=== PATIENT | male | born 1950 | race Caucasian/White ===

== ENCOUNTER 2020-03-05 13:25 | Outpatient (REF) | payer MEDICARE, SELFPAY ==
--- NOTE | 2020-03-05 13:41 | CT_ITS ---
EXAMINATION: CT CHEST WITHOUT CONTRAST CLINICAL INFORMATION: Pulmonary nodules COMPARISON: Previous chest CT scans most recent October 2018 TECHNIQUE: Multidetector volumetric CT imaging of the chest was done. Axial MIP volume rendering provided. Sagittal and coronal reformatted images were obtained. This CT examination was performed using dose optimization techniques as appropriate, variously including the following: *Automated exposure control *Adjustment of mA and/or kV according to patient size (this includes techniques or standardized protocols for targeted exams where dose is matched to indication/reason for exam; i.e. 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 No new pulmonary nodule is seen. There is a diffuse mild bronchial wall thickening similar to previous exams. There is minimal linear scarring or chronic subsegmental atelectasis in the posterior basal left lower lobe that is unchanged. No evidence of emphysema interstitial lung disease or bronchiectasis is seen. No endobronchial or endotracheal lesion is seen. MEDIASTINUM: There are small mediastinal lymph nodes that are stable. There are no enlarged lymph nodes. The heart does not appear enlarged. There is no coronary artery calcification. There is no pericardial effusion. The thoracic aorta is normal in caliber. Thyroid gland is unremarkable. PLEURA: There is no pleural effusion. No pleural mass or thickening. AXILLA: No lymphadenopathy. UPPER ABDOMEN: Unremarkable. OSSEOUS STRUCTURES: There are degenerative changes of the spine. IMPRESSION: Stable small pulmonary nodules. Mild diffuse bronchial wall thickening similar to previous exams.
== END 2020-03-05 13:26 | disposition home or self-care (01) ==
LOC: HO.CT 13:25
PROVIDERS: Visit Provider Family Medicine
DX: R91.1 Solitary pulmonary nodule (principal)
CPT/HCPCS: 71250

== ENCOUNTER → 2020-03-27 10:39 | Outpatient (BNVA) | payer MEDICARE, SELFPAY | PROVIDERS: PCP Family Medicine; Referring Provider Family Medicine; Visit Provider Internal Medicine | DX: I51.81 Takotsubo syndrome (principal); R06.02 Shortness of breath; R07.2 Precordial pain | CPT/HCPCS: 93005; 99212 ==

== ENCOUNTER 2020-04-24 08:08 | Day surgery (SDC) | payer MEDICARE, SELFPAY ==
--- NOTE | 2020-04-23 09:09 | HO.ANESPROP2 ---
Documented by User: Maddy Karen 04/23/20 13:33 HPI - Anesthesia Eval Consult details Narrative: 69yo M for Upper Endoscopy and Colonoscopy Low risk per cardiology. May proceed without further testing. [facility] Past Medical History Medical History (Updated 04/24/20 @ 09:55 by Steffi Morris) Allergic rhinitis Asthma Chronic low back pain Diabetes Essential hypertension GERD (gastroesophageal reflux disease) Hyperlipidemia Hypothyroidism Other and unspecified hyperlipidemia Polyneuropathy Stress-induced cardiomyopathy Family History Family History (Updated 03/27/20 @ 11:03 by THAD Iniguez) Father No problems noted. Mother No problems noted. Surgical History Surgical History History of back surgery History of sinus surgery Hx of colonoscopy Hx of esophagogastroduodenoscopy Social History Social History (Updated 03/27/20 @ 10:58 by THAD Iniguez) Smoking Status: Never smoker Second Hand Smoke Exposure: No Use of substances other than those prescribed or required for medical reasons: No Advance Directives: No Advance Directives Information Provided: Yes Advance Directives on File: No Meds Allergies Allergy/AdvReac Type Severity Reaction Status Date / Time No Known Allergies Allergy Unverified 02/01/20 19:00 [No Known Allergies*] Home Medications Medication Instructions Recorded Confirmed Type amlodipine 10 mg tablet 10 mg PO DAILY 03/27/20 04/18/20 History aspirin 81 mg tablet,delayed 81 mg PO DAILY 03/27/20 04/18/20 History release atorvastatin 40 mg tablet 40 mg PO DAILY tab 03/27/20 04/18/20 History cetirizine 10 mg tablet 10 mg PO DAILY 03/27/20 04/18/20 History diclofenac sodium 50 mg 50 mg PO BID 03/27/20 04/18/20 History tablet,delayed release ergocalciferol (vitamin D2) 1,250 1,250 mcg PO 03/27/20 03/27/20 History mcg (50,000 unit) capsule ferrous sulfate 325 mg (65 mg 325 mg PO BID 03/27/20 04/18/20 History iron) tablet fluticasone propionate 220 2 puff INHALATION BID 03/27/20 04/18/20 History mcg/actuation HFA aerosol inhaler fluticasone propionate 50 2 spray INTRANASAL DAILY 03/27/20 04/18/20 History mcg/actuation nasal spray,suspension gabapentin 800 mg tablet mg PO TID 03/27/20 03/27/20 History hydroxyzine pamoate 25 mg capsule 25 mg PO Q6H PRN 03/27/20 04/18/20 History levothyroxine 25 mcg tablet 25 mcg PO DAILY 03/27/20 04/18/20 History lisinopril 40 mg tablet 40 mg PO DAILY 03/27/20 04/18/20 History metformin 500 mg tablet 500 mg PO BID 03/27/20 04/18/20 History montelukast 10 mg tablet 10 mg PO DAILY 03/27/20 04/18/20 History multivitamin 1 tab PO DAILY 03/27/20 04/18/20 History prednisone 20 mg tablet 20 mg PO BID 03/27/20 04/18/20 History sertraline 25 mg tablet 25 mg PO DAILY 03/27/20 04/18/20 History tramadol 50 mg tablet 50 mg PO BID PRN 03/27/20 04/18/20 History umeclidinium 62.5 mcg/actuation 1 inh INHALATION 03/27/20 03/27/20 History blister powder for inhalation acetaminophen [Arthritis Pain 1 tab PO Q8H PRN 04/18/20 04/18/20 History Relief (acetam)] albuterol sulfate 1 amp INHALATION QID PRN 04/18/20 04/18/20 History albuterol sulfate [Ventolin HFA] 2 puff PO Q4-6H PRN 04/18/20 04/18/20 History dexlansoprazole [Dexilant] 1 cap PO DAILY 04/18/20 04/18/20 History famotidine 1 tab PO BEDTIME 04/18/20 04/18/20 History pantoprazole 1 tab PO DAILY 04/18/20 04/18/20 History Exam Exam Date and Time: April 23, 2020 0909 Narrative Narrative: EKG 03/2020: SR @ 91, No signif ST-T changes, otherwise unremarkable Cath 2014: luminal irregularities in LAD but otherwise unremarkable and no obstructive disease. Assessment and Plan Assessment Anesthesia Assessment: Chart Reviewed Documented by User: Steffi Morris 04/24/20 09:58 [facility] Past Medical History Medical History (Updated 04/24/20 @ 09:55 by Steffi Morris) Allergic rhinitis Asthma Chronic low back pain Diabetes Essential hypertension GERD (gastroesophageal reflux disease) Hyperlipidemia Hypothyroidism Other and unspecified hyperlipidemia Polyneuropathy Stress-induced cardiomyopathy Family History Family History (Updated 03/27/20 @ 11:03 by THAD Iniguez) Father No problems noted. Mother No problems noted. Family history of problems with anesthesia: No Surgical History Surgical History History of back surgery History of sinus surgery Hx of colonoscopy Hx of esophagogastroduodenoscopy History of Problems with Anesthesia: Yes (Some problem following sinus surgery - not sure if related to surgery or anesthesia. Surgical records from [facility] do not mention.) Social History Social History (Updated 03/27/20 @ 10:58 by THAD Iniguez) Smoking Status: Never smoker Second Hand Smoke Exposure: No Use of substances other than those prescribed or required for medical reasons: No Advance Directives: No Advance Directives Information Provided: Yes Advance Directives on File: No Meds Allergies Allergy/AdvReac Type Severity Reaction Status Date / Time No Known Allergies Allergy Unverified 02/01/20 19:00 [No Known Allergies*] Home Medications Medication Instructions Recorded Confirmed Type amlodipine 10 mg tablet 10 mg PO DAILY 03/27/20 04/18/20 History aspirin 81 mg tablet,delayed 81 mg PO DAILY 03/27/20 04/18/20 History release atorvastatin 40 mg tablet 40 mg PO DAILY tab 03/27/20 04/18/20 History cetirizine 10 mg tablet 10 mg PO DAILY 03/27/20 04/18/20 History diclofenac sodium 50 mg 50 mg PO BID 03/27/20 04/18/20 History tablet,delayed release ergocalciferol (vitamin D2) 1,250 1,250 mcg PO 03/27/20 03/27/20 History mcg (50,000 unit) capsule ferrous sulfate 325 mg (65 mg 325 mg PO BID 03/27/20 04/18/20 History iron) tablet fluticasone propionate 220 2 puff INHALATION BID 03/27/20 04/18/20 History mcg/actuation HFA aerosol inhaler fluticasone propionate 50 2 spray INTRANASAL DAILY 03/27/20 04/18/20 History mcg/actuation nasal spray,suspension gabapentin 800 mg tablet mg PO TID 03/27/20 03/27/20 History hydroxyzine pamoate 25 mg capsule 25 mg PO Q6H PRN 03/27/20 04/18/20 History levothyroxine 25 mcg tablet 25 mcg PO DAILY 03/27/20 04/18/20 History lisinopril 40 mg tablet 40 mg PO DAILY 03/27/20 04/18/20 History metformin 500 mg tablet 500 mg PO BID 03/27/20 04/18/20 History montelukast 10 mg tablet 10 mg PO DAILY 03/27/20 04/18/20 History multivitamin 1 tab PO DAILY 03/27/20 04/18/20 History prednisone 20 mg tablet 20 mg PO BID 03/27/20 04/18/20 History sertraline 25 mg tablet 25 mg PO DAILY 03/27/20 04/18/20 History tramadol 50 mg tablet 50 mg PO BID PRN 03/27/20 04/18/20 History umeclidinium 62.5 mcg/actuation 1 inh INHALATION 03/27/20 03/27/20 History blister powder for inhalation acetaminophen [Arthritis Pain 1 tab PO Q8H PRN 04/18/20 04/18/20 History Relief (acetam)] albuterol sulfate 1 amp INHALATION QID PRN 04/18/20 04/18/20 History albuterol sulfate [Ventolin HFA] 2 puff PO Q4-6H PRN 04/18/20 04/18/20 History dexlansoprazole [Dexilant] 1 cap PO DAILY 04/18/20 04/18/20 History famotidine 1 tab PO BEDTIME 04/18/20 04/18/20 History pantoprazole 1 tab PO DAILY 04/18/20 04/18/20 History Exam Height,Weight and Vital Signs: Vital Signs Temp Pulse Resp BP Pulse Ox 04/24/20 09:29 96.6 F L 65 16 127/79 98 Pertinent Lab Results Pertinent Lab Results: Lab Results 04/24/20 Range/Units 09:48 POC Glucose 94 (60-115) mg/dL Airway Mallampati Class: II TM Dist: >3cm Neck ROM: Full Heart: RRR Lungs: CTAB Assessment and Plan Assessment Anesthesia Assessment: Anesthesia Plan Discussed and Chart Reviewed Final Anesthetic Review NPO: Yes ASA Class: III Final Preanesthetic Review: No Changes in Pt Med Stat, Meds/Allgs Chart Reviewed, Consent Obtained/Reviewed and Anes Risks/Benef Reviewed Patient Risk: Intermediate Procedure Risk: Low Anesthetic Plan Anesthetic Plan: MAC: Disposition: Standard PACU
[2020-04-23 12:10] VITALS: BMI 24.0
--- NOTE | 2020-04-24 09:24 | MHC.SHP ---
Pre-Procedural Eval Section B Chief Complaint: SCREENING,GERD Relevant Family History (Specify if Yes): No Relevant Social History: None Present Medications: see Short Stay Collaborative assessment Medical History: Significant History (Allergic rhinitis Asthma Chronic low back pain Diabetes Essential hypertension GERD (gastroesophageal reflux disease) Hyperlipidemia Hypothyroidism Other and unspecified hyperlipidemia Polyneuropathy Stress-induced cardiomyopathy) History of Previous Operations: Relevant previous surgery/procedure and date(s) (back, sinus surgeries) Allergies: Allergies Allergy/AdvReac Type Severity Reaction Status Date / Time No Known Allergies Allergy Unverified 02/01/20 19:00 [No Known Allergies*] Review of Systems Sugical H&P ROS: Negative: Constitution, Cardiovascular, Respiratory, Neurological, Psychiatric, Hem-Onc, Allergic/Immunologic, Gastrointestinal, Genitourinary, Musculoskeletal, Integumentary, Endocrine and Eyes/Ears/Nose/Throat Exam Surgical H&P Exam: Normal: HEENT, Normal: Heart, Normal: Lungs, Normal: Extremities, Normal: Abdomen, Normal: Skin and Normal: Neurological Plan Diagnosis/Plan: Unchanged Patient has been examined and remains a candidate for the planned procedure
--- NOTE | 2020-04-24 09:26 | P.OP_ITS ---
Operative Note Operative Note Date of Service: 04/24/20 Narrative: Operative Information Procedure Description: EGD, Colonoscopy FLEXIBLE TRANSORAL UPPER GASTROINTESTINAL ENDOSCOPY AND COLONOSCOPY PROCEDURE NOTE UPPER ENDOSCOPY Consent: Indications for the procedure and potential complications of bleeding, perforation, reaction to medications and missed diagnosis were discussed with the patient and informed consent was obtained. Instrument: Olympus GIF H 190 J mid size upper endoscope Monitoring: Vital signs and clinical assessment, continuous EKG monitoring, Pulse oximetry, Carbon Dioxide monitoring and blood pressure monitoring were done throughout the procedure. Procedure: The patient was placed in the left lateral decubitis position and pre-procedure medications were administered and a bite block was placed. The endoscope was inserted into the mouth and advanced under direct vision to the third part of duodenum. A careful inspection was made as the upper endoscope was withdrawn including a retroflexed examination of the proximal stomach; Findings and interventions are described below. Findings: Larynx:normal Esophagus: GE junction at 46 cm, diaphragm hiatus at 46 cm, single tongue of salmon pink mucosa approx 2 cm, bx taken Stomach: erosions and scarring in antrum. Biopsies were obtained. Grade 2 flap valve on retroflexed examination of the cardia. Duodenum: Normal bulb and descending duodenum, Intervention: Biopsies as noted above COLONOSCOPY Instrument: Olympus variable stiffness pediatric scope 190L Colonoscopy Monitoring: Vital signs and clinical assessment, continuous EKG monitoring, Pulse oximetry, Carbon Dioxide monitoring and blood pressure monitoring were done throughout the procedure. Colon withdrawal time was 12 minutes. Procedure: The patient was placed in the left lateral decubitis position and pre-procedure medications were administered. After a digital rectal examination of the ano-rectum, the video colonoscope was inserted into the rectum and advanced through the colon to the cecum/TI. The colonoscope was slowly withdrawn in a retrograde panoramic fashion and the colon mucosa was carefully examined including a retroflexed view of the rectum. Findings and interventions are described below. Procedure Difficulty:moderate difficulty due to looping, long colon Findings: Terminal Ileum-normal Cecum:normal Ascending Colon: normal Transverse Colon -normal Descending Colon:normal Sigmoid Colon: normal Rectum: Retroflexion with small to moderate sized internal hemorrhoids, grade I Anorectum - normal Colon preparation: [place] Bowel Preparation Scale Right colon; 1 Transverse colon: 2 Left colon; 2 (0 = Unprepared colon segment with mucosa not seen due to solid stool that cannot be cleared. 1 = Portion of mucosa of the colon segment seen, but other areas of the colon segment not well seen due to staining, residual stool and/or opaque liquid. 2 = Minor amount of residual staining, small fragments of stool and/or opaque liquid, but mucosa of colon segment seen well. 3 = Entire mucosa of colon segment seen well with no residual staining, small fragments of stool or opaque liquid) Impression and Post Procedure Diagnosis: Endoscopy Findings: erosive gastritis possible barretts Colonoscopy Findings: internal hemorrhoids fair prep Plan: Await Pathology results if h pylori pos then treat Repeat Colonoscopy in 1-2 years or earlier if clinically indicated High fiber diet leaflet avoid straining at stool, epsom salts and sitz bath, anusol supps or cream prn Above findings were reviewed with the patient and relevant handouts were provided if indicated.
--- NOTE | 2020-04-24 09:26 | PM.OP ---
Brief Operative Note Date of Service: 04/24/20 Post-op diagnosis: same Procedure: see op note Surgeon: Ping Mazariegos MD Anesthesia: MAC Estimated blood loss (mL): 0 Condition: stable Disposition: PACU
[2020-04-24 09:29] VITALS: BP 127/79; PULSE 65; RESP 16; TEMP 35.9; O2SAT 98
[2020-04-24] MEDS: Lactated Ringers 1,000 ML 50 ML IVCONT (09:44)
[2020-04-24 09:52] LABS: Glucose, Whole Blood 94 mg/dL (60-115)
[2020-04-24] MEDS: Metoclopramide HCl 10 MG/2 ML VIAL IVPUSH (10:13)
[2020-04-24 10:58] VITALS: BP 111/56; PULSE 70; RESP 16; TEMP 36; O2SAT 100
[2020-04-24 11:13] VITALS: BP 120/62; PULSE 62; RESP 20; O2SAT 100
[2020-04-24 11:23] VITALS: BP 121/61; PULSE 76; RESP 13; TEMP 36; O2SAT 99
--- NOTE | 2020-04-24 11:57 | HO.POSTANES ---
Documented by User: Maddy Jones 04/24/20 11:57 Post Anesthesia Evaluation Post Anesthesia Evaluation Vital Signs: Vital Signs Temp Pulse Resp BP Pulse Ox 04/24/20 11:23 96.8 F 76 13 121/61 99 04/24/20 11:13 62 20 120/62 100 04/24/20 10:58 96.8 F 70 16 111/56 L 100 04/24/20 09:29 96.6 F L 65 16 127/79 98 Anesthesia: Monitored Mental Status: Awake Pain Control: Satisfactory Nausea/Vomiting: None Hydration: Adequate Anesthesia-Related Issues: No Anes. Related Issues
== END 2020-04-24 12:12 | disposition home or self-care (01) ==
PROVIDERS: PCP Family Medicine; Visit Provider Internal Medicine Gastroenterology
PROC: (CPT 43239; principal; 2020-04-24 10:20)
DX: Z12.11 Encounter for screening for malignant neoplasm of colon (principal); K64.0 First degree hemorrhoids; K56.2 Volvulus; Z86.010 Personal history of colon polyps; K29.60 Other gastritis without bleeding; K21.9 Gastro-esophageal reflux disease without esophagitis; E11.9 Type 2 diabetes mellitus without complications; Z79.84 Long term (current) use of oral hypoglycemic drugs
CPT/HCPCS: 43239; G0105; 82947; 88305; 88342; J2765

== ENCOUNTER → 2020-05-01 14:02 | Outpatient (BNVA) | payer MEDICARE, SELFPAY | PROVIDERS: PCP Family Medicine; Visit Provider Nurse Practitioner | DX: Z13.89 Encounter for screening for other disorder (principal) | CPT/HCPCS: Q3014 ==

== ENCOUNTER 2020-06-20 10:26 | Outpatient (REF) | payer MEDICARE, SELFPAY ==
--- NOTE | ~2020-06-20 | US_ITS ---
EXAMINATION: US RETROPERITONEAL COMPLETE (RENAL) CLINICAL INFORMATION: Microscopic hematuria. COMPARISON: Renals only ultrasound dated 07/11/2019 and 10/05/2018. CT abdomen and pelvis with and without contrast dated 07/06/2019. TECHNIQUE: Real-time imaging of the kidneys and bladder. FINDINGS: RIGHT KIDNEY: 12.4 x 5.7 x 7.0 cm (SAG x AP x TRV). The kidney is normal in size, contour, and echogenicity. Renal cortical thickness is normal. No focal parenchymal lesions or hydronephrosis. Mid pole 0.4 cm calculus noted. LEFT KIDNEY: 10.3 x 7.2 x 6.1 cm (SAG x AP x TRV). The kidney is normal in size, contour, and echogenicity. Renal cortical thickness is normal. No calculi or focal parenchymal lesions. No hydronephrosis. BLADDER: Well distended and normal. Bilateral ureteral jets are demonstrated. Prevoid bladder volume is 140 mL. Postvoid bladder volume is 11.9 mL. Prostate volume is 77.3 mL. US/US retroperitoneal comp IMPRESSION: Nonobstructing right midpole renal calculus. Enlarged prostate.
== END 2020-06-20 10:27 | disposition home or self-care (01) ==
LOC: HO.US 10:26
PROVIDERS: PCP Family Medicine; Visit Provider Family Medicine
DX: R31.29 Other microscopic hematuria (principal)
CPT/HCPCS: 76770

== ENCOUNTER → 2020-07-03 09:24 | Outpatient (BNVA) | payer MEDICARE, SELFPAY | PROVIDERS: PCP Family Medicine; Visit Provider Nurse Practitioner | DX: Z76.89 Persons encountering health services in other specified circumstances (principal) | CPT/HCPCS: Q3014 ==

== ENCOUNTER → 2020-07-10 12:57 | Outpatient (BNVA) | payer MEDICARE, SELFPAY | PROVIDERS: PCP Family Medicine; Visit Provider Internal Medicine Pulmonary Disease | DX: J44.9 Chronic obstructive pulmonary disease, unspecified (principal); J45.909 Unspecified asthma, uncomplicated | CPT/HCPCS: 99202 ==

== ENCOUNTER 2020-08-07 08:22 | Outpatient (REF) | payer MEDICARE, SELFPAY ==
--- NOTE | 2020-08-07 09:45 | PFT_ITS ---
INDICATION: Dyspnea. SPIROMETRY: The FEV1 to FVC 65% with an FEV1 of 3.26 L, which is 84% predicted and an FVC of 5.04 L, which is 102% predicted. Post bronchodilators, there was a significant improvement of the FEV1 by 12%. To note, the patient had evidence of small airways disease. Maximum voluntary ventilation 65% predicted. LUNG VOLUMES: Total lung capacity 103% predicted with a residual volume of 121% predicted. DIFFUSION CAPACITY: DLCO 82% predicted. COMPARISONS: None. INTERPRETATION: There is an obstructive ventilatory defect consistent with mild COPD. The patient also had significant response to bronchodilators and also had evidence of small airways disease. There was a moderate decrease in maximum voluntary ventilation secondary to likely deconditioning. Lung volumes do demonstrate a trend of air trapping due to the COPD and diffusion capacity is low normal. Clinical correlation warranted. MD NAY Porter/MODL / [id number]
== END 2020-08-07 08:23 | disposition home or self-care (01) ==
LOC: HO.RESP 08:22
PROVIDERS: PCP Family Medicine; Visit Provider Internal Medicine Pulmonary Disease
DX: J44.9 Chronic obstructive pulmonary disease, unspecified (principal)
CPT/HCPCS: 94060; 94727; 94729; 99212

== ENCOUNTER → 2020-08-14 09:10 | Outpatient (BNVA) | payer MEDICARE, SELFPAY | PROVIDERS: PCP Family Medicine; Visit Provider Nurse Practitioner | DX: K22.10 Ulcer of esophagus without bleeding (principal); K29.60 Other gastritis without bleeding | CPT/HCPCS: Q3014 ==

== ENCOUNTER → 2021-02-06 08:55 | Outpatient (BNVA) | payer MEDICARE, SELFPAY | PROVIDERS: Visit Provider Nurse Practitioner | CPT/HCPCS: Q3014 ==

== ENCOUNTER 2021-03-10 10:55 | Outpatient (REF) | payer MEDICARE, SELFPAY ==
--- NOTE | ~2021-03-10 | CT_ITS ---
EXAMINATION: CT CHEST WITHOUT CONTRAST CLINICAL INFORMATION: Follow-up pulmonary nodules COMPARISON: Previous chest CT scans most recent February 2020 TECHNIQUE: Multidetector volumetric CT imaging of the chest was done. Axial MIP volume rendering provided. Sagittal and coronal reformatted images were obtained. This CT examination was performed using dose optimization techniques as appropriate, variously including the following: *Automated exposure control *Adjustment of mA and/or kV according to patient size (this includes techniques or standardized protocols for targeted exams where dose is matched to indication/reason for exam; i.e. extremities or head) *Use of iterative reconstruction technique DLP: 204 mGy-cm FINDINGS: LUNGS: The small bilateral pulmonary nodules are stable. Largest nodules measure 3 mm. There is scarring or chronic subsegmental atelectasis in the left lower lobe that is stable. MEDIASTINUM: The mediastinum is normal. PLEURA: There is no pleural effusion. No pleural mass or thickening. AXILLA: No lymphadenopathy. UPPER ABDOMEN: Unremarkable. OSSEOUS STRUCTURES: There are mild degenerative changes of the spine. CT/CT chest wo con IMPRESSION: Stable small pulmonary nodules or micronodules. Stable scarring or chronic subsegmental atelectasis in the left lower lobe.
== END 2021-03-10 10:56 | disposition home or self-care (01) ==
LOC: HO.CT 10:55
PROVIDERS: PCP Family Medicine; Visit Provider Internal Medicine Pulmonary Disease
DX: R91.8 Other nonspecific abnormal finding of lung field (principal)
CPT/HCPCS: 71250

== ENCOUNTER → 2021-03-18 11:09 | Outpatient (BNVA) | payer MEDICARE, SELFPAY | PROVIDERS: PCP Family Medicine; Visit Provider Internal Medicine Pulmonary Disease | DX: J44.9 Chronic obstructive pulmonary disease, unspecified (principal); R91.8 Other nonspecific abnormal finding of lung field | CPT/HCPCS: 99212 ==

== ENCOUNTER 2021-05-14 08:07 | Outpatient (REF) | payer MEDICARE, SELFPAY ==
--- NOTE | ~2021-05-14 | US_ITS ---
EXAMINATION: US RETROPERITONEAL LIMITED (AORTA) CLINICAL INFORMATION: Follow up abdominal aortic ectasia. COMPARISON: Abdominal aortic ultrasound 08/12/2018. TECHNIQUE: Bartlett-scale, color Doppler and spectral Doppler evaluation of the abdominal aorta. FINDINGS: The aorta is normal. The measurements of the aorta in maximum AP and transverse dimensions respectively are as follows: Proximal: 2.6 x 2.6 cm. Mid: 1.9 x 2.1 cm. Distal: 1.8 x 2.1 cm. PSV: 97.8 cm/s. The measurements of the common iliac arteries in maximum AP and TRV dimensions are as follows: Right Common Iliac Artery: 1.3 x 1.2 cm. Left Common Iliac Artery: 1 x 0.7 cm. US/US aorta IMPRESSION: No abdominal aortic aneurysm..
== END 2021-05-14 08:08 | disposition home or self-care (01) ==
LOC: HO.US 08:07
PROVIDERS: PCP Family Medicine; Visit Provider Family Medicine
DX: I77.811 Abdominal aortic ectasia (principal)
CPT/HCPCS: 76775

== ENCOUNTER → 2021-05-22 10:04 | Outpatient (BNVA) | payer MEDICARE, SELFPAY | PROVIDERS: PCP Family Medicine; Referring Provider Family Medicine; Visit Provider Internal Medicine | DX: I51.81 Takotsubo syndrome (principal); I42.8 Other cardiomyopathies; I10 Essential (primary) hypertension | CPT/HCPCS: 93005; 99212 ==

== ENCOUNTER → 2021-08-20 12:40 | Outpatient (REF) | payer OTHER, SELFPAY ==
--- NOTE | 2021-08-20 12:44 | CA_ITS ---
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 Normal LV systolic function with grade 1 diastolic dysfunction 2. Normal cardiac valvular Doppler 3. Normal RV systolic pressure 4. No pericardial effusion Findings Left Ventricle Normal left ventricular size, thickness, and systolic function. The visually estimated ejection fraction is between 60-65%. Spectral Doppler is indicative of an impaired relaxation filling pattern. E/E prime ratio is <8, consistent with normal filling pressures. Evidence suggests grade I (mild) diastolic dysfunction. Right Ventricle Normal right ventricular cavity size and systolic function. Atria Both atria are normal in size. There is no evidence of interatrial shunt. Aortic Valve Normal aortic valve structure and function. There is no aortic valve stenosis. There is no aortic valve regurgitation. Mitral Valve Normal mitral valve structure and function. There is trace mitral valve regurgitation. There is no mitral valve stenosis. Pulmonic Valve The pulmonic valve is likely normal. There is trace pulmonic valve regurgitation. Tricuspid Valve Normal tricuspid valve structure. There is mild tricuspid valve regurgitation. The right ventricular systolic pressure is normal. Great Vessels All visible segments of the aorta are normal in size. The pulmonary artery was not well visualized. Venous The inferior vena cava is normal in size and collapses greater than 50% with inspiration. Pericardium/Pleural There is no evidence of pericardial effusion. Prior Study Comparison No significant change compared to prior study dated: 04/12/2019. Measurements 2D Linear Measurements IVSd: 1.08 0.6-0.9/0.6-1.0 cm LVIDd: 5.00 3.9-5.3/4.2-5.9 cm LVIDd Index: 2.30 2.4-3.2/2.2-3.1 cm/m2 LVIDs: 3.31 2.0-3.6 cm LVPWd: 0.89 0.7-1.1 cm LA Diam: 3.90 2.7-3.8/3.0-4.0 cm LAIDs Index: 1.80 1.5-2.3 cm/m2 LV Mass: 221.85 67-162/88-224 g LV Mass Index: 102.24 43-95/49-115 g/m2 LVOT Diam: 2.30 3.0+(-)1.3 cm Mitral Valve MV Pk E: 0.63 MV PK A: 0.96 MV Decel Time: 266.00 E/A: 0.70 E'Lateral: 7.83 E'Medial: 7.40 E/E' Med: 8.50 E/E' Lat: 8.00 PHT: 78.00 MVA PHT: 2.82 Decel [place]: 2.35 Aortic Valve AoV Pk Nikko: 1.54 AoV Mn Nikko: 1.09 AoV VTI: 0.32 AoV Pk Grad: 9.00 Aov Mn Grad: 5.00 MARIJA Cont.VTI: 2.81 LVOT LVOT Pk Nikko: 1.05 LVOT Mn Nikko: 0.67 LVOT VTI: 0.22 LVOT Pk Grad: 4.00 LVOT Mn Grad: 2.00 LVOT Diam: 2.30 LVOT Area: 4.15 Diastolic Function MV Pk E: 0.63 MV Pk A: 0.96 E/A: 0.70 E'Medial: 7.40 E/E' Med: 8.50 E' Laterial: 7.83 E/E' Lat: 8.00 Right Ventricle TAPSE (mm): 24.00 TVS' Nikko: 12.20 Tricuspid Valve TR Pk Nikko: 2.39 TR Pk Grad: 23.00 RA Press: 3.00 RVSP: 26.00 Great Vessels Aorta Sinus of Valsalva: 3.60 2.0-3.5 cm Ao Asc: 3.50 2.1-3.4 cm Updated in Other Vendor System with Status of Final Alonzo Boyd MD electronically signed on 08/21/2021 11:55:56 AM with status of Final
== END ==
LOC: HO.CARD 12:40
PROVIDERS: PCP Family Medicine; Visit Provider Internal Medicine
DX: I42.8 Other cardiomyopathies (principal); I51.81 Takotsubo syndrome
CPT/HCPCS: 93306

== ENCOUNTER 2021-09-24 11:08 | Outpatient (REF) | payer OTHER, SELFPAY ==
--- NOTE | ~2021-09-24 | XR_ITS ---
EXAMINATION: XR chest 2V CLINICAL INFORMATION: Reason for Exam PERSISTENT ASTHMA W WORSENING COUGH COMPARISON: Prior chest x-ray 2017. TECHNIQUE: XR chest 2V Lungs and Kacy: There is faint opacity projecting over the right lower lobe could be a summation of rib and vascular shadows and breast, cannot rule out underlying mild patchy infiltrates. Pleura: Normal. Costophrenic angles are sharp. No pneumothorax. Heart: The heart is normal in size. Mediastinum: The mediastinum is within normal limits.. Bones: Skeletal structures included are normal for patient's age. XR/XR chest 2V IMPRESSION: Faint patchy opacity projecting over the right lower lobe might be overlapping breast tissue, clinical correlation recommended, recommend clinical correlation and follow-up chest x-ray in one month.
== END 2021-09-24 11:09 | disposition home or self-care (01) ==
LOC: HO.XRAY 11:08
PROVIDERS: Absent Provider Emergency Medicine; PCP Family Medicine; Visit Provider Internal Medicine Pulmonary Disease
DX: J40 Bronchitis, not specified as acute or chronic (principal); R91.8 Other nonspecific abnormal finding of lung field; Z79.899 Other long term (current) drug therapy; Z87.891 Personal history of nicotine dependence
CPT/HCPCS: 71046; 99212

== ENCOUNTER → 2021-09-30 11:01 | Outpatient (BNVA) | payer OTHER, SELFPAY | PROVIDERS: PCP Family Medicine; Visit Provider Nurse Practitioner | DX: K21.9 Gastro-esophageal reflux disease without esophagitis (principal); K22.10 Ulcer of esophagus without bleeding; K29.60 Other gastritis without bleeding; R10.9 Unspecified abdominal pain | CPT/HCPCS: 99212 ==

== ENCOUNTER 2021-11-04 09:48 | Outpatient (REF) | payer OTHER, SELFPAY ==
--- NOTE | ~2021-11-04 | XR_ITS ---
EXAMINATION: XR KNEE, RIGHT XR KNEE, LEFT CLINICAL INFORMATION: Bilateral knee pain COMPARISON: Standing AP knees 02/07/2019, radiographs left knee 01/25/2019. TECHNIQUE: Each knee is imaged in 4 views. There are total of 8 views. FINDINGS: Right: Normal bony mineralization. No fracture, dislocation, destructive process. No joint narrowing or erosive change. There is some fine chondrocalcinosis lateral meniscus again noted. Axial view patella shows no lateralization or tilting or erosive change. No suprapatellar effusion. Hoffa's fat pad appears normal. There are calcifications vasculature likely combination of atherosclerotic and M?nckeberg medial calcific sclerosis.? Left: Normal bony mineralization. No fracture, dislocation, destructive process. No joint narrowing or erosive change. There is some fine chondrocalcinosis lateral meniscus again noted. Axial view patella shows no lateralization or tilting or erosive change. No suprapatellar effusion. Hoffa's fat pad appears normal. There are calcifications vasculature likely combination of atherosclerotic and M?nckeberg medial calcific sclerosis.? XR/XR knee LT 4V IMPRESSION: -No joint narrowing or erosive change. No effusion. -Bilateral chondrocalcinosis lateral menisci. -No lateralization or tilting patella.
--- NOTE | ~2021-11-04 | XR_ITS ---
EXAMINATION: XR KNEE, RIGHT XR KNEE, LEFT CLINICAL INFORMATION: Bilateral knee pain COMPARISON: Standing AP knees 02/07/2019, radiographs left knee 01/25/2019. TECHNIQUE: Each knee is imaged in 4 views. There are total of 8 views. FINDINGS: Right: Normal bony mineralization. No fracture, dislocation, destructive process. No joint narrowing or erosive change. There is some fine chondrocalcinosis lateral meniscus again noted. Axial view patella shows no lateralization or tilting or erosive change. No suprapatellar effusion. Hoffa's fat pad appears normal. There are calcifications vasculature likely combination of atherosclerotic and M?nckeberg medial calcific sclerosis.? Left: Normal bony mineralization. No fracture, dislocation, destructive process. No joint narrowing or erosive change. There is some fine chondrocalcinosis lateral meniscus again noted. Axial view patella shows no lateralization or tilting or erosive change. No suprapatellar effusion. Hoffa's fat pad appears normal. There are calcifications vasculature likely combination of atherosclerotic and M?nckeberg medial calcific sclerosis.? XR/XR knee RT 4V IMPRESSION: -No joint narrowing or erosive change. No effusion. -Bilateral chondrocalcinosis lateral menisci. -No lateralization or tilting patella.
== END 2021-11-04 09:49 | disposition home or self-care (01) ==
LOC: HO.XRAY 09:48
PROVIDERS: PCP Family Medicine; Visit Provider Family Medicine
DX: M25.561 Pain in right knee (principal); M25.562 Pain in left knee
CPT/HCPCS: 73564

== ENCOUNTER → 2021-11-18 11:02 | Outpatient (BNVA) | payer OTHER, SELFPAY | PROVIDERS: PCP Family Medicine; Visit Provider Urology | DX: N40.1 Benign prostatic hyperplasia with lower urinary tract symptoms (principal); N13.8 Other obstructive and reflux uropathy; R39.11 Hesitancy of micturition | CPT/HCPCS: 99202 ==

== ENCOUNTER 2022-01-15 11:22 | Outpatient (REF) | payer OTHER, SELFPAY ==
[2022-01-15 11:44] LABS: MANUAL DIFF FLAG NO
[2022-01-15 12:20] LABS: Basophils Absolute Auto 0.1 X10*3/uL (0.0-0.2); Basophils Percent Auto 1.5 % (0-2); Eosinophils Percent Auto 19.4 % (0-4); Hematocrit 38.2 % (42.0-52.0); Hemoglobin 13.1 g/dl (14.0-18.0); Imm Gran Abs Auto 0.01 X10*3/uL (0.00-0.03); Imm Gran Pct Auto 0.2 % (0.0-0.4); Lymphocytes Absolute Auto 1.4 X10*3/uL (1.2-4.9); Lymphocytes Percent Auto 25.6 % (20-40); Mean Corpuscular HGB Conc 34.3 g/dl (31.0-36.0); Mean Corpuscular Hemoglobin 29.7 pg (27.0-33.0); Mean Corpuscular Volume 86.6 fL (80.0-98.0); Mean Platelet Volume 9.7 fL (9.4-12.4); Monocytes Absolute Auto 0.5 X10*3/uL (0.1-1.2); Monocytes Percent Auto 8.4 % (2-11); Neutrophils Absolute Auto 2.4 x10*3/uL (2.0-8.3); Neutrophils Percent Auto 44.9 % (45-73); Platelet Count 279 X10*3/uL (160-400); Red Blood Count 4.41 X10*6/uL (4.60-5.80); Red Cell Distribution Width 13.5 % (11.0-16.0); White Blood Count 5.4 X10*3/uL (4.8-10.8)
[2022-01-15 13:06] LABS: Ferritin 69 ng/mL (20-250); Prostate Specific Antigen Scr 2.28 ng/mL (<0.05-4.0)
== END 2022-01-15 11:23 | disposition home or self-care (01) ==
LOC: HO.LAB 11:22
PROVIDERS: Visit Provider Internal Medicine Medical Oncology
DX: Z12.5 Encounter for screening for malignant neoplasm of prostate (principal); D64.9 Anemia, unspecified
CPT/HCPCS: 36415; 82728; 84153; 85025

== ENCOUNTER → 2022-01-20 10:24 | Outpatient (BNVA) | payer OTHER, SELFPAY | PROVIDERS: Visit Provider Urology | DX: N40.1 Benign prostatic hyperplasia with lower urinary tract symptoms (principal); R35.1 Nocturia; R39.12 Poor urinary stream | CPT/HCPCS: 51798; 99212 ==

== ENCOUNTER 2022-02-10 10:27 | Outpatient (REF) | payer OTHER, SELFPAY ==
--- NOTE | ~2022-02-10 | CT_ITS ---
EXAMINATION: CT CHEST WITHOUT CONTRAST CLINICAL INFORMATION: Follow-up pulmonary nodules COMPARISON: Previous chest CT most recent February 2021 and chest x-ray September 2021 TECHNIQUE: Multidetector volumetric CT imaging of the chest was done. Axial MIP volume rendering provided. Sagittal and coronal reformatted images were obtained. This CT examination was performed using dose optimization techniques as appropriate, variously including the following: *Automated exposure control *Adjustment of mA and/or kV according to patient size (this includes techniques or standardized protocols for targeted exams where dose is matched to indication/reason for exam; i.e. extremities or head) *Use of iterative reconstruction technique DLP: 205 mGy-cm FINDINGS: GENERAL CLAIMS AGENT: Unremarkable LUNGS: The small pulmonary nodules are stable. Largest nodule is a 3 mm right lower lobe nodule axial image 5. There is chronic scarring or subsegmental atelectasis at the left lung base that is stable. There is slight thickening along the left pleural fissure that is stable. The lungs are otherwise clear. No new pulmonary nodule. No endobronchial or endotracheal lesion. MEDIASTINUM: Normal heart size. Trace pericardial effusion or thickening that is new. No coronary artery calcification. Small stable mediastinal lymph nodes. Normal caliber thoracic aorta. Normal thyroid gland. CORONARY ARTERY CALCIFICATION: None PLEURA: There is a very small right pleural effusion that is new. There is no left pleural effusion. AXILLA: No lymphadenopathy. UPPER ABDOMEN: Unremarkable. OSSEOUS STRUCTURES: Degenerative changes of the spine. CT/CT chest wo IV con IMPRESSION: Stable small pulmonary nodules. Stable chronic subsegmental atelectasis or scarring in the left lower lobe. New very small right pleural effusion. Fleischner guidelines were followed.
== END 2022-02-10 10:28 | disposition home or self-care (01) ==
LOC: HO.CT 10:27
PROVIDERS: Visit Provider Internal Medicine Pulmonary Disease
DX: R91.8 Other nonspecific abnormal finding of lung field (principal)
CPT/HCPCS: 71250

== ENCOUNTER 2022-02-16 07:44 | Outpatient (REF) | payer OTHER, SELFPAY ==
--- NOTE | ~2022-02-16 | XR_ITS ---
EXAMINATION: XR KNEE AP STANDING CLINICAL INFORMATION: Knee pain. COMPARISON: Bilateral knee 11/04/2021. TECHNIQUE: AP bilateral standing view of the knees was obtained. FINDINGS: The medial and lateral compartment joint space appears preserved. Minimal chondrocalcinosis is seen in bilateral lateral menisci. No bony erosive changes, loose bodies or soft tissue swelling. XR/XR knee standing BI IMPRESSION: Bilateral lateral meniscal chondrocalcinosis, similar to previous study 11/04/2021.
== END 2022-02-16 07:45 | disposition home or self-care (01) ==
LOC: HO.HOSX 07:44
PROVIDERS: Visit Provider Physician Assistant
DX: M25.562 Pain in left knee (principal); M54.16 Radiculopathy, lumbar region
CPT/HCPCS: 73565; 99202

== ENCOUNTER → 2022-03-25 13:54 | Outpatient (BNVA) | payer OTHER, SELFPAY | PROVIDERS: PCP Family Medicine; Visit Provider Urology | DX: R39.11 Hesitancy of micturition (principal); R39.12 Poor urinary stream | CPT/HCPCS: 52000; 99212 ==

== ENCOUNTER → 2022-04-02 11:06 | Outpatient (BNVA) | payer OTHER, SELFPAY | PROVIDERS: PCP Family Medicine; Visit Provider Nurse Practitioner | DX: K22.10 Ulcer of esophagus without bleeding (principal); K21.9 Gastro-esophageal reflux disease without esophagitis; K29.60 Other gastritis without bleeding; R10.9 Unspecified abdominal pain | CPT/HCPCS: 99212 ==

== ENCOUNTER → 2022-05-26 10:44 | Outpatient (BNVA) | payer OTHER, SELFPAY | PROVIDERS: PCP Family Medicine; Referring Provider Family Medicine; Visit Provider Internal Medicine | DX: Z01.810 Encounter for preprocedural cardiovascular examination (principal); I51.81 Takotsubo syndrome; I42.8 Other cardiomyopathies; I10 Essential (primary) hypertension; Z79.899 Other long term (current) drug therapy | CPT/HCPCS: 93005; 99212 ==

== ENCOUNTER 2022-07-15 10:38 | Outpatient (REF) | payer OTHER, SELFPAY ==
--- NOTE | ~2022-07-15 | MM_ITS ---
EXAMINATION: MM DIAGNOSTIC DIGITAL BREAST TOMOSYNTHESIS, BILATERAL. Targeted left breast ultrasound. CLINICAL INFORMATION: Left breast pain. COMPARISON: Mammography: None TECHNIQUE: Digital breast tomosynthesis was performed in both the craniocaudal and mediolateral oblique views along with computer-aided detection (CAD). Synthesized 2D images were generated from the tomosynthesis. Targeted left breast ultrasound. FINDINGS: There are scattered areas of fibroglandular density (ACR BI-RADS breast composition Category b). There is asymmetric density seen within the left breast compared to right with the appearance of possible gynecomastia with no specific mass being appreciated within the left breast. Targeted left breast ultrasound did not demonstrate any abnormal cystic or solid masses. No region of abnormal distal sound shadowing seen. There is the appearance of gynecomastia. Results are discussed with the patient at time of visit. MM/MM tomosynthesis diagnostic BI IMPRESSION: Appearance of asymmetric left breast gynecomastia for which 6-month follow up left breast mammogram is suggested. ASSESSMENT: BI-RADS 3: Probably Benign. RECOMMENDATION: Diagnostic mammography in 6 months. This patient's information was entered into a reminder system with a target due date for their next mammogram.
== END 2022-07-15 10:39 | disposition home or self-care (01) ==
LOC: HO.MAMMO 10:38
PROVIDERS: PCP Family Medicine; Visit Provider Family Medicine
DX: N62 Hypertrophy of breast (principal); N64.4 Mastodynia
CPT/HCPCS: 76642; 77062; 77066

== ENCOUNTER → 2022-08-13 10:55 | Outpatient (BNVA) | payer OTHER, SELFPAY | PROVIDERS: PCP Family Medicine; Visit Provider Internal Medicine Pulmonary Disease | DX: J44.9 Chronic obstructive pulmonary disease, unspecified (principal); J45.909 Unspecified asthma, uncomplicated; R91.8 Other nonspecific abnormal finding of lung field | CPT/HCPCS: 99212 ==

== ENCOUNTER → 2022-09-30 10:51 | Outpatient (BNVA) | payer OTHER, SELFPAY | PROVIDERS: PCP Family Medicine; Visit Provider Nurse Practitioner | DX: K21.9 Gastro-esophageal reflux disease without esophagitis (principal); K29.60 Other gastritis without bleeding; K22.10 Ulcer of esophagus without bleeding | CPT/HCPCS: 99212 ==

== ENCOUNTER → 2022-10-21 10:40 | Outpatient (BNVA) | payer OTHER, SELFPAY | PROVIDERS: PCP Family Medicine; Visit Provider Surgery | DX: N62 Hypertrophy of breast (principal) | CPT/HCPCS: 99202 ==

== ENCOUNTER 2023-01-21 13:25 | Outpatient (REF) | payer OTHER, SELFPAY ==
--- NOTE | ~2023-01-21 | MM_ITS ---
EXAMINATION: MM DIAGNOSTIC DIGITAL BREAST TOMOSYNTHESIS, LEFT CLINICAL INFORMATION: 6 month follow-up left breast gynecomastia. COMPARISON: Mammography: 07/15/2022 TECHNIQUE: Digital left breast tomosynthesis is performed in both the craniocaudal and mediolateral oblique views along with computer-aided detection (CAD). Synthesized 2D images are generated from the tomosynthesis. FINDINGS: There are scattered areas of fibroglandular density (ACR BI-RADS breast composition Category b). There is similar-appearing retroareolar tissue development in the left breast consistent with moderate to advanced gynecomastia. No masses, suspicious calcifications, or areas of architectural distortion. No significant change. MM/MM tomosynthesis diagnostic LT IMPRESSION: There are no significant changes from prior study. Moderate to severe left male gynecomastia. Recommend clinical management. ASSESSMENT: BI-RADS BI-RADS 2 - Benign Findings RECOMMENDATIONS: Clinical management. Results were provided to the patient at time of visit by the technologist.
== END 2023-01-21 13:26 | disposition home or self-care (01) ==
LOC: HO.MAMMO 13:25
PROVIDERS: Visit Provider Family Medicine
DX: R92.2 Inconclusive mammogram (principal)
CPT/HCPCS: 77061; 77065

== ENCOUNTER → 2023-01-21 14:00 | Outpatient (BNV) | payer OTHER, SELFPAY | PROVIDERS: Visit Provider Radiology Diagnostic Radiology | DX: N62 Hypertrophy of breast (principal) | CPT/HCPCS: 77061; 77065 ==

== ENCOUNTER 2023-04-06 10:34 | Outpatient (REF) | payer OTHER, SELFPAY ==
[2023-04-06 11:54] LABS: MANUAL DIFF FLAG NO
[2023-04-06 11:57] LABS: Basophils Absolute Auto 0.1 X10*3/uL (0.0-0.2); Basophils Percent Auto 0.9 % (0-2); Eosinophils Absolute Auto 0.8 X10*3/uL (0.0-0.4); Eosinophils Percent Auto 13.9 % (0-4); Hematocrit 37.3 % (42.0-52.0); Hemoglobin 12.8 g/dl (14.0-18.0); Imm Gran Abs Auto 0.01 X10*3/uL (0.00-0.03); Imm Gran Pct Auto 0.2 % (0.0-0.4); Lymphocytes Absolute Auto 1.3 X10*3/uL (1.2-4.9); Lymphocytes Percent Auto 23.5 % (20-40); Mean Corpuscular HGB Conc 34.3 g/dl (31.0-36.0); Mean Corpuscular Volume 87.4 fL (80.0-98.0); Mean Platelet Volume 9.2 fL (9.4-12.4); Monocytes Absolute Auto 0.4 X10*3/uL (0.1-1.2); Monocytes Percent Auto 7.8 % (2-11); Neutrophils Absolute Auto 3.1 x10*3/uL (2.0-8.3); Neutrophils Percent Auto 53.7 % (45-73); Platelet Count 272 X10*3/uL (160-400); Red Blood Count 4.27 X10*6/uL (4.60-5.80); Red Cell Distribution Width 13.7 % (11.0-16.0); White Blood Count 5.7 X10*3/uL (4.8-10.8)
[2023-04-06 12:17] LABS: Alanine Aminotransferase 26 U/L (0-40); Albumin Level 4.1 g/dL (3.5-5.0); Alkaline Phosphatase 88 U/L (39-117); Anion Gap 9 (12-20); Aspartate Amino Transferase 31 U/L (5-37); Bilirubin Total 0.4 mg/dL (0.0-1.0); Blood Urea Nitrogen 17 mg/dL (9-16); Calcium 8.9 mg/dL (8.4-10.2); Carbon Dioxide 28 mmol/L (22-29); Chloride 112 mmol/L (96-108); Estimated Glomerular Filt Rate > 60; Glucose Random 109 mg/dL (60-115); Potassium 3.5 mmol/L (3.3-5.1); Sodium 145 mmol/L (135-145); Total Protein 7.2 g/dL (6.5-8.0)
[2023-04-06 12:31] LABS: Ferritin 95 ng/mL (20-250)
== END 2023-04-06 10:35 | disposition home or self-care (01) ==
LOC: HO.LAB 10:34
PROVIDERS: PCP Family Medicine; Visit Provider Nurse Practitioner
DX: Z01.818 Encounter for other preprocedural examination (principal); K58.9 Irritable bowel syndrome, unspecified; K21.9 Gastro-esophageal reflux disease without esophagitis; K29.60 Other gastritis without bleeding; D12.6 Benign neoplasm of colon, unspecified; D64.9 Anemia, unspecified; R10.9 Unspecified abdominal pain; Z79.899 Other long term (current) drug therapy
CPT/HCPCS: 36415; 80053; 82728; 85025; 99212

== ENCOUNTER 2023-04-06 10:34 | Outpatient (AMB) | payer OTHER, SELFPAY ==
[2023-04-06 10:44] VITALS: BP 145/77; PULSE 67; BMI 27.9
--- NOTE | 2023-04-06 10:44 | MHC.OFFVIS ---
Intake Vital Signs 04/06/23 10:44 Height 6 ft 1 in Weight 211 lb 3.245 oz BMI 27.9 BP 145/77 H Blood Pressure Location Lt brachial Position Sitting Pulse 67 Intake Visit Reasons: 6 month follow up Intake Note: Patient presents to in office visit today in 6 months follow up of IBS, GERD CC: Patient continues to hear some noise from stomach and feels movement. He reports doing better from constipation. Denies other GI symptoms. 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 Accompanied by: Self / Same As Patient Allergies No Known Allergies [No Known Allergies*] Allergy (Verified 04/06/23 10:46) HPI 6 month follow up HPI Details Assessment & Plan (1) GERD (gastroesophageal reflux disease): Comment: 03/2020 EGD showed gastritis biopsy negative for active inflammation in negative for Coy's metaplasia Code(s): K21.9 - Gastro-esophageal reflux disease without esophagitis Plan: TOGOLESE #Maria De Jesus Live He continues to do well on his GI regimen The only thing that has not gone away is the noise, but I explain that if we increase the bentyl we risk worsening CIC - he opts to leave the regimen unchanged. The dicyclomine provide good control of his cramping, Dexilant and senna provide good control of his GERD and his constipation and he uses famotidine at night if he has breakthrough for his GERD.? He had a recent mammogram for a mass on the left side, he does not know the results yet. ROV 6 mos. (2) Erosive gastritis: Code(s): K29.60 - Other gastritis without bleeding (3) Erosive esophagitis: Code(s): K22.10 - Ulcer of esophagus without bleeding (4) Abdominal cramping: Code(s): R10.9 - Unspecified abdominal pain Medications: New dexlansoprazole 60 mg PO DAILY 30 caps 6RF famotidine 40 mg PO BEDTIME 30 tabs 6RF dicyclomine 10 mg PO QID 120 caps 6RF R10.9 - Unspecifie d abdominal pain Refilled docusate sodium 100 mg PO QAM 30 caps 6RF Laboratory Tests 04/06/23 11:54 WBC 5.7 Hgb 12.8 L Hct 37.3 L Plt Count 272 Estimated GFR > 60 Ferritin 95 Total Bilirubin 0.4 AST 31 ALT 26 Alkaline Phosphata se 88 TODAY'S VISIT TOGOLESE #Dolly Live He continues to do well. His dicyclomine provides good control of his cramping, Dexilant and senna provide good control of his GERD and his constipation and he uses famotidine at night if he has breakthrough for his GERD. Agreeable to repeat colonoscopy. There are no prior problems with anesthesia or sedation. He has nonischemic cardiomyopathy is well controlled and his asthma/COPD is also well controlled. There are no infectious disease problems. He has a history of tubular adenoma and had insufficient prep on his last procedure. Will be sending GoLYTELY and Dulcolax pills for his next prep to try to get better clearance. Return office visit in 6 months and after the procedures. [facility] Medical History Gynecomastia Hyperlipidemia Chronic low back pain GERD (gastroesophageal reflux disease) Polyneuropathy Allergic rhinitis Diabetes Hypothyroidism Essential hypertension Other and unspecified hyperlipidemia Asthma Stress-induced cardiomyopathy Surgical History History of back surgery History of sinus surgery Hx of esophagogastroduodenoscopy Hx of colonoscopy Family History Father No problems noted. Mother No problems noted. 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 Review of Systems Const Denies fatigue, Denies fever(s), Denies night sweats, Denies poor appetite and Denies weight loss Eyes Details: glasses Reports requires corrective lenses ENT Reports Normal hearing present, Denies dental pain, Denies dysphagia, Denies hearing loss, Denies mouth pain, Denies odynophagia, Denies throat swelling, Denies tongue swelling and Reports other (Dentition adequate) GI Denies abdominal pain, Denies melena, Denies bloating, Denies hematochezia, Denies constipation, Denies GI cramping, Denies dysphagia, Denies excessive flatus, Denies early satiety, Denies heartburn, Denies diarrhea, Denies nausea, Denies odynophagia, Denies vomiting and Denies hematemesis Skin/Breast Denies pruritus, Denies lesions, Denies rash and Denies jaundice Neuro Reports Normal hearing present and Denies Abnormal speech present Endo Denies fatigue Aller/Immun Denies throat swelling and Denies tongue swelling Physical Exam Vital Signs: Last Vital Signs Pulse 67 04/06/23 10:44 BP 145/77 H 04/06/23 10:44 BMI result Body Mass Index 27.9 Const General: cooperative, no acute distress, well developed and well groomed Nutritional Appearance: well nourished, obese and overweight Orientation/consciousness: oriented to person, oriented to place and oriented to time Limitations: No language barrier, ambulation with cane, ambulation with walker and wheelchair HEENT Head: Yes normocephalic and Yes atraumatic Eyes General: appearance normal, both eyes and all related structures Pupils: Equal, round and reactive pupils present Neck Neck: Yes normal visual inspection and Yes no lymphadenopathy Thyroid: Thyroid normal Resp Effort & Inspection: normal respiratory effort and able to speak in complete sentences Auscultation: clear to auscultation bilaterally Cardio Rate: regular rate Rhythm: regular rhythm Heart sounds: Normal, physiologic split S2 sound present Peripheral pulses: radial pulses present and posterior tibial pulses present GI Inspection: No distended and No Abdominal panniculus present Palpation (GI): Soft to palpation, nontender, no guarding, not rigid, No hepatosplenomegaly present and Hepatosplenomegaly present Percussion: Yes normal to percussion Auscultation: normal bowel sounds Rectal Exam - Male: Yes deferred Skin General skin exam: no rashes or lesions noted, turgor normal, skin not dry, no jaundice, No spider nevi and no striae Rashes: no rashes Nails: normal Neuro General: oriented to person, oriented to place and oriented to time Cranial nerves: Yes Equal, round and reactive pupils present and Yes Normal hearing present Speech: No Abnormal speech present Extrem General: Yes normal to inspection, No clubbing, No cyanosis and No edema Psych Thought process: Normal thought process present and not confabulating Thought content: Normal thought content present Insight: Good insight present (Psych) Judgement: Good judgement present (Psych) Results Reviewed Results Reviewed: Laboratory Tests 04/06/23 11:54 WBC 5.7 Hgb 12.8 L Hct 37.3 L Plt Count 272 Estimated GFR > 60 Ferritin 95 Total Bilirubin 0.4 AST 31 ALT 26 Alkaline Phosphatase 88 Assessment & Plan Assessment & Plan (1) GERD (gastroesophageal reflux disease): Comment: 03/2020 EGD showed gastritis biopsy negative for active inflammation in negative for Coy's metaplasia Code(s): K21.9 - Gastro-esophageal reflux disease without esophagitis (2) Erosive gastritis: Code(s): K29.60 - Other gastritis without bleeding (3) Tubular adenoma of colon: Comment: 2019 last scope repeat 1-2 years r/t insuff prep Code(s): D12.6 - Benign neoplasm of colon, unspecified (4) Pre-op examination: Code(s): Z01.818 - Encounter for other preprocedural examination Plan TOGOLESE #Dolly Live He continues to do well. His dicyclomine provides good control of his cramping, Dexilant and senna provide good control of his GERD and his constipation and he uses famotidine at night if he has breakthrough for his GERD. Agreeable to repeat colonoscopy. There are no prior problems with anesthesia or sedation. He has nonischemic cardiomyopathy is well controlled and his asthma/COPD is also well controlled. There are no infectious disease problems. He has a history of tubular adenoma and had insufficient prep on his last procedure. Will be sending GoLYTELY and Dulcolax pills for his next prep to try to get better clearance. Return office visit in 6 months and after the procedures Orders: Orders Colonoscopy - GI Use Only Today D12.6 - Benign neoplasm of colon, unspecified Comprehensive Met. Panel 6 Months D64.9 - Anemia, unspecified Ferritin 6 Months D64.9 - Anemia, unspecified Complete Blood Count Auto Diff 6 Months D64.9 - Anemia, unspecified Medications: New bisacodyl (Dulcolax (bisacodyl)) 10 mg (2 x 5 mg) PO BEDTIME 2 days 4 tabs 0RF peg 3350-electrolytes 236-22.74-6.74 -5.86 gram (Golytely) until fecal effluent is clear; do not exceed a total volume of 2,000 mL 240 mL PO Q10M 1 day 4,000 mL 0RF Z12.11 - Encounter for screening for malignant neoplasm of colon Refilled dicyclomine 10 mg PO QID 120 caps 6RF R10.9 - Unspecified abdominal pain dexlansoprazole 60 mg PO QAM 30 caps 6RF docusate sodium 100 mg PO QAM 30 caps 6RF famotidine 40 mg PO BEDTIME 30 tabs 6RF Coding Level of Care Code Est Pt Level 4 (16832) Diagnoses GERD (gastroesophageal reflux disease) K21.9 Erosive gastritis K29.60 Tubular adenoma of colon D12.6 Pre-op examination Z01.818
== END 2023-04-06 11:21 | disposition home or self-care (01) ==
PROVIDERS: Visit Provider Nurse Practitioner
DX: K21.9 Gastro-esophageal reflux disease without esophagitis (principal); K29.60 Other gastritis without bleeding; D12.6 Benign neoplasm of colon, unspecified; Z01.818 Encounter for other preprocedural examination
CPT/HCPCS: 99214

== ENCOUNTER 2023-04-29 10:36 | Outpatient (REF) | payer OTHER, SELFPAY ==
[2023-04-29 11:35] LABS: MANUAL DIFF FLAG NO
[2023-04-29 12:03] LABS: Basophils Absolute Auto 0.1 X10*3/uL (0.0-0.2); Basophils Percent Auto 1.4 % (0-2); Eosinophils Absolute Auto 1.1 X10*3/uL (0.0-0.4); Eosinophils Percent Auto 18.6 % (0-4); Hematocrit 39.9 % (42.0-52.0); Hemoglobin 13.4 g/dl (14.0-18.0); Imm Gran Abs Auto 0.01 X10*3/uL (0.00-0.03); Imm Gran Pct Auto 0.2 % (0.0-0.4); Lymphocytes Absolute Auto 1.6 X10*3/uL (1.2-4.9); Lymphocytes Percent Auto 28.8 % (20-40); Mean Corpuscular HGB Conc 33.6 g/dl (31.0-36.0); Mean Corpuscular Hemoglobin 30.2 pg (27.0-33.0); Mean Corpuscular Volume 89.9 fL (80.0-98.0); Mean Platelet Volume 10.2 fL (9.4-12.4); Monocytes Absolute Auto 0.6 X10*3/uL (0.1-1.2); Monocytes Percent Auto 11.2 % (2-11); Neutrophils Absolute Auto 2.3 x10*3/uL (2.0-8.3); Neutrophils Percent Auto 39.8 % (45-73); Platelet Count 243 X10*3/uL (160-400); Red Blood Count 4.44 X10*6/uL (4.60-5.80); Red Cell Distribution Width 13.5 % (11.0-16.0); White Blood Count 5.7 X10*3/uL (4.8-10.8)
[2023-04-29 12:06] LABS: Estimated Average Glucose 111 mg/dL; Hemoglobin A1c % 5.5 % (<6.0)
[2023-04-29 12:30] LABS: Creatinine Urine 152.81 mg/dL; Microalbum/Creatinine Ratio Ur 7.8 ug/mg cr (<30)
[2023-04-29 12:32] LABS: Alanine Aminotransferase 23 U/L (0-40); Albumin Level 4.1 g/dL (3.5-5.0); Alkaline Phosphatase 101 U/L (39-117); Anion Gap 11 (12-20); Aspartate Amino Transferase 29 U/L (5-37); Bilirubin Direct 0.2 mg/dL (0.0-0.5); Bilirubin Total 0.4 mg/dL (0.0-1.0); Blood Urea Nitrogen 14 mg/dL (9-16); Carbon Dioxide 26 mmol/L (22-29); Chloride 110 mmol/L (96-108); Cholesterol 142 mg/dL (<200); Estimated Glomerular Filt Rate > 60; Glucose Random 101 mg/dL (60-115); HDL Cholesterol 46 mg/dL (>40); Iron 117 mcg/dL (45-160); LDL Cholesterol Calculated 83 mg/dL (<100); Percent Iron Saturation 45 % (15-50); Potassium 4.2 mmol/L (3.3-5.1); Sodium 143 mmol/L (135-145); Total Iron Binding Capacity 261 mcg/dL (228-428); Total Protein 7.4 g/dL (6.5-8.0); Triglycerides 69 mg/dL (<150); Unsaturated Iron Binding 144 ug/dL
[2023-04-29 12:48] LABS: Folate 10.4 ng/mL (> or = 4.0); Vitamin B12 432 pg/mL (200-900)
[2023-04-29 12:50] LABS: Ferritin 139 ng/mL (20-250); Free T4 (Free Thyroxine) 0.97 ng/dL (0.71-1.85); Thyroid Stimulating Hormone 1.23 uIU/mL (0.32-4.0); Vitamin D 25-OH Total 53.5 ng/mL (>30)
== END 2023-04-29 10:37 | disposition home or self-care (01) ==
LOC: HO.HHCL 10:36
PROVIDERS: Visit Provider Family Medicine
DX: E11.42 Type 2 diabetes mellitus with diabetic polyneuropathy (principal)
CPT/HCPCS: 36415; 80048; 80061; 80076; 82043; 82306; 82570; 82607; 82728; 82746; 83036; 83540; 84439; 84443; 85025

== ENCOUNTER 2023-09-02 12:44 | Outpatient (REF) | payer OTHER, SELFPAY ==
--- NOTE | ~2023-09-02 | XR_ITS ---
EXAMINATION: XR CHEST CLINICAL INFORMATION: Intermittent shortness of breath COMPARISON: 09/24/2021 TECHNIQUE: 2 views of the chest were obtained. FINDINGS: No significant abnormality is noted involving the heart, lungs, mediastinum, bony thorax or soft tissues. XR/XR chest 2V IMPRESSION: Unremarkable examination.
== END 2023-09-02 12:45 | disposition home or self-care (01) ==
LOC: HO.HHCX 12:44
PROVIDERS: Visit Provider Family Medicine
DX: R06.09 Other forms of dyspnea (principal)
CPT/HCPCS: 71046

== ENCOUNTER 2023-09-13 13:51 | Outpatient (AMB) | payer OTHER, SELFPAY ==
[2023-09-13 14:45] VITALS: BP 110/72; PULSE 81; BMI 27.2
--- NOTE | 2023-09-13 14:45 | A.OFFVIS_ITS ---
Vital Signs 09/13/23 14:45 Height 6 ft 1 in Weight 206 lb 5.643 oz BMI 27.2 BP 110/72 Blood Pressure Location Rt brachial Position Sitting Pulse 81 Pulse Source Monitor Intake Visit Reasons: r/s 07/12/23 followup Director Business Development Required: Yes Director Business Development Language: Sales Representative Groceries Name: joseluis [place] [phone] Allergies No Known Allergies [No Known Allergies*] Allergy (Verified 09/13/23 14:47) Medication List - Last Reconciled 09/13/23 by KARI Santos albuterol sulfate 90 mcg/actuation (Ventolin HFA) 2 puffs PO Q4-6H PRN albuterol sulfate 1 amp inhalation QID PRN amlodipine 10 mg PO DAILY atorvastatin 40 mg PO BEDTIME bisacodyl (Dulcolax (bisacodyl)) 10 mg (2 x 5 mg) PO BEDTIME 2 days blood sugar diagnostic (FreeStyle Lite Strips) As directed cetirizine (All Day Allergy (cetirizine)) 10 mg PO DAILY PRN cholecalciferol (vitamin D3) 50 mcg PO DAILY docusate sodium 100 mg PO QAM dupilumab (Dupixent) 300 mg subcut Q2W famotidine 40 mg PO BEDTIME ferrous sulfate 325 mg PO BID gabapentin 800 mg PO TID levothyroxine 25 mcg PO DAILY lisinopril 40 mg PO DAILY metformin 500 mg PO DAILY montelukast 10 mg PO DAILY multivitamin 1 tab PO DAILY peg 3350-electrolytes 236-22.74-6.74 -5.86 gram (Golytely) 240 mL PO Q10M 1 day sertraline 25 mg PO DAILY HPI HPI r/s 07/12/23 followup: Details: Marybeth is a 72-year-old male with past medical history of hypertension, hyperlipidemia, diabetes, asthma, stress-induced cardiomyopathy 2014 who presents for follow-up. His last prior visit to our office was 05/26/2022. Today he reports he has been feeling well with no concerning symptoms. Denies any chest discomfort at rest or with activity. No PND, orthopnea or edema. He does have some mild shortness of breath at times which he relates to his asthma. No lightheadedness, presyncope, syncope, falls. He walks routinely for exercise. Taking all meds as directed. 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 PFSH Medical History Gynecomastia Hyperlipidemia Chronic low back pain GERD (gastroesophageal reflux disease) Polyneuropathy Allergic rhinitis Diabetes Hypothyroidism Essential hypertension Other and unspecified hyperlipidemia Asthma Stress-induced cardiomyopathy Surgical History History of back surgery History of sinus surgery Hx of esophagogastroduodenoscopy Hx of colonoscopy Family History Father No problems noted. Mother No problems noted. 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 Review of Systems Const All systems reviewed & are unremarkable except as noted in HPI and below ENT Denies dizziness Card Denies chest pain, Denies chest pain at rest, Denies chest pain with activity, Denies rapid heart rate, Denies pedal edema, Denies edema, Denies leg edema, Denies lightheadedness, Denies palpitations, Denies dyspnea, Denies dyspnea on exertion and Denies orthopnea Resp Denies cough, Denies dyspnea and Denies dyspnea on exertion GI Denies hematochezia and Denies change in stool character Musc Denies abnormal gait, Denies limited range of motion, Denies muscle cramps, Denies muscle weakness, Denies numbness, Denies radiating pain into limb, Denies stiffness and Denies tingling Neuro Denies abnormal gait, Denies dizziness, Denies numbness and Denies tingling Endo Denies palpitations Physical Exam Vital Signs: Last Vital Signs Pulse 81 09/13/23 14:45 BP 110/72 09/13/23 14:45 BMI result Body Mass Index 27.2 Const General: cooperative, healthy appearing, comfortable and no acute distress Orientation/consciousness: patient oriented x3 Neck Neck: Yes normal visual inspection and Yes no JVD Resp Effort & Inspection: normal respiratory effort Auscultation: clear to auscultation bilaterally, no crackles, no rales, no rhonchi and no wheezes Cardio Jugular venous distension: no JVD Rate: regular rate Rhythm: regular rhythm Heart sounds: S1 normal heart sound present, S2 normal heart sound present, no murmurs and no rubs Neuro General: patient oriented x3 Extrem General: Yes normal to inspection and No no pedal edema Psych Appearance: grossly normal Mental Status: mental status grossly normal Speech and movement: Normal speech and movement present Office Procedures EKG Details: Today, read by me, normal sinus rhythm, no acute ST or T-wave abnormalities, rate 81, QTC 439 milliseconds [id number], Complete Assessment & Plan Assessment & Plan (1) Stress-induced cardiomyopathy: Code(s): I51.81 - Takotsubo syndrome Category: Medical Plan: History of stress-induced cardiomyopathy 2014. His EF and wall motion did recover. Last echocardiogram done 08/20/2021 showed EF 60-65%, grade 1 diastolic dysfunction, normal valves, normal RV systolic pressure. On exam he has no signs of decompensated heart failure. Blood pressure is well controlled. Signs and symptoms of heart failure reviewed with him. Continue lisinopril for neurohormonal modulation. Last labs done 04/29/2023 showed creatinine 0.75. Will plan for repeat echo 1 year. Cardiology follow-up in 1 year sooner if needed (2) Essential hypertension: Code(s): I10 - Essential (primary) hypertension Category: Medical Plan: Well controlled at this time. Office blood pressure 110/72. No med changes. Plan Time spent on chart review, documentation, interview and assessment Orders: Orders CA echo transthoracic complete 08/29/24 I51.81 - Takotsubo syndrome Coding Level of Care Code Est Pt Level 4 (85256) Diagnoses Stress-induced cardiomyopathy I51.81 Essential hypertension I10 CPT Codes EKG - CPT: 20418-[id number], Complete ([id number]) Time Spent (min) 2
== END 2023-09-13 15:18 | disposition home or self-care (01) ==
PROVIDERS: PCP Family Medicine; Visit Provider Nurse Practitioner Family
DX: I51.81 Takotsubo syndrome (principal)
CPT/HCPCS: 93010; 99214

== ENCOUNTER → 2023-09-13 13:51 | Outpatient (BNVA) | payer OTHER, SELFPAY | PROVIDERS: PCP Family Medicine; Visit Provider Nurse Practitioner Family | DX: I10 Essential (primary) hypertension (principal); I51.81 Takotsubo syndrome; E78.5 Hyperlipidemia, unspecified | CPT/HCPCS: 93005; 99212 ==

== ENCOUNTER 2023-10-05 10:44 | Outpatient (AMB) | payer OTHER, SELFPAY ==
[2023-10-05 10:46] VITALS: BP 116/67; PULSE 86; BMI 27.1
--- NOTE | 2023-10-05 10:46 | A.OFFVIS_ITS ---
Vital Signs 10/05/23 10:46 Height 6 ft 1 in Weight 205 lb 7.533 oz BMI 27.1 BP 116/67 Blood Pressure Location Rt brachial Position Sitting Pulse 86 Intake Visit Reasons: 6 mnthf ollow up Intake Note: Patient in office today for 6 months follow up of labs. CC: Patient reports mild constipation, and acid reflux yesterday. Denies other GI symptoms today. Chief Of Safety And Protection Required: Yes Accompanied by: Self / Same As Patient Allergies No Known Allergies [No Known Allergies*] Allergy (Verified 10/05/23 10:50) HPI HPI 6 mnthf ollow up: Details: Assessment & Plan (1) GERD (gastroesophageal reflux disease): Comment: 03/2020 EGD showed gastritis biopsy negative for active inflammation in negative for Coy's metaplasia Code(s): K21.9 - Gastro-esophageal reflux disease without esophagitis (2) Erosive gastritis: Code(s): K29.60 - Other gastritis without bleeding (3) Tubular adenoma of colon: Comment: 2019 last scope repeat 1-2 years r/t insuff prep Code(s): D12.6 - Benign neoplasm of colon, unspecified (4) Pre-op examination: Code(s): Z01.818 - Encounter for other preprocedural examination Plan INDONESIAN #Dolly Live He continues to do well. His dicyclomine provides good control of his cramping, Dexilant and senna provide good control of his GERD and his constipation and he uses famotidine at night if he has breakthrough for his GERD. Agreeable to repeat colonoscopy. There are no prior problems with anesthesia or sedation. He has nonischemic cardiomyopathy is well controlled and his asthma/COPD is also well controlled. There are no infectious disease problems. He has a history of tubular adenoma and had insufficient prep on his last pro cedure. Will be sending GoLYTELY and Dulcolax pills for his next prep to try to get better clearance. Return office visit in 6 months and after the procedures Orders: Orders Colonoscopy - GI Use Only Today D12.6 - Benign neoplasm of colon, unspecified Comprehensive Met. Panel 6 Months D64.9 - Anemia, unspecified Ferritin 6 Months D64.9 - Anemia, unspecified Complete Blood Count Auto Diff 6 Months D64.9 - Anemia, unspecified Medications: New bisacodyl (Dulcolax (bisacodyl)) 10 mg (2 x 5 mg) PO BEDTIME 2 days 4 tabs 0RF peg 3350-electrolytes 236-22.74-6.74 -5.86 gram (Golytely) until fecal effluent is clear; do not exceed a total volume of 2,000 mL 240 mL PO Q10M 1 day 4,000 mL 0RF Z12.11 - Encounter for screening for malignant neoplasm of colon Refilled dicyclomine 10 mg PO QID 120 caps 6RF R10.9 - Unspecified abdominal pain dexlansoprazole 60 mg PO QAM 30 caps 6RF docusate sodium 100 mg PO QAM 30 caps 6RF famotidine 40 mg PO BEDTIME 30 tabs 6RF LABS: Laboratory Tests 04/29/23 10:36 WBC 5.7 RBC 4.44 L Hgb 13.4 L Hct 39.9 L MCV 89.9 MCH 30.2 Plt Count 243 Estimated GFR > 60 Ferritin 139 Total Bilirubin 0.4 Direct Bilirubin 0.2 AST 29 ALT 23 Alkaline Phosphatase 101 COLONOSCOPY SCHEDULED FOR 12/30/2023 WITH FOLLOW-UP 01/12 BIOPSY TODAY'S VISIT INDONESIAN #Shyann Live He continues to do well. His dicyclomine provides good control of his cramping, Dexilant and senna provide good control of his GERD and his constipation and he uses famotidine at night if he has breakthrough for his GERD. He was unaware of the December colonoscopy appt and follow up wit me. I will send him to my staff to get the times of these appts and I will see hime 01/12. [facility] Medical History Gynecomastia Hyperlipidemia Chronic low back pain GERD (gastroesophageal reflux disease) Polyneuropathy Allergic rhinitis Diabetes Hypothyroidism Essential hypertension Other and unspecified hyperlipidemia Asthma Stress-induced cardiomyopathy Surgical History History of back surgery History of sinus surgery Hx of esophagogastroduodenoscopy Hx of colonoscopy Family History Father No problems noted. Mother No problems noted. 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 Review of Systems Const Denies fatigue, Denies fever(s), Denies night sweats, Denies poor appetite and Denies weight loss Eyes Details: glasses Reports requires corrective lenses ENT Reports Normal hearing present, Denies dental pain, Denies dysphagia, Denies hearing loss, Denies mouth pain, Denies odynophagia, Denies throat swelling, Denies tongue swelling and Reports other (Dentition adequate) Card Reports no additional complaints Resp Reports no additional complaints GI Details: Denies abdominal pain, Denies melena, Denies bloating, Denies hematochezia, Reports constipation, Reports GI cramping, Denies dysphagia, Denies excessive flatus, Denies early satiety, Reports heartburn, Denies diarrhea, Denies nausea, Denies odynophagia, Denies vomiting and Denies hematemesis Skin/Breast Denies pruritus, Denies lesions, Denies rash and Denies jaundice Neuro Reports Normal hearing present and Denies Abnormal speech present Endo Denies fatigue Aller/Immun Denies throat swelling and Denies tongue swelling Physical Exam Vital Signs: Last Vital Signs Pulse 86 10/05/23 10:46 BP 116/67 10/05/23 10:46 BMI result Body Mass Index 27.1 Const General: cooperative, no acute distress, well developed and well groomed Nutritional Appearance: average body habitus and well nourished Orientation/consciousness: oriented to person, oriented to place and oriented to time Limitations: language barrier HEENT Head: Yes normocephalic and Yes atraumatic Eyes General: appearance normal, both eyes and all related structures Pupils: Equal, round and reactive pupils present Neck Neck: Yes normal visual inspection and Yes no lymphadenopathy Thyroid: Thyroid normal Resp Effort & Inspection: normal respiratory effort and able to speak in complete sentences Auscultation: clear to auscultation bilaterally Cardio Rate: regular rate Rhythm: regular rhythm Heart sounds: Normal, physiologic split S2 sound present Peripheral pulses: radial pulses present and posterior tibial pulses present GI Inspection: No distended and No Abdominal panniculus present Palpation (GI): Soft to palpation, nontender, no guarding, not rigid and No hepatosplenomegaly present Percussion: Yes normal to percussion Auscultation: normal bowel sounds Rectal Exam - Male: Yes deferred Skin General skin exam: no rashes or lesions noted, turgor normal, skin not dry, no jaundice, No spider nevi and no striae Rashes: no rashes Nails: normal Neuro General: oriented to person, oriented to place and oriented to time Cranial nerves: Yes Equal, round and reactive pupils present and Yes Normal hearing present Speech: No Abnormal speech present Extrem General: Yes normal to inspection, No clubbing, No cyanosis and No edema Psych Appearance: grossly normal and well kempt Mental Status: mental status grossly normal Speech and movement: Normal speech and movement present Affect: normal affect Attitude: cooperative Thought process: Normal thought process present and not confabulating Thought content: Normal thought content present Insight: Limited insight present (Psych) Judgement: Limited judgement present (Psych) Assessment & Plan Assessment & Plan (1) GERD (gastroesophageal reflux disease): Comment: 03/2020 EGD showed gastritis biopsy negative for active inflammation in negative for Coy's metaplasia Code(s): K21.9 - Gastro-esophageal reflux disease without esophagitis Category: Medical (2) Erosive gastritis: Code(s): K29.60 - Other gastritis without bleeding Category: Medical (3) Tubular adenoma of colon: Comment: 2019 last scope repeat 1-2 years r/t insuff prep Code(s): D12.6 - Benign neoplasm of colon, unspecified Category: Medical Plan INDONESIAN #Tachira Live He continues to do well. His dicyclomine provides good control of his cramping, Dexilant and senna provide good control of his GERD and his constipation and he uses famotidine at night if he has breakthrough for his GERD. He was unaware of the December colonoscopy appt and follow up wit me. I will send him to my staff to get the times of these appts and I will see hime 01/12. Coding Level of Care Code Est Pt Level 3 (93071) Diagnoses GERD (gastroesophageal reflux disease) K21.9 Erosive gastritis K29.60 Tubular adenoma of colon D12.6
== END 2023-10-05 11:09 | disposition home or self-care (01) ==
PROVIDERS: PCP Family Medicine; Visit Provider Nurse Practitioner
DX: K21.9 Gastro-esophageal reflux disease without esophagitis (principal); K29.60 Other gastritis without bleeding; D12.6 Benign neoplasm of colon, unspecified
CPT/HCPCS: 99213

== ENCOUNTER → 2023-10-05 11:16 | Outpatient (REF) | payer OTHER, SELFPAY ==
--- NOTE | 2023-10-05 11:19 | CA_ITS ---
Transthoracic Echocardiogram Patient (Last, First, Middle): Colton James, Gender: Male Date of : 1950 Age: 73 Procedure Date: 10/05/2023 Procedure Type: Transthoracic Echocardiogram Location: OP Height: 185.42 cm Weight: 92.99 kg BSA: 2.17 m2 Heart Rate: bpm BP: 112 / 80 mmHg Custodial Operations Manager: TO Referring MD: Leanne Bowling SHARED SERVICES REPRESENTATIVEMiriam Symptoms: I51.81 - Takotsubo syndrome Study Quality: Adequate ECG Rhythm: Sinus Conclusions: - The left ventricular systolic function is mildly decreased. The calculated ejection fraction is 45% by biplane method. - The basal inferior and basal inferolateral segments are hypokinetic. - No obvious valvular pathology seen on this study. Findings Left Ventricle Normal left ventricular cavity size. The left ventricular systolic function is mildly decreased. The calculated ejection fraction is 45% by biplane method. There is mild global hypokinesis. Diastolic function is normal for age. Mild focal hypertrophy of the basal septum. LV peak GLS -16.8%, mildly reduced. Wall Motion Rest Echo Findings The basal inferior and basal inferolateral segments are hypokinetic. Right Ventricle Mildly increased right ventricular cavity size. There is normal right ventricular systolic function. Atria Both atria are normal in size. Aortic Valve There is a normal trileaflet aortic valve. There is no aortic valve stenosis. There is no aortic valve regurgitation. Mitral Valve The mitral valve appears normal. There is trace mitral valve regurgitation. There is no mitral valve stenosis. Pulmonic Valve The pulmonic valve is likely normal. Tricuspid Valve There is trace tricuspid valve regurgitation. There is no evidence of pulmonary hypertension. Great Vessels The asc aorta is normal in size. Venous The inferior vena cava is normal in size and collapses greater than 50% with inspiration. Pericardium/Pleural There is no evidence of pericardial effusion. Prior Study Comparison Changes noted compared to prior study dated: 08/20/2021. Decrease in LVEF. See comment on wall motion. Recommendations, Care & Conclusions No obvious valvular pathology seen on this study. Measurements 2D Linear Measurements IVSd: 1.12 0.6-0.9/0.6-1.0 cm LVIDd: 5.09 3.9-5.3/4.2-5.9 cm LVIDd Index: 2.35 2.4-3.2/2.2-3.1 cm/m2 LVIDs: 4.08 2.0-3.6 cm LVPWd: 0.90 0.7-1.1 cm LA Diam: 3.40 2.7-3.8/3.0-4.0 cm LAIDs Index: 1.57 1.5-2.3 cm/m2 LV Mass: 237.29 67-162/88-224 g LV Mass Index: 109.35 43-95/49-115 g/m2 LVOT Diam: 2.50 3.0+(-)1.3 cm 2D Systolic Function EF 4C: 44.40 >55% EF 2C: 47.80 >55% EF BiP: 45.00 >55% Mitral Valve MV Pk E: 0.46 MV PK A: 0.83 MV Decel Time: 201.00 E/A: 0.60 E'Lateral: 6.85 E'Medial: 4.68 E/E' Med: 9.80 E/E' Lat: 6.70 PHT: 59.00 MVA PHT: 3.73 Decel Barry: 2.28 Aortic Valve AoV Pk Nikko: 1.29 AoV Mn Nikko: 0.87 AoV VTI: 0.27 AoV Pk Grad: 7.00 Aov Mn Grad: 3.00 MARIJA Cont.VTI: 3.02 LVOT LVOT Pk Nikko: 0.76 LVOT Mn Inkko: 0.51 LVOT VTI: 0.17 LVOT Pk Grad: 2.00 LVOT Mn Grad: 1.00 LVOT Diam: 2.50 LVOT Area: 4.91 Diastolic Function MV Pk E: 0.46 MV Pk A: 0.83 E/A: 0.60 E'Medial: 4.68 E/E' Med: 9.80 E' Laterial: 6.85 E/E' Lat: 6.70 Right Ventricle TAPSE (mm): 23.30 TVS' Nikko: 11.70 Tricuspid Valve TR Pk Nikko: 1.85 TR Pk Grad: 14.00 Great Vessels Aorta Sinus of Valsalva: 3.81 2.0-3.5 cm Ao Asc: 3.60 2.1-3.4 cm Updated in Other Vendor System with Status of Final Niles Ramos MD electronically signed on 10/06/2023 9:18:05 AM with status of Final
== END ==
LOC: HO.CARD 11:16
PROVIDERS: PCP Family Medicine; Visit Provider Family Medicine
DX: I51.81 Takotsubo syndrome (principal); R06.09 Other forms of dyspnea; K21.9 Gastro-esophageal reflux disease without esophagitis; K29.60 Other gastritis without bleeding; D12.6 Benign neoplasm of colon, unspecified
CPT/HCPCS: 93306; 93356; 99212

== ENCOUNTER → 2023-10-05 11:19 | Outpatient (BNV) | payer OTHER, SELFPAY | PROVIDERS: PCP Family Medicine; Visit Provider Internal Medicine | DX: I51.81 Takotsubo syndrome (principal); R93.1 Abnormal findings on diagnostic imaging of heart and coronary circulation | CPT/HCPCS: 93306; 93356 ==

== ENCOUNTER → 2023-11-29 08:12 | Outpatient (REF) | payer OTHER, SELFPAY ==
--- NOTE | ~2023-11-29 | NM_ITS ---
EXERCISE MYOCARDIAL PERFUSION STUDY INDICATION: Cardiomyopathy TECHNIQUE: The patient was brought in for an exercise perfusion study on 11/29/2023. Patient performed exercise as per Jaime protocol and was injected 30 mCi of sestamibi once target heart rate was achieved. Images were obtained using the SPECT gamma camera interlaced with the gating device. Images were obtained in supine position. Resting perfusion study was performed on 11/30/2023. Patient was administered 30 mCi of sestamibi intravenously at rest. Images were then obtained in supine position. Images were processed with the software and compared side to side in short axis, horizontal long axis and vertical long axis views. Total DLP 88mGy-cm. FINDINGS: Raw images were reviewed. The stress perfusion study showed no significant perfusion abnormality. Both uncorrected as well as CT attenuation corrected images were reviewed. The gated study shows normal LV systolic function with calculated LVEF of 61%. LV cavity is normal in size. The gated study shows normal wall thickening and contraction of segments. Resting study shows no significant perfusion abnormality. Gating at rest reveals normal wall motion with ejection fraction at 55%. The findings are consistent with no clear reversible or fixed perfusion defects. ND/ND cardiolite stress test IMPRESSION: 1. Myocardial perfusion imaging study shows normal myocardial perfusion. 2. Gated LVEF is 61% during stress and 55% during rest. 3. Transient ischemic dilatation not present. EKG component of the test reported separately.
--- NOTE | 2023-11-29 08:15 | CA_ITS ---
Acquisition Time: 2023-11-29 08:29:31 Total Exercise Time: 00:05:00 Test Indications: CARDIOMYOPATHY Medications: SEE H Protocol: GREG Max HR: 148 BPM 99% of Pred: 149 BPM Max BP: 182/080 mmHG Max Work Load: 7.0 METS Exericse stress test exercise 5 min of Greg protocol achieving 99% MPRH, without anginal symptoms, with isolated PVC and ventricular cuplet and venticular trigeminy, with normotensive response to exercise, with ST scooping leads 2, 3, aVF.. Nuclear images pending. Test reviewed with Dr. Boyd Referred By: Leanne Bowling Overread By: Venice Bowman
== END ==
LOC: HO.CARD 08:12
PROVIDERS: PCP Family Medicine; Visit Provider Nurse Practitioner Family
DX: I51.81 Takotsubo syndrome (principal); R93.1 Abnormal findings on diagnostic imaging of heart and coronary circulation
CPT/HCPCS: 78452; 93017; A9500

== ENCOUNTER → 2023-11-29 08:15 | Outpatient (BNV) | payer OTHER, SELFPAY | PROVIDERS: PCP Family Medicine; Visit Provider Nurse Practitioner | DX: I42.9 Cardiomyopathy, unspecified (principal) | CPT/HCPCS: 78452; 93016; 93018 ==

== ENCOUNTER 2023-12-30 06:51 | Day surgery (SDC) | payer OTHER, SELFPAY ==
[2023-12-28 14:20] VITALS: BMI 27.2
--- NOTE | 2023-12-29 11:50 | HO.ANESPROP2 ---
Documented by User: Maddy Jones NP 12/29/23 11:54 HPI - Anesthesia Eval Consult details Narrative: 73yo M for Colonoscopy Follows [facility] [place] [facility] [id number]. Last office visit 08/2023, stable. [facility] Active Problems Active Problems: All Active Problems Abnormal echocardiogram (Acute) Pre-op examination (Acute) Gynecomastia (Acute) Preoperative cardiovascular examination (Acute) Weak urinary stream (Acute) Lumbar radiculopathy (Acute) Leucopenia (Acute) Anemia (Acute) Urinary hesitancy (Acute) BPH loc w urin obs/LUTS (Acute) Bronchitis (Acute) Essential hypertension (Acute) NICM (nonischemic cardiomyopathy) (Acute) Abdominal cramping (Acute) Pulmonary nodules (Acute) Allergic asthma (Acute) Asthma-COPD overlap syndrome (Acute) Erosive esophagitis (Acute) Erosive gastritis (Acute) Tubular adenoma of colon (Acute) GERD (gastroesophageal reflux disease) (Acute) Shortness of breath (Acute) Precordial chest pain (Acute) Stress-induced cardiomyopathy (Acute) Past Medical History Medical History Gynecomastia Hyperlipidemia Chronic low back pain GERD (gastroesophageal reflux disease) Polyneuropathy Allergic rhinitis Diabetes Hypothyroidism Essential hypertension Other and unspecified hyperlipidemia Asthma Stress-induced cardiomyopathy Family History Family History Father No problems noted. Mother No problems noted. Other No family history of cancer Family history of problems with anesthesia: No Surgical History Surgical History History of back surgery History of sinus surgery Hx of esophagogastroduodenoscopy Hx of colonoscopy History of Problems with Anesthesia: Yes (Some problem following sinus surgery - not sure if related to surgery or anesthesia. 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 Meds Allergies Allergy/AdvReac Type Severity Reaction Status Date / Time No Known Allergies Allergy Verified 10/05/23 10:50 [No Known Allergies*] Home Medications ?Medication ?Instructions ?Recorded ?Confirmed ?Last Taken ?Type ferrous sulfate 325 mg (65 mg 325 mg PO BID 03/27/20 12/28/23 Unknown History iron) tablet multivitamin 1 tab PO DAILY 03/27/20 12/28/23 Unknown History albuterol sulfate 2.5 mg/3 mL 1 amp inhalation QID PRN Wheezing 04/18/20 12/28/23 Unknown History (0.083 %) solution for nebulization albuterol sulfate 90 mcg/actuation 2 puff PO Q4-6H PRN Wheezing 04/18/20 12/28/23 Unknown History aerosol inhaler (Ventolin HFA) amlodipine 10 mg tablet 10 mg PO DAILY 09/30/22 12/28/23 Unknown History atorvastatin 40 mg tablet 40 mg PO BEDTIME 09/30/22 12/28/23 Unknown History cetirizine 10 mg capsule (All Day 10 mg PO DAILY PRN Allergy Symptoms 09/30/22 12/28/23 Unknown History Allergy (cetirizine)) gabapentin 800 mg tablet 800 mg PO TID 09/30/22 12/28/23 Unknown History levothyroxine 25 mcg tablet 25 mcg PO DAILY 09/30/22 12/28/23 Unknown History lisinopril 40 mg tablet 40 mg PO DAILY 09/30/22 12/28/23 Unknown History metformin 500 mg tablet 500 mg PO DAILY 09/30/22 12/28/23 Unknown History montelukast 10 mg tablet 10 mg PO DAILY 09/30/22 12/28/23 Unknown History sertraline 25 mg tablet 25 mg PO DAILY 09/30/22 12/28/23 Unknown History cholecalciferol (vitamin D3) 50 50 mcg PO DAILY 10/21/22 12/28/23 Unknown History mcg (2,000 unit) capsule fluticasone furoate 200 1 inh inhalation QAM 12/28/23 12/28/23 Unknown History mcg/actuation blister powder for inhalation (Arnuity Ellipta) Exam Height,Weight and Vital Signs: Height 6 ft 1 in Weight 93.44 kg Narrative Narrative: EKG 08/2023 normal sinus rhythm, no acute ST or T-wave abnormalities, rate 81, QTC 439 milliseconds NM cardiolite stress test 11/2023 IMPRESSION: 1. Myocardial perfusion imaging study shows normal myocardial perfusion. 2. Gated LVEF is 61% during stress and 55% during rest. 3. Transient ischemic dilatation not present. EKG component of the test reported separately. ECHO 2023 Conclusions: - The left ventricular systolic function is mildly decreased. The calculated ejection fraction is 45% by biplane method. - The basal inferior and basal inferolateral segments are hypokinetic. - No obvious valvular pathology seen on this study. Assessment and Plan Assessment Anesthesia Assessment: Chart Reviewed Final Anesthetic Review Family History of Problems with Anesthesia: No History of Problems with Anesthesia: Yes (Some problem following sinus surgery - not sure if related to surgery or anesthesia. Surgical records from [facility] do not mention.) Documented by User: Shannon Lewis MD 12/30/23 09:34 [facility] Past Medical History Medical History Gynecomastia Hyperlipidemia Chronic low back pain GERD (gastroesophageal reflux disease) Polyneuropathy Allergic rhinitis Diabetes Hypothyroidism Essential hypertension Other and unspecified hyperlipidemia Asthma Stress-induced cardiomyopathy Family History Family History Father No problems noted. Mother No problems noted. Other No family history of cancer Surgical History Surgical History History of back surgery History of sinus surgery Hx of esophagogastroduodenoscopy Hx of colonoscopy Social History Social History Household Members: Spouse Housing: Apartment Are you a primary caregivers homecare to a significant other at home: Yes () Do you presently have visiting nurse or other home services: Yes (3/6 months) Alcohol intake: current Alcohol intake frequency: does not drink Patient Tobacco Use Status: Never used Tobacco Second Hand Smoke Exposure: No Are you DNR?: No Advance Directives: No Advance Directives Information Provided: Yes service: No Current occupational status: disabled 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 Meds Allergies Allergy/AdvReac Type Severity Reaction Status Date / Time No Known Allergies Allergy Verified 10/05/23 10:50 [No Known Allergies*] Home Medications ?Medication ?Instructions ?Recorded ?Confirmed ?Last Taken ?Type ferrous sulfate 325 mg (65 mg 325 mg PO BID 03/27/20 12/28/23 Unknown History iron) tablet multivitamin 1 tab PO DAILY 03/27/20 12/28/23 Unknown History albuterol sulfate 2.5 mg/3 mL 1 amp inhalation QID PRN Wheezing 04/18/20 12/28/23 Unknown History (0.083 %) solution for nebulization albuterol sulfate 90 mcg/actuation 2 puff PO Q4-6H PRN Wheezing 04/18/20 12/28/23 Unknown History aerosol inhaler (Ventolin HFA) amlodipine 10 mg tablet 10 mg PO DAILY 09/30/22 12/28/23 Unknown History atorvastatin 40 mg tablet 40 mg PO BEDTIME 09/30/22 12/28/23 Unknown History cetirizine 10 mg capsule (All Day 10 mg PO DAILY PRN Allergy Symptoms 09/30/22 12/28/23 Unknown History Allergy (cetirizine)) gabapentin 800 mg tablet 800 mg PO TID 09/30/22 12/28/23 Unknown History levothyroxine 25 mcg tablet 25 mcg PO DAILY 09/30/22 12/28/23 Unknown History lisinopril 40 mg tablet 40 mg PO DAILY 09/30/22 12/28/23 Unknown History metformin 500 mg tablet 500 mg PO DAILY 09/30/22 12/28/23 Unknown History montelukast 10 mg tablet 10 mg PO DAILY 09/30/22 12/28/23 Unknown History sertraline 25 mg tablet 25 mg PO DAILY 09/30/22 12/28/23 Unknown History cholecalciferol (vitamin D3) 50 50 mcg PO DAILY 10/21/22 12/28/23 Unknown History mcg (2,000 unit) capsule fluticasone furoate 200 1 inh inhalation QAM 12/28/23 12/28/23 Unknown History mcg/actuation blister powder for inhalation (Arnuity Ellipta) Exam Airway Mallampati Class: II TM Dist: >3cm Neck ROM: Full Heart: rrr Lungs: cta Assessment and Plan Assessment Anesthesia Assessment: Anesthesia Plan Discussed Final Anesthetic Review NPO: Yes ASA Class: III Final Preanesthetic Review: No Changes in Pt Med Stat, Meds/Allgs Chart Reviewed, Consent Obtained/Reviewed and Anes Risks/Benef Reviewed Patient Risk: Intermediate Procedure Risk: Low Anesthetic Plan Anesthetic Plan: MAC: Disposition: Standard PACU
[2023-12-30 08:44] VITALS: BP 112/73; PULSE 65; RESP 17; TEMP 36.9; O2SAT 97; BMI 27.2
[2023-12-30 08:46] LABS: Glucose, Whole Blood 102 mg/dL (60-115)
[2023-12-30] MEDS: Lactated Ringers 1,000 ML 100 ML IVCONT (09:01)
--- NOTE | 2023-12-30 09:14 | MHC.SHP ---
Pre-Procedural Eval Section A - 24 Hr Update-Section A only Date of Service: 12/30/23 Section B - Complete if H&P > 30 days Chief Complaint: screening Relevant Family History (Specify if Yes): No Relevant Social History: None Present Medications: see Short Stay Collaborative assessment Medical History: Significant History (Gynecomastia Hyperlipidemia Chronic low back pain GERD (gastroesophageal reflux disease) Polyneuropathy Allergic rhinitis Diabetes Hypothyroidism Essential hypertension Other and unspecified hyperlipidemia Asthma Stress-induced cardiomyopathy) History of Previous Operations: Relevant previous surgery/procedure and date(s) (History of back surgery History of sinus surgery Hx of esophagogastroduodenoscopy Hx of colonoscopy) Allergies: Allergies Allergy/AdvReac Type Severity Reaction Status Date / Time No Known Allergies Allergy Verified 10/05/23 10:50 [No Known Allergies*] Review of Systems Sugical H&P ROS: Negative: Constitution, Cardiovascular, Respiratory, Neurological, Psychiatric, Hem-Onc, Allergic/Immunologic, Gastrointestinal, Genitourinary, Musculoskeletal, Integumentary, Endocrine and Eyes/Ears/Nose/Throat Exam Surgical H&P Exam: Normal: HEENT, Normal: Heart, Normal: Lungs, Normal: Extremities, Normal: Abdomen, Normal: Skin and Normal: Neurological Plan Diagnosis/Plan: Unchanged I have reviewed the history and physical and performed a pertinent physical examination on my patient. No changes have occurred unless specified. Time Spent With Patient Time: Total time managing care of this patient today ____ minutes.
--- NOTE | 2023-12-30 10:37 | P.OPN-COLO_ITS ---
Colonoscopy Operative Note Operative Note Date of Service: 12/30/23 Narrative: Operative Information Procedure Description: Colonoscopy Indication: screening Anesthesia: MAC COLONOSCOPY Instrument: Olympus variable stiffness ADULT scope 190L Colonoscopy Monitoring: Vital signs and clinical assessment, continuous EKG monitoring, Pulse oximetry, Carbon Dioxide monitoring and blood pressure monitoring were done throughout the procedure. Colon withdrawal time was 10 minutes. Procedure: The patient was placed in the left lateral decubitis position and pre-procedure medications were administered. After a digital rectal examination of the ano-rectum, the video colonoscope was inserted into the rectum and advanced through the colon to the cecum/TI. The colonoscope was slowly withdrawn in a retrograde panoramic fashion and the colon mucosa was carefully examined including a retroflexed view of the rectum. Findings and interventions are described below. Procedure Difficulty: moderate pressure applied to RLQ Findings: Terminal Ileum-normal Cecum:normal Ascending Colon: mild diverticulosis Transverse Colon - 6-8 mm sessile polyp removed with cold snare Descending Colon:normal Sigmoid Colon: moderate diverticulosis Rectum: Retroflexion with small internal hemorrhoids seen, grade I Anorectum - normal Intervention: cold snare Colon preparation: [place] Bowel Preparation Scale Right colon; 1-2 Transverse colon: 2 Left colon; 2 (0 = Unprepared colon segment with mucosa not seen due to solid stool that cannot be cleared. 1 = Portion of mucosa of the colon segment seen, but other areas of the colon segment not well seen due to staining, residual stool and/or opaque liquid. 2 = Minor amount of residual staining, small fragments of stool and/or opaque liquid, but mucosa of colon segment seen well. 3 = Entire mucosa of colon segment seen well with no residual staining, small fragments of stool or opaque liquid) Impression and Post Procedure Diagnosis: diverticulosis colon polyps internal hemorrhoids Plan: High fiber diet leaflet Avoid straining at stool, epsom salts and sitz bath, anusol supps or cream Repeat Colonoscopy in 5 years due to polyp and fair prep on right side or earlier if clinically indicated Above findings were reviewed with the patient and relevant handouts were provided if indicated.
[2023-12-30 10:42] VITALS: BP 106/57; PULSE 54; RESP 16; TEMP 36.1; O2SAT 99
[2023-12-30 10:57] VITALS: BP 128/84; PULSE 60; RESP 15; O2SAT 98
--- NOTE | 2023-12-30 13:28 | PC.NURSE ---
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
== END 2023-12-30 11:40 | disposition home or self-care (01) ==
PROVIDERS: PCP Family Medicine; Visit Provider Internal Medicine Gastroenterology
PROC: 0DJD8ZZ Inspection of Lower Intestinal Tract, Via Natural or Artificial Opening Endoscopic (ICD-10-PCS; CPT 45378; principal; 2023-12-30 10:20)
DX: Z12.11 Encounter for screening for malignant neoplasm of colon (principal); D12.3 Benign neoplasm of transverse colon; K57.30 Diverticulosis of large intestine without perforation or abscess without bleeding; K64.0 First degree hemorrhoids; Z86.010 Personal history of colon polyps; E11.9 Type 2 diabetes mellitus without complications; I10 Essential (primary) hypertension; E78.5 Hyperlipidemia, unspecified; J45.909 Unspecified asthma, uncomplicated; Z79.899 Other long term (current) drug therapy; Z79.02 Long term (current) use of antithrombotics/antiplatelets; Z79.84 Long term (current) use of oral hypoglycemic drugs
CPT/HCPCS: 45385; 82947; 88305; J2704

== ENCOUNTER → 2023-12-30 06:51 | Outpatient (BNV) | payer OTHER, SELFPAY | PROVIDERS: PCP Family Medicine; Visit Provider Internal Medicine Gastroenterology | DX: Z12.11 Encounter for screening for malignant neoplasm of colon (principal); K63.5 Polyp of colon; K57.90 Diverticulosis of intestine, part unspecified, without perforation or abscess without bleeding; K64.0 First degree hemorrhoids | CPT/HCPCS: 45385 ==

== ENCOUNTER 2024-02-22 10:29 | Outpatient (REF) | payer OTHER, SELFPAY ==
[2024-02-22 11:44] LABS: Hematocrit 38.3 % (42.0-52.0); Hemoglobin 12.9 g/dl (14.0-18.0); Mean Corpuscular HGB Conc 33.7 g/dl (31.0-36.0); Mean Corpuscular Hemoglobin 30.1 pg (27.0-33.0); Mean Corpuscular Volume 89.3 fL (80.0-98.0); Mean Platelet Volume 10.4 fL (9.4-12.4); Platelet Count 268 X10*3/uL (160-400); Red Blood Count 4.29 X10*6/uL (4.60-5.80); Red Cell Distribution Width 13.3 % (11.0-16.0); White Blood Count 3.6 X10*3/uL (4.8-10.8)
[2024-02-22 12:11] LABS: Estimated Average Glucose 114 mg/dL; Hemoglobin A1C 127.6832 umol/L; Hemoglobin A1c % 5.6 % (<6.0); Total Hemoglobin (HGBA1C) 3365.3629 umol/L
[2024-02-22 12:17] LABS: Creatinine Urine 87.37 mg/dL
[2024-02-22 12:21] LABS: Albumin Level 4.1 g/dL (3.5-5.0); Alkaline Phosphatase 85 U/L (39-117); Anion Gap 14 (12-20); Aspartate Amino Transferase 29 U/L (5-37); Bilirubin Direct 0.1 mg/dL (0.0-0.5); Bilirubin Total 0.4 mg/dL (0.0-1.0); Blood Urea Nitrogen 13 mg/dL (9-16); Carbon Dioxide 24 mmol/L (22-29); Chloride 109 mmol/L (96-108); Cholesterol 147 mg/dL (<200); Estimated Glomerular Filt Rate > 60; Glucose Random 96 mg/dL (60-115); HDL Cholesterol 57 mg/dL (>40); LDL Cholesterol Calculated 73 mg/dL (<100); Potassium 3.9 mmol/L (3.3-5.1); Sodium 143 mmol/L (135-145); Total Protein 7.6 g/dL (6.5-8.0); Triglycerides 87 mg/dL (<150)
[2024-02-22 12:30] LABS: Alanine Aminotransferase 25 U/L (0-40)
[2024-02-22 12:37] LABS: Free T4 (Free Thyroxine) 1.01 ng/dL (0.71-1.85); Thyroid Stimulating Hormone 0.75 uIU/mL (0.32-4.0)
[2024-02-22 12:58] LABS: Hepatitis A Antibody IgG REACTIVE (Nonreactive); ~Hepatitis A Antibody IgG 11.32 S/CO (0.00-0.99)
[2024-02-22 13:02] LABS: HBS Num1 0.59 mIU/mL (0-7.99); HBc Num1 0.08 S/CO (0.00-0.79); HIV AB/AG Nonreactive (Nonreactive); HIV Num 1 0.05 S/CO (0.00-0.99); Hepatitis B Core Antibody Nonreactive (Nonreactive); Hepatitis B Surface Antigen Negative (Negative); ~HepC Num1 0.09 S/CO (0.00-0.79); ~Hepatitis B Surface Antibody NONREACTIVE (Nonreactive); ~Hepatitis C Antibody Nonreactive (Nonreactive)
[2024-02-22 13:16] LABS: CT PCR NOT DETECTED (Not Detect.); NG PCR NOT DETECTED (Not Detect.)
[2024-02-22 18:08] LABS: Band Neutrophils Percent 0 % (3-5); Basophils Abs Manual 0.1 X10*3/uL (0.0-0.2); Basophils Percent Manual 2 % (0-2); Eosinophils Absolute Manual 0.4 X10*3/uL (0.0-0.4); Eosinophils Percent Manual 10 % (0-4); Lymphocytes Absolute Manual 1.3 X10*3/uL (1.2-4.9); Lymphocytes Percent Manual 35 % (20-40); Monocytes Absolute Manual 0.2 X10*3/uL (0.1-1.2); Monocytes Percent Manual 5 % (2-11); Neutrophils Absolute Manual 1.7 X10*3/uL (2.0-8.3); Neutrophils Percent Manual 48 % (45-73)
[2024-02-22 18:09] LABS: Burr Cells 1+ (0-2) /OIF; Platelet Estimate NORMAL (NORMAL); RBC Morphology NOTED
[2024-02-22 18:10] LABS: Platelet Morphology Comment NORMAL
[2024-02-24 12:08] LABS: RPR Rapid Plasma Reagin NON-REACTIVE (NON-REACTIVE)
== END 2024-02-22 10:30 | disposition home or self-care (01) ==
LOC: HO.HHCL 10:29
PROVIDERS: Visit Provider Family Medicine
DX: Z00.00 Encounter for general adult medical examination without abnormal findings (principal); E11.42 Type 2 diabetes mellitus with diabetic polyneuropathy; I10 Essential (primary) hypertension; E78.49 Other hyperlipidemia; F41.9 Anxiety disorder, unspecified; D64.9 Anemia, unspecified; D72.819 Decreased white blood cell count, unspecified; J45.40 Moderate persistent asthma, uncomplicated; J32.8 Other chronic sinusitis; E03.9 Hypothyroidism, unspecified; K21.9 Gastro-esophageal reflux disease without esophagitis; R91.8 Other nonspecific abnormal finding of lung field; M54.50 Low back pain, unspecified; G89.29 Other chronic pain; R06.09 Other forms of dyspnea; L29.9 Pruritus, unspecified
CPT/HCPCS: 36415; 80048; 80061; 80076; 82043; 82306; 82570; 83036; 84439; 84443; 85007; 85027; 86592; 86704; 86706; 86708; 86803; 87340; 87389; 87491; 87591

== ENCOUNTER 2024-02-29 07:12 | Outpatient (REF) | payer OTHER, SELFPAY ==
--- NOTE | ~2024-02-29 | CT_ITS ---
EXAMINATION: CT CHEST WITHOUT CONTRAST CLINICAL INFORMATION: Pulmonary nodule. COMPARISON: 02/10/2022. 03/10/2021. 03/05/2020. TECHNIQUE: Multidetector volumetric CT imaging of the chest was done. Axial MIP volume rendering provided. Sagittal and coronal reformatted images were obtained. This CT examination was performed using dose optimization techniques as appropriate, variously including the following: *Automated exposure control *Adjustment of mA and/or kV according to patient size (this includes techniques or standardized protocols for targeted exams where dose is matched to indication/reason for exam; i.e. extremities or head) *Use of iterative reconstruction technique DLP: 206 mGy-cm FINDINGS: PULMONARY NODULES: -There are a few tiny calcified granulomata, unchanged and benign. -3 mm nodule medial right lower lobe (series 5, image 371), unchanged. -3 mm nodule left costophrenic sulcus posteriorly (series 5, image 583), unchanged. -4 mm nodule lingular segment laterally (series 5, image 563), unchanged. -6 mm average diameter nodule left major fissure (series 5 image 331), unchanged, and consistent with intrapulmonary lymph node. -No new or enlarging pulmonary nodule. LUNGS: -Mild centrilobular emphysema. -Diffuse thickening of the small airways with mild associated bronchiectasis, findings consistent with bronchitis. -Nodular scarring in the posteromedial left costophrenic sulcus is unchanged in appearance. -No consolidations or abnormal groundglass opacities. Lungs otherwise grossly clear. -No effusions. No pneumothorax. MEDIASTINUM: - Normal thyroid. -No abnormal lymphadenopathy. -Aorta is normal. -Main pulmonary artery is normal in size. -Heart size is normal. No pericardial effusion. -Esophagus is normal. -Probable small type I hiatus hernia present. CORONARY ARTERY CALCIFICATION: None visualized on this study. PLEURA: There is no pleural effusion. No pleural mass or thickening. AXILLA/CHEST WALL: -No lymphadenopathy. -Moderate to severe left and mild to moderate right gynecomastia. UPPER ABDOMEN: -No abnormalities. OSSEOUS STRUCTURES: -No suspicious lytic or blastic bone lesion. -There are mild spinal degenerative changes. CT/CT chest wo IV con IMPRESSION: 1. Stable tiny benign pulmonary nodules bilaterally. No new or enlarging suspicious nodule present. 2. Mild centrilobular emphysema. Stable left lower lobe costophrenic angle scarring. 3. Diffuse mild small airway bronchiectasis and more prominent wall thickening, findings suggesting chronic bronchitis with possible acute component. 4. No additional active lung disease. 5. Small type I hiatus hernia suspected. 6. Additional ancillary findings as discussed. Fleischner guidelines were followed. Electronically signed by: Scot Bowman MD 04/26/2024 03:06 PM [facility]
== END 2024-02-29 07:13 | disposition home or self-care (01) ==
LOC: HO.CT 07:12
PROVIDERS: PCP Family Medicine; Visit Provider Internal Medicine Pulmonary Disease
DX: R91.8 Other nonspecific abnormal finding of lung field (principal)
CPT/HCPCS: 71250

== ENCOUNTER → 2024-02-29 07:13 | Outpatient (BNV) | payer OTHER, SELFPAY | PROVIDERS: PCP Family Medicine; Visit Provider Radiology Diagnostic Radiology | DX: R91.8 Other nonspecific abnormal finding of lung field (principal) | CPT/HCPCS: 71250 ==

== ENCOUNTER 2024-04-04 11:15 | Outpatient (AMB) | payer OTHER, SELFPAY ==
[2024-04-04 11:22] VITALS: BP 130/70; PULSE 83; O2SAT 98; BMI 26.0
--- NOTE | 2024-04-04 11:22 | A.OFFVIS_ITS ---
Vital Signs 04/04/24 11:22 Height 6 ft 1 in Weight 197 lb 5.019 oz BMI 26.0 BP 130/70 Blood Pressure Location Lt brachial Position Sitting Pulse 83 Pulse Source Doppler Pulse Oximetry (%) 98 Oxygen Delivery Method Room Air Intake Visit Reasons: Asthma/ct results Life Enrichment Specialist Required: Yes Life Enrichment Specialist Name: Stephanie Salinas Misa Allergies No Known Allergies [No Known Allergies*] Allergy (Verified 10/05/23 10:50) HPI HPI Asthma/ct results: Details: 73-year-old gentleman, former 30+ pack-year smoker, quit 2015, followed for underlying moderate asthma/COPD overlap syndrome and pulmonary nodules. Patient's symptoms were previously well controlled on Dupixent, Incruse, and Arnuity, however he was not able to receive his last several doses somewhat worsening control. Though, he denies an acute exacerbation. His follow-up CT scan is pending. FOR[facility]LY [facility], [facility] Medical History Gynecomastia Hyperlipidemia Chronic low back pain GERD (gastroesophageal reflux disease) Polyneuropathy Allergic rhinitis Diabetes Hypothyroidism Essential hypertension Other and unspecified hyperlipidemia Asthma Stress-induced cardiomyopathy Surgical History History of back surgery History of sinus surgery Hx of esophagogastroduodenoscopy Hx of colonoscopy Family History Father No problems noted. Mother No problems noted. 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 Review of Systems Const Denies daytime sleepiness, Denies excessive sweating, Denies fatigue, Denies fever(s), Denies lethargy, Denies malaise, Denies night sweats, Denies snoring and Denies weight loss Eyes Denies blurry vision and Denies itchy eyes ENT Denies nasal congestion, Denies post nasal drip, Denies sinus pain, Denies sinus pressure and Denies other ( Thrush) Card Denies chest pain, Denies pedal edema, Denies dyspnea, Denies orthopnea and Denies paroxysmal nocturnal dyspnea Resp Denies cough, Denies hemoptysis, Denies excessive phlegm production, Denies dyspnea, Denies snoring and Denies wheezing GI Denies abdominal pain and Denies heartburn Musc Denies myalgias, Denies arthralgias and Denies joint swelling Skin/Breast Denies rash Neuro Denies memory loss and Denies seizure-like activity Psych Denies abnormal sleep pattern, Denies anxiety and Denies memory loss Endo Denies excessive sweating, Denies fatigue and Denies heat intolerance Ismael/Lymph Denies easy bruising Aller/Immun Denies itchy eyes, Denies seasonal rhinorrhea and Denies wheezing Physical Exam Vital Signs: Last Vital Signs Pulse 83 04/04/24 11:22 BP 130/70 04/04/24 11:22 Pulse Ox 98 04/04/24 11:22 Oxygen Delivery Method Room Air 04/04/24 11:22 BMI result Body Mass Index 26.0 Const General: no acute distress and alert Nutritional Appearance: not obese Orientation/consciousness: Other orientation findings ( oriented) HEENT Head: Yes atraumatic Eyes General: appearance normal, both eyes and all related structures Sclerae: sclerae normal EOM: EOMs intact bilaterally Neck Neck: Yes supple Lymphatic: no lymphadenopathy noted Resp Effort & Inspection: normal respiratory effort and no use of accessory muscles Auscultation: clear to auscultation bilaterally Cardio Rate: regular rate Rhythm: regular rhythm Heart sounds: no gallops, no murmurs and no rubs Skin General skin exam: other ( warm) Extrem General: No clubbing, No cyanosis and No edema Assessment & Plan Assessment & Plan (1) Asthma-COPD overlap syndrome: Code(s): J44.9 - Chronic obstructive pulmonary disease, unspecified Category: Medical Plan: Baseline controlled on Dupixent, Arnuity, albuterol MDI/nebs and Incruse. Continue current regimen. (2) Pulmonary nodules: Code(s): R91.8 - Other nonspecific abnormal finding of lung field Category: Medical Plan: Previously stable pulmonary nodules. Follow-up CT scan is pending. Coding Level of Care Code Est Pt Level 4 (59995) Diagnoses Asthma-COPD overlap syndrome J44.9 Pulmonary nodules R91.8
== END 2024-04-04 11:38 | disposition home or self-care (01) ==
PROVIDERS: PCP Family Medicine; Visit Provider Internal Medicine Pulmonary Disease
DX: J44.9 Chronic obstructive pulmonary disease, unspecified (principal); R91.8 Other nonspecific abnormal finding of lung field
CPT/HCPCS: 99214

== ENCOUNTER → 2024-04-04 11:15 | Outpatient (BNVA) | payer OTHER, SELFPAY | PROVIDERS: PCP Family Medicine; Visit Provider Internal Medicine Pulmonary Disease | DX: J44.9 Chronic obstructive pulmonary disease, unspecified (principal); R91.8 Other nonspecific abnormal finding of lung field | CPT/HCPCS: 99212 ==

== ENCOUNTER 2024-05-08 11:28 | Observation (INO) | payer OTHER, SELFPAY ==
[2024-05-08] VITALS (8 sets, daily range): BP systolic 129–137; BP diastolic 71–79; PULSE 64–74; RESP 16–19; TEMP 36–36.7; O2SAT 96–100; BMI 26.0; BMI 25.0
[2024-05-08 11:56] LABS: MANUAL DIFF FLAG NO
[2024-05-08 12:02] LABS: Basophils Absolute Auto 0.1 X10*3/uL (0.0-0.2); Basophils Percent Auto 1.7 % (0-2); Eosinophils Absolute Auto 0.7 X10*3/uL (0.0-0.4); Eosinophils Percent Auto 16.8 % (0-4); Hematocrit 35.1 % (42.0-52.0); Hemoglobin 11.9 g/dl (14.0-18.0); Imm Gran Abs Auto 0.01 X10*3/uL (0.00-0.03); Imm Gran Pct Auto 0.2 % (0.0-0.4); Lymphocytes Absolute Auto 0.9 X10*3/uL (1.2-4.9); Lymphocytes Percent Auto 20.3 % (20-40); Mean Corpuscular HGB Conc 33.9 g/dl (31.0-36.0); Mean Corpuscular Hemoglobin 29.9 pg (27.0-33.0); Mean Corpuscular Volume 88.2 fL (80.0-98.0); Mean Platelet Volume 8.8 fL (9.4-12.4); Monocytes Absolute Auto 0.3 X10*3/uL (0.1-1.2); Monocytes Percent Auto 7.8 % (2-11); Neutrophils Absolute Auto 2.3 x10*3/uL (2.0-8.3); Neutrophils Percent Auto 53.2 % (45-73); Platelet Count 315 X10*3/uL (160-400); Red Blood Count 3.98 X10*6/uL (4.60-5.80); White Blood Count 4.2 X10*3/uL (4.8-10.8)
--- NOTE | 2024-05-08 12:02 | ED_ITS ---
HPI - Allergic Reaction General Chief complaint: Allergic Reaction Stated complaint: LIP SWELLING,DIFF BREATHING 98% RA FROM MD OFFICE Time Seen by Provider: 05/08/24 11:40 Source: patient, EMS, old records reviewed and interpreter for the deaf Mode of arrival: EMS Limitations: no limitations History of Present Illness ED Provider: JERRY MTZ narrative: 73 yo male with PMH of anemia, BPH, HTN, NICM, asthma, asthma-COPD, gastritis, GERD, on lisinopril 40mg daily here with c/o lip swelling starting at 0400. He has never had this happen before. He has no swallowing difficulties or diff breathing. He has no other symptoms. INitially thought it was an apple he ate but he has had them before no issues. MD complaint: facial swelling Onset (ago): hour(s) (4am today) Exposure: unknown Symptoms: lip swelling Severity: moderate Treatment prior to arrival: none Previous Allergic Reaction History: none Related Data Home Medications ?Medication ?Instructions ?Recorded ?Confirmed ferrous sulfate 325 mg (65 mg 325 mg PO BID 03/27/20 12/28/23 iron) tablet multivitamin 1 tab PO DAILY 03/27/20 12/28/23 albuterol sulfate 2.5 mg/3 mL 1 amp inhalation QID PRN Wheezing 04/18/20 12/28/23 (0.083 %) solution for nebulization albuterol sulfate 90 mcg/actuation 2 puff PO Q4-6H PRN Wheezing 04/18/20 12/28/23 aerosol inhaler (Ventolin HFA) amlodipine 10 mg tablet 10 mg PO DAILY 09/30/22 12/28/23 atorvastatin 40 mg tablet 40 mg PO BEDTIME 09/30/22 12/28/23 cetirizine 10 mg capsule (All Day 10 mg PO DAILY PRN Allergy Symptoms 09/30/22 12/28/23 Allergy (cetirizine)) gabapentin 800 mg tablet 800 mg PO TID 09/30/22 12/28/23 levothyroxine 25 mcg tablet 25 mcg PO DAILY 09/30/22 12/28/23 lisinopril 40 mg tablet 40 mg PO DAILY 09/30/22 12/28/23 metformin 500 mg tablet 500 mg PO DAILY 09/30/22 12/28/23 montelukast 10 mg tablet 10 mg PO DAILY 09/30/22 12/28/23 sertraline 25 mg tablet 25 mg PO DAILY 09/30/22 12/28/23 cholecalciferol (vitamin D3) 50 50 mcg PO DAILY 10/21/22 12/28/23 mcg (2,000 unit) capsule fluticasone furoate 200 1 inh inhalation QAM 12/28/23 12/28/23 mcg/actuation blister powder for inhalation (Arnuity Ellipta) Previous Rx's ?Medication ?Instructions ?Recorded famotidine 40 mg tablet 40 mg PO BEDTIME #30 tabs 10/13/23 docusate sodium 100 mg capsule 100 mg PO QAM #30 caps 11/10/23 dupilumab 300 mg/2 mL subcutaneous 300 mg (2 mL) subcut Q2W #4 mL 04/07/24 pen injector ([employer]) Allergies Allergy/AdvReac Type Severity Reaction Status Date / Time lisinopril Allergy Angioedema Verified 05/08/24 12:21 Review of Systems 2 Review of Systems: Constitutional : No Fever, No Chills ENT/Mouth : positive oral swelling, No Hoarseness, No Swallowing Difficulty Eyes: No Eye Pain, No Swelling, No Redness Cardiovascular : No Chest Pain, No SOB Respiratory : No Cough, No Sputum, No Wheezing, No Smoke Exposure, No Dyspnea Gastrointestinal : No Nausea, No Vomiting, No Diarrhea, No abdominal Pain Genitourinary : No Dysuria, No Urinary Frequency, No Hematuria Musculoskeletal : No joint pain, No Myalgias, No Joint Swelling Skin : No Skin Lesions, no rash Neuro : No Weakness, No Numbness, No Headache Psych : No Anxiety/Panic, No Depression Heme/Lymph: No Bruising, No Lymphadenopathy Endocrine : No Polyuria, No Polydipsia All other systems reviewed and are negative [facility] Past Medical History Attestation statement: The following information was validated with the patient. Source: old records reviewed Medical History Gynecomastia Hyperlipidemia Chronic low back pain GERD (gastroesophageal reflux disease) Polyneuropathy Allergic rhinitis Diabetes Hypothyroidism Essential hypertension Other and unspecified hyperlipidemia Asthma Stress-induced cardiomyopathy Surgical History History of back surgery History of sinus surgery Hx of esophagogastroduodenoscopy Hx of colonoscopy Family History Family History Father No problems noted. Mother No problems noted. Other No family history of cancer Social History Social History Household Members: Spouse Housing: Apartment Are you a primary infant caregiver to a significant other at home: Yes () Do you presently have visiting nurse or other home services: Yes (3/6 months) Alcohol intake: current Alcohol intake frequency: does not drink Patient Tobacco Use Status: Never used Tobacco Smoked in Last 30 Days: No Second Hand Smoke Exposure: No Use of substances other than those prescribed or required for medical reasons: No Advance Directives: No Advance Directives Information Provided: Yes Do you have a plan to hurt others: No Plan service: No Current occupational status: disabled 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 Oriented X3. No acute distress. Eyes: Pupils equal, round and reactive to light. ENT: Pharynx no tongue or internal swelling but has moderate swelling of upper and lower lip, no drooling, no stridor Neck: Normal inspection. Neck supple. CVS: Normal heart rate and rhythm. Pulses normal. Respiratory: No respiratory distress. Breath sounds normal. Abdomen: Soft and non-tender. Skin: Skin warm and dry. Normal skin color. Normal skin turgor. Extremities: No lower extremity edema. No calf ttp Neuro: Oriented X 3. No motor deficit. No sensory deficit. Medications Administered Generic Name Dose Route Start Last Admin Trade Name Freq PRN Reason Stop Dose Admin Magnesium Sulfate 2 gm in 50 mls @ 25 mls/hr 05/08/24 12:43 05/08/24 13:06 Magnesium Sulfate/H2o IV 05/08/24 14:42 25 mls/hr ONCE ONE Administration Discontinued Medications Generic Name Dose Route Start Last Admin Trade Name Freq PRN Reason Stop Dose Admin Epinephrine 0.3 mg 05/08/24 11:49 05/08/24 12:07 Epinephrine 1 Mg/Ml Vial IM 12/23/24 11:50 0.3 mg STAT STA Administration Famotidine 20 mg 05/08/24 11:49 05/08/24 12:07 Famotidine/Pf 20 Mg/2 Ml Vial IVPUSH 05/08/24 11:50 20 mg ONCE ONE Administration Loratadine 10 mg 05/08/24 11:49 05/08/24 12:07 Loratadine 10 Mg Tablet PO 05/08/24 11:50 10 mg ONCE ONE Administration Methylprednisolone Sodium Succinate 125 mg 05/08/24 11:49 05/08/24 12:07 Methylprednisolone Sod Succ 125 Mg/2 Ml Vial IVPUSH 05/08/24 11:50 125 mg ONCE ONE Administration Medical Decision Making Medical Decision Making [facility] Narrative: 73 yo male with PMH of anemia, BPH, HTN, NICM, asthma, asthma-COPD, gastritis, GERD, on lisinopril 40mg daily here with c/o lip swelling has no resp difficulties has no other complaints or resp issues will give IM epi, steroids, pepcid, claritin suspect this is med related but has sig lip swelling. Will monitor closely. He is aware he can no longer take lisinopril will need to switch his BP meds Differential Diagnosis Differential Diagnoses: The differential diagnosis associated with the presentation includes med reaction, angioedema Admission/Observation Consideration of admission/observation: Escalation of care including admission/observation considered admit for airway monitoring no sig change with meds but no worsening Consult Healthcare Provider Management of the patient was discussed with: Hospitalist (will admit) Lab Data [facility] Lab Attestation statement: I reviewed the patient's lab results. 05/08/24 11:53 05/08/24 11:53 Labs: Lab Results 05/08/24 Range/Units 11:53 WBC 4.2 L (4.8-10.8) X10*3/uL RBC 3.98 L (4.60-5.80) X10*6/uL Hgb 11.9 L (14.0-18.0) g/dl Hct 35.1 L (42.0-52.0) % MCV 88.2 (80.0-98.0) fL MCH 29.9 (27.0-33.0) pg MCHC 33.9 (31.0-36.0) g/dl RDW 13.0 (11.0-16.0) % Plt Count 315 (160-400) X10*3/uL MPV 8.8 L (9.4-12.4) fL Immature Gran % (Auto) 0.2 (0.0-0.4) % Neut % (Auto) 53.2 (45-73) % Lymph % (Auto) 20.3 (20-40) % Mclean % (Auto) 7.8 (2-11) % Eos % (Auto) 16.8 H (0-4) % Baso % (Auto) 1.7 (0-2) % Lymph # (Auto) 0.9 L (1.2-4.9) X10*3/uL Mclean # (Auto) 0.3 (0.1-1.2) X10*3/uL Eos # (Auto) 0.7 H (0.0-0.4) X10*3/uL Baso # (Auto) 0.1 (0.0-0.2) X10*3/uL Abs Immat Gran (auto) 0.01 (0.00-0.03) X10*3/uL Absolute Neuts (auto) 2.3 (2.0-8.3) x10*3/uL Absolute Nucleated RBC 0.000 (0.0-0.012) X10*3/uL Nucleated RBC % (auto) 0.0 (0.0-0.2) /100WBC Sodium 146 H (135-145) mmol/L Potassium 3.8 (3.3-5.1) mmol/L Chloride 112 H (96-108) mmol/L Carbon Dioxide 30 H (22-29) mmol/L Anion Gap 8 L (12-20) BUN 12 (9-16) mg/dL Creatinine 0.74 (0.5-1.4) mg/dL Estim Creat Clear Calc 103.4 Estimated GFR > 60 Random Glucose 114 (60-115) mg/dL Calcium 8.9 (8.4-10.2) mg/dL Magnesium 1.5 L (1.6-2.6) mg/dL Total Bilirubin 0.3 (0.0-1.0) mg/dL Direct Bilirubin 0.1 (0.0-0.5) mg/dL AST 31 (5-37) U/L ALT 20 (0-40) U/L Alkaline Phosphatase 84 (39-117) U/L Total Protein 7.1 (6.5-8.0) g/dL Albumin 3.8 (3.5-5.0) g/dL Independent Historian Clinical information obtained from an independent historian. History obtained from or confirmed by: Spouse External Record Review External record reviewed: Outpatient record Critical Care Time Critical Care Time Critical Care Time: Yes Total Critical Care Time: 60 Attestation: IV magnesium to prevent cardia arrhythmia, IM epi, IV steroids/pepcid for angioedema, repeat assessments I attest to this time spent taking care of the patient Discharge Plan Discharge Clinical Impression: Angioedema, Hypomagnesemia Patient Disposition: Admitted As Inpatient Prescriptions: No Action famotidine 40 mg tablet 40 mg PO BEDTIME Qty: 30 6RF docusate sodium 100 mg capsule 100 mg PO QAM Qty: 30 6RF Dupixent Pen 300 mg/2 mL pen injector 300 mg subcut Q2W Qty: 4 12RF albuterol sulfate 2.5 mg /3 mL (0.083 %) solution for nebulization 1 amp inhalation QID PRN (Reason: Wheezing) albuterol sulfate [Ventolin HFA] 90 mcg/actuation HFA aerosol inhaler 2 puff PO Q4-6H PRN (Reason: Wheezing) Arnuity Ellipta 200 mcg/actuation blister with device 1 inh INHALATION QAM ferrous sulfate 325 mg (65 mg iron) tablet 325 mg PO BID multivitamin Tablet 1 tab PO DAILY amlodipine 10 mg tablet 10 mg PO DAILY atorvastatin 40 mg tablet 40 mg PO BEDTIME All Day Allergy (cetirizine) 10 mg capsule 10 mg PO DAILY PRN (Reason: Allergy Symptoms) gabapentin 800 mg tablet 800 mg PO TID levothyroxine 25 mcg tablet 25 mcg PO DAILY lisinopril 40 mg tablet 40 mg PO DAILY metformin 500 mg tablet 500 mg PO DAILY montelukast 10 mg tablet 10 mg PO DAILY sertraline 25 mg tablet 25 mg PO DAILY cholecalciferol (vitamin D3) 50 mcg (2,000 unit) capsule 50 mcg PO DAILY Print Language: Fijian
[2024-05-08] MEDS: Loratadine 10 MG TABLET PO (12:07)
[2024-05-08] MEDS: Famotidine/PF 20 MG/2 ML VIAL IVPUSH (12:07)
[2024-05-08] MEDS: methylPREDNISolone Sod Succ 125 MG/2 ML VIAL IVPUSH (12:07)
[2024-05-08] MEDS: EPINEPHrine 1 MG/ML VIAL 0.3 MG IM (12:07)
[2024-05-08 12:22] LABS: Alanine Aminotransferase 20 U/L (0-40); Albumin Level 3.8 g/dL (3.5-5.0); Alkaline Phosphatase 84 U/L (39-117); Anion Gap 8 (12-20); Aspartate Amino Transferase 31 U/L (5-37); Bilirubin Direct 0.1 mg/dL (0.0-0.5); Bilirubin Total 0.3 mg/dL (0.0-1.0); Blood Urea Nitrogen 12 mg/dL (9-16); Calcium 8.9 mg/dL (8.4-10.2); Carbon Dioxide 30 mmol/L (22-29); Chloride 112 mmol/L (96-108); Creatinine Clr Calc Pharmacy 103.4; Estimated Glomerular Filt Rate > 60; Glucose Random 114 mg/dL (60-115); Magnesium 1.5 mg/dL (1.6-2.6); Potassium 3.8 mmol/L (3.3-5.1); Sodium 146 mmol/L (135-145); Total Protein 7.1 g/dL (6.5-8.0)
[2024-05-08] MEDS: Magnesium Sulfate/H2O 2 GM/50 ML PIGGYBACK IV (13:06)
--- NOTE | 2024-05-08 13:06 | PC.NURSE ---
No change in angioedema s/p medication interventions, however pt appears restful, NAD, sat 100% on room air, breathing easy Mg started per order
--- NOTE | 2024-05-08 14:18 | PM.IMHP ---
History of Present Illness Date of Service: 05/08/24 Chief Complaint: lip swelling 73M PMH COPD/asthma, NICM EF 40%, htn, bph, gerd presented with lip swelling. Symptoms began at 04:00. Has never happened previously. He was on lisinopril 40 mg daily. He did mentioned eating to apples night prior but has had many apples before with no symptoms. Denies any shortness of breath, nausea, vomiting, diarrhea. In ED vitals stable, no obvious respiratory distress or stridor. Review of Systems Review of Systems: Yes all other systems are reviewed and are negative [facility] Medical History Gynecomastia Hyperlipidemia Chronic low back pain GERD (gastroesophageal reflux disease) Polyneuropathy Allergic rhinitis Diabetes Hypothyroidism Essential hypertension Other and unspecified hyperlipidemia Asthma Stress-induced cardiomyopathy Family History Father No problems noted. Mother No problems noted. Other No family history of cancer Surgical History History of back surgery History of sinus surgery Hx of esophagogastroduodenoscopy Hx of colonoscopy Social History Household Members: Spouse Housing: Apartment Are you a primary care professional to a significant other at home: Yes () Do you presently have visiting nurse or other home services: Yes (3/6 months) Alcohol intake: current Alcohol intake frequency: does not drink Patient Tobacco Use Status: Never used Tobacco Smoked in Last 30 Days: No Second Hand Smoke Exposure: No Use of substances other than those prescribed or required for medical reasons: No Advance Directives: No Advance Directives Information Provided: Yes Do you have a plan to hurt others: No Plan service: No Current occupational status: disabled 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 Meds Allergies Allergy/AdvReac Type Severity Reaction Status Date / Time lisinopril Allergy Angioedema Verified 05/08/24 12:21 Active Medications: Current Medications Acetaminophen (Acetaminophen 325 Mg Tablet) 650 mg PO Q6H PRN PRN Reason: Pain, Mild 1-3,fever,headache Calcium Carbonate (Calcium Carbonate 750 Mg Tab.Chew) 750 mg PO Q4H PRN PRN Reason: Heartburn Diphenhydramine HCl (Diphenhydramine Hcl 25 Mg Capsule) 25 mg PO Q6H [facility] Magnesium Sulfate (Magnesium Sulfate/H2o) 2 gm in 50 mls @ 25 mls/hr IV ONCE ONE Stop: 05/08/24 14:42 Last Admin: 05/08/24 13:06 Dose: 25 mls/hr Melatonin (Melatonin 3 Mg Tablet) 6 mg PO BEDTIME PRN PRN Reason: Insomnia Prednisone (Prednisone 20 Mg Tablet) 40 mg PO DAILY [facility] Sodium Chloride (0.9 % Sodium Chloride Flush 3 Ml Syringe) 3 ml IVFLUSH QSHIFT [facility] Home Medications ?Medication ?Instructions ?Recorded ?Confirmed ?Last Taken ?Type ferrous sulfate 325 mg (65 mg 325 mg PO BID 03/27/20 05/08/24 05/08/24 History iron) tablet multivitamin 1 tab PO DAILY 03/27/20 05/08/24 05/08/24 History albuterol sulfate 2.5 mg/3 mL 1 amp inhalation QID PRN Wheezing 04/18/20 05/08/24 05/08/24 History (0.083 %) solution for nebulization albuterol sulfate 90 mcg/actuation 2 puff PO Q4-6H PRN Wheezing 04/18/20 05/08/24 05/08/24 History aerosol inhaler (Ventolin HFA) amlodipine 10 mg tablet 10 mg PO DAILY 09/30/22 05/08/24 05/08/24 History atorvastatin 40 mg tablet 40 mg PO BEDTIME 09/30/22 05/08/24 05/07/24 History cetirizine 10 mg capsule (All Day 10 mg PO DAILY PRN Allergy Symptoms 09/30/22 05/08/24 05/08/24 History Allergy (cetirizine)) gabapentin 800 mg tablet 800 mg PO TID 09/30/22 05/08/24 05/08/24 History levothyroxine 25 mcg tablet 25 mcg PO DAILY@0600 09/30/22 05/08/24 05/08/24 History lisinopril 40 mg tablet 40 mg PO DAILY 09/30/22 05/08/24 05/08/24 History metformin 500 mg tablet 500 mg PO DAILY 09/30/22 05/08/24 05/08/24 History montelukast 10 mg tablet 10 mg PO DAILY 09/30/22 05/08/24 05/08/24 History sertraline 25 mg tablet 25 mg PO DAILY 09/30/22 05/08/24 05/08/24 History cholecalciferol (vitamin D3) 50 50 mcg PO DAILY 10/21/22 05/08/24 05/08/24 History mcg (2,000 unit) capsule fluticasone furoate 200 1 inh inhalation DAILY 12/28/23 05/08/24 05/08/24 History mcg/actuation blister powder for inhalation (Arnuity Ellipta) acetaminophen 650 mg 650 mg PO TID 05/08/24 05/08/24 05/08/24 History tablet,extended release baclofen 10 mg tablet 10 mg PO TID PRN muscle spasm 05/08/24 05/08/24 05/08/24 History dexlansoprazole 60 mg 60 mg PO DAILY 05/08/24 05/08/24 05/08/24 History capsule,biphase delayed release diclofenac sodium 1 % topical gel 2 g topical QID PRN pain 05/08/24 05/08/24 05/08/24 History docusate sodium 100 mg capsule 100 mg PO DAILY 05/08/24 05/08/24 05/08/24 History dupilumab 300 mg/2 mL subcutaneous 300 mg subcut Q2W 05/08/24 05/08/24 04/24/24 History pen injector (Dupixent) hydroxyzine pamoate 25 mg capsule 25 mg PO Q6H PRN anxiety 05/08/24 05/08/24 05/08/24 History losartan 100 mg tablet 100 mg PO DAILY 05/08/24 05/08/24 05/08/24 History polyvinyl alcohol 1.4 % eye drops 1 drp ophthalmic (eye) TID 05/08/24 05/08/24 05/08/24 History tramadol 50 mg tablet 50 mg PO Q12H PRN severe pain 05/08/24 05/08/24 Unknown History umeclidinium 62.5 mcg/actuation 1 inh inhalation DAILY 05/08/24 05/08/24 05/08/24 History blister powder for inhalation (Incruse Ellipta) Physical Exam Vital Signs and Narrative: Vital Signs: Last Vital Signs Temp 98.1 F 05/08/24 14:16 Pulse 66 05/08/24 14:16 Resp 16 05/08/24 14:16 BP 135/71 05/08/24 14:16 Pulse Ox 99 05/08/24 14:16 O2 Del Method Room Air 05/08/24 14:16 BMI result Body Mass Index 26.0 General: AO X 3, no acute distress Resp: CTA bilateral, no accessory muscles used CVS: S1,S2,RRR GI: soft, non tender, non distended Neuro: motor grossly intact, alert Psych: appropriate affect, appropriate insight Results Labs 05/08/24 11:53 05/08/24 11:53 Labs: Laboratory Results - last 24 hr 05/08/24 11:53 MCV 88.2 MCH 29.9 MCHC 33.9 RDW 13.0 Plt Count 315 MPV 8.8 L Immature Gran % (Auto) 0.2 Neut % (Auto) 53.2 Lymph % (Auto) 20.3 [place] % (Auto) 7.8 Eos % (Auto) 16.8 H Baso % (Auto) 1.7 Lymph # (Auto) 0.9 L [place] # (Auto) 0.3 Eos # (Auto) 0.7 H Baso # (Auto) 0.1 Abs Immat Gran (auto) 0.01 Absolute Neuts (auto) 2.3 Absolute Nucleated RBC 0.000 Nucleated RBC % (auto) 0.0 Anion Gap 8 L Estim Creat Clear Calc 103.4 Estimated GFR > 60 Random Glucose 114 Calcium 8.9 Magnesium 1.5 L Total Bilirubin 0.3 Direct Bilirubin 0.1 AST 31 ALT 20 Alkaline Phosphatase 84 Total Protein 7.1 Albumin 3.8 Assessment and Plan (1) Angioedema: Qualifiers: Encounter type: initial encounter Qualified Code(s): T78.3XXA - Angioneurotic edema, initial encounter Status: Acute Plan 73M PMH COPD/asthma, NICM EF 40%, htn, bph, gerd, presented with lip swelling Angioedema likely due to lisinopril Monitor, prednisone and antihistamines in case allergic etiology DC all SHIRA inhibitors COPD/asthma Stable, continue inhalers htn amlodipine dvt prophylaxis - lovenox full code Quality Stroke Does the patient have a stroke diagnosis?: No VTE Prior VTE?: No VTE Risk Level:: Medical - moderate - high VTE Device Contraindication: Treatment Not Indicated VTE Drug Contraindication: N/A - Med Ordered
[2024-05-08] MEDS: diphenhydrAMINE HCL 25 MG CAPSULE PO ×2 (15:20→21:07)
[2024-05-08] MEDS: 0.9 % Sodium Chloride Flush 3 ML SYRINGE IVFLUSH (15:20)
--- NOTE | 2024-05-08 17:39 | PHA.MEDREC ---
Pharmacy Consult ? Medication Reconciliation Pharmacy has completed the medication reconciliation.Spoke to patient to confirm med list. Patient had a medbox list with him and was able to confirm all other medications. Utilized claims and medbox list to confirm med list.
--- NOTE | 2024-05-08 17:41 | PHA.MEDREC ---
Addendum entered by Karen Mireles RPh 05/08/24 20:56: Reviewed by [facility]: Pt is no longer on Lisinopril, pt is 3 inhalers (albuterol, fluticasone, and emeclidinium). Original Note: Pharmacy Consult ? Medication Reconciliation Pharmacy has completed the medication reconciliation. Spoke to patient through monotyper service to confirm med list. Patient had a medbox list with him and was able to confirm all other medications. Utilized claims and medbox list to confirm med list.
--- NOTE | 2024-05-08 19:27 | PC.NURSE ---
this rn assumed care of pt, pt resting in stretcher, no acute distress noted.
--- NOTE | 2024-05-08 19:29 | PC.NURSE ---
pt upper lip noted to be swollen, airway patent, no respiratory distress noted.
--- NOTE | 2024-05-08 19:37 | PC.NURSE ---
per Katelynn RN nursing supervisor cap and hat production, okay for pt to stay the night on the floor. Emergency contact for - Gayle James [phone]
[2024-05-08] MEDS: Gabapentin 400 MG CAPSULE 800 MG PO (21:07)
[2024-05-08] MEDS: Atorvastatin Calcium 40 MG TABLET PO (21:07)
[2024-05-08] MEDS: Famotidine 20 MG TABLET 40 MG PO (21:07)
[2024-05-08] MEDS: Montelukast Sodium 10 MG TABLET PO (21:07)
[2024-05-08] MEDS: Ferrous Sulfate 324 MG TABLET.DR PO (21:07)
[2024-05-09] MEDS: 0.9 % Sodium Chloride Flush 3 ML SYRINGE IVFLUSH ×2 (00:34→08:34)
[2024-05-09] MEDS: diphenhydrAMINE HCL 25 MG CAPSULE PO ×2 (02:21→08:29)
[2024-05-09 04:00] VITALS: BP 136/75; PULSE 54; RESP 18; TEMP 36.7; O2SAT 98
[2024-05-09] MEDS: Levothyroxine Sodium 25 MCG TABLET PO (05:25)
[2024-05-09 06:02] LABS: Hematocrit 36.5 % (42.0-52.0); Mean Corpuscular HGB Conc 32.9 g/dl (31.0-36.0); Mean Corpuscular Hemoglobin 29.3 pg (27.0-33.0); Mean Corpuscular Volume 89.2 fL (80.0-98.0); Mean Platelet Volume 9.2 fL (9.4-12.4); Platelet Count 351 X10*3/uL (160-400); Red Blood Count 4.09 X10*6/uL (4.60-5.80); Red Cell Distribution Width 12.8 % (11.0-16.0); White Blood Count 11.2 X10*3/uL (4.8-10.8)
[2024-05-09 06:23] LABS: Anion Gap 11 (12-20); Blood Urea Nitrogen 23 mg/dL (9-16); Calcium 9.8 mg/dL (8.4-10.2); Carbon Dioxide 27 mmol/L (22-29); Chloride 108 mmol/L (96-108); Creatinine Clr Calc Pharmacy 96.9; Estimated Glomerular Filt Rate > 60; Glucose Random 108 mg/dL (60-115); Sodium 142 mmol/L (135-145)
[2024-05-09 07:16] VITALS: BP 152/77; PULSE 55; RESP 16; TEMP 36.9; O2SAT 98
[2024-05-09 07:22] LABS: Glucose, Whole Blood 105 mg/dL (60-115)
[2024-05-09] MEDS: Ferrous Sulfate 324 MG TABLET.DR PO (08:29)
[2024-05-09] MEDS: Multivitamin TABLET 1 TAB PO (08:29)
[2024-05-09] MEDS: Omeprazole 40 MG CAPSULE.DR PO (08:29)
[2024-05-09] MEDS: Sertraline HCL 25 MG TABLET PO (08:29)
[2024-05-09] MEDS: Losartan Potassium 50 MG TABLET 100 MG PO (08:29)
[2024-05-09] MEDS: Gabapentin 400 MG CAPSULE 800 MG PO (08:29)
[2024-05-09] MEDS: amLODIPine Besylate 10 MG TABLET PO (08:29)
[2024-05-09] MEDS: predniSONE 20 MG TABLET 40 MG PO (08:30)
[2024-05-09] MEDS: Cholecalciferol (Vitamin D3) 25 MCG TABLET 50 MCG PO (08:30)
[2024-05-09] MEDS: Docusate Sodium 100 MG CAPSULE PO (08:30)
[2024-05-09] MEDS: Enoxaparin Sodium 40 MG/0.4 ML SYRINGE SUBCUT (08:36)
--- NOTE | 2024-05-09 08:58 | PM.DS ---
DS: Providers Provider Date of Service: 05/09/24 Date of admission: 05/08/24 14:15 Date of discharge: 05/09/24 Primary care physician: Stephanie Alex DO DS: Diagnosis Discharge Diagnosis (1) Angioedema: Status: Acute DS: Summary Hospital Course Hospital Course: from initial hpi: 73M PMH COPD/asthma, NICM EF 40%, htn, bph, gerd presented with lip swelling. Symptoms began at 04:00. Has never happened previously. He was on lisinopril 40 mg daily. He did mentioned eating to apples night prior but has had many apples before with no symptoms. Denies any shortness of breath, nausea, vomiting, diarrhea. In ED vitals stable, no obvious respiratory distress or stridor. hospital course: Patient was observed for angioedema likely due to lisinopril. Lisinopril was held. Was treated with prednisone and antihistamines and case other allergic etiology. Lip swelling significantly improved. Patient had no respiratory compromise during hospitalization. He will be discharged home. Has been started on losartan. For hypertension and continued on amlodipine. For COPD/asthma remained stable continued inhalers. Time Attestation Discharge Coordination Time (in mins): 33 Quality: Safe Use of Opioids Does Pt have an Active Cancer Diagnosis on the Problem List?: No Quality: Stroke Does the patient have a stroke diagnosis?: No Physical Exam Vital Signs: Vital Signs: Last Vital Signs Temp 98.5 F 05/09/24 07:16 Pulse 55 05/09/24 07:16 Resp 16 05/09/24 07:16 BP 152/77 H 05/09/24 07:16 Pulse Ox 98 05/09/24 07:16 O2 Del Method Room Air 05/09/24 07:16 BMI result Body Mass Index 25.0 Improved upper lip swelling Alert and oriented x3, no acute distress, lungs clear DS: Data Data Completed and Pending Labs on day of discharge: Laboratory Results - last 24 hr 05/08/24 05/09/24 05/09/24 11:53 05:43 07:19 WBC 4.2 L 11.2 H RBC 3.98 L 4.09 L Hgb 11.9 L 12.0 L Hct 35.1 L 36.5 L MCV 88.2 89.2 MCH 29.9 29.3 MCHC 33.9 32.9 RDW 13.0 12.8 Plt Count 315 351 MPV 8.8 L 9.2 L Immature Gran % (Auto) 0.2 Neut % (Auto) 53.2 Lymph % (Auto) 20.3 [place] % (Auto) 7.8 Eos % (Auto) 16.8 H Baso % (Auto) 1.7 Lymph # (Auto) 0.9 L [place] # (Auto) 0.3 Eos # (Auto) 0.7 H Baso # (Auto) 0.1 Abs Immat Gran (auto) 0.01 Absolute Neuts (auto) 2.3 Absolute Nucleated RBC 0.000 0.000 Nucleated RBC % (auto) 0.0 0.0 Sodium 146 H 142 Potassium 3.8 4.0 Chloride 112 H 108 Carbon Dioxide 30 H 27 Anion Gap 8 L 11 L BUN 12 23 H Creatinine 0.74 0.79 Estim Creat Clear Calc 103.4 96.9 Estimated GFR > 60 > 60 POC Glucose 105 Random Glucose 114 108 Calcium 8.9 9.8 D Magnesium 1.5 L Total Bilirubin 0.3 Direct Bilirubin 0.1 AST 31 ALT 20 Alkaline Phosphatase 84 Total Protein 7.1 Albumin 3.8 Discharge Plan Discharge Anticipated Discharge Date/Time: 05/09/24 08:52 Patient Disposition: Home, Self-Care Discharge Diagnosis: iker-I angioedema Referrals: Stephanie Alex DO [Primary Care Provider] - 1 Week Discharge Medications: Continued famotidine 40 mg tablet 40 mg PO BEDTIME Qty: 30 6RF albuterol sulfate [Ventolin HFA] 90 mcg/actuation HFA aerosol inhaler 2 puff PO Q4H PRN (Reason: Wheezing) Arnuity Ellipta 200 mcg/actuation blister with device 1 inh INHALATION DAILY polyvinyl alcohol 1.4 % drops 1 drp ophthalmic (eye) TID tramadol 50 mg tablet 50 mg PO Q12H PRN (Reason: severe pain) acetaminophen 650 mg tablet extended release 650 mg PO TID PRN (Reason: Pain) baclofen 10 mg tablet 10 mg PO TID PRN (Reason: muscle spasm) losartan 100 mg tablet 100 mg PO DAILY hydroxyzine pamoate 25 mg capsule 25 mg PO Q6H PRN (Reason: anxiety) diclofenac sodium 1 % gel 2 g topical QID PRN (Reason: pain) dexlansoprazole 60 mg capsule,biphase delayed releas 60 mg PO DAILY@0600 Incruse Ellipta 62.5 mcg/actuation blister with device 1 inh inhalation DAILY Dupixent Pen 300 mg/2 mL pen injector 300 mg subcut Q2W docusate sodium 100 mg capsule 100 mg PO DAILY albuterol sulfate 2.5 mg /3 mL (0.083 %) solution for nebulization 2.5 mg inhalation QID PRN (Reason: Shortness Of Breath Or Wheezing) budesonide 0.5 mg/2 mL suspension for nebulization 0.5 mg irrigation BID PRN (Reason: NASAL IRRIGATION ) Rx Instructions: NASAL IRRIGATION fluticasone propionate 50 mcg/actuation [place],Suspension 1 spray INTRANASAL DAILY PRN (Reason: Congestion) Rx Instructions: administer into each nostril ferrous sulfate 325 mg (65 mg iron) tablet 325 mg PO BID multivitamin Tablet 1 tab PO DAILY amlodipine 10 mg tablet 10 mg PO DAILY atorvastatin 40 mg tablet 40 mg PO BEDTIME All Day Allergy (cetirizine) 10 mg capsule 10 mg PO DAILY PRN (Reason: Allergy Symptoms) gabapentin 800 mg tablet 800 mg PO TID levothyroxine 25 mcg tablet 25 mcg PO DAILY@0600 metformin 500 mg tablet 500 mg PO BIDWM montelukast 10 mg tablet 10 mg PO BEDTIME sertraline 25 mg tablet 25 mg PO DAILY cholecalciferol (vitamin D3) 50 mcg (2,000 unit) capsule 50 mcg PO DAILY Discharge Orders: Discharge Order (Routine); Ordered 05/09/24 Ordered By: Jose Haq Diet: Advance to usual diet Activity on Discharge: As tolerated Stand Alone Forms: Patient Portal Discharge page Print Language: [place] Care Plan Goals: avoid angioedema Health Concerns: iekr inhibitor induced angioedema Plan of Treatment: lisinopril stopped, started on losartan instead Assessment: see above
== END 2024-05-09 10:56 | disposition home or self-care (01) ==
LOC: HO.ED 13:51 → HO.EDOVER 14:42 → HO.S3 19:20
PROVIDERS: Admitting Provider Internal Medicine; Emergency Provider Emergency Medicine; PCP Family Medicine; Visit Provider Internal Medicine
DX: T78.3XXA Angioneurotic edema, initial encounter (principal); X58.XXXA Exposure to other specified factors, initial encounter; Y93.9 Activity, unspecified; Y99.9 Unspecified external cause status; Y92.9 Unspecified place or not applicable; I10 Essential (primary) hypertension; E83.42 Hypomagnesemia; N40.0 Benign prostatic hyperplasia without lower urinary tract symptoms; K21.9 Gastro-esophageal reflux disease without esophagitis; J44.9 Chronic obstructive pulmonary disease, unspecified; Z79.899 Other long term (current) drug therapy
CPT/HCPCS: 36415; 80048; 80076; 82947; 83735; 85025; 85027; 96365; 96366; 96372; 96375; 99221; 99285; J0171; J1650; J2919; J3475

== ENCOUNTER → 2024-05-08 14:15 | Outpatient (BNV) | payer OTHER, SELFPAY | PROVIDERS: Admitting Provider Internal Medicine; Emergency Provider Emergency Medicine; PCP Family Medicine; Visit Provider Internal Medicine | DX: T78.3XXA Angioneurotic edema, initial encounter (principal) | CPT/HCPCS: 99222; 99239 ==

== ENCOUNTER 2024-06-08 13:54 | Outpatient (REF) | payer OTHER, SELFPAY ==
--- NOTE | ~2024-06-08 | XR_ITS ---
EXAMINATION: XR ANKLE, LEFT CLINICAL INFORMATION: twisted ankle 3 days ago COMPARISON: None available. TECHNIQUE: AP, lateral, and mortise views of the left ankle. FINDINGS: No fracture, dislocation, or suspicious bone lesion. The ankle mortise is preserved. The talar dome is intact. Mild arthritis in the subtalar joints. Moderate sized plantar calcaneal spur. Pes planus deformity suspected. Mild arthritic changes in the interim talar joints. There may be an ankle joint effusion present. Soft tissues demonstrate mild predominantly medial soft tissue swelling. There are diffuse vascular calcifications. XR/XR ankle LT min 3V IMPRESSION: 1. No definite fracture or dislocation. 2. 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 3. Moderate-sized plantar calcaneal spur. 4. Medial soft tissue swelling. Probable ankle joint effusion. Electronically signed by: Scot Bowman MD 06/08/2024 02:26 PM [facility]
== END 2024-06-08 13:55 | disposition home or self-care (01) ==
LOC: HO.HHCX 13:54
PROVIDERS: Visit Provider Family Medicine
DX: M25.472 Effusion, left ankle (principal); M25.572 Pain in left ankle and joints of left foot
CPT/HCPCS: 73610

== ENCOUNTER → 2024-06-08 13:55 | Outpatient (BNV) | payer OTHER, SELFPAY | PROVIDERS: Visit Provider Radiology Diagnostic Radiology | DX: M77.32 Calcaneal spur, left foot (principal); M79.89 Other specified soft tissue disorders; M21.42 Flat foot [pes planus] (acquired), left foot | CPT/HCPCS: 73610 ==

== ENCOUNTER 2024-07-11 12:56 | Outpatient (AMB) | payer OTHER, SELFPAY ==
[2024-07-11 13:08] VITALS: BP 138/77; PULSE 83; O2SAT 97; BMI 25.7
--- NOTE | 2024-07-11 13:08 | MHC.OFFVIS ---
Vital Signs 07/11/24 13:08 Height 6 ft 1 in Weight 195 lb 1.745 oz BMI 25.7 BP 138/77 Blood Pressure Location Lt brachial Position Sitting Pulse 83 Pulse Source Doppler Pulse Oximetry (%) 97 Oxygen Delivery Method Room Air Intake Visit Reasons: asthma Environmental Conservation Professor Required: Yes Environmental Conservation Professor Name: Stephanie Irizarry.L.M Allergies lisinopril Allergy (Verified 05/08/24 12:21) Angioedema HPI HPI asthma: Details: 73-year-old gentleman, former 30+ pack-year smoker, quit 2016, followed for underlying moderate asthma/COPD overlap syndrome and pulmonary nodules. Patient's symptoms were previously well controlled on Dupixent, Incruse, and Arnuity. He denies an acute exacerbation. His follow-up CT scan showed no pulmonary nodules. [facility] Medical History Gynecomastia Hyperlipidemia Chronic low back pain GERD (gastroesophageal reflux disease) Polyneuropathy Allergic rhinitis Diabetes Hypothyroidism Essential hypertension Other and unspecified hyperlipidemia Asthma Stress-induced cardiomyopathy Surgical History History of back surgery History of sinus surgery Hx of esophagogastroduodenoscopy Hx of colonoscopy Family History Father No problems noted. Mother No problems noted. 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 Review of Systems Const Denies daytime sleepiness, Denies excessive sweating, Denies fatigue, Denies fever(s), Denies lethargy, Denies malaise, Denies night sweats, Denies snoring and Denies weight loss Eyes Denies blurry vision and Denies itchy eyes ENT Denies nasal congestion, Denies post nasal drip, Denies sinus pain, Denies sinus pressure and Denies other ( Thrush) Card Denies chest pain, Denies pedal edema, Denies dyspnea, Denies orthopnea and Denies paroxysmal nocturnal dyspnea Resp Denies cough, Denies hemoptysis, Denies excessive phlegm production, Denies dyspnea, Denies snoring and Denies wheezing GI Denies abdominal pain and Denies heartburn Musc Denies myalgias, Denies arthralgias and Denies joint swelling Skin/Breast Denies rash Neuro Denies memory loss and Denies seizure-like activity Psych Denies abnormal sleep pattern, Denies anxiety and Denies memory loss Endo Denies excessive sweating, Denies fatigue and Denies heat intolerance Ismael/Lymph Denies easy bruising Aller/Immun Denies itchy eyes, Denies seasonal rhinorrhea and Denies wheezing Physical Exam Vital Signs: Last Vital Signs Pulse 83 07/11/24 13:08 BP 138/77 07/11/24 13:08 Pulse Ox 97 07/11/24 13:08 Oxygen Delivery Method Room Air 07/11/24 13:08 BMI result Body Mass Index 25.7 Const General: no acute distress and alert Nutritional Appearance: not obese Orientation/consciousness: Other orientation findings ( oriented) HEENT Head: Yes atraumatic Eyes General: appearance normal, both eyes and all related structures Sclerae: sclerae normal EOM: EOMs intact bilaterally Neck Neck: Yes supple Lymphatic: no lymphadenopathy noted Resp Effort & Inspection: normal respiratory effort and no use of accessory muscles Auscultation: clear to auscultation bilaterally Cardio Rate: regular rate Rhythm: regular rhythm Heart sounds: no gallops, no murmurs and no rubs Skin General skin exam: other ( warm) Extrem General: No clubbing, No cyanosis and No edema Assessment & Plan Assessment & Plan (1) Asthma-COPD overlap syndrome: Code(s): J44.9 - Chronic obstructive pulmonary disease, unspecified Category: Medical Plan: Well controlled on current regimen of Dupixent, Incruse, Arnuity, and albuterol MDI/nebs. Continue current regimen. (2) Environmental allergies: Code(s): Z91.09 - Other allergy status, other than to drugs and biological substances Category: Medical Plan: Well controlled on Dupixent. Continue current regimen. (3) Personal history of nicotine dependence: Code(s): Z87.891 - Personal history of nicotine dependence Category: Medical Plan: Results of lung cancer screening reviewed, no worrisome nodules, continue with yearly screening, next in February of 2025. Orders: Orders CT lung screening 03/10/25 Z87.891 - Personal history of nicotine dependence Coding Level of Care Code Est Pt Level 4 (91721) Complex EM visit Add On G2211 Diagnoses Asthma-COPD overlap syndrome J44.9 Environmental allergies Z91.09 Personal history of nicotine dependence Z87.891
--- OUTSIDE RECORDS SUMMARY | 2024-07-11 15:47 | XMS_ITS | Encounter Summary ---
Author Organization [employer] Address [address] [place] [address] Care Team Providers Care Appliance Installer Name Role Phone Stephanie Alex DO Primary Care Provider Reason for Visit * Reason Onset Date Comments Durable Medical Equipment 09/16/2023 Encounter Details Date Type Department Care Team ([facility] st Contact Info) Description 09/16/2023 Telephone [facility] [address] [place] [address] Stephanie Alex DO [address], [place] [phone] Durable Medical Equipment Social History Tobacco Use Types Packs/Day Years Used Date Smoking Tobacco: Former Cigarettes 0.3 44 1 975 - 2019 Smokeless Tobacco: Never Alcohol Use Standard Drinks/Week Comments Not Currently 0 (1 standard drink = 0.6 oz pur e alcohol) Quit 3 years ago Depression Answer Date Recorded Patient Health Questionnaire-9 Score 3 09/02/2023 Patient Health Questionnaire-9 Score 3 09/02/2023 Last PHQ-9: Questionnaire Data Not on file 0 09/02/2023 Housing Stability Answer Date Recorded What is your housing situation today? I have andres card 02/25/[address] you li ve. Do you have problems with any of the following? Pests such as bugs, ants, or mice 02/25/2023 Food Insecurity Answer Date Recorded Within the past 12 months, y ou worried that your food would run out before you got money to buy more: Never True 03/02/2023 Within the past 12 months,th e food you bought just didn't last and you didn't have enough money to get more: Never True Transportation Answer Date Recorded In the past 12 months, has l ack of transportation kept you from medical appts, meetings, work or from getting things needed for daily living? No 03/02/2023 Utilities Answer Date Recorded In the past 12 months, has t he electric, gas, oil or water company threatened to shut off services in your home? No 03/02/2023 Depression Answer Date Recorded Patient Health Questionnaire-2 Score 3 09/02/2023 Sex and Gender Information Value Date Recorded Sex Assigned at Male 03/16/2022 10:29 AM EDT Legal Sex Male 10:29 AM EDT Gender Identity Male 03/16/2022 10:29 AM EDT Sexual Orientation Straight 03/16/2022 10 :29 AM EDT documented as of this encounter Miscellaneous Notes * Telephone Encounter - Khadijah Jean - 09/16/2023 2:08 PM EDT Tc from pt requesting a nebulizer machine with DME supplies. documented in this encounter Plan of Treatment Upcoming Encounters Date Type Department Care Team (Late st Contact Info) Description 07/21/2024 1:30 PM EST Telemedicine [facility] [address] [place] [address] Mariana Aggarwal, ROMEL documented as of this encounter Visit Diagnoses Not on filedocumented in this encounter Additional Health Concerns Assessment Noted Time PHQ-9 Depression Total Score: 3 09/02/19 24 10:32 AM EDT documented as of this encounter Care Teams Appliance Installer Relationship Specialty Start Date End Date Stephanie Alex DO [address] [place] [address] PCP - General Family Medicine 06/12/15 Myrna 06/21/24 documented as of this encounter
--- OUTSIDE RECORDS SUMMARY | 2024-07-11 15:47 | XMS_ITS | Encounter Summary ---
Author Organization [facility] Address [address] [facility] [place] [address] Care Team Providers Care Microarray Operations Vice President Name Role Phone Stephanie Alex DO Primary Care Provider + [phone] Encounter Details Date Type Department Care Team (Late st Contact Info) Description 08/24/2023 Orders Only [facility] MEDICINE [address] [place] [address] Provider, MD Micha Social History Tobacco Use Types Packs/Day Years Used Date Smoking Tobacco: Former Cigarettes 0.3 44 1 975 - 2018 Smokeless Tobacco: Never Alcohol Use Standard Drinks/Week Comments Not Currently 0 (1 standard drink = 0.6 oz pur e alcohol) Quit 3 years ago Depression Answer Date Recorded Patient Health Questionnaire-9 Score 0 09/01/2022 Housing Stability Answer Date Recorded What is your housing situation today? I have andresmor card 02/25/[address] you [...] Answer Date Recorded Patient Health Questionnaire-2 Score 0 09/01/2022 Sex and Gender Information Value Date Recorded Sex Assigned at Male 03/16/2022 10:29 AM EDT Legal Sex Male 10:29 AM EDT Gender Identity Male 03/16/2022 10:29 AM EDT Sexual Orientation Straight 03/16/2022 10 :29 AM EDT documented as of this encounter Plan of Treatment Upcoming Encounters Date Type Department Care Team (Late st Contact Info) Description 07/21/2024 1:30 PM EST Telemedicine [facility] MEDICINE [address] [place] [address] Mariana Aggarwal RN documented as of this encounter Procedures Procedure Name Priority Date/Time Associated Diagnosis Comments COLONOSCOPY Routine 04/24/2020 10:02 AM EST COLONOSCOPY Routine 03/26/2016 9:58 AM EST documented in this encounter Results * Colonoscopy (04/24/2020 10:02 AM EST) us Historical Provider HEALTH MAINTENANCE Final Result * Colonoscopy (03/26/2016 9:58 AM EST) Colonoscopy Normal Normal us Historical Provider HEALTH MAINTENANCE Edited Result - Final documented in this encounter Visit Diagnoses Not on filedocumented in this encounter Additional Health Concerns Assessment Noted Time PHQ-9 Depression Total Score: 0 09/02/19 23 9:01 AM EDT documented as of this encounter Care Teams Microarray Operations Vice President Relationship Specialty Start Date End Date Stephanie Alex DO [address] [place] [address] PCP - General Family Medicine 06/12/15 Myrna 06/21/24 documented as of this encounter
--- OUTSIDE RECORDS SUMMARY | 2024-07-11 15:47 | XMS_ITS | Encounter Summary ---
Author Organization [facility] Address [address] [facility] [address] [place] [address] Care Team Providers Care Manager Underwriting Name Role Phone Eddirell Stephanie Primary Care Provider [phone]- [phone] Reason for Visit * Reason Comments Med Refill Encounter Details Date Type Department Care Team ([facility] Contact Info) Description 09/27/2022 Refill [facility] MEDICINE [address] [place] [address] Bettina Eddy MD [address] [place] [address] Chronic bilateral low back pain, unspecified whether sciatica present Social History Tobacco Use Types Packs/Day Years Used Date Smoking Tobacco: Former Cigarettes 0.3 44 1 975 - 2019 Smokeless Tobacco: Never Alcohol Use Standard Drinks/Week Comments Not Currently 0 (1 standard drink = 0.6 oz pur e alcohol) Quit 3 years ago Depression Answer Date Recorded Patient Health Questionnaire-9 Score 0 09/01/2022 Depression Answer Date Recorded Patient Health Questionnaire-2 Score 0 09/01/2022 Sex and Gender Information Value Date Recorded Sex Assigned at Male 03/16/2022 10:29 AM EDT Legal Sex Male 10:29 AM EDT Gender Identity Male 03/16/2022 10:29 AM EDT Sexual Orientation Straight 03/16/2022 10 :29 AM EDT COVID-19 Exposure Response Date Recorded In the last 10 days, have yo u been in contact with someone who was confirmed or suspected to have Coronavirus/COVID-19? No / Unsure 09/01/2022 8:44 AM EDT documented as of this encounter Plan of Treatment Upcoming Encounters Date Type Department Care Team (Late st Contact Info) Description 07/21/2024 1:30 PM EST Telemedicine [facility] MEDICINE [address] [facility] [place] [address] Mariana Aggarwal RN documented as of this encounter Visit Diagnoses Diagnosis Chronic bilateral low back pain, unspecified whether sciatica present documented in this encounter Additional Health Concerns Assessment Noted Time PHQ-9 Depression Total Score: 0 09/02/19 23 9:01 AM EDT documented as of this encounter Care Teams Manager Underwriting Relationship Specialty Start Date End Date Stephanie Alex DO [address] [facility] [place] [address] PCP - General Family Medicine 06/12/15 Myrna 06/21/24 documented as of this encounter
--- OUTSIDE RECORDS SUMMARY | 2024-07-11 15:47 | XMS_ITS | Encounter Summary ---
Author Organization [employer] Address [address] [facility] [address] [place] [address] Care Team Providers Care Biochemistry Professor Name Role Phone Stephanie Alex DO Primary Care Provider [phone]- [phone] Reason for Visit * Reason Onset Date Comments Med Refill 07/22/2023 Encounter Details Date Type Department Care Team ([facility] st Contact Info) Description 07/22/2023 Telephone [facility] MEDICINE [address] [place] [address] Stephanie Alex DO [address] [place], [place] [phone] Med Refill Social History Tobacco Use Types Packs/Day Years [...] encounter Miscellaneous Notes * Telephone Encounter - Stephanie Acuña LPN - 07/22/2023 11:35 AM EST Medication isn't prescribed by PCP. * Telephone Encounter - Lori Conner - 07/22/2023 11:29 AM EST TC from pt requesting medication refill. Medications needing refill : Dupixent 300 MG/2ML injection To be sent to: [facility] - [place], [place] - [address] [place] [address] documented in this encounter Plan of Treatment Upcoming Encounters Date Type Department Care Team (Late st Contact Info) Description 07/21/2024 1:30 PM EST Telemedicine [facility] MEDICINE [address] [place] [address] Mariana Aggarwal RN documented as of this encounter Visit Diagnoses Not on filedocumented in this encounter Additional Health Concerns Assessment Noted Time PHQ-9 Depression Total Score: 0 09/02/19 23 9:01 AM EDT documented as of this encounter Care Teams Biochemistry Professor Relationship Specialty Start Date End Date Stephanie Alex DO [address] [place] [address] PCP - General Family Medicine 06/12/15 Myrna [phone] (Work) 06/21/24 documented as of this encounter
--- OUTSIDE RECORDS SUMMARY | 2024-07-11 15:47 | XMS_ITS | Encounter Summary ---
Author Organization [employer] Address [address] [facility] [address] [place] [address] Care Team Providers Care Marine Chronometer Assembler Name Role Phone Stephanie Alex DO Primary Care Provider [phone]- [phone] Reason for Visit * Reason Comments Med Refill Encounter Details Date Type Department Care Team ([facility] Contact Info) Description 05/11/[address] [facility] MEDICINE [address] [place] [address] Stephanie Alex DO [address] [place] [address] Other chronic pain Social History Tobacco Use Types Packs/Day Years [...] Info) Description 07/21/2024 1:30 PM EST Telemedicine [facility] MEDICINE [address] [place] [id number] Mariana Aggarwal RN documented as of this encounter Visit Diagnoses Diagnosis Other chronic pain documented in this encounter Additional Health Concerns Assessment Noted Time PHQ-9 Depression Total Score: 0 09/02/19 23 9:01 AM EDT documented as of this encounter Care Teams Marine Chronometer Assembler Relationship Specialty Start Date End Date Stephanie Alex DO [address] [place] [address] PCP - General Family Medicine 06/12/15 Myrna 06/21/24 documented as of this encounter
--- OUTSIDE RECORDS SUMMARY | 2024-07-11 15:47 | XMS_ITS | Clinical Summary ---
Author Organization [employer] Address [address] [facility] [address] [place] [address] Care Team Providers Care Video Games Mechanic Name Role Phone EddiStephanie zacarias Primary Care Provider [phone] Allergies Active Allergy Reactions Criticality Noted Date Comments Lisinopril Angioedema 05/08/2024 Medications naloxone (Narcan) 4 mg/0.1 mL nasal spray Administer 0.1 mL into affected nostril(s). Active polyethylene glycol, PEG, 3350 (Glycolax) 17 GM/SCOOP powder Take 17 g by mouth if needed each day for constipation. Mix with 8oz. Water, juice, soda Active docusate sodium (Colace) 100 MG capsule Take 1 capsule by mouth once a day in the morning Active Blood Glucose Monitoring Suppl (FreeStyle glucose monitoring) kit 1 each if needed. Active dicyclomine (Bentyl) 10 MG capsule TAKE 1 CAPSULE BY MOUTH FOUR TIMES DAILY NEEDED FOR PAIN Active terazosin (Hytrin) 10 MG capsule Take 10 mg by mouth at bedtime. Active Aspirin Low Dose 81 MG EC tabletIndications :Type 2 diabetes mellitus without complication, unspecified whether custodial insulin use ([facility]) TAKE 1 TABLET BY MOUTH EVERYDAY AT NOON 90 tablet 1 023 Active FREESTYLE LITE test stripIndications: Type 2 diabetes mellitus with diabetic polyneuropathy, without long-term current use of insulin ([facility]) TEST BLOOD SUGAR EVERY DAY 50 strip 11 023 Active SM Dry Eye Relief 0.2-0.2-1 % solution PLACE 1 DROP IN EACH EYE THREE TIMES DAILY 15 mL 11 023 Active naloxone (Narcan) 4 mg/0.1 mL nasal sprayIndications: Chronic low back pain, unspecified back pain laterality, unspecified whether sciatica present Administer 1 spray (4 mg) into affected nostril(s) if needed for opioid reversal. May repeat every 2-3 minutes if needed, alternating nostrils, until medical assistance becomes available. 2 each 3 024 2024 Active montelukast (Singulair) 10 MG tablet TAKE 1 TABLET BY MOUTH EVERY EVENING 90 tablet 3 Active Multiple Vitamin (Multivitamin) tablet TAKE 1 TABLET BY MOUTH EVERYDAY AT NOON 90 tablet 3 024 Active albuterol (2.5 MG/3ML) 0.083% nebulizer solution USE 1 VIAL VIA NEBULIZER FOUR TIMES A DAY IF NEEDED 75 mL 1 024 Active Respiratory Therapy Supplies (Adult Mask) device USE as INSTRUCTED 1 each 024 Active TRUEplus Lancets 33G misc TEST BLOOD SUGAR EVERY DAY 100 each 11 024 Active polyvinyl alcohol (Liquifilm Tears) 1.4 % ophthalmic solution INSTILL 1 DROP IN EACH EYE THREE TIMES DAILY 15 mL 11 024 Active Respiratory Therapy Supplies (Nebulizer Mask Adult) miscIndications:M oderate persistent asthma without complication 1 each every 6 (six) hours if needed (sob/ wheezing). Use with nebulizer machine 1 each 024 Active Ventolin HFA 108 (90 Base) MCG/ACT inhaler INHALE 2 PUFFS BY MOUTH EVERY 4 HOURS NEEDED FOR WHEEZING OR SHORTNESS OF BREATH 18 g 2 024 Active diclofenac (Voltaren) 50 MG EC tabletIndications :Chronic bilateral low back pain, unspecified whether sciatica present TAKE 1 TABLET BY MOUTH TWICE DAILY IN THE MORNING AND AT BEDTIME 60 tablet 2 024 Active budesonide (Pulmicort) 0.5 MG/2ML nebulizer solution MIX 1 AMPULE USING A NEBULIZER IN 8 OUNCES WATER destilada WITH [place]qu[place] de solucin salina. USE 1/2 botella para irrigar cada fosa nasal TWICE DAILY. Active levothyroxine (Synthroid, Levoxyl) 25 MCG tabletIndications :Acquired hypothyroidism TAKE 1 TABLET BY MOUTH EVERY MORNING 90 tablet 1 Active ferrous sulfate (FeroSul) 325 (65 Fe) MG tabletIndications :Anemia, unspecified type TAKE 1 TABLET BY MOUTH TWICE DAILY AT NOON AND IN THE EVENING 180 tablet 1 Active metFORMIN (Glucophage) 500 MG tablet TAKE 1 TABLET BY MOUTH TWICE A DAY 180 tablet 1 Active sertraline (Zoloft) 25 MG tabletIndications :Depression, unspecified depression type TAKE 1 TABLET BY MOUTH EVERY MORNING 30 tablet 3 Active hydrOXYzine pamoate (Vistaril) 25 MG capsuleIndication s:Anxiety TAKE 1 CAPSULE BY MOUTH EVERY 6 HOURS NEEDED FOR ANXIETY 30 capsule 3 Active Dupixent 300 MG/2ML solution auto-injector Active famotidine (Pepcid) 40 MG tablet Take 1 tablet (40 mg) by mouth at bedtime. 30 tablet 11 024 2024 Active acetaminophen (Tylenol 8 Hour) 650 MG ER tablet Take 1 tablet (650 mg) by mouth every 8 (eight) hours if needed for mild pain. 60 tablet 3 Active dexlansoprazole (Dexilant) [address] capsule Take 1 capsule (60 mg) by mouth Once per day. Do not crush or chew. 30 capsule 11 024 2024 Active Diclofenac Sodium 1 % gel Apply 2 g topically if needed in the morning, at noon, in the evening, and at bedtime (pain). 150 g 3 Active baclofen (Lioresal) 10 MG tablet Take 1 tablet (10 mg) by mouth if needed in the morning, at noon, and at bedtime for muscle spasms. 60 tablet 3 024 2024 Active Arnuity Ellipta 200 MCG/ACT inhalerIndication s:Asthma, unspecified asthma severity, unspecified whether complicated, unspecified whether persistent INHALE 1 PUFF BY MOUTH EVERY DAY AT THE SAME TIME RINSE MOUTH AFTER USING IN THE MORNING 30 each 2 Active fluticasone (Flonase) 50 MCG/ACT nasal sprayIndications: Asthma, unspecified asthma severity, unspecified whether complicated, unspecified whether persistent USE 2 SPRAYS IN EACH NOSTRIL EVERY DAY 48 g 3 Active Umeclidinium [place] (Incruse Ellipta) 62.5 MCG/ACT aerosol powderIndications :Moderate persistent asthma, unspecified whether complicated INHALE 1 PUFF BY MOUTH EVERY DAY AT THE SAME TIME 1 each 3 Active D3 Super Strength 50 MCG (1999 UT) capsuleIndication s:Vitamin D deficiency TAKE 1 CAPSULE BY MOUTH EVERY MORNING 90 capsule 3 Active amLODIPine (Norvasc) 10 MG tabletIndications :Essential hypertension TAKE 1 TABLET BY MOUTH EVERYDAY AT NOON 90 tablet 3 Active losartan (Cozaar) 100 MG tablet Take 1 tablet (100 mg) by mouth Once per day. 30 tablet 11 024 2024 Active traMADol (Ultram) 50 MG tabletIndications :Other chronic pain Take 1 tablet (50 mg) by mouth every 12 (twelve) hours if needed for severe pain for up to 28 days. Do not start before June 20, 2024. 56 tablet 025 2024 Active atorvastatin (Lipitor) 40 MG tabletIndications :Other hyperlipidemia TAKE 1 TABLET BY MOUTH AT BEDTIME 90 tablet 1 025 Active cetirizine (ZyrTEC) 10 MG tablet TAKE 1 TABLET BY MOUTH EVERYDAY AT NOON 90 tablet 1 Active gabapentin (Neurontin) 800 MG tabletIndications :Chronic bilateral low back pain, unspecified whether sciatica present TAKE 1 TABLET BY MOUTH THREE TIMES DAILY IN THE MORNING, EVENING, AND BEDTIME 270 tablet 1 025 Active gabapentin (Neurontin) 800 MG tabletIndications :Chronic bilateral low back pain, unspecified whether sciatica present TAKE 1 TABLET BY MOUTH THREE TIMES DAILY IN THE MORNING, EVENING, AND BEDTIME 270 tablet 1 024 2024 Discontinued cetirizine (ZyrTEC) 10 MG tablet TAKE 1 TABLET BY MOUTH EVERYDAY AT NOON 90 tablet 1 024 2024 Discontinued atorvastatin (Lipitor) 40 MG tabletIndications :Other hyperlipidemia TAKE 1 TABLET BY MOUTH AT BEDTIME 90 tablet 1 024 2024 Discontinued traMADol (Ultram) 50 MG tabletIndications :Other chronic pain TAKE 1 TABLET BY MOUTH EVERY TWELVE HOURS NEEDED FOR SEVERE PAIN 56 tablet 025 2024 Discontinued(R eorder (will not trigger notification to Pharmacy)) acetaminophen (Tylenol) 325 MG capsule Take 1 capsule (325 mg) by mouth every 8 (eight) hours if needed for moderate pain or fever (pain). 30 capsule 025 2024 Active Problems Problem Noted Date Diagnosed Date Pain and swelling of left ankle 06/08/2024 Assessment & Plan (06/08/2024 1:52 PM EST): Likely due to injury from recent strain on ankle trying to get up from the sofa. No skin breaks. -ordered XR 06/08/24 -recommended tylenol for pain. Ankle strain 06/08/2024 Angio-edema 05/08/2024 Assessment & Plan (05/08/2024 12:22 PM EST): Unclear if it is related to Apples or lisinopril, none of those had triggered reaction in the past anyway. Patient is sent to ED as angioedema rapidly progressed from upper lip to lower lip within the time of arrival to time of examination. He didn't have bronchospasm or pharyngeal edema. Lisinopril to be dc'd and switch to losartan, fu after ED for further evaluation. Avoid eating apples and fu with PCP after ED evaluation. Patient and agreed with POC. Asthma-COPD overlap syndrome 01/04/2024 Tubular adenoma of colon 01/04/2024 Lumbar radiculopathy 01/04/2024 Erosive gastritis 01/04/2024 Erosive esophagitis 01/04/2024 Healthcare maintenance 09/02/2023 Assessment & Plan (09/02/2023 3:02 PM EDT): -s/p flu vaccine MAR 2023 -s/p COVID vaccine APR 2023 -encouraged RSV vaccine -s/p Tdap May 2015 -s/p prevnar MAR 2018 -s/p pneumovax October 2021 -s/p zoster vaccine NOV 2016 -s/p Shingrix NOV 2019 -Hep A immune -abd US with no AAA APR 2021 -colonoscopy with fair prep and internal hemorrhoids Apr 2020, review next visit as above -STI/HIV screen negative MAY 2019 Chronic sinusitis 04/22/2022 Assessment & Plan (09/02/2023 2:57 PM EDT): Sx uncontrolled -cont zyrtec and flonase daily -referred to ENT for f/u and restart dupixent Multiple pulmonary nodules 04/22/2022 Assessment & Plan (09/02/2023 2:59 PM EDT): -CT chest with stable nodule JAN 2021, will get copy of most recent results -referred to pulm for f/u Anxiety 04/22/2022 Assessment & Plan (09/02/2023 2:52 PM EDT): With depression -he denies any SI/HI -he has number for crisis and contracts for safety -cont zoloft daily -cont vistaril prn acute anxiety -f/u with therapist as scheduled Anemia 04/22/2022 Assessment & Plan (09/02/2023 2:53 PM EDT): Likely ACD per hematology -continue iron supplementation -hgb stable APR 2023 -iron studies, B12/folate nml APR 2023 -EGD with erosive gastritis APR 2020 -colonoscopy with fair prep and internal hemorrhoids APR 2020, review next visit* -f/u with hematology prn Leukopenia 04/22/2022 Assessment & Plan (09/02/2023 2:54 PM EDT): Likely benign leukopenia per hematology -WBC nml APR 2023 -cont routine monitoring -f/u with hematology prn History of tobacco use 04/06/2022 Takotsubo cardiomyopathy 12/18/2015 Hypothyroidism 06/12/2015 Assessment & Plan (09/02/2023 2:58 PM EDT): -TFTs nml APR 2023 -cont levothyroxine daily Allergic rhinitis 06/12/2015 Moderate persistent asthma 06/12/2015 Assessment & Plan (09/02/2023 2:57 PM EDT): Uncontrolled -cont fluticasone, incruse, and singulair daily -restart albuterol prn -referred to pulmonology for f/u -advised RTC if no improvement Chronic low back pain 06/12/2015 Assessment & Plan (09/02/2023 2:59 PM EDT): s/p discectomy many years ago -L-spine XR with DDD and mild spondylosis May 2015 -MRI L-spine with multifactorial degenerative changes, with severe central and foraminal stenosis Dec 2017 -cont gabapentin TID -cont diclofenac as needed, encouraged alternate with tylenol TID -cont baclofen to help with mm spasm -cont tramadol as needed -he declines eval with pain mgmt or NS -advised rtc if sx worsen Essential hypertension 06/12/2015 Assessment & Plan (09/02/2023 2:52 PM EDT): BP controlled -cont lisinopril and norvasc daily -Cr/GFR, and urine microalbumin wnl APR 2023 -there is EKG in chart -optho as above -ECHO with diastolic dysfunction AUG 2016 Chronic gastroesophageal reflux disease 06/12/19 16 Assessment & Plan (09/02/2023 2:58 PM EDT): sx improved -cont dexilant daily -cont pepcid nightly -F/U with GI as scheduled Hyperlipidemia 06/12/2015 Assessment & Plan (09/02/2023 2:52 PM EDT): LDL at goal APR 2023 -cont lipitor nightly Left ventricular systolic dysfunction 06/12/2015 Type 2 diabetes mellitus 06/12/2015 Assessment & Plan (09/02/2023 2:51 PM EDT): A1c at goal -cont metformin BID -cont lisinopril and lipitor daily -encouraged regular FS monitoring -s/p optho eval SEPTEMBER 2021 at [facility], appt next mos -foot exam next visit* Encounters Date Type Department Care Team Description 06/25/2024 Refill [facility] [address] [place] [phone] Stephanie Alex DO Other hyperlipidemia; Chronic bilateral low back pain, unspecified whether sciatica present 06/15/2024 Refill [facility] [address] [place], [place] [phone] Stephanie Alex DO Other chronic pain 06/08/2024 1:40 PM EST Office Visit [facility] [address] [place] [phone] Maria De Jesus Mann MD Pain and swelling of left ankle (Primary Dx) 05/19/2024 Refill [facility] [address] [place] [phone] Stephanie Alex DO Other chronic pain 05/09/2024 Telephone [facility] [address] [place] [phone] Judy Granger, ROMEL F 05/08/2024 11:00 AM EST Office Visit [facility] [address] [place] [address] [phone] Tita Quick MD Angioedema, initial encounter (Primary Dx) 05/08/2024 Telephone [facility] [address] [place] [phone] Marilu Renteria RN 05/05/2024 2:00 PM EST Telemedicine [address] [phone] Mariana Aggarwal, bilingual operator low back pain, unspecified back pain laterality, unspecified whether sciatica present 05/05/2024 Travel 05/05/[address] [phone] Mariana Aggarwal, RN Recommend Tele [employer] PROGRAM TEACHER Tier 3 05/04/2024 Orders Only [facility] [address] [place] [phone] Stephanie Alex DO Unintentional weight loss (Primary Dx) 05/04/2024 Telephone [facility] [address] [place] [phone] Stephanie Alex DO 05/01/2024 Refill [facility] [address] [place] [phone] Stephanie Alex DO Essential hypertension 04/30/2024 Refill [facility] [address] [place] [address] [place], [place], 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 Asthma, unspecified asthma severity, unspecified whether complicated, unspecified whether persistent; Moderate persistent asthma, unspecified whether complicated; Vitamin D deficiency; Essential hypertension 04/30/2024 Refill [facility] [address] [place] [phone] Stephanie Alex DO Essential hypertension 04/26/2024 Refill [facility] [address] [place] [phone] Stephanie Alex DO Asthma, unspecified asthma severity, unspecified whether complicated, unspecified whether persistent 04/21/2024 10:00 AM EST Office Visit [facility] [address] [place] [phone] Stephanie Alex DO Type 2 diabetes mellitus with diabetic polyneuropathy, without long-term current use of insulin ([facility]) (Primary Dx); Essential hypertension; Other hyperlipidemia; Anxiety; Anemia, unspecified type; Leukopenia, unspecified type; Moderate persistent asthma without complication; Other chronic sinusitis; Acquired hypothyroidism; Chronic gastroesophageal reflux disease; Multiple pulmonary nodules; Chronic bilateral low back pain without sciatica; FRANCOIS (dyspnea on exertion); Unintentional weight loss; Neck pain; Healthcare maintenance 04/21/2024 Travel 04/20/2024 Telephone [facility] [address] [place] [address] [phone] Stephanie Alex DO chart prep 04/17/2024 Refill [facility] [address] [place] [address] [phone] Bettina Eddy MD Other chronic pain 04/17/2024 Refill [facility] [address] [place] [address] [phone] Stephanie Alex DO Anxiety from Last 3 Months Immunizations Name Administration Dates Next Due Influenza High-dose Quadriva lent Preservative Free 03/23/2023,02/11/2021,03/07/2020 Influenza injectable quadriv alent IIV4 with preservative 03/17/2018,02/25/2016 Influenza injectable quadriv alent preservative free 02/06/2019,02/10/2017 Influenza, High Dose Seasona l, Preservative Free 03/29/2024 Influenza, Injectable, MDCK, preservative free 05/08/2015 Influenza, seasonal, injecta ble, preservative free 04/22/2022 Moderna Covid-19 Vaccine 12+ 10/27/2021, 05/23/2021,08/01/2020,07/04 Moderna Covid-19 Vaccine 6+ Bivalent 09/01/2022 Pfizer Covid-19 Vaccine 12+ 03/29/2024, Pneumococcal Conjugate PCV 13 04/12/2018 Pneumococcal Polysaccharide PPSV23 10/27/2021,,05/08/2015 Tdap 06/12/2015 Zoster, Recombinant 11/22/2019,06/09/2019 Zoster, live 12/10/2016 Family History Medical History Relation Name Comments Glaucoma Brother Relation Name Status Comments Brother Social History Tobacco Use Types Packs/Day Years Used Date Smoking Tobacco: Former Cigarettes 0.3 44 1 975 - 2019 Smokeless Tobacco: Never Tobacco Cessation:Counseling Given: Not Answered Alcohol Use Standard Drinks/Week Comments Not Currently 0 (1 standard drink = 0.6 oz pur e alcohol) Quit 3 years ago Depression Answer Date Recorded Patient Health Questionnaire-9 Score 0 04/21/2024 Patient Health Questionnaire-9 Score 0 04/21/2024 Last PHQ-9: Questionnaire Data Not on file 1 06/22/2023 Housing Stability Answer Date Recorded What is your housing situation today? I have andres stephie 04/07/[address] you li ve. Do you have problems with any of the following? Pests such as bugs, ants, or mice 04/07/2024 Food Insecurity Answer Date Recorded Within the past 12 months, y ou worried that your food would run out before you got money to buy more: Never True 04/07/2024 Within the past 12 months,th e food you bought just didn't last and you didn't have enough money to get more: Never True Transportation Answer Date Recorded In the past 12 months, has l ack of transportation kept you from medical appts, meetings, work or from getting things needed for daily living? No 04/07/2024 Utilities Answer Date Recorded In the past 12 months, has t he electric, gas, oil or water company threatened to shut off services in your home? No 04/07/2024 Depression Answer Date Recorded Patient Health Questionnaire-2 Score 0 04/21/2024 Internet Access Answer Date Recorded Internet Access Q1 Yes 04/07/2024 Internet Access Q2 Not on file 04/07/2024 Sex and Gender Information Value Date Recorded Sex Assigned at Male 03/16/2022 10:29 AM EDT Legal Sex Male 10:29 AM EDT Gender Identity Male 03/16/2022 10:29 AM EDT Sexual Orientation Straight 03/16/2022 10 :29 AM EDT Last Filed Vital Signs Vital Sign Reading Time Taken Comments Blood Pressure 117/74 06/08/2024 1:14 PM EST Pulse 94 06/08/2024 1:14 PM EST Temperature 37.2 ??C (98.9 ??F) 06/08/2024 1:14 PM ES T Respiratory Rate 17 06/08/2024 1:14 PM EST Oxygen Saturation 99% 06/08/2024 1:14 PM EST Inhaled Oxygen Concentration - - Weight 90.6 kg (199 lb 12.8 oz) 04/21/2024 9:55 AM EST Height 185.4 cm (6' 1 ) 04/21/2024 9:55 AM EST Body Mass Index 26.36 04/21/2024 9:55 AM EST Plan of Treatment Upcoming Encounters Date Type Department Care Team (Late st Contact Info) Description 07/21/2024 1:30 PM EST Telemedicine [facility] [address] [place] [phone] Mariana Aggarwal, ROMEL Health Maintenance Due Date Last Done Comments CT Colonography 1952 FIT DNA/Cologuard 1952 FIT 1952 FOBT 1952 Sigmoidoscopy 1952 Diabetes: Foot Exam 1962 Alcohol/Substance Use Screening 1964 RSV Patients and Patients Aged 60 years or older (1 - Risk 60-74 years 1-dose series) 2012 Colonoscopy 04/24/2023 04/24/2020, 03/26/2016 Colorectal Cancer Screening 04/24/2023 Diabetes: Hemoglobin A1C 05/24/2024 024, 01/04/2024, 09/02/2023, Additional history exists Diabetes: Urine Protein Screening 02/21/2025 02/22/2024, 04/29/2023, 01/09/2022, Additional history exists Lipid Panel 02/21/2025 02/22/2024, 04/16, 01/09/2022, Additional history exists SDOH Screening 04/07/2025 04/07/2024 Depression Screening 04/21/2025 04/21/2024, 04/21/20 24 Tobacco Screening 06/08/2025 06/08/2024 DTaP/Tdap/Td Vaccines (2 - Td or Tdap) 06/12/2025 06/12/2015 Eye Exam 01/17/2026 01/18/2024, 09/0 07/2023, 01/18/2024, Additional history exists Zoster Vaccines Completed 11/22/2019, 05/18, 12/10/2016 Pneumococcal Vaccine: 50+ Years Completed 10/27/2021, 04/12/2018, 08/24/2016, Additional history exists Hepatitis C Screening Completed 02/22/2024 , 06/06/2019, 06/06/2019 COVID-19 Vaccine Completed 03/29/2024, 04/2023, 09/01/2022, Additional history exists Influenza Vaccine Completed 03/29/2024, , 04/22/2022, Additional history exists HIB Vaccines Aged Out No longer eligi ble based on patient's age to complete this topic HPV Vaccines Aged Out No longer eligi ble based on patient's age to complete this topic Hepatitis A Vaccines Aged Out No long er eligible based on patient's age to complete this topic Hepatitis B Vaccines Aged Out No long er eligible based on patient's age to complete this topic IPV Vaccines Aged Out No longer eligi ble based on patient's age to complete this topic Meningococcal Vaccine Aged Out No lisbeth roseanna eligible based on patient's age to complete this topic RSV under 20 months Aged Out No longe r eligible based on patient's age to complete this topic Rotavirus Vaccines Aged Out No longer eligible based on patient's age to complete this topic Procedures Procedure Name Priority Date/Time Associated Diagnosis Comments XR ANKLE 3+ VIEWS LEFT Routine 06/08/2024 1:55 PM EST Pain and swelling of left ankle POCT GLUCOSE Routine 04/21/2024 10:22 AM EST Type 2 diabetes mellitus with diabetic polyneuropathy, without long-term current use of insulin ([facility]) HEPATITIS C AB W/REFL TO HCV RNA, QN, PCR Routine 02/22/2024 10:35 AM EDT Type 2 diabetes mellitus with diabetic polyneuropathy, without long-term current use of insulin (CMS/HCC) Essential hypertension Other hyperlipidemia Anxiety Anemia, unspecified type Leukopenia, unspecified type Moderate persistent asthma without complication Other chronic sinusitis Acquired hypothyroidism Chronic gastroesophageal reflux disease Multiple pulmonary nodules Chronic bilateral low back pain without sciatica FRANCOIS (dyspnea on exertion) Ear itching Healthcare maintenance ALBUMIN, RANDOM URINE W/CREATININE Routine 02/22/2024 10:35 AM EDT Type 2 diabetes mellitus with diabetic polyneuropathy, without long-term current use of insulin (CMS/HCC) Essential hypertension Other hyperlipidemia Anxiety Anemia, unspecified type Leukopenia, unspecified type Moderate persistent asthma without complication Other chronic sinusitis Acquired hypothyroidism Chronic gastroesophageal reflux disease Multiple pulmonary nodules Chronic bilateral low back pain without sciatica FRANCOIS (dyspnea on exertion) Ear itching Healthcare maintenance HEMOGLOBIN A1C Routine 02/22/2024 10:35 AM EDT Type 2 diabetes mellitus with diabetic polyneuropathy, without long-term current use of insulin ([facility]/HCC) Essential hypertension Other hyperlipidemia Anxiety Anemia, unspecified type Leukopenia, unspecified type Moderate persistent asthma without complication Other chronic sinusitis Acquired hypothyroidism Chronic gastroesophageal reflux disease Multiple pulmonary nodules Chronic bilateral low back pain without sciatica FRANCOIS (dyspnea on exertion) Ear itching Healthcare maintenance LIPID PANEL, STANDARD Routine 02/22/2024 10:35 AM EDT Type 2 diabetes mellitus with diabetic polyneuropathy, without long-term current use of insulin (CMS/HCC) Essential hypertension Other hyperlipidemia Anxiety Anemia, unspecified type Leukopenia, unspecified type Moderate persistent asthma without complication Other chronic sinusitis Acquired hypothyroidism Chronic gastroesophageal reflux disease Multiple pulmonary nodules Chronic bilateral low back pain without sciatica FRANCOIS (dyspnea on exertion) Ear itching Healthcare maintenance COLONOSCOPY Routine 04/24/2020 10:02 AM EST from Last 3 Months or Most Recently Relevant to Health Maintenance Results * XR Ankle 3+ Views Left (06/08/2024 1:55 PM EST) Anatomical Region Laterality Modality Lower Extremities, Ankle Left Radiogr aphic Imaging 06/08/2024 1:55 PM EST Narrative 06/08/2024 2:28 PM EST ?[facility] ?[address] ?[place] [address] ?XRay Report ? Signed ? Patient: James,Colton ?MR#: [id number] ?? 4 ? : 1950 ?Acct:[id number] ? Age/Sex: 73 / M ?ADM Date: 06/08/24 ? Loc: HO.HHCX ? Attending Dr: Maria De Jesus Mann MD ? Ordering Physician: Maria De Jesus Mann MD ?? Date of Service: 06/08/24 ?? Procedure(s): XR ankle LT min 3V ?? Accession Number(s): [id number] ? cc: Maria De Jesus Mann MD ? EXAMINATION: ?? XR ANKLE, LEFT ? CLINICAL INFORMATION: ?? twisted ankle 3 days ago ? COMPARISON: ?? None available. ? TECHNIQUE: ?? AP, lateral, and mortise views of the left ankle. ? FINDINGS: ?? No fracture, dislocation, or suspicious bone lesion. ?? The ankle mortise is preserved. The talar dome is intact. ?? Mild arthritis in the subtalar joints. ?? Moderate sized plantar calcaneal spur. ?? Pes planus deformity suspected. ?? Mild arthritic changes in the interim talar joints. ? There may be an ankle joint effusion present. ?? Soft tissues demonstrate mild predominantly medial soft tissue ?? swelling. There are diffuse vascular calcifications. ? XR/XR ankle LT min 3V ?? IMPRESSION: ?? 1. No definite fracture or dislocation. ?? 2. Pes planus with degenerative arthritic changes subtalar and ?? intertalar joints. ?? 3. Moderate-sized plantar calcaneal spur. ?? 4. Medial soft tissue swelling. Probable ankle joint effusion. ? Electronically signed by: ??Scot Bowman MD ??06/08/2024 02:26 PM EST RP ? Dictated By: ?Scot Bowman MD ? Signed By: ?<Electronically signed by Scot Bowman MD in OV> ?06/08/24 1426 ? DD/ 1355 ? TD/TT: 06/08/24 1409 ? Toolmaker: ? Procedure Note Eladia, Image - 06/08/[address] [address] XRay Report Signed Patient: Colton JamesMR#: [id number] 4 : 1950cct:[id number] Age/Sex: 73 / MADM Date: 06/08/24 Loc: HO.HHCX Attending Dr: Maria De Jesus Mann MD Ordering Physician: Maria De Jesus Mann MD Date of Service: 06/08/24 Procedure(s): XR ankle LT min 3V Accession Number(s): [id number] cc: Maria De Jesus Mann MD EXAMINATION: XR ANKLE, LEFT CLINICAL INFORMATION: twisted ankle 3 days ago COMPARISON: None available. TECHNIQUE: AP, lateral, and mortise views of the left ankle. FINDINGS: No fracture, dislocation, or suspicious bone lesion. The ankle mortise is preserved. The talar dome is intact. Mild arthritis in the subtalar joints. Moderate sized plantar calcaneal spur. Pes planus deformity suspected. Mild arthritic changes in the interim talar joints. There may be an ankle joint effusion present. Soft tissues demonstrate mild predominantly medial soft tissue swelling. There are diffuse vascular calcifications. XR/XR ankle LT min 3V IMPRESSION: 1. No definite fracture or dislocation. 2. 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 3. Moderate-sized plantar calcaneal spur. 4. Medial soft tissue swelling. Probable ankle joint effusion. Electronically signed by: Scot Bowman MD 06/08/2024 02:26 PM EST Dictated By: Scot Bowman MD Signed By: <Electronically signed by Scot Bowman MD in OV> 06/08/24 1426 DD/ 1355 TD/TT: 06/08/24 1409 Toolmaker: Maria De Jesus Mann MD IMG XR PROCEDURES Final Re sult * POCT Glucose (04/21/2024 10:22 AM EST) Glucose Blood, POC 128 60 - 200 mg/dL QC Media Lot # [id number] Lot# Expiration Date Blood Capillary blood specimen / Unknown 04/21/2024 10:22 AM EST Stephanie Alex DO POINT OF CARE TEST ENTER/ROBERTA T ORDERABLES Final Result * Albumin, Random Urine W/Creatinine (02/22/2024 10:35 AM EDT) Creatinine, Urine 87.37 mg/dL [facility] Microalbumin Urine 7.0 mg/L [facility] Microalbum Creatinine Ratio Ur 8.0 <30 ug/mg cr [facility] Comment:Albumin/Creatinine R atio Reference Ranges: Normal: < 30 ug/mg creatinine Microalbuminuria: 30 - 300 ug/mg creatinineClinical Albuminuria: > 300 ug/mg creatinine Urine (Urine, Random) 02/22/2024 10:35 AM EDT 02/22/2024 11:23 AM EDT Stephanie Alex DO LAB URINE ORDERABLES Final R esult [facility] [address] [place] [phone] * Hepatitis C Antibody with Reflex to HCV, RNA, Quantitative, Real-Time PCR (02/22/2024 10:35 AM EDT) Hepatitis C Antibody Nonreactive Nonreactive [facility] Comment:Antibodies to HCV no t detected; does not exclude early acuteHCV infection. Blood Venous blood specimen / Unknown 02/22/2024 10:35 AM EDT 02/22/2024 11:35 AM EDT Stephanie Isai DO LAB BLOOD ORDERABLES Final R esult Performing Organization Address City/[facility]/ZIP Co de Phone Number [facility] [address] [place] [phone] * Hemoglobin A1c (02/22/2024 10:35 AM EDT) Pathologist [facility] Hemoglobin A1c 5.6 <6.0 % [facility] Comment:Hemoglobin A1C Refer ence Range Adults: 4.8 - 6.0 % Non diabetic: < 6.0 % Goal: < 7.0 %Additional Action Suggested: > 8.0 %Note: Hemoglobin A1c results are invalid for patients with abnormal amounts of HbF. Blood transfusions may impact the HbA1c concentration in the patient sample. Estimated Average Glucose 114 mg/dL [facility] Comment:eAG = Estimated ave rage glucose which is %A1C expressed asaverage glucose, using the formula of the A2U-JpvyxsfOiulfwr Glucose study (ADAG), Diabetes Care, Vol.31,#8,Dec. 2007 Blood Venous blood specimen / Unknown 02/22/2024 10:35 AM EDT 02/22/2024 11:35 AM EDT us Stephanie Isai DO LAB BLOOD ORDERABLES Final R esult Performing Organization Address City/[facility]/ZIP Co de Phone Number [facility] [address] [place] [address] [phone] * Lipid Panel, Standard (02/22/2024 10:35 AM EDT) Pathologist [facility] Triglycerides 87 <150 mg/dL [facility] Comment:Desirable Triglyceri de: less than 150 mg/dLBorderline High Triglyceride 150-199 mg/dLHigh Triglyceride: 200-499 mg/dLVery High Triglyceride: greater than or equal to 5OO mg/dL Cholesterol 147 <200 mg/dL [facility] Comment:Desirable Cholestero l: less than 200 mg/dLBorderline High Cholesterol: 200-239 mg/dLHigh Cholesterol: greater than 239 mg/dL LDL Cholesterol Calculated 73 <100 mg/dL [facility] Comment:Desirable LDL: less than 100 mg/dLNear Optimal/Above Optimal LDL: 110- 129 mg/dLBorderline High LDL: 130-159 mg/dLHigh LDL: 160-189 mg/dLVery High LDL: greater than or equal to 190 mg/dL HDL Cholesterol 57 >40 mg/dL [facility] Comment:Desirable HDL: great er than 40 mg/dL Note: This HDL assay may give artificially low results in patients with liver disease. Blood Venous blood specimen / Unknown 02/22/2024 10:35 AM EDT 02/22/2024 11:35 AM EDT us Stephanie Alex DO LAB BLOOD ORDERABLES Final R esult [facility] [address] [place] [phone] * Hm Colonoscopy (04/24/2020 10:02 AM EST) us Historical Provider HEALTH MAINTENANCE Final Result from Last 3 Months or Most Recently Relevant to Health Maintenance [place] [address] [address] [place] [address] - [employer] Care Teams Video Games Mechanic Relationship Specialty Start Date End Date Stephanie Alex DO [address] [place] [phone] PCP - General Family Medicine 06/12/15 Myrna 06/21/24
--- OUTSIDE RECORDS SUMMARY | 2024-07-11 15:47 | XMS_ITS | Encounter Summary ---
Author Organization [employer] [facility] Address [address] [facility] 7t [place] [address] Care Team Providers Care Electrician Radio Name Role Phone EddiStephanie zacarias Primary Care Provider [phone] Encounter Details Date Type Department Care Team ([facility] Contact Info) Description 05/04/2022 Abstract [facility] [address] [place] [address] Tricia Farmer PharmD [address] [place] [address] Social History Tobacco Use Types Packs/Day Years Used Date Smoking Tobacco: Never Smokeless Tobacco: Never Alcohol Use Standard Drinks/Week Comments Never 0 (1 standard drink = 0.6 oz pur e alcohol) Sex and Gender Information Value Date Recorded [...] suspected to have Coronavirus/COVID-19? No / Unsure 04/22/2022 10:18 AM EST documented as of this encounter Progress Notes * Tricia Farmer PharmD - 05/04/2022 3:48 PM EST Allergies and Medications Abstracted documented in this encounter Plan of Treatment Upcoming Encounters Date Type Department Care Team ([facility] Contact Info) Description 07/21/2024 1:30 PM EST Telemedicine [facility] [address] [place] [address] Mairana Aggarwal RN documented as of this encounter Visit Diagnoses Not on filedocumented in this encounter Additional Health Concerns Assessment Noted Time PHQ-9 Depression Total Score: 0 04/22/20 10:55 AM EST documented as of this encounter Care Teams Electrician Radio Relationship Specialty Start Date End Date Stephanie Alex DO [address] [place] [address] PCP - General Family Medicine 06/12/15 Myrna 06/21/24 documented as of this encounter
--- OUTSIDE RECORDS SUMMARY | 2024-07-11 15:47 | XMS_ITS | Encounter Summary ---
Author Organization [employer] Address [address] [facility] 7t [place] [address] Care Team Providers Care Food Production Supervisor Name Role Phone Stephanie Alex DO Primary Care Provider [phone] Reason for Visit * Reason Onset Date Comments triage 05/21/2022 Encounter Details Date Type Department Care Team ([facility] st Contact Info) Description 05/21/2022 Telephone [facility] [address] [place] [address] Stephanie Alex DO [address] [place] [address] triage Social History Tobacco Use Types Packs/Day Years [...] AM EST documented as of this encounter Miscellaneous Notes * Telephone Encounter - Christina Rios RN - 05/21/2022 1:25 PM EST triage call Pt reports right hand ,pointer finger has swollen joint base of finger for last 2 days.Pt reports this is painful, jaciel rosa cream is helping some and tylenol. Pt agreed with disposition ,home care reviewed. Pt requesting refill of tylenol ER 650mg 09/26/19 started. Advised to call pharmacy refills still available. Pt agreed. Protocol Used: Finger Pain (Adult) Protocol-Based Disposition: Home Care Positive Triage Question: * Finger pain * All higher-acuity triage questions were negative Care Advice Discussed: * Reassurance and Education - Overuse * Use a Cold Pack for Pain * Use Heat After 48 Hours for Pain * Pain Medicines * Pain Medicines - Extra Notes and Warnings * Rest * Expected Course * Reasons To Call Back - Swelling or severe pain occurs - Pain lasts over 7 days - You become worse * Telephone Encounter - Henrry Yao - 05/21/2022 10:13 AM EST Symptom: Hand or Wrist Swelling Outcome: Schedule an urgent appointment (within 1 hour) or talk to a nurse or provider soon Reason: Severe pain now The caller accepted this outcome speaks hungarian documented in this encounter Plan of Treatment Upcoming Encounters Date Type Department Care Team (Late st Contact Info) Description 07/21/2024 1:30 PM EST Telemedicine [facility] [address] [place] [address] Mariana Aggarwal RN documented as of this encounter Visit Diagnoses Not on filedocumented in this encounter Additional Health Concerns Assessment Noted Time PHQ-9 Depression Total Score: 0 04/22/20 22 10:55 AM EST documented as of this encounter Care Teams Food Production Supervisor Relationship Specialty Start Date End Date Stephanie Alex DO [address] [place] [address] PCP - General Family Medicine 06/12/15 Myrna 06/21/24 documented as of this encounter
--- OUTSIDE RECORDS SUMMARY | 2024-07-11 15:47 | XMS_ITS | Encounter Summary ---
Author Organization [email or web address] Address [address] [facility] 7t [place] [address] Care Team Providers Care Lens Mounter Name Role Phone Stephanie Alex DO Primary Care Provider [phone] Encounter Details Date Type Department Care Team (Late Contact Info) Description 09/29/2022 Orders Only [facility] [address] [place] [address] Stephanie Alex DO [address] [place] [address] Gynecomastia, male (Primary Dx) Social History Tobacco Use Types Packs/Day Years [...] suspected to have Coronavirus/COVID-19? No / Unsure 10/02/2022 1:38 PM EDT documented as of this encounter Plan of Treatment Upcoming Encounters Date Type Department Care Team (Late Contact Info) Description 07/21/2024 1:30 PM EST Telemedicine [facility] [address] [place] [address] Mariana Aggarwal RN documented as of this encounter Visit Diagnoses Diagnosis Gynecomastia, male- Primary Hypertrophy of breast documented in this encounter Additional Health Concerns Assessment Noted Time PHQ-9 Depression Total Score: 0 09/02/19 23 9:01 AM EDT documented as of this encounter Care Teams Lens Mounter Relationship Specialty Start Date End Date Stephanie Alex DO [address] [place] [address] PCP - General Family Medicine 06/12/15 Myrna 06/21/24 documented as of this encounter
--- OUTSIDE RECORDS SUMMARY | 2024-07-11 15:47 | XMS_ITS | Encounter Summary ---
Author Organization [employer] Address [address] [facility] 7t [place] [address] Care Team Providers Care Haul Cane Brakeman Name Role Phone Stephanie Alex DO Primary Care Provider [phone] Reason for Visit * Reason Comments Med Refill Encounter Details Date Type Department Care Team ([facility] Contact Info) Description 06/02/2023 Refill [facility] [address] [place], [place] [phone] Maria De Jesus Mann MD [address] [place] [address] Moderate persistent asthma, unspecified whether complicated Social History Tobacco Use Types Packs/Day Years [...] Info) Description 07/21/2024 1:30 PM EST Telemedicine [facility] [address] [place] [address] Mariana Aggarwal, RN documented as of this encounter Visit Diagnoses Diagnosis Moderate persistent asthma, unspecified whether complicated documented in this encounter Additional Health Concerns Assessment Noted Time PHQ-9 Depression Total Score: 0 09/02/19 23 9:01 AM EDT documented as of this encounter Care Teams Haul Cane Brakeman Relationship Specialty Start Date End Date Stephanie Alex DO [address] [place] [phone] PCP - General Family Medicine 06/12/15 Myrna 06/21/24 documented as of this encounter
--- OUTSIDE RECORDS SUMMARY | 2024-07-11 15:47 | XMS_ITS | Encounter Summary ---
Author Organization [employer] Address [address] [facility] 7t [place] [address] Care Team Providers Care Cna Ltc Name Role Phone Stephanie Alex DO Primary Care Provider [phone] Reason for Visit * Reason Comments Med Refill Encounter Details Date Type Department Care Team ([facility] Contact Info) Description 05/01/2024 Refill [facility] [address] [place] [address] Stephanie Alex DO [address] [place] [address] Essential hypertension Social History Tobacco Use Types Packs/Day Years [...] housing situation today? I have andresmor card 04/07/[address] you li [...] Info) Description 07/21/2024 1:30 PM EST Telemedicine [facility] [address] [place] [address] Mariana Aggarwal, RN documented as of this encounter Visit Diagnoses Diagnosis Essential hypertension Unspecified essential hypertension documented in this encounter Additional Health Concerns Assessment Noted Time PHQ-9 Depression Total Score: 0 04/21/20 24 9:57 AM EST documented as of this encounter Care Teams Cna Ltc Relationship Specialty Start Date End Date Stephanie Alex DO [address] [place] [address] PCP - General Family Medicine 06/12/15 Myrna 06/21/24 documented as of this encounter
--- OUTSIDE RECORDS SUMMARY | 2024-07-11 15:47 | XMS_ITS | Encounter Summary ---
Author Organization [email or web address] [facility] Address [address] [facility] 7t [place] [address] Care Team Providers Care Child Care Center Assistant Director Name Role Phone Stephanie Alex DO Primary Care Provider [phone] Reason for Visit * Reason Comments Med Refill Encounter Details Date Type Department Care Team (Late st Contact Info) Description 12/27/2022 Refill [facility] [address] [place] [phone] Stephanie Alex DO [address] [place] [address] Acquired hypothyroidism; Anemia, unspecified type; Chronic bilateral low back pain, unspecified whether sciatica present Social History Tobacco Use Types Packs/Day Years Used Date Smoking Tobacco: Former Cigarettes 0.3 44 1 5 - 2019 Smokeless Tobacco: Never Alcohol Use [...] Info) Description 07/21/2024 1:30 PM EST Telemedicine [facility] [address] [place] [address] Mariana Aggarwal, ROMEL documented as of this encounter Visit Diagnoses Diagnosis Acquired hypothyroidism Unspecified hypothyroidism Anemia, unspecified type Chronic bilateral low back pain, unspecified whether sciatica present documented in this encounter Additional Health Concerns Assessment Noted Time PHQ-9 Depression Total Score: 0 09/02/19 23 9:01 AM EDT documented as of this encounter Care Teams Child Care Center Assistant Director Relationship Specialty Start Date End Date Stephanie Alex DO [address] [place] [address] PCP - General Family Medicine 06/12/15 Myrna 06/21/24 documented as of this encounter
--- OUTSIDE RECORDS SUMMARY | 2024-07-11 15:47 | XMS_ITS | Encounter Summary ---
Author Organization [employer] [facility] Address [address] [facility] 7[address] [place] [address] Care Team Providers Care Rawhide Bone Roller Name Role Phone Stephanie Alex DO Primary Care Provider [phone] Reason for Visit * Reason Comments Med Refill Encounter Details Date Type Department Care Team (Late st Contact Info) Description 02/16/2023 Refill [facility] [address] [place] [address] Stephanie Alex DO [address] [place] [address] Depression, unspecified depression type Social History Tobacco Use Types Packs/Day Years [...] Info) Description 07/21/2024 1:30 PM EST Telemedicine [facility] [address] [place] [address] Alessia, Mariana, RN documented as of this encounter Visit Diagnoses Diagnosis Depression, unspecified depression type documented in this encounter Additional Health Concerns Assessment Noted Time PHQ-9 Depression Total Score: 0 09/02/19 23 9:01 AM EDT documented as of this encounter Care Teams Rawhide Bone Roller Relationship Specialty Start Date End Date Stephanie Alex DO [address] [place] [address] PCP - General Family Medicine 06/12/15 Myrna 06/21/24 documented as of this encounter
--- OUTSIDE RECORDS SUMMARY | 2024-07-11 15:47 | XMS_ITS | Encounter Summary ---
Author Organization [employer] Address [address] [facility] 7t [place] [address] Care Team Providers Care Otolaryngology Nurse Name Role Phone Stephanie Alex DO Primary Care Provider [phone] Reason for Visit * Reason Onset Date Comments Med Refill 06/15/2024 Encounter Details Date Type Department Care Team ([facility] st Contact Info) Description 06/15/2024 Refill [facility] [address] [place], [place] [phone] Stephanie Alex DO [address] [place], [place] [phone] Other chronic pain Social History Tobacco Use [...] housing situation today? I have andres card 04/07/[address] you [...] as of this encounter Miscellaneous Notes * Addendum Note - Crescencio Aggarwal RN - 06/15/2024 12:20 PM ESTAddended by: CRESCENCIO AGGARWAL on: 06/15/2024 12:20 PM Modules accepted: Orders * Telephone Encounter - Ann-Marie Hill LPN - 06/15/2024 11:03 AM EST Received request on traMADol (Ultram) 50 MG tablet documented in this encounter Plan of Treatment Upcoming Encounters Date Type Department Care Team (Late st Contact Info) Description 07/21/2024 1:30 PM EST Telemedicine [facility] [address] [place] [address] Crescencio Aggarwal RN documented as of this encounter Visit Diagnoses Diagnosis Other chronic pain documented in this encounter Additional Health Concerns Assessment Noted Time PHQ-9 Depression Total Score: 0 04/21/20 24 9:57 AM EST documented as of this encounter Care Teams Otolaryngology Nurse Relationship Specialty Start Date End Date Stephanie Alex DO [address] [place] [address] PCP - General Family Medicine 06/12/15 documented as of this encounter
--- OUTSIDE RECORDS SUMMARY | 2024-07-11 15:47 | XMS_ITS | Encounter Summary ---
Author Organization [employer] Address [address] [facility] 7t [place] [address] Care Team Providers Care Net Application Support Specialist Name Role Phone Stephanie Alex DO Primary Care Provider [phone] Reason for Visit * Reason Comments Med Refill Encounter Details Date Type Department Care Team ([facility] Contact Info) Description 06/25/2024 Refill [facility] [address] [place] [address] Stephanie Alex DO [address] [place] [address] Other hyperlipidemia; Chronic bilateral low back pain, [...] Info) Description 07/21/2024 1:30 PM EST Telemedicine [facility] [address] [place] [address] Mariana Aggarwal RN documented as of this encounter Visit Diagnoses Diagnosis Other hyperlipidemia Chronic bilateral low back pain, unspecified whether sciatica present documented in this encounter Additional Health Concerns Assessment Noted Time PHQ-9 Depression Total Score: 0 04/21/20 24 9:57 AM EST documented as of this encounter Care Teams Net Application Support Specialist Relationship Specialty Start Date End Date Stephanie Alex DO [address] [place] [address] PCP - General Family Medicine 06/12/15 Myrna 06/21/24 documented as of this encounter
--- OUTSIDE RECORDS SUMMARY | 2024-07-11 15:47 | XMS_ITS | Encounter Summary ---
Author Organization [employer] [facility] Address [address] [facility] 7t [place] [address] Care Team Providers Care Nutrition Services Aide Name Role Phone Stephanie Alex DO Primary Care Provider Encounter Details Date Type Department Care Team (Latest Contact Info) Description 01/23/2022 Abstract [facility] CONVERSIONS Dental, Provider, DDS Social History Tobacco Use Types Packs/Day Years Used Date Smoking Tobacco: Never Assessed Sex and Gender Information Value Date Recorded Sex Assigned at Male 03/16/2022 10:29 AM EDT Legal Sex Male 10:29 AM EDT Gender Identity Male 03/16/2022 10:29 AM EDT Sexual Orientation Straight 03/16/2022 10 :29 AM EDT documented as of this encounter Plan of Treatment Upcoming Encounters Date Type Department Care Team (Late st Contact Info) Description 07/21/2024 1:30 PM EST Telemedicine [facility] [address] [place] [address] Mariana Aggarwal, RN documented as of this encounter Visit Diagnoses Not on filedocumented in this encounter Care Teams Nutrition Services Aide Relationship Specialty Start Date End Date Stephanie Alex DO [address] [place] [address] PCP - General Family Medicine 06/12/15 Myrna 06/21/24 documented as of this encounter
== END 2024-07-11 13:21 | disposition home or self-care (01) ==
PROVIDERS: PCP Family Medicine; Visit Provider Internal Medicine Pulmonary Disease
DX: J44.9 Chronic obstructive pulmonary disease, unspecified (principal); Z91.09 Other allergy status, other than to drugs and biological substances; Z87.891 Personal history of nicotine dependence
CPT/HCPCS: 99214; G2211

== ENCOUNTER → 2024-07-11 12:56 | Outpatient (BNVA) | payer OTHER, SELFPAY | PROVIDERS: PCP Family Medicine; Visit Provider Internal Medicine Pulmonary Disease | DX: J44.89 Other specified chronic obstructive pulmonary disease (principal); Z91.09 Other allergy status, other than to drugs and biological substances; Z87.891 Personal history of nicotine dependence | CPT/HCPCS: 99212 ==

== ENCOUNTER 2024-08-03 08:25 | Emergency (ER) | payer OTHER, SELFPAY ==
--- NOTE | ~2024-08-03 | XR_ITS ---
EXAMINATION: XR FOOT, LEFT CLINICAL INFORMATION: Pain COMPARISON: None available. TECHNIQUE: AP, lateral, and oblique views of the left foot. FINDINGS: There is mild hallux valgus deformity first MTP joint with mild spurring. Small calcaneal heel enthesophyte is noted. No visible acute fracture, dislocation or subluxation seen. There are vascular calcifications present. No bony erosive changes. No soft tissue swelling. XR/XR foot LT min 3V IMPRESSION: Mild hallux valgus deformity first MTP joint with periarticular spurring. small calcaneal heel enthesophyte. No visible acute fracture or dislocation. Electronically signed by: Chris Yee MD 08/03/2024 09:18 AM EDT
--- NOTE | ~2024-08-03 | XR_ITS ---
EXAMINATION: XR KNEE, LEFT CLINICAL INFORMATION: Pain COMPARISON: None available. TECHNIQUE: Four views of the left knee. FINDINGS: There is calcification of lateral meniscus. The tricompartment joint space is maintained. No loose bodies or joint effusion seen. The soft tissues are normal. No visible acute fracture or dislocation seen. XR/XR knee LT 3V IMPRESSION: Chondrocalcinosis lateral meniscus. Electronically signed by: Chris Yee MD 08/03/2024 09:13 AM EDT
--- NOTE | ~2024-08-03 | XR_ITS ---
EXAMINATION: XR ANKLE, LEFT CLINICAL INFORMATION: Pain COMPARISON: None TECHNIQUE: AP, lateral, and mortise views of the left ankle. FINDINGS: The ankle mortise and subtalar joints are normal. No visible acute fracture, dislocation or subluxation seen. The ankle mortise and subtalar joints are normal. There is a small calcaneal heel spur. Bimalleolar soft tissue swelling is noted. XR/XR ankle LT min 3V IMPRESSION: Small calcaneal heel spur. No acute fracture or dislocation. Mild bimalleolar soft tissue swelling. Electronically signed by: Chris Yee MD 08/03/2024 09:15 AM EDT
[2024-08-03 08:41] VITALS: BP 142/73; PULSE 84; RESP 16; TEMP 37; O2SAT 96; BMI 26.8
--- NOTE | 2024-08-03 09:57 | ED_ITS ---
HPI - Extremity Problem General Chief complaint: Extremity Problem Stated complaint: leg pain Time Seen by Provider: 08/03/24 09:32 Source: patient, RN notes reviewed and old records reviewed Mode of arrival: ambulatory History of Present Illness ED Provider: Maricruz Cotton PA-C HPI Narrative: 73-year-old male with a past medical history of HLD, GERD, polyneuropathy, diabetes, hypothyroid, HTN, asthma, presenting to the ED complaining of left ankle pain and swelling s/p twisting injury 2 weeks ago. Admits was seen at [facility] had x-rays which were unremarkable. Denies taking anything for pain [employer]. Denies numbness, tingling, weakness, pedal edema, calf pain. Related Data Home Medications ?Medication ?Instructions ?Recorded ?Confirmed ferrous sulfate 325 mg (65 mg 325 mg PO BID 03/27/20 05/08/24 iron) tablet multivitamin 1 tab PO DAILY 03/27/20 05/08/24 albuterol sulfate 90 mcg/actuation 2 puff PO Q4H PRN Wheezing 04/18/20 05/08/24 aerosol inhaler (Ventolin HFA) amlodipine 10 mg tablet 10 mg PO DAILY 09/30/22 05/08/24 atorvastatin 40 mg tablet 40 mg PO BEDTIME 09/30/22 05/08/24 cetirizine 10 mg capsule (All Day 10 mg PO DAILY PRN Allergy Symptoms 09/30/22 05/08/24 Allergy (cetirizine)) gabapentin 800 mg tablet 800 mg PO TID 09/30/22 05/08/24 levothyroxine 25 mcg tablet 25 mcg PO DAILY@0600 09/30/22 05/08/24 metformin 500 mg tablet 500 mg PO BIDWM 09/30/22 05/08/24 montelukast 10 mg tablet 10 mg PO BEDTIME 09/30/22 05/08/24 sertraline 25 mg tablet 25 mg PO DAILY 09/30/22 05/08/24 cholecalciferol (vitamin D3) 50 50 mcg PO DAILY 10/21/22 05/08/24 mcg (2,000 unit) capsule fluticasone furoate 200 1 inh inhalation DAILY 12/28/23 05/08/24 mcg/actuation blister powder for inhalation (Arnuity Ellipta) acetaminophen 650 mg 650 mg PO TID PRN Pain 05/08/24 05/08/24 tablet,extended release albuterol sulfate 2.5 mg/3 mL 2.5 mg inhalation QID PRN 05/08/24 05/08/24 (0.083 %) solution for nebulization Shortness Of Breath Or Wheezing baclofen 10 mg tablet 10 mg PO TID PRN muscle spasm 05/08/24 05/08/24 budesonide 0.5 mg/2 mL suspension 0.5 mg irrigation BID PRN NASAL 05/08/24 05/08/24 for nebulization IRRIGATION dexlansoprazole 60 mg 60 mg PO DAILY@0600 05/08/24 05/08/24 capsule,biphase delayed release diclofenac sodium 1 % topical gel 2 g topical QID PRN pain 05/08/24 05/08/24 dupilumab 300 mg/2 mL subcutaneous 300 mg subcut Q2W 05/08/24 05/08/24 pen injector ([employer]) fluticasone propionate 50 1 spray intranasal DAILY PRN 05/08/24 05/08/24 mcg/actuation nasal Congestion spray,suspension hydroxyzine pamoate 25 mg capsule 25 mg PO Q6H PRN anxiety 05/08/24 05/08/24 losartan 100 mg tablet 100 mg PO DAILY 05/08/24 05/08/24 polyvinyl alcohol 1.4 % eye drops 1 drp ophthalmic (eye) TID 05/08/24 05/08/24 tramadol 50 mg tablet 50 mg PO Q12H PRN severe pain 05/08/24 05/08/24 umeclidinium 62.5 mcg/actuation 1 inh inhalation DAILY 05/08/24 05/08/24 blister powder for inhalation (Incruse Ellipta) Previous Rx's ?Medication ?Instructions ?Recorded famotidine 40 mg tablet 40 mg PO BEDTIME #30 tabs 10/13/23 docusate sodium 100 mg capsule 100 mg PO QAM #30 caps 05/25/24 (Stool Softener) naproxen 500 mg tablet 500 mg PO BID PRN pain 10 days #20 08/03/24 tabs Allergies Allergy/AdvReac Type Severity Reaction Status Date / Time lisinopril Allergy Angioedema Verified 08/03/24 08:47 Review of Systems Review of Systems: Yes all other systems are reviewed and are negative Constitutional: Constitutional: Reports [facility] Past Medical History Attestation statement: The following information was validated with the patient. Source: old records reviewed Medical History Gynecomastia Hyperlipidemia Chronic low back pain GERD (gastroesophageal reflux disease) Polyneuropathy Allergic rhinitis Diabetes Hypothyroidism Essential hypertension Other and unspecified hyperlipidemia Asthma Stress-induced cardiomyopathy Surgical History History of back surgery History of sinus surgery Hx of esophagogastroduodenoscopy Hx of colonoscopy Family History Family History Father No problems noted. Mother No problems noted. 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 Physical Exam Vital Signs: Vital Signs: Last Vital Signs Temp 98.6 F 08/03/24 08:41 Pulse 84 08/03/24 08:41 Resp 16 08/03/24 08:41 BP 142/73 H 08/03/24 08:41 Pulse Ox 96 08/03/24 08:41 O2 Del Method Room Air 08/03/24 08:41 BMI result Body Mass Index 26.8 Const: General: cooperative, healthy appearing and no acute distress Orientation/consciousness: patient oriented x3 Limitations: no limitations HEENT: Head: Yes normal to inspection and Yes atraumatic Ears: hearing grossly normal bilaterally General nose exam: Normal external nose present Face and sinus: Yes normal facial exam Eyes: General: appearance normal, both eyes and all related structures EOM: EOMs intact bilaterally Neck: Neck: Yes normal visual inspection and Yes no meningeal signs Resp: Effort & Inspection: normal respiratory effort and no respiratory distress Cardio: Rate: regular rate Skin: Rashes: no rashes Wounds: no wounds Neuro: General: patient oriented x3, tone normal and no meningeal signs Cranial nerves: Yes CN's II-XII intact bilaterally Gait exam (Neuro): Normal gait present Extrem: Other: Left foot/ ankle with mild swelling > medial aspect with reproducible tenderness. No erythema /warmth. Full range of motion intact. Neurovascularly intact. Knee nontender. No pitting edema or calf tenderness Course Course Course Narrative: XR knee LT 3V IMPRESSION: Chondrocalcinosis lateral meniscus. XR foot LT min 3V IMPRESSION: Mild hallux valgus deformity first MTP joint with periarticular spurring. small calcaneal heel enthesophyte. No visible acute fracture or dislocation. XR ankle LT min 3V IMPRESSION: Small calcaneal heel spur. No acute fracture or dislocation. Mild bimalleolar soft tissue swelling. > Mark wrap applied to right foot/ankle. Results discussed with patient including worrisome signs and symptoms and strict return precautions, and when to return to the emergency department. They verbalized understanding and feel safe for discharge at this time. Medical Decision Making Medical Decision Making MDM Narrative: 73-year-old male with a past medical history of HLD, GERD, polyneuropathy, diabetes, hypothyroid, HTN, asthma, presenting to the ED complaining of left ankle pain and swelling s/p twisting injury 2 weeks ago. on exam vital signs s table, NAD, nontoxic appearing, physical exam as noted above. Concern for sprain vs fracture. No plantar fascia reproducible tenderness, unlikely plantar fasciitis, septic joint/arthritis, gout, DVT plan: X-rays, pain control Please refer to course for remaining clinical decision making, interpretation of labs/imaging results, and discussions with consultants and/or family members. Differential Diagnosis Differential Diagnoses: The differential diagnosis associated with the presentation includes As above Independent Interpretation I performed an independent interpretation of an: Plain X-Ray Radiology Impression Discussion of test interpretation with radiology: I have reviewed the radiologist's reading. External Record Review External record reviewed: Inpatient record, Office record, Outpatient record, Prior outpatient labs, Prior outpatient radiology, Primary care record and Outside ED record Tests considered The following testing was considered but not selected: As above Prescription Management I considered prescription management with: Pain Medication Chronic Conditions Patient?s care impacted by: Hypertension and Other Social Determinants Patient?s care significantly limited by Social Determinants of Health including: Other Social Determinant of Health Discharge Plan Discharge Clinical Impression: Ankle sprain, Chondrocalcinosis Patient Disposition: Home, Self-Care Instructions: Ankle Sprain (DC) Additional Instructions: your x-ray shows arthritic changes and soft tissue swelling consistent with sprain. No fractures naproxen as an anti-inflammatory / pain medication, take with food Wear Mark wrap as needed for compression, swelling, and stability Follow-up with your doctor as well as Orthopedics as needed Prescriptions: New naproxen 500 mg tablet 500 mg PO BID PRN (Reason: pain) 10 Days Qty: 20 0RF No Action famotidine 40 mg tablet 40 mg PO BEDTIME Qty: 30 6RF docusate sodium [Stool Softener] 100 mg capsule 100 mg PO QAM Qty: 30 6RF albuterol sulfate [Ventolin HFA] 90 mcg/actuation HFA aerosol inhaler 2 puff PO Q4H PRN (Reason: Wheezing) Arnuity Ellipta 200 mcg/actuation blister with device 1 inh INHALATION DAILY polyvinyl alcohol 1.4 % drops 1 drp ophthalmic (eye) TID tramadol 50 mg tablet 50 mg PO Q12H PRN (Reason: severe pain) acetaminophen 650 mg tablet extended release 650 mg PO TID PRN (Reason: Pain) baclofen 10 mg tablet 10 mg PO TID PRN (Reason: muscle spasm) losartan 100 mg tablet 100 mg PO DAILY hydroxyzine pamoate 25 mg capsule 25 mg PO Q6H PRN (Reason: anxiety) diclofenac sodium 1 % gel 2 g topical QID PRN (Reason: pain) dexlansoprazole 60 mg capsule,biphase delayed releas 60 mg PO DAILY@0600 Incruse Ellipta 62.5 mcg/actuation blister with device 1 inh inhalation DAILY Dupixent Pen 300 mg/2 mL pen injector 300 mg subcut Q2W albuterol sulfate 2.5 mg /3 mL (0.083 %) solution for nebulization 2.5 mg inhalation QID PRN (Reason: Shortness Of Breath Or Wheezing) budesonide 0.5 mg/2 mL suspension for nebulization 0.5 mg irrigation BID PRN (Reason: NASAL IRRIGATION ) Rx Instructions: NASAL IRRIGATION fluticasone propionate 50 mcg/actuation [place],Suspension 1 spray INTRANASAL DAILY PRN (Reason: Congestion) Rx Instructions: administer into each nostril ferrous sulfate 325 mg (65 mg iron) tablet 325 mg PO BID multivitamin Tablet 1 tab PO DAILY amlodipine 10 mg tablet 10 mg PO DAILY atorvastatin 40 mg tablet 40 mg PO BEDTIME All Day Allergy (cetirizine) 10 mg capsule 10 mg PO DAILY PRN (Reason: Allergy Symptoms) gabapentin 800 mg tablet 800 mg PO TID levothyroxine 25 mcg tablet 25 mcg PO DAILY@0600 metformin 500 mg tablet 500 mg PO BIDWM montelukast 10 mg tablet 10 mg PO BEDTIME sertraline 25 mg tablet 25 mg PO DAILY cholecalciferol (vitamin D3) 50 mcg (2,000 unit) capsule 50 mcg PO DAILY Referrals: [facility] [Provider Group] - 1 week Stephanie Alex DO [Primary Care Provider] - 5 days Print Language: [place]
[2024-08-03] MEDS: Ketorolac Tromethamine 30 MG/ML VIAL IM (10:17)
[2024-08-03 10:26] VITALS: BP 142/73; PULSE 84; RESP 16; TEMP 37; O2SAT 96
== END 2024-08-03 10:26 | disposition home or self-care (01) ==
PROVIDERS: Emergency Provider Emergency Medicine; PCP Family Medicine
DX: S93.402A Sprain of unspecified ligament of left ankle, initial encounter (principal); X50.1XXA Overexertion from prolonged static or awkward postures, initial encounter; M11.272 Other chondrocalcinosis, left ankle and foot; E11.9 Type 2 diabetes mellitus without complications; I10 Essential (primary) hypertension; E78.5 Hyperlipidemia, unspecified; J45.909 Unspecified asthma, uncomplicated; Z79.02 Long term (current) use of antithrombotics/antiplatelets; Z79.899 Other long term (current) drug therapy; Y93.9 Activity, unspecified; Y92.9 Unspecified place or not applicable; Y99.9 Unspecified external cause status
CPT/HCPCS: 73562; 73610; 73630; 96372; 99283; 99284; J1885

== ENCOUNTER → 2024-08-03 09:00 | Outpatient (BNV) | payer OTHER, SELFPAY | PROVIDERS: Emergency Provider Emergency Medicine; PCP Family Medicine; Visit Provider Radiology Diagnostic Radiology | DX: M11.262 Other chondrocalcinosis, left knee (principal); M77.32 Calcaneal spur, left foot | CPT/HCPCS: 73562; 73610; 73630 ==

== ENCOUNTER → 2024-09-29 12:38 | Outpatient (REF) | payer OTHER, SELFPAY ==
--- NOTE | 2024-09-29 12:41 | CA_ITS ---
Transthoracic Echocardiogram Patient (Last, First, Middle): Colton James, Gender: Male Date of : 1950 Age: 73 Procedure Date: 09/29/2024 Procedure Type: Transthoracic Echocardiogram Location: OP Height: 185.42 cm Weight: 74.84 kg BSA: 1.98 m2 Heart Rate: 72 bpm BP: 138 / 77 mmHg Automated Access Systems Technician: THANG Referring MD: Leanne Bowling HIDE AND SKIN FLESHING MACHINE OPERATOR-Juan C Professional Development Director: Alonzo Boyd MD Symptoms: I42.8 - Other cardiomyopathies Study Quality: Adequate ECG Rhythm: Sinus Conclusions: - 1. Low normal LV ejection fraction 50-55% with impaired relaxation filling pattern 2. Normal cardiac valvular Dopplers 3. Normal RV systolic pressure 4. No gross pericardial effusion Findings Left Ventricle Normal left ventricular cavity size. There is normal left ventricular wall thickness. The left ventricular systolic function is low normal. The visually estimated ejection fraction is between 50-55%. Spectral Doppler is indicative of an impaired relaxation filling pattern. E/E prime ratio is between 8 and 15 consistent with indeterminate filling pressures. Peak GLS is -17.5%, which is borderline. Right Ventricle Normal right ventricular cavity size and systolic function. Atria Both atria are normal in size. There is no evidence of interatrial shunt. Aortic Valve Normal aortic valve structure and function. There is no aortic valve stenosis. There is no aortic valve regurgitation. Mitral Valve Normal mitral valve structure and function. There is trace mitral valve regurgitation. There is no mitral valve stenosis. Pulmonic Valve The pulmonic valve is likely normal. Tricuspid Valve Likely normal tricuspid valve structure and function. There is trace tricuspid valve regurgitation. The right ventricular systolic pressure is normal. The right ventricular systolic pressure is 25 mmHg. Normal right atrial pressure. There is no evidence of pulmonary hypertension. Great Vessels All visible segments of the aorta are normal in size. The pulmonary artery was not well visualized. There is no dilatation of the ascending aorta measuring 3.30 cm. Venous The inferior vena cava is normal in size and collapses greater than 50% with inspiration. Pericardium/Pleural There is no evidence of pericardial effusion. Prior Study Comparison Changes noted compared to prior study dated: 10/05/2023. LV ejection fraction has marginally improved Measurements 2D Linear Measurements IVSd: 0.72 0.6-0.9/0.6-1.0 cm LVIDd: 5.51 3.9-5.3/4.2-5.9 cm LVIDd Index: 2.78 2.4-3.2/2.2-3.1 cm/m2 LVIDs: 3.53 2.0-3.6 cm LVPWd: 0.86 0.7-1.1 cm LA Diam: 3.90 2.7-3.8/3.0-4.0 cm LAIDs Index: 1.97 1.5-2.3 cm/m2 LV Mass: 196.21 67-162/88-224 g LV Mass Index: 99.10 43-95/49-115 g/m2 LVOT Diam: 2.60 3.0+(-)1.3 cm 2D Systolic Function EF 4C: 47.70 >55% EF 2C: 57.10 >55% EF BiP: 51.60 >55% Mitral Valve MV Pk E: 0.69 MV PK A: 0.87 MV Decel Time: 167.00 E/A: 0.80 E'Lateral: 9.79 E'Medial: 6.96 E/E' Med: 10.00 E/E' Lat: 7.10 PHT: 49.00 MVA PHT: 4.49 Decel Roane: 4.16 Aortic Valve AoV Pk Nikko: 1.45 AoV Pk Grad: 8.00 LVOT LVOT Pk Nikko: 1.07 LVOT Mn Nikko: 0.79 LVOT VTI: 0.23 LVOT Pk Grad: 5.00 LVOT Mn Grad: 3.00 LVOT Diam: 2.60 LVOT Area: 5.31 Diastolic Function MV Pk E: 0.69 MV Pk A: 0.87 E/A: 0.80 E'Medial: 6.96 E/E' Med: 10.00 E' Laterial: 9.79 E/E' Lat: 7.10 Right Ventricle TAPSE (mm): 21.90 TVS' Nikko: 13.20 Tricuspid Valve TR Pk Nikko: 2.33 TR Pk Grad: 22.00 RA Press: 3.00 RVSP: 25.00 Great Vessels Aorta Sinus of Valsalva: 3.60 2.0-3.5 cm Ao Asc: 3.30 2.1-3.4 cm Pulmonary Veins Pulm Vein S/D 1.40 Pulmonary Valve PV Pk Nikko: 0.98 Peak PV Grad: 4.00 Updated in Other Vendor System with Status of Final Alonzo Boyd MD electronically signed on 09/30/2024 11:39:18 AM with status of Final
== END ==
LOC: HO.CARD 12:38
PROVIDERS: PCP Family Medicine; Visit Provider Nurse Practitioner Family
DX: I42.8 Other cardiomyopathies (principal)
CPT/HCPCS: 93306

== ENCOUNTER → 2024-09-29 12:41 | Outpatient (BNV) | payer OTHER, SELFPAY | PROVIDERS: PCP Family Medicine; Visit Provider Internal Medicine Cardiovascular Disease | DX: I42.8 Other cardiomyopathies (principal); R93.1 Abnormal findings on diagnostic imaging of heart and coronary circulation | CPT/HCPCS: 93306; 93356 ==

== ENCOUNTER 2024-10-30 10:18 | Outpatient (REF) | payer OTHER, SELFPAY ==
[2024-10-30 11:16] LABS: Appearance Urine Clear; Color Urine Yellow; Glucose Urine UA Negative (Negative); Leukocyte Esterase Urine Negative (Negative); Nitrite Urine Negative (Negative); PH 6.5 (5.0-9.0); UMIC TRIGGER UA YES; Urine Blood Small (1+) (Negative); Urine Ketones Trace mg/dL (Negative); Urine Protein Trace mg/dL (Neg-Trace)
[2024-10-30 11:18] LABS: Bacteria Urine None Seen (None Seen); Hyaline Casts Urine 0-2 /LPF (0-2); Squamous Epithelial Cell Urine 0-2 /HPF (0-2); WBC Urine 0-5 /HPF (0-5)
[2024-10-30 11:26] LABS: MANUAL DIFF FLAG NO
[2024-10-30 11:29] LABS: Basophils Absolute Auto 0.1 X10*3/uL (0.0-0.2); Basophils Percent Auto 1.3 % (0-2); Eosinophils Absolute Auto 0.6 X10*3/uL (0.0-0.4); Eosinophils Percent Auto 13.8 % (0-4); Hematocrit 38.3 % (42.0-52.0); Hemoglobin 13.1 g/dl (14.0-18.0); Imm Gran Abs Auto 0.02 X10*3/uL (0.00-0.03); Imm Gran Pct Auto 0.4 % (0.0-0.4); Lymphocytes Absolute Auto 1.3 X10*3/uL (1.2-4.9); Lymphocytes Percent Auto 29.4 % (20-40); Mean Corpuscular HGB Conc 34.2 g/dl (31.0-36.0); Mean Corpuscular Hemoglobin 30.2 pg (27.0-33.0); Mean Corpuscular Volume 88.2 fL (80.0-98.0); Mean Platelet Volume 10.2 fL (9.4-12.4); Monocytes Absolute Auto 0.4 X10*3/uL (0.1-1.2); Monocytes Percent Auto 9.8 % (2-11); Neutrophils Percent Auto 45.3 % (45-73); Platelet Count 255 X10*3/uL (160-400); Red Blood Count 4.34 X10*6/uL (4.60-5.80); Red Cell Distribution Width 14.3 % (11.0-16.0); White Blood Count 4.5 X10*3/uL (4.8-10.8)
--- OUTSIDE RECORDS SUMMARY | 2024-10-30 11:29 | XMS_ITS | Clinical Summary ---
Author Organization [employer] Address [address] [facility] [address] [place] [address] Care Team Providers Care Digital Marketing Intern Name Role Phone AsterStephanie anand Primary Care Provider [phone]- [phone] Allergies Active Allergy Reactions Criticality Noted Date Comments Lisinopril Angioedema 05/08/2024 Medications naloxone (Narcan) 4 mg/0.1 mL nasal spray Administer 0.1 mL into affected nostril(s). 11/21/19 21 Active polyethylene glycol, PEG, 3350 (Glycolax) 17 GM/SCOOP powder Take 17 g by mouth if needed each day for constipation. Mix with 8oz. Water, juice, soda 09/26/19 20 Active Blood Glucose Monitoring Suppl (FreeStyle glucose monitoring) kit 1 each if needed. Active FREESTYLE LITE test stripIndications: Type 2 diabetes mellitus with diabetic polyneuropathy, without long-term current use of insulin ([facility]) TEST BLOOD SUGAR EVERY DAY 50 strip 06/29/19 23 Active SM Dry Eye Relief 0.2-0.2-1 % solution PLACE 1 DROP IN EACH EYE THREE TIMES DAILY 15 mL 08/06/19 23 Active TRUEplus Lancets 33G misc TEST BLOOD SUGAR EVERY DAY 100 each 11 09/20/19 24 Active polyvinyl alcohol (Liquifilm Tears) 1.4 % ophthalmic solution INSTILL 1 DROP IN EACH EYE THREE TIMES DAILY 15 mL 09/30/19 24 Active Respiratory Therapy Supplies (Nebulizer Mask Adult) miscIndications:M oderate persistent asthma without complication 1 each every 6 (six) hours if needed (sob/ wheezing). Use with nebulizer machine 1 each 10/01/19 24 Active budesonide (Pulmicort) 0.5 MG/2ML nebulizer solution MIX 1 AMPULE USING A NEBULIZER IN 8 OUNCES WATER destilada WITH [place]qu[place] de solucin salina. USE 1/2 botella para irrigar cada fosa nasal TWICE DAILY. 12/15/19 24 Active Dupixent 300 MG/2ML solution auto-injector 04/17/20 Active famotidine (Pepcid) 40 MG tablet Take 1 tablet (40 mg) by mouth at bedtime. 30 tablet 11 04/21/20 24 2024 Active acetaminophen (Tylenol 8 Hour) 650 MG ER tablet Take 1 tablet (650 mg) by mouth every 8 (eight) hours if needed for mild pain. 60 tablet 3 04/21/20 24 Active dexlansoprazole (Dexilant) [address] capsule Take 1 capsule (60 mg) by mouth Once per day. Do not crush or chew. 30 capsule 11 04/21/20 24 2024 Active fluticasone (Flonase) 50 MCG/ACT nasal sprayIndications: Asthma, unspecified asthma severity, unspecified whether complicated, unspecified whether persistent USE 2 SPRAYS IN EACH NOSTRIL EVERY DAY 48 g 3 05/02/20 24 Active D3 Super Strength 50 MCG (1999 UT) capsuleIndication s:Vitamin D deficiency TAKE 1 CAPSULE BY MOUTH EVERY MORNING 90 capsule 3 05/02/20 24 Active amLODIPine (Norvasc) 10 MG tabletIndications :Essential hypertension TAKE 1 TABLET BY MOUTH EVERYDAY AT NOON 90 tablet 3 05/02/20 24 Active losartan (Cozaar) 100 MG tablet Take 1 tablet (100 mg) by mouth Once per day. 30 tablet 11 05/08/20 24 2024 Active atorvastatin (Lipitor) 40 MG tabletIndications :Other hyperlipidemia TAKE 1 TABLET BY MOUTH AT BEDTIME 90 tablet 1 06/28/19 25 Active cetirizine (ZyrTEC) 10 MG tablet TAKE 1 TABLET BY MOUTH EVERYDAY AT NOON 90 tablet 1 06/28/19 25 Active gabapentin (Neurontin) 800 MG tabletIndications :Chronic bilateral low back pain, unspecified whether sciatica present TAKE 1 TABLET BY MOUTH THREE TIMES DAILY IN THE MORNING, EVENING, AND BEDTIME 270 tablet 1 06/28/19 25 Active sertraline (Zoloft) 25 MG tabletIndications :Depression, unspecified depression type TAKE 1 TABLET BY MOUTH EVERY MORNING 30 tablet 3 07/25/19 25 Active Multiple Vitamin (Multivitamin) tablet TAKE 1 TABLET BY MOUTH EVERYDAY AT NOON 90 tablet 3 07/25/19 25 Active montelukast (Singulair) 10 MG tablet TAKE 1 TABLET BY MOUTH EVERY EVENING 90 tablet 3 07/25/19 25 Active albuterol (2.5 MG/3ML) 0.083% nebulizer solution INHALE 1 AMPULE USING A NEBULIZER FOUR TIMES DAILY NEEDED 90 mL 1 08/02/19 25 Active levothyroxine (Synthroid, Levoxyl) 25 MCG tabletIndications :Acquired hypothyroidism TAKE 1 TABLET BY MOUTH EVERY MORNING 90 tablet 1 08/25/19 25 Active Ferrous Sulfate (iron) 325 (65 Fe) MG tabletIndications :Anemia, unspecified type TAKE 1 TABLET BY MOUTH TWICE DAILY AT NOON AND IN THE EVENING 180 tablet 1 08/25/19 25 Active metFORMIN (Glucophage) 500 MG tablet TAKE 1 TABLET BY MOUTH TWICE DAILY IN THE MORNING AND IN THE EVENING WITH FOOD 180 tablet 1 08/25/19 25 Active Ventolin HFA 108 (90 Base) MCG/ACT inhaler INHALE 2 PUFFS BY MOUTH EVERY 4 HOURS NEEDED FOR WHEEZING OR SHORTNESS OF BREATH 18 g 2 09/13/19 25 Active hydrOXYzine pamoate (Vistaril) 25 MG capsuleIndication s:Anxiety TAKE 1 CAPSULE BY MOUTH EVERY 6 HOURS NEEDED ANXIETY 30 capsule 3 10/13/19 25 Active hydrOXYzine HCl (Atarax) 25 MG tablet Take 1 tablet (25 mg) by mouth if needed in the morning, at noon, and at bedtime for itching. 90 tablet 3 10/19/19 25 2024 Active Arnuity Ellipta 200 MCG/ACT inhalerIndication s:Asthma, unspecified asthma severity, unspecified whether complicated, unspecified whether persistent INHALE 1 PUFF BY MOUTH EVERY DAY AT THE SAME TIME RINSE MOUTH AFTER USING 30 each 2 10/20/19 25 Active traMADol (Ultram) 50 MG tabletIndications :Chronic low back pain, unspecified back pain laterality, unspecified whether sciatica present TAKE 1 TABLET BY MOUTH EVERY TWELVE HOURS NEEDED FOR SEVERE PAIN 14 tablet 10/26/19 2024 Active Arnuity Ellipta 200 MCG/ACT inhalerIndication s:Asthma, unspecified asthma severity, unspecified whether complicated, unspecified whether persistent INHALE 1 PUFF BY MOUTH EVERY DAY AT THE SAME TIME RINSE MOUTH AFTER USING 30 each 2 07/25/19 25 2024 Discontinued hydrOXYzine pamoate (Vistaril) 25 MG capsuleIndication s:Anxiety TAKE 1 CAPSULE BY MOUTH EVERY 6 HOURS NEEDED ANXIETY 30 capsule 3 08/08/19 25 2024 Discontinued traMADol (Ultram) 50 MG tabletIndications :Chronic low back pain, unspecified back pain laterality, unspecified whether sciatica present Take 1 tablet (50 mg) by mouth every 12 (twelve) hours if needed for severe pain. 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 07/15 Pain and swelling of left ankle 06/08/2024 [...] monitoring -s/p optho eval SEPTEMBER 2021 at [facility], appt next mos -foot exam next visit* Encounters Date Type Department Care Team Description 10/30/2024 Telephone [facility] MEDICINE [address] [place] [phone] Stephanie Alex, Chart Prep 10/25/2024 Travel 10/25/2024 Telephone [facility] MEDICINE [address] [place] [address] Stephanie Alex DO Appointment Request 10/25/2024 Refill [facility] MEDICINE [address] [place] [address] Stephanie Alex, Chronic low back pain, unspecified back pain laterality, unspecified whether sciatica present 10/18/2024 Refill [facility] MEDICINE [address] [place] [phone] Stephanie Alex DO Asthma, unspecified asthma severity, unspecified whether complicated, unspecified whether persistent 10/17/2024 Refill [facility] MED & PEDS [address] [place], [place] [phone] Stephanie Alex DO Anxiety 10/11/2024 Refill [facility] MEDICINE [address] [place] [address] Stephanie Alex DO Anxiety 2024 Refill [facility] MEDICINE [address] [place] [address] Stephanie Alex DO Chronic low back pain, unspecified back pain laterality, unspecified whether sciatica present 09/28/2024 Telephone [facility] MEDICINE [address] [place] [phone] Stephanie Alex DO Appointment Request 09/27/2024 Telephone [facility] MEDICINE [address] [place] [phone] Stephanie Alex DO Appointment Request 09/25/2024 Orders Only [facility] MEDICINE [address] [place] [phone] Stephanie Alex DO Type 2 diabetes mellitus with diabetic polyneuropathy, without long-term current use of insulin ([facility]) (Primary Dx) 09/15/2024 Telephone [facility] MEDICINE [address] [place] [address] Stephanie Alex DO No Show 09/11/2024 Travel 09/11/2024 Refill [facility] MEDICINE [address] [place] [phone] Stephanie Alex, 09/07/2024 Telephone [facility] MEDICINE [address] [place] [address] Stephanie Alex, 08/25/2024 Telephone [facility] MEDICINE [address] [place] [address] Stephanie Alex, 08/22/2024 Refill [facility] MEDICINE [address] [place] [address] Stephanie Alex DO Acquired hypothyroidism; Anemia, unspecified type 08/10/2024 Telephone [facility] MEDICINE [address] [place] [address] Stephanie Alex DO Appointment Request 08/05/2024 Refill [facility] MEDICINE [address] [place] [address] Stephanie Alex DO Anxiety 08/03/2024 Orders Only [facility] External Provider, [facility] 08/01/2024 Refill [facility] MED & PEDS [address] [place], [place] [phone] Stephanie Alex DO Chronic low back pain, unspecified back pain laterality, unspecified whether sciatica present (Primary Dx) 08/01/2024 Telephone [facility] MEDICINE [address] [place] [address] 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 Aggarwal 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 08/01/2024 Refill [facility] MEDICINE [address] [place] [address] Stephanie Alex DO from Last 3 Months Immunizations Immunization Administration Dates Next Due Influenza High-dose Quadriva [...] PCV 13 04/12/2018 Pneumococcal Polysaccharide PPSV23 10/27/2021,,05/08/2015 RSV Bivalent 09/01/2024 Tdap 06/12/2015 Zoster, Recombinant 11/22/2019,06/09/2019 Zoster, live [...] Sign Reading Time Taken Comments Blood Pressure 144/84 09/01/2024 12:20 PM EDT Pulse 78 09/01/2024 12:20 PM EDT Temperature 37.2 ??C (98.9 ??F) 06/08/2024 1:14 [...] Care Team (Late st Contact Info) Description 10/31/2024 10:00 AM EDT Office Visit [facility] MEDICINE [address] [place], [place] [phone] Stephanie Alex DO [address] [place] [address] Health Maintenance Due Date Last Done Comments CT Colonography 1952 FIT DNA/Cologuard 1950 FIT 1950 FOBT 1950 Sigmoidoscopy 1950 Diabetes: Foot Exam 1962 Alcohol/Substance Use Screening 1964 Colonoscopy 04/24/2023 04/24/2020, 03/26/2016 Colorectal Cancer Screening 04/24/2023 Diabetes: Hemoglobin A1C 08/22/2024 024, 01/04/2024, 09/02/2023, Additional history exists COVID-19 Vaccine ( season) 2024 03/29/2024, 04/27/2023, 09/01/2022, Additional history exists Diabetes: Urine Protein Screening 02/21/2025 02/22/2024, 04/29/2023, 01/09/2022, Additional history exists Lipid Panel 02/21/2025 02/22/2024, 04/16, 01/09/2022, Additional history exists SDOH Screening 04/07/2025 04/07/2024 Depression Screening 04/21/2025 04/21/2024, 04/21/20 24 Tobacco Screening 06/08/2025 06/08/2024 DTaP/Tdap/Td Vaccines (2 - Td or Tdap) 06/12/2025 06/12/2015 Eye Exam 01/17/2026 01/18/2024, 0907/2023, 01/18/2024, Additional history exists Zoster Vaccines Completed 11/22/2019, 05/18, 12/10/2016 Pneumococcal Vaccine: 50+ Years Completed 10/27/2021, 04/12/2018, 08/24/2016, Additional history exists Hepatitis C Screening Completed 02/22/2024 , 06/06/2019, 06/06/2019 Influenza Vaccine Completed 03/29/2024, , 04/22/2022, Additional history exists RSV Patients and Patients Aged 60 years or older Completed 09/01/2024 HIB Vaccines Aged Out No longer eligi [...] patient's age to complete this topic Meningococcal B Vaccine Aged Out No l onger eligible based on patient's age to complete [...] Procedure Name Priority Date/Time Associated Diagnosis Comments URINALYSIS, COMPLETE Routine 10/30/2024 10:21 AM EDT Unintentional weight loss AMB REFERRAL TO ENT Routine 09/01/2024 Other chronic sinusitis XR FOOT 3+ VIEWS LEFT Routine 08/03/2024 9:00 AM EDT XR ANKLE 3+ VIEWS LEFT Routine 08/03/2024 9:00 AM EDT XR KNEE 3 VIEWS LEFT Routine 08/03/2024 9:00 AM EDT HEPATITIS C AB W/REFL TO HCV RNA, QN, PCR Routine 02/22/2024 10:35 AM EDT Type 2 diabetes mellitus with diabetic polyneuropathy, without long-term current use of insulin ([facility]) Essential hypertension Other hyperlipidemia Anxiety Anemia, unspecified [...] polyneuropathy, without long-term current use of insulin ([facility]) Essential hypertension Other hyperlipidemia Anxiety Anemia, unspecified type Leukopenia, unspecified type Moderate persistent asthma without complication Other chronic sinusitis Acquired hypothyroidism Chronic gastroesophageal reflux disease Multiple pulmonary nodules Chronic bilateral low back pain without sciatica FRANCOIS (dyspnea on exertion) Ear itching Healthcare maintenance HEMOGLOBIN A1C Routine 02/22/2024 10:35 AM EDT Type 2 diabetes mellitus with diabetic polyneuropathy, without long-term current use of insulin ([facility]) Essential hypertension Other hyperlipidemia Anxiety Anemia, unspecified [...] polyneuropathy, without long-term current use of insulin ([facility]) Essential hypertension Other hyperlipidemia Anxiety Anemia, unspecified type Leukopenia, unspecified type Moderate persistent asthma without complication Other chronic sinusitis Acquired hypothyroidism Chronic gastroesophageal reflux disease Multiple pulmonary nodules Chronic bilateral low back pain without sciatica FRANCOIS (dyspnea on exertion) Ear itching Healthcare maintenance HM COLONOSCOPY Routine 04/24/2020 10:02 AM EST from Last 3 Months or Most Recently Relevant to Health Maintenance Results * (ABNORMAL) Urinalysis Complete (10/30/2024 10:21 AM EDT) Color Urine Yellow [facility] Appearance Urine Clear [facility] PH 6.5 5.0 - 9.0 [facility] Glucose Urine UA Negative Negative mg/dL [facility] Urine Blood Small (1+)(A) Negative [facility] Specific [place] - Urine 1.020 1.005 - 1.025 [facility] Urine Protein Trace Neg-Trace mg/dL [facility] Urine Ketones Trace Negative mg/dL [facility] Nitrite Urine Negative Negative [facility] Leukocyte Esterase Urine Negative Negative [facility] RBC Urine 6-10(A) 0 - 2 /HPF [facility] Urine WBC 0-5 0 - 5 /HPF [facility] Urine Squamous Epithelial Cell 0-2 0 - 2 /HPF [facility] Urine Bacteria None Seen None Seen [facility] Hyaline Casts, Urine 0-2 0 - 2 /LPF [facility] Urine (Urine, Random) 10/30/2024 10:21 AM EDT 10/30/2024 11:08 AM EDT us Stephanie Rodartegamalielrell DO LAB URINE ORDERABLES Final R esult [facility] [address] [place] [address] [phone] * Referral to ENT (09/01/2024) us Stephanie Rodartekika DO OUTPATIENT REFERRAL ORDERABL ES Final Result * XR Foot 3+ Views Left (08/03/2024 9:00 AM EDT) Anatomical Region Laterality Modality Lower Extremities, Foot Left Radiogra phic Imaging 08/03/2024 9:00 AM EDT Narrative 08/03/2024 9:22 AM EDT ? [facility] ?[address] ?[place] [address] ?XRay Report ? Signed ? Patient: Colton James ?MR#: [id number] ?? 4 ? : 1950 ?Acct:[id number] ? Age/Sex: 73 / M ?ADM Date: 08/03/24 ? Loc: HO.ED ? Attending Dr: ? Ordering Physician: Generic ED Physician ?? Date of Service: 08/03/24 ?? Procedure(s): XR foot LT min 3V ?? Accession Number(s): [id number] ? cc: Generic ED Physician; Stephanie Alex DO ? EXAMINATION: ?? XR FOOT, LEFT ? CLINICAL INFORMATION: ?? Pain ? COMPARISON: ?? None available. ? TECHNIQUE: ?? AP, lateral, and oblique views of the left foot. ? FINDINGS: ?? There is mild hallux valgus deformity first MTP joint with mild ?? spurring. Small calcaneal heel enthesophyte is noted. No visible acute ?? fracture, dislocation or subluxation seen. There are vascular ?? calcifications present. No bony erosive changes. No soft tissue ?? swelling. ? XR/XR foot LT min 3V ?? IMPRESSION: ?? Mild hallux valgus deformity first MTP joint with periarticular ?? spurring. ? small calcaneal heel enthesophyte. ? No visible acute fracture or dislocation. ? Electronically signed by: ??Chris Yee MD ??08/03/2024 09:18 AM EDT RP ? Dictated By: ?Chris Yee MD ? Signed By: ?<Electronically signed by Chris Yee MD in OV> ?08/03/24 0918 ? DD/ 09 ? TD/TT: 08/03/24 0907 ? Train Controller: MSM ? Procedure Note Donotuseinterpreter, Image - 08/03/[address] [address] XRay Report Signed Patient: Giselle James#: [id number] 4 : 1950cct:[id number] Age/Sex: 73 / MADM Date: 08/03/24 Loc: HO.ED Attending Dr: Ordering Physician: Generic ED Physician Date of Service: 08/03/24 Procedure(s): XR foot LT min 3V Accession Number(s): [id number] cc: Generic ED Physician; Stephanie Alex DO EXAMINATION: XR FOOT, LEFT CLINICAL INFORMATION: Pain COMPARISON: None available. TECHNIQUE: AP, lateral, and oblique views of the left foot. FINDINGS: There is mild hallux valgus deformity first MTP joint with mild spurring. Small calcaneal heel enthesophyte is noted. No visible acute fracture, dislocation or subluxation seen. There are vascular calcifications present. No bony erosive changes. No soft tissue swelling. XR/XR foot LT min 3V IMPRESSION: Mild hallux valgus deformity first MTP joint with periarticular spurring. small calcaneal heel enthesophyte. No visible acute fracture or dislocation. Electronically signed by: Chris Yee MD 08/03/2024 09:18 AM EDT Dictated By: Chris Yee MD Signed By: <Electronically signed by Chris Yee MD in OV> 08/03/24917 DD/ 9 TD/TT: 08/03/24 0907 Train Controller: MSM us [facility] External Provider IMG XR PROCEDURES Edited Result - Final * XR Ankle 3+ Views Left (08/03/2024 9:00 AM EDT) Anatomical Region Laterality Modality Lower Extremities, Ankle Left Radiogr aphic Imaging 08/03/2024 9:00 AM EDT Narrative 08/03/2024 9:17 AM EDT ? [facility] ?[address] ?[place], [place] [address] ?XRay Report ? Signed ? Patient: James,Colton ?MR#: [id number] ?? 4 ? : 1950 ?Acct:[id number] ? Age/Sex: 73 / M ?ADM Date: 08/03/24 ? Loc: HO.ED ? Attending Dr: ? Ordering Physician: Generic ED Physician ?? Date of Service: 08/03/24 ?? Procedure(s): XR ankle LT min 3V ?? Accession Number(s): [id number] ? cc: Generic ED Physician; Stephanie Alex DO ? EXAMINATION: ?? XR ANKLE, LEFT ? CLINICAL INFORMATION: ?? Pain ? COMPARISON: None ? TECHNIQUE: ?? AP, lateral, and mortise views of the left ankle. ? FINDINGS: ?? The ankle mortise and subtalar joints are normal. No visible acute ?? fracture, dislocation or subluxation seen. The ankle mortise and ?? subtalar joints are normal. There is a small calcaneal heel spur. ? Bimalleolar soft tissue swelling is noted. ? XR/XR ankle LT min 3V ?? IMPRESSION: ?? Small calcaneal heel spur. No acute fracture or dislocation. Mild ?? bimalleolar soft tissue swelling. ? Electronically signed by: ??Chris Yee MD ??08/03/2024 09:15 AM EDT RP ? Dictated By: ?Nakia,Chris S MD ? Signed By: ?<Electronically signed by Chris S MD Nakia in OV> ?08/03/24 0915 ? DD/ 0900 ? TD/TT: 08/03/24 0907 ? Train Controller: MSM ? Procedure Note Donotuseinterpreter, Image - 08/03/[address] [address] XRay Report Signed Patient: Giselle James#: [id number] 4 : 1950cct:[id number] Age/Sex: 73 / MADM Date: 08/03/24 Loc: HO.ED Attending Dr: Ordering Physician: Generic ED Physician Date of Service: 08/03/24 Procedure(s): XR ankle LT min 3V Accession Number(s): [id number] cc: Generic ED Physician; Stephanie Alex DO EXAMINATION: XR ANKLE, LEFT CLINICAL INFORMATION: Pain COMPARISON: None TECHNIQUE: AP, lateral, and mortise views of the left ankle. FINDINGS: The ankle mortise and subtalar joints are normal. No visible acute fracture, dislocation or subluxation seen. The ankle mortise and subtalar joints are normal. There is a small calcaneal heel spur. Bimalleolar soft tissue swelling is noted. XR/XR ankle LT min 3V IMPRESSION: Small calcaneal heel spur. No acute fracture or dislocation. Mild bimalleolar soft tissue swelling. Electronically signed by: Chris Yee MD 08/03/2024 09:15 AM EDT Dictated By: Chris Yee MD Signed By: <Electronically signed by Chris Yee MD in OV> 08/03/24 0915 DD/ 0900 TD/TT: 08/03/24 0907 Train Controller: DIONTE us [facility] External Provider IMG XR PROCEDURES Edited Result - Final * XR Knee 3 Views Left (08/03/2024 9:00 AM EDT) Anatomical Region Laterality Modality Lower Extremities, Knee Left Radiogra phic Imaging 08/03/2024 9:00 AM EDT Narrative 08/03/2024 9:17 AM EDT ? [facility] ?[address] ?[place] [address] ?XRay Report ? Signed ? Patient: James,Colton ?MR#: [id number] ?? 4 ? : 1950 ?Acct:[id number] ? Age/Sex: 73 / M ?ADM Date: 08/03/24 ? Loc: HO.ED ? Attending Dr: ? Ordering Physician: Generic ED Physician ?? Date of Service: 08/03/24 ?? Procedure(s): XR knee LT 3V ?? Accession Number(s): [id number] ? cc: Generic ED Physician; Stephanie Alex DO ? EXAMINATION: ?? XR KNEE, LEFT ? CLINICAL INFORMATION: ?? Pain ? COMPARISON: ?? None available. ? TECHNIQUE: ?? Four views of the left knee. ? FINDINGS: ?? There is calcification of lateral meniscus. The tricompartment joint ?? space is maintained. No loose bodies or ??joint effusion seen. The soft ?? tissues are normal. No visible acute fracture or dislocation seen. ? XR/XR knee LT 3V ?? IMPRESSION: ?? Chondrocalcinosis lateral meniscus. ? Electronically signed by: ??Chris Yee MD ??08/03/2024 09:13 AM EDT RP ? Dictated By: ?Chris Yee MD ? Signed By: ?<Electronically signed by Chris Yee MD in OV> ?08/03/24 0913 ? DD/ 0900 ? TD/TT: 08/03/24 0907 ? Train Controller: MSM ? Procedure Note Geraldine Montilla - 08/03/[address] [address] XRay Report Signed Patient: Giselle James#: [id number] 4 : 3Acct:[id number] Age/Sex: 73 / MADM Date: 08/03/24 Loc: HO.ED Attending Dr: Ordering Physician: Generic ED Physician Date of Service: 08/03/24 Procedure(s): XR knee LT 3V Accession Number(s): [id number] cc: Generic ED Physician; Stephanie Alex DO EXAMINATION: XR KNEE, LEFT CLINICAL INFORMATION: Pain COMPARISON: None available. TECHNIQUE: Four views of the left knee. FINDINGS: There is calcification of lateral meniscus. The tricompartment joint space is maintained. No loose bodies or joint effusion seen. The soft tissues are normal. No visible acute fracture or dislocation seen. XR/XR knee LT 3V IMPRESSION: Chondrocalcinosis lateral meniscus. Electronically signed by: Chris Yee MD 08/03/2024 09:13 AM EDT RP Dictated By: Chris Yee MD Signed By: <Electronically signed by Chris Yee MD in OV> 08/03/24912 DD/ 9 TD/TT: 08/03/24906 Train Controller: DIONTE [facility] External Provider IMG XR PROCEDURES Edited Result - Final * Albumin, Random Urine W/Creatinine (02/22/2024 10:35 AM EDT) Creatinine, Urine 87.37 mg/dL [facility] Microalbumin Urine 7.0 mg/L [facility] Microalbum Creatinine Ratio Ur 8.0 <30 ug/mg cr [facility] Comment:Albumin/Creatinine R atio Reference Ranges: Normal: < 30 ug/mg creatinine Microalbuminuria: 30 - 300 ug/mg creatinineClinical Albuminuria: > 300 ug/mg creatinine Urine (Urine, Random) 02/22/2024 10:35 AM EDT 02/22/2024 11:23 AM EDT Stephanie Alex DO LAB URINE ORDERABLES Final R esult [facility] [address] [place] [address] [phone] * Hepatitis C Antibody with Reflex to HCV, RNA, Quantitative, Real-Time PCR (02/22/2024 10:35 AM EDT) Hepatitis C Antibody Nonreactive Nonreactive [facility] Comment:Antibodies to HCV no t detected; does not exclude early acuteHCV infection. Blood Venous blood specimen / Unknown 02/22/2024 10:35 AM EDT 02/22/2024 11:35 AM EDT Stephanie Alex DO LAB BLOOD ORDERABLES Final R esult Performing Organization Address [facility] Co de Phone Number [facility] [address] [place] [phone] * Hemoglobin A1c (02/22/2024 10:35 AM EDT) Hemoglobin A1c 5.6 <6.0 % [facility] Comment:Hemoglobin A1C Refer ence Range Adults: 4.8 - 6.0 % Non diabetic: < 6.0 % Goal: < 7.0 %Additional Action Suggested: > 8.0 %Note: Hemoglobin A1c results are invalid for patients with abnormal amounts of HbF. Blood transfusions may impact the HbA1c concentration in the patient sample. Estimated Average Glucose 114 mg/dL [facility] Comment:eAG = Estimated ave rage glucose which is %A1C expressed asaverage glucose, using the formula of the [id number] Glucose study (ADAG), Diabetes Care, Vol.31,#8,Dec. 2007 Blood Venous blood specimen / Unknown 02/22/2024 10:35 AM EDT 02/22/2024 11:35 AM EDT Stephanie Alex DO LAB BLOOD ORDERABLES Final R esult Performing Organization Address [facility]/ZIP Co de Phone Number [facility] [address] [place] [address] [phone] * Lipid Panel, Standard (02/22/2024 10:35 AM EDT) Triglycerides 87 <150 mg/dL [facility] Comment:Desirable Triglyceri de: less than 150 mg/dLBorderline High Triglyceride 150-199 mg/dLHigh Triglyceride: 200-499 mg/dLVery High Triglyceride: greater than or equal to 5OO mg/dL Cholesterol 147 <200 mg/dL [facility] Comment:Desirable Cholestero l: less than 200 mg/dLBorderline High Cholesterol: 200-239 mg/dLHigh Cholesterol: greater than 239 mg/dL LDL Cholesterol Calculated 73 <100 mg/dL [facility] Comment:Desirable LDL: less than 100 mg/dLNear Optimal/Above Optimal LDL: 110- 129 mg/dLBorderline High LDL: 130-159 mg/dLHigh LDL: 160-189 mg/dLVery High LDL: greater than or equal to 190 mg/dL HDL Cholesterol 57 >40 mg/dL [facility] Comment:Desirable HDL: great er than 40 mg/dL Note: This HDL assay may give artificially low results in patients with liver disease. Blood Venous blood specimen / Unknown 02/22/2024 10:35 AM EDT 02/22/2024 11:35 AM EDT Stephanie Alex DO LAB BLOOD ORDERABLES Final R esult [facility] [address] [place] [phone] * Hm Colonoscopy (04/24/2020 10:02 AM EST) Historical Provider MD HEALTH MAINTENANCE Final Result from Last 3 Months or Most Recently Relevant to Health Maintenance Insurance [facility] [employer] (HMO D-SNP) [employer] [id number] Care Teams Digital Marketing Intern Relationship Specialty Start Date End Date Stephanie Alex DO [address] [place] [phone] PCP - General Family Medicine 06/12/15 Myrna 06/21/24
[2024-10-30 11:36] LABS: Estimated Average Glucose 126 mg/dL; Hemoglobin A1C 141.1556 umol/L
[2024-10-30 11:47] LABS: Alanine Aminotransferase 33 U/L (0-40); Albumin Level 4.2 g/dL (3.5-5.0); Alkaline Phosphatase 78 U/L (39-117); Anion Gap 12 (12-20); Aspartate Amino Transferase 43 U/L (5-37); Bilirubin Direct < 0.2 mg/dL (0.0-0.5); Bilirubin Total 0.2 mg/dL (0.0-1.0); Blood Urea Nitrogen 13 mg/dL (9-16); C Reactive Protein < 0.10 mg/dL (< or = 0.50); Calcium 9.1 mg/dL (8.4-10.2); Carbon Dioxide 26 mmol/L (22-29); Chloride 110 mmol/L (96-108); Estimated Glomerular Filt Rate > 60; Glucose Random 106 mg/dL (60-115); Iron 60 mcg/dL (45-160); Percent Iron Saturation 21 % (15-50); Potassium 3.8 mmol/L (3.3-5.1); Sodium 144 mmol/L (135-145); Total Iron Binding Capacity 281 mcg/dL (228-428); Total Protein 7.1 g/dL (6.5-8.0); Unsaturated Iron Binding 221 ug/dL
[2024-10-30 11:59] LABS: HIV AB/AG Nonreactive (Nonreactive); HIV Num 1 0.05 S/CO (0.00-0.99)
[2024-10-30 12:11] LABS: Erythrocyte Sedimentation Rate 8 MM/HR (0-15)
[2024-10-30 12:12] LABS: Ferritin 42 ng/mL (20-250); Free T4 (Free Thyroxine) 0.96 ng/dL (0.71-1.85); Thyroid Stimulating Hormone 0.97 uIU/mL (0.32-4.0)
[2024-10-30 12:13] LABS: Folate 11.6 ng/mL (> or = 4.0); Prostate Specific Antigen 9.53 ng/mL (<0.05-4.0); Vitamin B12 355 pg/mL (200-900)
[2024-11-02 01:54] LABS: TS Negative Control Passed; TS Panel A 0; TS Panel B 2; TS Positive Control Passed; TSpotTB Negative (Negative)
== END 2024-10-30 10:19 | disposition home or self-care (01) ==
LOC: HO.HHCL 10:18
PROVIDERS: Visit Provider Family Medicine
DX: E11.42 Type 2 diabetes mellitus with diabetic polyneuropathy (principal); D64.9 Anemia, unspecified; R63.4 Abnormal weight loss; Z12.5 Encounter for screening for malignant neoplasm of prostate
CPT/HCPCS: 36415; 80048; 80076; 81001; 82607; 82728; 82746; 83036; 83540; 84134; 84153; 84439; 84443; 85025; 85652; 86140; 86481; 87389

== ENCOUNTER → 2024-12-25 07:36 | Outpatient (BNV) | payer OTHER, SELFPAY | PROVIDERS: PCP Family Medicine; Visit Provider Radiology Diagnostic Radiology | DX: M11.231 Other chondrocalcinosis, right wrist (principal) | CPT/HCPCS: 73110 ==

== ENCOUNTER 2024-12-25 08:02 | Emergency (ER) | payer OTHER, SELFPAY ==
--- NOTE | ~2024-12-25 | XR_ITS ---
EXAMINATION: XR WRIST 3 OR MORE VIEWS RIGHT HISTORY: SWELLING AND PAIN COMPARISON: There are no prior studies available for comparison. FINDINGS: Four views of the right wrist including a scaphoid view are submitted. Osseous mineralization is normal. There is no fracture or dislocation. The joint spaces are preserved. There is chondrocalcinosis. There are vascular calcifications. XR/XR wrist RT min 3V IMPRESSION: Chondrocalcinosis. Otherwise unremarkable examination of the right wrist. Electronically signed by: Quinn Delgado MD 12/25/2024 08:48 AM EDT
[2024-12-25 08:22] VITALS: BP 137/78; PULSE 84; RESP 18; TEMP 36.8; O2SAT 100; BMI 27.0
--- NOTE | 2024-12-25 09:19 | ED_ITS ---
HPI - Extremity Problem General Chief complaint: Extremity Injury, Upper Stated complaint: Right hand injury, swelling Time Seen by Provider: 12/25/24 09:19 Source: patient and interpreter for the deaf (all interactions with this patient were facilitated with an [facility] language interpreter) Mode of arrival: ambulatory Limitations: language barrier (all interactions with this patient were facilitated with an [facility] language interpreter) History of Present Illness ED Provider: Rachel Curran PA-C HPI Narrative: Patient is a 74 year old assigned male at with a history of GERD, HTN, and DM presenting to the emergency department today with right hand and wrist pain. Patient states that he is having pain in his right wrist and now his right hand is swelling. Patient states that it has been a few days and is not getting better. Patient denies any dizziness, lightheadedness, abdominal pain, nausea, vomiting, fever, chills, blurry vision, double vision, loss of vision, chest pain, difficulty breathing, shortness of breath, back pain, night sweats, pain with urination, increased urinary frequency, increased urinary urgency, blood in his urine or stool, syncope or a near syncopal episode, recent trauma or falls, bowel incontinence, bladder incontinence, or any other complaints at this time. Relieving factors: nothing Exacerbating factors: nothing Associated symptoms: denies other symptoms Related Data Home Medications ?Medication ?Instructions ?Recorded ?Confirmed ferrous sulfate 325 mg (65 mg 325 mg PO BID 03/27/20 1 07/09/23 iron) tablet multivitamin 1 tab PO DAILY 03/27/2004/17 albuterol sulfate 90 mcg/actuation 2 puff PO Q4H PRN W heezing 04/18/20 05/08/24 aerosol inhaler (Ventolin HFA) amlodipine 10 mg tablet 10 mg PO DAILY 09/30/2204/17 atorvastatin 40 mg tablet 40 mg PO BEDTIME 09/30/22 cetirizine 10 mg capsule (All Day 10 mg PO DAILY PRN A llergy Symptoms 09/30/22 05/08/24 Allergy (cetirizine)) gabapentin 800 mg tablet 800 mg PO TID 09/30/2205/08 levothyroxine 25 mcg tablet 25 mcg PO DAILY@0600 09/3005/08/24 metformin 500 mg tablet 500 mg PO BIDWM 09/30/22 montelukast 10 mg tablet 10 mg PO BEDTIME 09/30/22 sertraline 25 mg tablet 25 mg PO DAILY 09/30/2204/17 cholecalciferol (vitamin D3) 50 50 mcg PO DAILY 05/08/24 mcg (2,000 unit) capsule fluticasone furoate 200 1 inh inhalation DAILY 12/2705/08/24 mcg/actuation blister powder for inhalation (Arnuity Ellipta) acetaminophen 650 mg 650 mg PO TID PRN Pain 05/0805/08/24 tablet,extended release albuterol sulfate 2.5 mg/3 mL 2.5 mg inhalation QID NE N 05/08/24 05/08/24 (0.083 %) solution for nebulization Shortness Of Breat h Or Wheezing baclofen 10 mg tablet 10 mg PO TID PRN muscle spas m 05/08/24 05/08/24 budesonide 0.5 mg/2 mL suspension 0.5 mg irrigation BI D PRN NASAL 05/08/24 05/08/24 for nebulization IRRIGATION dexlansoprazole 60 mg 60 mg PO DAILY@0600 05/08/24 05/08/24 capsule,biphase delayed release diclofenac sodium 1 % topical gel 2 g topical QID PRN pain 05/08/24 05/08/24 dupilumab 300 mg/2 mL subcutaneous 300 mg subcut Q2W 1 07/09/23 05/08/24 pen injector (Dupixent) fluticasone propionate 50 1 spray intranasal DAILY PRN 05/08/24 05/08/24 mcg/actuation nasal Congestion spray,suspension hydroxyzine pamoate 25 mg capsule 25 mg PO Q6H PRN anx iety 05/08/24 05/08/24 losartan 100 mg tablet 100 mg PO DAILY 05/08/24 polyvinyl alcohol 1.4 % eye drops 1 drp ophthalmic (ey e) TID 05/08/24 05/08/24 tramadol 50 mg tablet 50 mg PO Q12H PRN severe raulito n 05/08/24 05/08/24 umeclidinium 62.5 mcg/actuation 1 inh inhalation DAILY 05/08/24 05/08/24 blister powder for inhalation (Incruse Ellipta) Previous Rx's ?Medication ?Instructions ?Recorded famotidine 40 mg tablet 40 mg PO BEDTIME #30 tabs docusate sodium 100 mg capsule 100 mg PO QAM #30 caps 05/25/24 (Stool Softener) naproxen 500 mg tablet 500 mg PO BID PRN pain 10 da ys #20 08/03/24 tabs naproxen 500 mg tablet 500 mg PO BID 7 days #14 tab s 12/25/24 Allergies Allergy/AdvReac Type Severity Reaction Status Date / Time lisinopril Allergy Angioedema Verified 12/25/24 08:25 Review of Systems Constitutional: Constitutional: Reports no additional constitutional complaints, Denies chills, Denies fever(s) and Denies night sweats Eyes: Eyes: Reports no additional eye complaints, Denies blurry vision, Denies change in vision, Denies diplopia, Denies eye discharge, Denies loss of vision and Denies eye pain ENT: Denies dizziness Cardiovascular: Cardiovascular: Reports no additional cardiovascular complaints, Denies chest pain, Denies lightheadedness, Denies Loss of Consciousness and Denies dyspnea Respiratory: Respiratory: Reports no additional respiratory complaints and Denies dyspnea Gastrointestinal: Gastrointestinal: Reports no additional gastrointestinal complaints, Denies abdominal pain, Denies melena, Denies hematochezia, Denies change in bowel habits and Denies change in stool character Genitourinary: Genitourinary: Reports no additional male genitourinary compl aints, Denies hematuria, Denies oliguria, Denies difficulty urinating, Denies dysuria, Denies urinary frequency, Denies urinary hesitancy, Denies urinary incontinence and Denies urinary urgency Musculoskeletal: Musculoskeletal: Reports no additional musculoskeletal complaints, Denies numbness and Denies tingling Comments: right wrist pain right hand swelling Neurologic: Denies dizziness, Denies loss of vision, Denies numbness and Denies tingling Psychiatric: Psychiatric: Reports no additional psychiatric complaints Endocrine: Endocrine: Reports no additional endocrine complaints Hematologic/Lymphatic: Hematologic/Lymphatic: Reports no additional hematologic/lymphatic complaints Allergic/Immunologic: Allergic/Immunologic: Reports no additional allergic/immunologic complaints PMFSH Past Medical History Attestation statement: The following information was validated with the patient. Source: old records reviewed and nursing notes reviewed Medical History Gynecomastia Hyperlipidemia Chronic low back pain GERD (gastroesophageal reflux disease) Polyneuropathy Allergic rhinitis Diabetes Hypothyroidism Essential hypertension Other and unspecified hyperlipidemia Asthma Stress-induced cardiomyopathy Surgical History History of back surgery History of sinus surgery Hx of esophagogastroduodenoscopy Hx of colonoscopy Family History Family History Father No problems noted. Mother No problems noted. 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 Physical Exam Vital Signs: Vital Signs: Last Vital Signs Temp 98.5 F 12/25/24 10:15 Pulse 70 12/25/24 10:15 Resp 17 12/25/24 10:15 BP 133/80 12/25/24 10:15 Pulse Ox 99 12/25/24 10:15 O2 Del Method Room Air 12/25/24 10:15 BMI result Body Mass Index 27.0 Const: General: cooperative, no acute distress, alert and awake Nutritional Appearance: well nourished Orientation/consciousness: patient oriented x3 HEENT: Head: Yes normal to inspection and Yes atraumatic Ears: hearing grossly normal bilaterally and external ears normal General nose exam: Normal external nose present, no nasal discharge noted and no epistaxis Face and sinus: Yes normal facial exam, No abrasion and No laceration Mouth: Normal oral and palatal mucosa present, no drooling and no muffled voice Eyes: General: appearance normal, both eyes and all related structures Periorbital: periorbital findings normal Eyelids: Yes eyelids normal Conjunctivae: conjunctivae normal Pupils: Equal, round and reactive pupils present EOM: EOMs intact bilaterally Neck: Neck: Yes normal visual inspection and Yes full ROM Resp: Effort & Inspection: normal respiratory effort and able to speak in complete sentences Neuro: General: patient oriented x3, moves all extremities and CN's II-XI intact bilaterally Cranial nerves: Yes Equal, round and reactive pupils present Cognition (Neuro): normal cognition Extrem: Other: dorsal right hand swelling pain with right wrist movement NO warmth NO erythema General: Yes full ROM and Yes capillary refill normal Psych: Appearance: grossly normal Mental Status: mental status grossly normal Affect: normal affect Attitude: cooperative Thought process: Normal thought process present Thought content: Normal thought content present Insight: Good insight present (Psych) Medications Administered Discontinued Medications Generic Name Dose Route Start Last Admin Trade Name Freq PRN Reason Stop Dose Admin Ketorolac Tromethamine 15 mg 12/25/24 09:44 12/25/24 09:57 Ketorolac Tromethamine 15 Mg/Ml Vial IM 12/25/24 09:45 15 mg ONCE ONE Administration Medical Decision Making Medical Decision Making MDM Narrative: Patient is a 74 year old assigned male at with a history of GERD, HTN, and DM presenting to the emergency department today with right hand and wrist pain. Patient's physical exam was as noted in the physical exam portion of this note. No evidence of soft tissue or joint infection. Patient's right wrist x-ray showed Chondrocalcinosis / gout. I explained my physical exam findings as well as all test results to the patient. I answered all questions asked by the sean ent. I confirmed with the patient that he is not on any anti-coagulation medications. Patient to be prescribed NSAID but NOT prednisone given his history of diabetes and relatively minimal symptoms. I stressed the importance of the patient taking his medication as directed (either prescribed or as the over the counter packaging recommends). I stressed the importance of the patient following up with his primary care provider and the orthopedic team. I stressed the importance of the patient returning to the emergency department immediately if his symptoms were to worsen or if he were to develop any dizziness, shortness of breath, difficulty breathing, chest pain, blurry vision, loss of vision, nausea, vomiting, abdominal pain, fever, chills, back pain, or any other complaints. Patient verbalized agreement and understanding with this treatment plan and discharge. Differential Diagnosis Differential Diagnoses: The differential diagnosis associated with the presentation includes Gout Sprain Strain Arthritis Admission/Observation Consideration of admission/observation: Escalation of care including admission/observation considered Patient would have been admitted to the hospital had his work up had any findings where hospital admission was appropriate and his clinical presentation warranted hospital admission. Independent Interpretation I performed an independent interpretation of an: Plain X-Ray Interpretation: My interpretation is in agreement with the radiologist's impression of this imaging study. EXAMINATION: XR WRIST 3 OR MORE VIEWS RIGHT HISTORY: SWELLING AND PAIN COMPARISON: There are no prior studies available for comparison. FINDINGS: Four views of the right wrist including a scaphoid view are submitted. Osseous mineralization is normal. There is no fracture or dislocation. The joint spaces are preserved. There is chondrocalcinosis. There are vascular calcifications. XR/XR wrist RT min 3V IMPRESSION: Chondrocalcinosis. Otherwise unremarkable examination of the right wrist. Electronically signed by: Quinn Delgado MD 12/25/2024 08:48 AM EDT RP Dictated By: Quinn Delgado MD Signed By: Electronically signed by Quinn Delgado MD 12/25/24 0848 Radiology Impression Discussion of test interpretation with radiology: I have reviewed the radiologist's reading. Prescription Management I considered prescription management with: Pain Medication (patient prescribed pain medication) Chronic Conditions Patient?s care impacted by: Diabetes Discharge Plan Discharge Clinical Impression: Gout Patient Disposition: Home, Self-Care Instructions: Low Purine Diet (ED), Gout (ED) Additional Instructions: You were seen in the department today for right wrist and hand pain / swelling. Your right wrist x-ray showed chondrocalcinosis which is consistent with gout. Hoy lo atendieron en el departamento por dolor e inflamaci?n en la mu?eca y mano derechas. La radiograf?a de basurto mu?eca derecha mostr? condrocalcinosis, compatible con gota. Take your medication as prescribed and follow up with the orthopedic team. [facility] basurto medicaci?n seg?n lo prescrito y sara seguimiento con el equipo ortop?dico. IF you are prescribed medications and/or you are taking over the counter medications - it is very important you continue to do so as prescribed / directed unless told otherwise. SI le recetan medicamentos y/o est? tomando medicamentos de venta anant, es muy importante que contin?e haci?ndolo seg?n lo recetado/indicado a menos que le indiquen lo contrario. Follow up with your primary care provider. Return to the emergency department immediately if your symptoms worsen or if you develop any dizziness, shortness of breath, difficulty breathing, chest pain, blurry vision, loss of vision, nausea, vomiting, abdominal pain, fever, chills, back pain, or any other complaints. Sara?seguimiento?con basurto m?dico de atenci?n primaria. Acuda inmediatamente al servicio de urgencias si reva s?ntomas empeoran o si presenta falta de aliento, dificultad para respirar, dolor tor?cico, mareos, aturdimiento, dolor de espalda, dolor abdominal, fiebre, escalofr?os o cualquier otro s?ntoma. Please see the information below about our Patient Portal. If you are not yet enrolled in the [facility] Patient Portal, you will receive an enrollment email invitation following your visit to any [facility] care setting. You may also self-enroll in the Patient Portal by visiting our website: [email or web address] The following information is required to access the Patient Portal: - Your [facility] Medical Record Number - Your personal home email address (must match what is in your electronic medical record, Registration staff can assist with this) - Name - Date of Capabilities of the Patient Portal: - Message some providers - View upcoming appointments - Access your health summary, medical history, and visit history - View current conditions and allergies - View procedure and lab results - View your medications, including guidelines, side effects, and precautions - Complete pre-appointment questionnaires requested by your provider - Ready summary reports of your office visits and procedures To access the Patient Portal Mobile [employer], follow these directions: - Search [employer] in the [employer] Store or [employer] Store - Download the Ab[employer]ilash - Search for [facility] - Enter your login/password Portal del paciente Si usted no esta inscrito en el portal de pacientes de [facility], recibira higinio invitacion de inscripcion despues de basurto visita al [facility] o al [facility] via correo electronico. Tambien puede inscribirse voluntariamente en el portal de pacientes visitando nuestra pagina web: [email or web address] La siguiente informacion sera requerida para acceder al portal: - Basurto vaishnavi de historia medica de [facility] - Basurto direccion de correo electronico personal - Nombre - Fecha de nacimiento Capacidades: Las siguientes capacidades estan disponibles en el portal de pacientes: - Enviar mensajes a algunos doctores - Verificar proximas citas - Acceso a basurto historial de clint, registro medico e historial de visitas - Lali las condiciones actuales y alergias lali procedimientos y resultados del laboratorio - Lali reva medicamentos, incluyendo las pautas - Efectos secundarios y precauciones - Completar o llenar formularios / cuestionarios de - Citas solicitadas por basurto doctor - Leer los resumenes de reportes medicos de reva visitas y procedimientos Sherrie acceder a la aplicacion movil: - Busque [employer] en la [employer] Store o [employer] Store - Descargue la aplicacion - Busque [facility] - Ingrese basurto nombre de usuario / Contrasena Prescriptions: New naproxen 500 mg tablet 500 mg PO BID 7 Days Qty: 14 0RF No Action famotidine 40 mg tablet 40 mg PO BEDTIME Qty: 30 6RF docusate sodium [Stool Softener] 100 mg capsule 100 mg PO QAM Qty: 30 6RF albuterol sulfate [Ventolin HFA] 90 mcg/actuation HFA aerosol inhaler 2 puff PO Q4H PRN (Reason: Wheezing) Arnuity Ellipta 200 mcg/actuation blister with device 1 inh INHALATION DAILY naproxen 500 mg tablet 500 mg PO BID PRN (Reason: pain) 10 Days Qty: 20 0RF polyvinyl alcohol 1.4 % drops 1 drp ophthalmic (eye) TID tramadol 50 mg tablet 50 mg PO Q12H PRN (Reason: severe pain) acetaminophen 650 mg tablet extended release 650 mg PO TID PRN (Reason: Pain) baclofen 10 mg tablet 10 mg PO TID PRN (Reason: muscle spasm) losartan 100 mg tablet 100 mg PO DAILY hydroxyzine pamoate 25 mg capsule 25 mg PO Q6H PRN (Reason: anxiety) diclofenac sodium 1 % gel 2 g topical QID PRN (Reason: pain) dexlansoprazole 60 mg capsule,biphase delayed releas 60 mg PO DAILY@0600 Incruse Ellipta 62.5 mcg/actuation blister with device 1 inh inhalation DAILY Dupixent Pen 300 mg/2 mL pen injector 300 mg subcut Q2W albuterol sulfate 2.5 mg /3 mL (0.083 %) solution for nebulization 2.5 mg inhalation QID PRN (Reason: Shortness Of Breath Or Wheezing) budesonide 0.5 mg/2 mL suspension for nebulization 0.5 mg irrigation BID PRN (Reason: NASAL IRRIGATION ) Rx Instructions: NASAL IRRIGATION fluticasone propionate 50 mcg/actuation [place],Suspension 1 spray INTRANASAL DAILY PRN (Reason: Congestion) Rx Instructions: administer into each nostril ferrous sulfate 325 mg (65 mg iron) tablet 325 mg PO BID multivitamin Tablet 1 tab PO DAILY amlodipine 10 mg tablet 10 mg PO DAILY atorvastatin 40 mg tablet 40 mg PO BEDTIME All Day Allergy (cetirizine) 10 mg capsule 10 mg PO DAILY PRN (Reason: Allergy Symptoms) gabapentin 800 mg tablet 800 mg PO TID levothyroxine 25 mcg tablet 25 mcg PO DAILY@0600 metformin 500 mg tablet 500 mg PO BIDWM montelukast 10 mg tablet 10 mg PO BEDTIME sertraline 25 mg tablet 25 mg PO DAILY cholecalciferol (vitamin D3) 50 mcg (2,000 unit) capsule 50 mcg PO DAILY Referrals: [facility] Orthopedic Surgeons [Provider Group] Referral Note: Call to establish and follow up with the orthopedic team for your right hand / wrist gout. Llame para establecer y hacer seguimiento con el equipo ortopedico para basurto gota en la mano / odilon derecha. Stephanie Alex DO [Primary Care Provider, Internal Medicine] Interventions: ED Discharge Assessment Last Done: 12/25/24 10:15 Discharge Date/Time: 12/25/24 10:15 Print Language: Bengali
--- OUTSIDE RECORDS SUMMARY | 2024-12-25 09:57 | XMS_ITS | Encounter Summary ---
Author Organization [facility] Address [address] [place] [address] Encounters * CPT with [facility] [employer] on 2024-12-21 { reasonForRequest : Pt's VNA reporting right hand/wrist pain , patientRepo rts : , denies :[ Monae Flash, circumferential monae , Monae reported with black tissue to the area , Open skin area after a fall with uncontrolled bleeding , Abscess/infection with streaking noted, presence of fever or without ], chiefComplaints : Extremity Pain, Extremity Swelling , pmh : Sleep Apnea, Hypothyroidism, Anxiety Disorder, Hyperlipidemia, Hypertension, Depression, Asthma, Congestive Heart Failure, Gastroesophageal Reflux Disease (GERD), Diabetes Mellitus Type 2 , allergies : No Known Drug Allergies , otherAllergies : , painA ssessment : , visitOutcome : , additionalComments :"74 y.o male complains of Extremity Pain, Extremity Swelling\n\nHPI obtained from [facility].\n\nPatients VNA calling in to place a referral.\nPatient with right hand and wrist swelling for 3 days.\nPer VNA right hand/wrist is swollen and tender, denies redness, no warmth, no numbness, has +ROM.\nDenies falls or trauma.\nWent to PCP office who recommened ED, however, he cannot leave his for longperiods of time, and therefore is unable to go and sit in waiting room.\nVNA is unsure if he has serenity en any OTC medications.\n[facility]n\nI provided information on the mobile health provider response time and advised the patient and/or caregiver to monitor reported signs and symptoms. I discussed the warning signs of when to seek emergency care. } [facility] right [facility] pain. Web Development Manager used throughout due to language barrier. Pt reports awakening 2 days ago with severe wrist pain. No known cause or injury. 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 Pt presents at home with right wrist wrapped with iker bandage. Pt says he has arthritis but denies gout. Bandage removed and wrist and hand noted to be swollen and warm to the touch. No obvious bruising noted. Decreased ROM with flexion extension and rotation. Images taken for [facility] review. V/S taken. Pt afebrile. Consulted with [facility] Dr. Soto who believes issue is likely gout with trial of oral prednisone and plan to go to ED if this does not improve symptoms by tomorrow. Pt education provided. IV_(FLUIDS_AND/OR_MEDICATION), MEDICATION_IM, ORAL_MEDICATION, WOUND_CARE, ORTHOSTATIC_VITAL_SIGNS Written by [facility] on 2024-12-21
--- OUTSIDE RECORDS SUMMARY | 2024-12-25 09:57 | XMS_ITS | Clinical Summary ---
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 Mix with 8oz. Water, juice, soda 020 Active Blood Glucose Monitoring Suppl (FreeStyle glucose monitoring) kit 1 each if needed. Active FREESTYLE LITE test stripIndications: Type 2 diabetes mellitus with diabetic polyneuropathy, without long-term current use of insulin ([facility]) TEST BLOOD SUGAR EVERY DAY 50 strip 11 023 Active SM Dry Eye Relief 0.2-0.2-1 % solution PLACE 1 DROP IN EACH EYE THREE TIMES DAILY 15 mL 11 023 Active TRUEplus Lancets 33G misc TEST BLOOD SUGAR EVERY DAY 100 each 11 024 Active Respiratory Therapy Supplies (Nebulizer Mask Adult) miscIndications:M oderate persistent asthma without complication 1 each every 6 (six) hours if needed (sob/ wheezing). Use with nebulizer machine 1 each 024 Active budesonide (Pulmicort) 0.5 MG/2ML nebulizer solution MIX 1 AMPULE USING A NEBULIZER IN 8 OUNCES WATER destilada WITH Paquete de solucin salina. USE 1/2 botella para irrigar cada fosa nasal TWICE DAILY. 024 Active Dupixent 300 MG/2ML solution auto-injector 12/02/2 024 Active famotidine (Pepcid) 40 MG tablet Take 1 tablet (40 mg) by mouth at bedtime. 30 tablet 11 024 2024 Active dexlansoprazole (Dexilant) [address] capsule Take 1 capsule (60 mg) by mouth Once per day. Do not crush or chew. 30 capsule 11 024 2024 Active fluticasone (Flonase) 50 MCG/ACT nasal sprayIndications: Asthma, unspecified asthma severity, unspecified whether complicated, unspecified whether persistent USE 2 SPRAYS IN EACH NOSTRIL EVERY DAY 48 g 3 024 Active D3 Super Strength 50 MCG (2000 UT) capsuleIndication s:Vitamin D deficiency TAKE 1 CAPSULE BY MOUTH EVERY MORNING 90 capsule 3 024 Active amLODIPine (Norvasc) 10 MG tabletIndications :Essential hypertension TAKE 1 TABLET BY MOUTH EVERYDAY AT NOON 90 tablet 3 Active losartan (Cozaar) 100 MG tablet Take 1 tablet (100 mg) by mouth Once per day. 30 tablet 11 024 2024 Active Multiple Vitamin (Multivitamin) tablet TAKE 1 TABLET BY MOUTH EVERYDAY AT NOON 90 tablet 3 025 Active montelukast (Singulair) 10 MG tablet TAKE 1 TABLET BY MOUTH EVERY EVENING 90 tablet 3 025 Active levothyroxine (Synthroid, Levoxyl) 25 MCG tabletIndications :Acquired hypothyroidism TAKE 1 TABLET BY MOUTH EVERY MORNING 90 tablet 1 025 Active Ferrous Sulfate (iron) 325 (65 Fe) MG tabletIndications :Anemia, unspecified type TAKE 1 TABLET BY MOUTH TWICE DAILY AT NOON AND IN THE EVENING 180 tablet 1 025 Active metFORMIN (Glucophage) 500 MG tablet TAKE 1 TABLET BY MOUTH TWICE DAILY IN THE MORNING AND IN THE EVENING WITH FOOD 180 tablet 1 025 Active Ventolin HFA 108 (90 Base) MCG/ACT inhaler INHALE 2 PUFFS BY MOUTH EVERY 4 HOURS NEEDED FOR WHEEZING OR SHORTNESS OF BREATH 18 g 2 025 Active hydrOXYzine pamoate (Vistaril) 25 MG capsuleIndication s:Anxiety TAKE 1 CAPSULE BY MOUTH EVERY 6 HOURS NEEDED ANXIETY 30 capsule 3 025 Active hydrOXYzine HCl (Atarax) 25 MG tablet Take 1 tablet (25 mg) by mouth if needed in the morning, at noon, and at bedtime for itching. 90 tablet 025 2024 Active Arnuity Ellipta 200 MCG/ACT inhalerIndication s:Asthma, unspecified asthma severity, unspecified whether complicated, unspecified whether persistent INHALE 1 PUFF BY MOUTH EVERY DAY AT THE SAME TIME RINSE MOUTH AFTER USING 30 each 2 025 Active acetaminophen (Tylenol 8 Hour) 650 MG ER tablet Take 1 tablet (650 mg) by mouth every 8 (eight) hours if needed for mild pain. 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 2 each Active sertraline (Zoloft) 25 MG tabletIndications :Depression, unspecified depression type TAKE 1 TABLET BY MOUTH EVERY MORNING 30 tablet 3 025 Active traMADol (Ultram) 50 MG tabletIndications :Chronic low back pain, unspecified back pain laterality, unspecified whether sciatica present TAKE 1 TABLET BY MOUTH EVERY 8 HOURS NEEDED FOR SEVERE PAIN 84 tablet 025 Active albuterol (2.5 MG/3ML) 0.083% nebulizer solution INHALE 1 AMPULE USING A NEBULIZER BY MOUTH FOUR TIMES DAILY NEEDED 90 mL 025 Active polyvinyl alcohol (Liquifilm Tears) 1.4 % ophthalmic solution INSTILL 1 DROP IN EACH EYE THREE TIMES DAILY 15 mL 025 Active atorvastatin (Lipitor) 40 MG tabletIndications :Other hyperlipidemia TAKE 1 TABLET BY MOUTH AT BEDTIME 90 tablet 025 Active gabapentin (Neurontin) 800 MG tabletIndications :Chronic bilateral low back pain, unspecified whether sciatica present TAKE 1 TABLET BY MOUTH THREE TIMES DAILY IN THE MORNING, EVENING, AND BEDTIME 270 tablet 025 Active cetirizine (ZyrTEC) 10 MG tablet TAKE 1 TABLET BY MOUTH EVERYDAY AT NOON 90 tablet 025 Active polyvinyl alcohol (Liquifilm Tears) 1.4 % ophthalmic solution INSTILL 1 DROP IN EACH EYE THREE TIMES DAILY 15 mL 11 024 2024 Discontinued(R eorder (will not trigger notification to Pharmacy)) atorvastatin (Lipitor) 40 MG tabletIndications :Other hyperlipidemia TAKE 1 TABLET BY MOUTH AT BEDTIME 90 tablet 1 025 2024 Discontinued cetirizine (ZyrTEC) 10 MG tablet TAKE 1 TABLET BY MOUTH EVERYDAY AT NOON 90 tablet 1 025 2024 Discontinued gabapentin (Neurontin) 800 MG tabletIndications :Chronic bilateral low back pain, unspecified whether sciatica present TAKE 1 TABLET BY MOUTH THREE TIMES DAILY IN THE MORNING, EVENING, AND BEDTIME 270 tablet 1 025 2024 Discontinued albuterol (2.5 MG/3ML) 0.083% nebulizer solution INHALE 1 AMPULE USING A NEBULIZER FOUR TIMES DAILY NEEDED 90 mL 1 025 2024 Discontinued traMADol (Ultram) 50 MG tabletIndications :Chronic low back pain, unspecified back pain laterality, unspecified whether sciatica present Take 1 tablet (50 mg) by mouth every 8 (eight) hours if needed for severe pain for up to 28 days. 84 tablet 025 2024 Discontinued Active Problems Problem Noted Date Diagnosed Date Swelling of right hand 12/20/2024 Assessment & Plan (12/20/2024 11:05 PM EDT): 10/2024 cr wnl,CRP and ESR wnl, TSH wnl Right hand w severe swelling ,redness increase skin temp and pain of MTC and PIP joints Given acute swelling and severity I think will be prudent to r/o septic arthritis despite pt is afebrile at this time in diff also gout,pseudogout ,RA -called [facility] [place] [place] [facility] to let them know pt is going ,pt refuse EMT call ,states will picker at home and then he will go to hospital ,pt understands will need sinovial tap for diagnosis and r/o infection halfway (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 07/15 Pain [...] worsen Essential hypertension 06/12/2015 Assessment & Plan (12/20/2024 11:05 PM EDT): -BP elevated 158/82 ,states did not take BP meds this am ,advised to take meds when get home and to be compliant ,to f w PCP Assessment & Plan (09/02/2023 2:52 PM EDT): [...] 2021 at [facility], appt next mos -foot exam next visit* Encounters Date Type Department Care Team Description 12/25/2024 Orders Only [facility] External Provider, [facility] 12/20/2024 2:20 PM EDT Office Visit [facility] [address] [place] [phone] Celina King MD Essential hypertension (Primary Dx); Swelling of right hand 12/20/2024 Travel 12/17/2024 Refill [facility] [address] [place] [address] Stephanie Alex DO Other hyperlipidemia; Chronic bilateral low back pain, unspecified whether sciatica present 12/15/2024 Refill [facility] [address] [place] [address] Stephanie Alex DO 12/15/2024 Refill [facility] [address] [place] [address] Stephanie Alex DO 12/07/2024 Refill [facility] [address] [place] [address] Stephanie Alex DO Chronic low back pain, unspecified back pain laterality, unspecified whether sciatica present 11/17/2024 Refill [facility] [address] [place] [address] Stephanie Alex DO Depression, unspecified depression type 11/03/2024 11:00 AM EDT Telemedicine [address] [phone] Mariana Aggarwal RN 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 11/03/[address] [phone] Mariana Aggarwal RN [facility] NURSE Renewal completed 11/03/2024 Travel 10/31/2024 10:00 AM EDT Office Visit [address] [phone] Stephanie Alex DO Type 2 diabetes mellitus with diabetic polyneuropathy, without long-term current use of insulin ([facility]) (Primary Dx); Essential hypertension; Other hyperlipidemia; Anxiety; Anemia, unspecified type; Leukopenia, unspecified type; Moderate persistent asthma without complication; Other chronic sinusitis; Acquired hypothyroidism; Chronic gastroesophageal reflux disease; Multiple pulmonary nodules; Chronic bilateral low back pain without sciatica; Unintentional weight loss; Acute pain of both shoulders; Elevated PSA; Microscopic hematuria; Healthcare maintenance 10/31/2024 Refill [facility] [address] [place] [phone] Mariana Aggarwal RN Chronic low back pain, unspecified back pain laterality, unspecified whether sciatica present; halfway (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 10/31/2024 Travel 10/30/2024 Orders Only [facility] [address] [place] [address] Stephanie Alex DO 10/30/2024 Telephone [facility] [address] [place] [address] Stephanie Alex, Chart Prep 10/25/2024 Travel 10/25/2024 Telephone [facility] [address] [place] [address] Stephanie Alex DO Appointment Request 10/25/2024 Refill [facility] [address] [place] [phone] Stephanie Alex, Chronic low back pain, unspecified back pain laterality, unspecified whether sciatica present 10/18/2024 Refill [facility] [address] [place] [address] Stephanie Alex DO Asthma, unspecified asthma severity, unspecified whether complicated, unspecified whether persistent 10/17/2024 Refill [facility] [address] [place] [address] Stephanie Alex DO Anxiety 10/11/2024 Refill [facility] [address] [place] [phone] Stephanie Alex DO Anxiety 2024 Refill [facility] [address] [place] [address] Stephanie Alex DO Chronic low back pain, unspecified back pain laterality, unspecified whether sciatica present 09/28/2024 Telephone [facility] [address] [place] [address] Stephanie Alex DO Appointment Request 09/27/2024 Telephone [facility] [address] [place] [phone] Stephanie Alex DO Appointment Request 09/25/2024 Orders Only [facility] [address] [place] [address] Stephanie Alex, Type 2 diabetes mellitus with diabetic polyneuropathy, without long-term current use of insulin ([facility]) (Primary Dx) from Last 3 Months Immunizations Immunization Administration [...] Sign Reading Time Taken Comments Blood Pressure 158/82 12/20/2024 2:09 PM EDT Pulse 79 12/20/2024 2:09 PM EDT Temperature 36.8 C (98.2 F) 12/20/2024 2:09 PM EDT Respiratory Rate 16 12/20/2024 2:09 PM EDT Oxygen Saturation 99% 12/20/2024 2:09 PM EDT Inhaled Oxygen Concentration - - Weight 93.4 kg (206 lb) 12/20/2024 2:09 PM EDT Height 185.4 cm (6' 1 ) 10/31/2024 10:35 AM EDT Body Mass Index 27.18 10/31/2024 10:35 AM EDT Plan of Treatment Upcoming Encounters Date Type Department Care Team (Late st Contact Info) Description 04/27/2025 9:00 AM EST Telemedicine [facility] [address] [place] [phone] Alessia, Mariana, RN Health Maintenance Due Date Last Done Comments CT Colonography 1950 FIT DNA/Cologuard 1950 FIT 1950 FOBT 1950 Sigmoidoscopy 1950 Diabetes: Foot Exam 1962 Colonoscopy 04/24/2023 04/24/2020, 03/26/2016 Colorectal Cancer Screening 04/24/2023 COVID-19 Vaccine ( season) 2024 03/29/2024, 04/27/2023, 09/01/2022, Additional history exists Influenza Vaccine (#1) 2025 , 03/23/2023, 04/22/2022, Additional history exists Diabetes: Urine Protein Screening 02/21/2025 02/22/2024, 04/29/2023, 01/09/2022, Additional history exists Lipid Panel 02/21/2025 02/22/2024, 04/16, 01/09/2022, Additional history exists SDOH Screening 04/07/2025 04/07/2024 Depression Screening 04/21/2025 04/21/2024, 04/21/20 24 Diabetes: Hemoglobin A1C 05/02/2025 025, 10/30/2024, 02/22/2024, Additional history exists DTaP/Tdap/Td Vaccines (2 - Td or Tdap) 06/12/2025 06/12/2015 Alcohol/Substance Use Screening 10/31/2025 10/31/2024 Tobacco Screening 12/20/2025 12/20/2024 Eye Exam 01/17/2026 01/18/2024, 09/0 07/2023, 01/18/2024, Additional history exists Zoster Vaccines Completed 11/22/2019, 05/18, 12/10/2016 Pneumococcal Vaccine: 50+ Years Completed 10/27/2021, 04/12/2018, 08/24/2016, Additional history exists Hepatitis C Screening Completed 02/22/2024 , 06/06/2019, 06/06/2019 RSV Patients and Patients Aged 60 years [...] Name Priority Date/Time Associated Diagnosis Comments XR WRIST 3+ VIEWS RIGHT Routine 12/25/2024 7:36 AM EDT POCT GLYCATED HEMOGLOBIN, TOTAL Routine 10/31/2024 10:37 AM EDT Type 2 diabetes mellitus with diabetic polyneuropathy, without long-term current use of insulin ([facility]) POCT GLUCOSE Routine 10/31/2024 10:37 AM EDT Type 2 diabetes mellitus with diabetic polyneuropathy, without long-term current use of insulin ([facility]) HEMOGLOBIN A1C Routine 10/30/2024 10:21 AM EDT IRON AND TOTAL IRON BINDING CAPACITY Routine 10/30/2024 10:21 AM EDT Anemia, unspecified type FERRITIN Routine 10/30/2024 10:21 AM EDT Anemia, unspecified type Unintentional weight loss VITAMIN B12/FOLATE, SERUM PANEL Routine 10/30/2024 10:21 AM EDT Anemia, unspecified type Unintentional weight loss BASIC METABOLIC PANEL Routine 10/30/2024 10:21 AM EDT Anemia, unspecified type Unintentional weight loss CBC WITH AUTO DIFFERENTIAL Routine 10/30/2024 10:21 AM EDT Anemia, unspecified type Unintentional weight loss HEPATIC FUNCTION PANEL Routine 10/30/2024 10:21 AM EDT Unintentional weight loss C-REACTIVE PROTEIN Routine 10/30/2024 10 :21 AM EDT Unintentional weight loss PSA, TOTAL Routine 10/30/2024 10:21 AM EDT Unintentional weight loss TSH Routine 10/30/2024 10:21 AM EDT Unintentional weight loss T-SPOT(R).TB Routine 10/30/2024 10:21 AM EDT Unintentional weight loss HIV 1/2 ANTIGEN/ANTIBODY, FOURTH GENERATION W/RFL Routine 10/30/2024 10:21 AM EDT Unintentional weight loss URINALYSIS, COMPLETE Routine 10/30/2024 10:21 AM EDT Unintentional weight loss SED RATE BY MODIFIED WESTERGREN Routine 10/30/2024 10:21 AM EDT Unintentional weight loss T4, FREE Routine 10/30/2024 10:21 AM EDT Unintentional weight loss PREALBUMIN Routine 10/30/2024 10:21 AM EDT Unintentional weight loss HEPATITIS C AB W/REFL TO HCV RNA, [...] Relevant to Health Maintenance Results * XR Wrist 3+ Views Right (12/25/2024 7:36 AM EDT) Anatomical Region Laterality Modality Upper Extremities, Wrist Right Radiogr aphic Imaging 12/25/2024 7:36 AM EDT Narrative 12/25/2024 8:52 AM EDT [place] [address] XRay Report Signed Patient: Colton James MR#: [id number] 4 : 1950 Acct:[id number] Age/Sex: 74 / M ADM Date: 12/25/24 Loc: HO.ED Attending Dr: Ordering Physician: Generic ED Physician Date of Service: 12/25/24 Procedure(s): XR wrist RT min 3V Accession Number(s): [id number] cc: Generic ED Physician; Stephanie Alex DO EXAMINATION: XR WRIST 3 OR MORE VIEWS RIGHT HISTORY: SWELLING AND PAIN COMPARISON: There are no prior studies available for comparison. FINDINGS: Four views of the right wrist including a scaphoid view are submitted. Osseous mineralization is normal. There is no fracture or dislocation. The joint spaces are preserved. There is chondrocalcinosis. There are vascular calcifications. XR/XR wrist RT min 3V IMPRESSION: Chondrocalcinosis. Otherwise unremarkable examination of the right wrist. Electronically signed by: Quinn Delgado MD 12/25/2024 08:48 AM EDT RP Dictated By: Quinn Delgado MD Signed By: <Electronically signed by Quinn Delgado MD in OV> 12/25/2448 DD/ 5 TD/TT: 12/25/24837 Wind Farm Engineer: Procedure Note Donotuseinterpreter, Image - 12/25/2024 [place] [address] XRay Report Signed Patient: Giselle James#: [id number] 4 : 1950cct:[id number] Age/Sex: 74 / MADM Date: 12/25/24 Loc: .ED Attending Dr: Ordering Physician: Generic ED Physician Date of Service: 12/25/24 Procedure(s): XR wrist RT min 3V Accession Number(s): [id number] cc: Generic ED Physician; Stephanie Alex DO EXAMINATION: XR WRIST 3 OR MORE VIEWS RIGHT HISTORY: SWELLING AND PAIN COMPARISON: There are no prior studies available for comparison. FINDINGS: Four views of the right wrist including a scaphoid view are submitted. Osseous mineralization is normal. There is no fracture or dislocation. The joint spaces are preserved. There is chondrocalcinosis. There are vascular calcifications. XR/XR wrist RT min 3V IMPRESSION: Chondrocalcinosis. Otherwise unremarkable examination of the right wrist. Electronically signed by: Quinn Delgado MD 12/25/2024 08:48 AM EDT RP Dictated By: Quinn Delgado MD Signed By: <Electronically signed by Quinn Delgado MD in OV> 12/25/2448 DD/ 5 TD/TT: 12/25/24837 Wind Farm Engineer: [facility] External Provider IMG XR PROCEDURES Final Result * POCT HGB A1C (10/31/2024 10:37 AM EDT) Hemoglobin A1C 5.9 4.0 - 6.0 % QC Media Lot # [id number] Lot# Expiration Date Blood 10/31/2024 10:3 7 AM EDT Stephanie Alex DO POINT OF CARE TEST ENTER/ROBERTA T ORDERABLES Final Result * POCT Glucose (10/31/2024 10:37 AM EDT) Glucose Blood, POC 169 60 - 200 mg/dL QC Media Lot # [id number] Lot# Expiration Date Blood Capillary blood specimen / Unknown 10/31/2024 10:37 AM EDT Stephanie Alex DO POINT OF CARE TEST ENTER/ROBERTA T ORDERABLES Final Result * Vitamin B12 (Cobalamin) and Folate Panel, Serum (10/30/2024 10:21 AM EDT) Vitamin B12 355 200 - 900 pg/mL [facility] Comment:NORMAL 200-900 PG/ML INDETERMINATE 160-199 PG/ML DEFICIENT < 160 PG/ML Folate 11.6 > or = 4.0 ng/mL [facility] Comment:Reference Values:> o r = 4.0 ng/mL< 4.0 ng/mL suggests folate deficiency Methotrexate, aminopterin and folinic acid(leucovorin) are chemotherapeutic agents whose molecularstructures are similar to folate; therefore, the Architectfolate assay cannot be used for patients using these drugs. Blood 10/30/2024 10:2 1 AM EDT 10/30/2024 11:20 AM EDT Stephanie Alex DO LAB BLOOD ORDERABLES Final R esult [facility] [address] [place] [phone] * T-SPOT??.TB (10/30/2024 10:21 AM EDT) [facility] T Spot TB Negative Negative [facility] Comment:A negative test resu lt does not exclude the possibilityof exposure to or infection with Mycobacteriumtuberculosis (M. tuberculosis). Patients with recentexposure to TB infected individuals exhibiting anegative T-SPOT.TB result should be considered forretesting within 6 weeks or if other relevant clinicalsymptoms indicate. Results from T-SPOT.TB testing mustbe used in conjunction with each individual'sepidemiological history, current medical status,and results of other diagnostic evaluations.The T-SPOT.TB test is qualitative and results arereported as positive, borderline, or negative, giventhat the test controls perform as expected. In linewith the Centers for Disease Control and Prevention's2010 recommendation to report quantitative measurementsalongside the qualitative result, the laboratoryprovides spot counts for informational purposes only.The T-SPOT.TB test should not be interpreted as aquantitative test. TS PANEL A 0 [facility] TS PANEL B 2 [facility] Negative Control Passed [facility] Positive Control Passed [facility] Comment:For additional infor arnoldo, please refer [email or web address].[email or web address]/faq/PDP899(This link is being provided for informational/educational purposes only.)THIS TEST WAS PERFORMED AT:[id number] [place] [id number] GOYAL MD,PHD 10/30/2024 10:2 1 AM EDT 10/30/2024 11:20 AM EDT us Stephanie Alex DO LAB BLOOD ORDERABLES Final R esult [facility] [address] [place] [phone] * (ABNORMAL) CBC auto differential (10/30/2024 10:21 AM EDT) White Blood Count 4.5(L) 4.8 - 10.8 X10*3/uL [facility] Red Blood Count 4.34(L) 4.60 - 5.80 X10*6/uL [facility] Hemoglobin 13.1(L) 14.0 - 18.0 g/dl [facility] Hematocrit 38.3(L) 42.0 - 52.0 % [facility] Mean Corpuscular Volume 88.2 80.0 - 98.0 fL [facility] Mean Corpuscular Hemoglobin 30.2 27.0 - 33.0 pg [facility] Mean Corpuscular HGB Conc 34.2 31.0 - 36.0 g/dl [facility] Red Cell Distribution Width 14.3 11.0 - 16.0 % [facility] Platelet Count 255 160 - 400 X10*3/uL [facility] Mean Platelet Volume 10.2 9.4 - 12.4 fL [facility] Neutrophils Percent Auto 45.3 45 - 73 % [facility] Imm Gran Pct Auto 0.4 0.0 - 0.4 % [facility] Lymphocytes Percent Auto 29.4 20 - 40 % [facility] Monocytes Percent Auto 9.8 2 - 11 % [facility] Eosinophils Percent Auto 13.8(H) 0 - 4 % [facility] Basophils Percent Auto 1.3 0 - 2 % [facility] NRBC Pct Auto 0.0 0.0 - 0.2 /100WBC [facility] Neutrophils Absolute Auto 2.0 2.0 - 8.3 x10*3/uL [facility] Imm Gran Abs Auto 0.02 0.00 - 0.03 X10*3/uL [facility] Lymphocytes Absolute Auto 1.3 1.2 - 4.9 X10*3/uL [facility] Monocytes Absolute Auto 0.4 0.1 - 1.2 X10*3/uL [facility] Eosinophils Absolute Auto 0.6(H) 0.0 - 0.4 X10*3/uL [facility] Basophils Absolute Auto 0.1 0.0 - 0.2 X10*3/uL [facility] NRBC Abs Auto 0.000 0.0 - 0.012 X10*3/uL [facility] Blood Venous blood specimen / Unknown 10/30/2024 10:21 AM EDT 10/30/2024 11:20 AM EDT Stephanie Alex LAB BLOOD ORDERABLES Final R esult Performing Organization Address City/[facility] Co de Phone Number [facility] [address] [place] [phone] * Iron And Total Iron Binding Capacity (10/30/2024 10:21 AM EDT) Pathologist [facility] Iron 60 45 - 160 mcg/dL [facility] Total Iron Binding Capacity 281 228 - 428 mcg/dL [facility] Percent Iron Saturation 21 15 - 50 % [facility] Unsaturated Iron Binding 221 ug/dL [facility] Blood Venous blood specimen / Unknown 10/30/2024 10:21 AM EDT 10/30/2024 11:20 AM EDT Stephanie Alex LAB BLOOD ORDERABLES Final R esult Performing Organization Address [facility] de Phone Number [facility] [address] [place] [phone] * HIV-1/2 Antigen and Antibodies, Fourth Generation, with Reflexes (10/30/2024 10:21 AM EDT) HIV AB/AG Nonreactive Nonreactive [facility] Comment:HIV-1 p24 Ag and/or HIV-1/HIV-2 Ab not detected.A test result that is nonreactive does not exclude thepossibility of exposure to or infection with HIV-1 and/orHIV-2. Nonreactive results in this assay for individualswith prior exposure to HIV-1 and/or HIV-2 may be due toantigen and antibody levels that are below the limit ofdetection of this assay.The [employer] HIV Ag/Ab Combo assay result andsupplemental assay results should be interpreted inconjunction with the patient's clinical presentation,history and other laboratory results. If the results areinconsistent with clinical evidence, additional testing issuggested to confirm the result. Blood Venous blood specimen / Unknown 10/30/2024 10:21 AM EDT 10/30/2024 11:20 AM EDT Stephanie Alex LAB BLOOD ORDERABLES Final R esult [facility] [address] [place] [phone] * (ABNORMAL) Urinalysis Complete (10/30/2024 10:21 AM EDT) Color Urine Yellow [facility] Appearance Urine Clear [facility] PH 6.5 5.0 - 9.0 [facility] Glucose Urine UA Negative Negative mg/dL [facility] Urine Blood Small (1+)(A) Negative [facility] Specific [place] - Urine 1.020 1.005 - 1.025 [facility] Urine Protein Trace Neg-Trace mg/dL [facility] Urine Ketones Trace Negative mg/dL [facility] Nitrite Urine Negative Negative [facility] Leukocyte Esterase Urine Negative Negative [facility] RBC Urine 6-10(A) 0 - 2 /HPF [facility] Urine WBC 0-5 0 - 5 /HPF [facility] Urine Squamous Epithelial Cell 0-2 0 - 2 /HPF [facility] Urine Bacteria None Seen None Seen [facility] Hyaline Casts, Urine 0-2 0 - 2 /LPF [facility] Urine (Urine, Random) 10/30/2024 10:21 AM EDT 10/30/2024 11:08 AM EDT Stephanie Alex LAB URINE ORDERABLES Final R esult Performing Organization Address City/[facility]/ZIP Co de Phone Number [facility] [address] [place] [phone] * Sed Rate by Modified Xinren (10/30/2024 10:21 AM EDT) Erythrocyte Sedimentation Rate 8 0 - 15 MM/HR [facility] Comment:Patients with polycy themia and many hemoglobin abnormalitiesmay have depressed sed rates whereas patients with anemiamay have elevated sed rates. Blood Venous blood specimen / Unknown 10/30/2024 10:21 AM EDT 10/30/2024 11:20 AM EDT Stephanie Alex DO LAB BLOOD ORDERABLES Final R esult Performing Organization Address [facility] Co de Phone Number [facility] [address] [place] [phone] * C-reactive Protein (10/30/2024 10:21 AM EDT) C Reactive Protein <0.10 < or = 0.50 mg/dL [facility] Blood Venous blood specimen / Unknown 10/30/2024 10:21 AM EDT 10/30/2024 11:20 AM EDT Stephanie Alex DO LAB BLOOD ORDERABLES Final R esult Performing Organization Address City/[facility]/ZIP Co de Phone Number [facility] [address] [place] [phone] * TSH (10/30/2024 10:21 AM EDT) Thyroid Stimulating Hormone 0.97 0.32 - 4.0 uIU/mL [facility] Comment:TSH 3rd Generation ( [facility]) Blood Venous blood specimen / Unknown 10/30/2024 10:21 AM EDT 10/30/2024 11:20 AM EDT Stephanie Alex DO LAB BLOOD ORDERABLES Final R esult [facility] [address] [place] [phone] * T4, Free (10/30/2024 10:21 AM EDT) Free T4 (Free Thyroxine) 0.96 0.71 - 1.85 ng/dL [facility] Blood Venous blood specimen / Unknown 10/30/2024 10:21 AM EDT 10/30/2024 11:20 AM EDT Stephanie Alex DO LAB BLOOD ORDERABLES Final R esult [facility] [address] [place] [phone] * (ABNORMAL) PSA,Total (10/30/2024 10:21 AM EDT) Prostate Specific Antigen 9.53(H) <0.05 - 4.0 ng/mL [facility] Comment:PSA methodology: Patricio Peace i ChemiluminescentMicroparticle Immunoassay (CMIA) Blood Venous blood specimen / Unknown 10/30/2024 10:21 AM EDT 10/30/2024 11:20 AM EDT Stephanie Alex DO LAB BLOOD ORDERABLES Final R esult [facility] [address] [place] [phone] * Prealbumin (10/30/2024 10:21 AM EDT) Prealbumin 25.0 20 - 40 mg/dL [facility] Blood Venous blood specimen / Unknown 10/30/2024 10:21 AM EDT 10/30/2024 11:20 AM EDT us Stephanie Isai DO LAB BLOOD ORDERABLES Final R esult Performing Organization Address City/[facility]/ZIP Co de Phone Number [facility] [address] [place] [phone] * Hemoglobin A1c (10/30/2024 10:21 AM EDT) Hemoglobin A1c 6.0 <6.0 % [facility] Comment:Hemoglobin A1C Refer ence Range Adults: 4.8 - 6.0 % Non diabetic: < 6.0 % Goal: < 7.0 %Additional Action Suggested: > 8.0 %Note: Hemoglobin A1c results are invalid for patients with abnormal amounts of HbF. Blood transfusions may impact the HbA1c concentration in the patient sample. Estimated Average Glucose 126 mg/dL [facility] Comment:eAG = Estimated ave rage glucose which is %A1C expressed asaverage glucose, using the formula of the [id number]-[id number] Glucose study (ADAG), Diabetes Care, Vol.31,#8,2007 10/30/2024 10:2 1 AM EDT 10/30/2024 11:20 AM EDT us Stephanie Alex DO LAB BLOOD ORDERABLES Final R esult Performing Organization Address [facility] Co de Phone Number [facility] [address] [place] [phone] * Ferritin (10/30/2024 10:21 AM EDT) Ferritin 42 20 - 250 ng/mL [facility] Blood Venous blood specimen / Unknown 10/30/2024 10:21 AM EDT 10/30/2024 11:20 AM EDT Stephanie Isai DO LAB BLOOD ORDERABLES Final R esult Performing Organization Address [facility] Co de Phone Number [facility] [address] [place] [phone] * (ABNORMAL) Hepatic Function Panel (10/30/2024 10:21 AM EDT) Pathologist [facility] Bilirubin, Total 0.2 0.0 - 1.0 mg/dL [facility] Bilirubin, Direct <0.2 0.0 - 0.5 mg/dL [facility] Aspartate Amino Transferase 43(H) 5 - 37 U/L [facility] Alanine Aminotransferase 33 0 - 40 U/L [facility] Total Protein 7.1 6.5 - 8.0 g/dL [facility] Albumin Level 4.2 3.5 - 5.0 g/dL [facility] Alkaline Phosphatase 78 39 - 117 U/L [facility] Blood Venous blood specimen / Unknown 10/30/2024 10:21 AM EDT 10/30/2024 11:20 AM EDT Stephanie Alex DO LAB BLOOD ORDERABLES Final R esult [facility] [address] [place] [phone] * (ABNORMAL) Basic Metabolic Panel (10/30/2024 10:21 AM EDT) [facility] Sodium 144 135 - 145 mmol/L [facility] Potassium 3.8 3.3 - 5.1 mmol/L [facility] Chloride 110(H) 96 - 108 mmol/L [facility] Carbon Dioxide 26 22 - 29 mmol/L [facility] Anion Gap 12 12 - 20 [facility] Urea Nitrogen (BUN) 13 9 - 16 mg/dL [facility] Creatinine, Serum 0.68 0.5 - 1.4 mg/dL [facility] Estimated Glomerular Filt Rate >60 [facility] Comment:Chronic Kidney Disea se: Estimated GFR < 60 mL/min/1.85v0Xgekwr Kidney Disease: Estimated GFR < 15 mL/min/1.73m2 Glucose 106 60 - 115 mg/dL [facility] Calcium 9.1 8.4 - 10.2 mg/dL [facility] Blood Venous blood specimen / Unknown 10/30/2024 10:21 AM EDT 10/30/2024 11:20 AM EDT Stephanie Alex DO LAB BLOOD ORDERABLES Final R esult Performing Organization Address [facility] Co de Phone Number [facility] [address] [place] [phone] * Albumin, Random Urine W/Creatinine (02/22/2024 10:35 AM EDT) Creatinine, Urine 87.37 mg/dL [facility] Microalbumin Urine 7.0 mg/L [facility] Microalbum Creatinine Ratio Ur 8.0 <30 ug/mg cr [facility] Comment:Albumin/Creatinine R atio Reference Ranges: Normal: < 30 ug/mg creatinine Microalbuminuria: 30 - 300 ug/mg creatinineClinical Albuminuria: > 300 ug/mg creatinine Urine (Urine, Random) 02/22/2024 10:35 AM EDT 02/22/2024 11:23 AM EDT Stephanie Alex DO LAB URINE ORDERABLES Final R esult Performing Organization Address [facility] Co de Phone Number [facility] [address] [place] [phone] * Hepatitis C Antibody with Reflex to HCV, RNA, Quantitative, Real-Time PCR (02/22/2024 10:35 AM EDT) Hepatitis C Antibody Nonreactive Nonreactive [facility] Comment:Antibodies to HCV no t detected; does not exclude early acuteHCV infection. Blood Venous blood specimen / Unknown 02/22/2024 10:35 AM EDT 02/22/2024 11:35 AM EDT Stephanie Alex DO LAB BLOOD ORDERABLES Final R esult Performing Organization Address City/[facility] de Phone Number [facility] [address] [place] [phone] * Lipid Panel, Standard (02/22/2024 10:35 AM EDT) Triglycerides 87 <150 mg/dL [facility] Comment:Desirable Triglyceri de: less than 150 mg/dLBorderline High Triglyceride 150-199 mg/dLHigh Triglyceride: 200-499 mg/dLVery High Triglyceride: greater than or equal to 5OO mg/dL Cholesterol 147 <200 mg/dL [facility] Comment:Desirable Cholestero l: less than 200 mg/dLBorderline High Cholesterol: 200-239 mg/dLHigh Cholesterol: greater than 239 mg/dL LDL Cholesterol Calculated 73 <100 mg/dL [facility] Comment:Desirable LDL: less than 100 mg/dLNear Optimal/Above Optimal LDL: 110- 129 mg/dLBorderline High LDL: 130-159 mg/dLHigh LDL: 160-189 mg/dLVery High LDL: greater than or equal to 190 mg/dL HDL Cholesterol 57 >40 mg/dL [facility] Comment:Desirable HDL: great er than 40 mg/dL Note: This HDL assay may give artificially low results in patients with liver disease. 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
[2024-12-25 10:06] VITALS: BP 133/80; PULSE 70; RESP 17; TEMP 36.9; O2SAT 99
[2024-12-25 10:15] VITALS: BP 133/80; PULSE 70; RESP 17; TEMP 36.9; O2SAT 99
== END 2024-12-25 10:15 | disposition home or self-care (01) ==
PROVIDERS: Emergency Provider Emergency Medicine; PCP Family Medicine
DX: M10.9 Gout, unspecified (principal); M11.231 Other chondrocalcinosis, right wrist; I10 Essential (primary) hypertension; G89.29 Other chronic pain; Z79.899 Other long term (current) drug therapy
CPT/HCPCS: 73110; 96372; 99284; J1885

== ENCOUNTER 2025-01-11 10:19 | Outpatient (AMB) | payer OTHER, SELFPAY ==
[2025-01-11 10:25] VITALS: BP 132/70; PULSE 73; O2SAT 98; BMI 27.2
--- NOTE | 2025-01-11 10:25 | MHC.OFFVIS ---
Vital Signs 01/11/25 10:25 Height 6 ft 1 in Weight 206 lb 2.115 oz BMI 27.2 BP 132/70 Blood Pressure Location Rt brachial Position Sitting Pulse 73 Pulse Source Pulse Oximeter Pulse Oximetry (%) 98 Oxygen Delivery Method Room Air Intake Visit Reasons: asthma Director Of Primary Care Required: Yes Director Of Primary Care Name: Stephanie Salinas ElderRaj Allergies lisinopril Allergy (Verified 01/11/25 10:28) Angioedema HPI HPI asthma: Details: 74-year-old gentleman, former 30+ pack-year smoker, quit 2016, followed for underlying moderate asthma/COPD overlap syndrome and pulmonary nodules. Patient's symptoms are well controlled on Dupixent, Incruse, and Arnuity. He denies an acute exacerbation. His follow-up CT scan showed no pulmonary nodules. [facility] Medical History Gynecomastia Hyperlipidemia Chronic low back pain GERD (gastroesophageal reflux disease) Polyneuropathy Allergic rhinitis Diabetes Hypothyroidism Essential hypertension Other and unspecified hyperlipidemia Asthma Stress-induced cardiomyopathy Surgical History History of back surgery History of sinus surgery Hx of esophagogastroduodenoscopy Hx of colonoscopy Family History Father No problems noted. Mother No problems noted. 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 Review of Systems Const Denies daytime sleepiness, Denies excessive sweating, Denies fatigue, Denies fever(s), Denies lethargy, Denies malaise, Denies night sweats, Denies snoring and Denies weight loss Eyes Denies blurry vision and Denies itchy eyes ENT Denies nasal congestion, Denies post nasal drip, Denies sinus pain, Denies sinus pressure and Denies other ( Thrush) Card Denies chest pain, Denies pedal edema, Denies dyspnea, Denies orthopnea and Denies paroxysmal nocturnal dyspnea Resp Denies cough, Denies hemoptysis, Denies excessive phlegm production, Denies dyspnea, Denies snoring and Denies wheezing GI Denies abdominal pain and Denies heartburn Musc Denies myalgias, Denies arthralgias and Denies joint swelling Skin/Breast Denies rash Neuro Denies memory loss and Denies seizure-like activity Psych Denies abnormal sleep pattern, Denies anxiety and Denies memory loss Endo Denies excessive sweating, Denies fatigue and Denies heat intolerance Ismael/Lymph Denies easy bruising Aller/Immun Denies itchy eyes, Denies seasonal rhinorrhea and Denies wheezing Physical Exam Vital Signs: Last Vital Signs Pulse 73 01/11/25 10:25 BP 132/70 01/11/25 10:25 Pulse Ox 98 01/11/25 10:25 Oxygen Delivery Method Room Air 01/11/25 10:25 BMI result Body Mass Index 27.2 Const General: no acute distress and alert Nutritional Appearance: not obese Orientation/consciousness: Other orientation findings ( oriented) HEENT Head: Yes atraumatic Eyes General: appearance normal, both eyes and all related structures Sclerae: sclerae normal EOM: EOMs intact bilaterally Neck Neck: Yes supple Lymphatic: no lymphadenopathy noted Resp Effort & Inspection: normal respiratory effort and no use of accessory muscles Auscultation: clear to auscultation bilaterally Cardio Rate: regular rate Rhythm: regular rhythm Heart sounds: no gallops, no murmurs and no rubs Skin General skin exam: other ( warm) Extrem General: No clubbing, No cyanosis and No edema Assessment & Plan Assessment & Plan (1) Asthma-COPD overlap syndrome: Code(s): J44.9 - Chronic obstructive pulmonary disease, unspecified Category: Medical Plan: Well controlled on current regimen of Dupixent, Arnuity, Incruse, and albuterol MDI. Continue current regimen. (2) Environmental allergies: Code(s): Z91.09 - Other allergy status, other than to drugs and biological substances Category: Medical Plan: Well controlled on Dupixent and Flonase. Continue current regimen. (3) Personal history of nicotine dependence: Code(s): Z87.891 - Personal history of nicotine dependence Category: Medical Plan: Results of lung cancer screening CT chest reviewed shows no worrisome nodules. Continue with yearly screening, next in February of 2025. Coding Level of Care Code Est Pt Level 4 (49861) Complex EM visit Add On G2211 Diagnoses Asthma-COPD overlap syndrome J44.9 Environmental allergies Z91.09 Personal history of nicotine dependence Z87.891
--- OUTSIDE RECORDS SUMMARY | 2025-01-11 11:36 | XMS_ITS | Clinical Summary ---
Author Organization [employer] Address [address] [place] [address] Care Team Providers Care 3D Artist Name Role Phone Stephanie Alex DO Primary Care Provider + [phone] Allergies Active Allergy Reactions Criticality Noted Date [...] polyneuropathy, without long-term current use of insulin ([facility]) TEST BLOOD SUGAR EVERY [...] irrigar cada fosa nasal TWICE DAILY. Active Dupixent 300 MG/2ML solution auto-injector Active [...] NOSTRIL EVERY DAY 48 g 3 Active D3 Super Strength 50 MCG (2000 [...] EVERYDAY AT NOON 90 tablet 3 Active montelukast (Singulair) 10 MG tablet TAKE 1 TABLET BY MOUTH EVERY EVENING 90 tablet 3 Active levothyroxine (Synthroid, Levoxyl) 25 MCG tabletIndications :Acquired hypothyroidism TAKE 1 TABLET BY MOUTH EVERY MORNING 90 tablet 1 Active Ferrous Sulfate (iron) 325 (65 Fe) MG tabletIndications :Anemia, unspecified type TAKE 1 TABLET BY MOUTH TWICE DAILY AT NOON AND IN THE EVENING 180 tablet 1 Active metFORMIN (Glucophage) 500 MG tablet TAKE 1 TABLET BY MOUTH TWICE DAILY IN THE MORNING AND IN THE EVENING WITH FOOD 180 tablet 1 Active Ventolin HFA 108 (90 Base) MCG/ACT inhaler INHALE 2 PUFFS BY MOUTH EVERY 4 HOURS NEEDED FOR WHEEZING OR SHORTNESS OF BREATH 18 g 2 Active hydrOXYzine pamoate (Vistaril) 25 MG capsuleIndication s:Anxiety TAKE 1 CAPSULE BY MOUTH EVERY 6 HOURS NEEDED ANXIETY 30 capsule 3 025 Active hydrOXYzine HCl (Atarax) 25 MG tablet Take 1 tablet (25 mg) by mouth if needed in the morning, at noon, and at bedtime for itching. 90 tablet 3 025 2024 Active acetaminophen (Tylenol 8 Hour) 650 MG ER tablet Take 1 tablet (650 mg) by mouth every 8 (eight) hours if needed for mild pain. 60 tablet 3 025 Active naloxone (Narcan) 4 mg/0.1 mL nasal sprayIndications: [facility] (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 Administer 1 spray (4 mg) into affected nostril(s) if needed for opioid reversal. 2 each 2 025 Active sertraline (Zoloft) 25 MG tabletIndications :Depression, [...] EYE THREE TIMES DAILY 15 mL 11 025 Active atorvastatin (Lipitor) 40 MG tabletIndications :Other hyperlipidemia TAKE 1 TABLET BY MOUTH AT BEDTIME 90 tablet 1 025 Active gabapentin (Neurontin) 800 MG tabletIndications :Chronic bilateral low back pain, unspecified whether sciatica present TAKE 1 TABLET BY MOUTH THREE TIMES DAILY IN THE MORNING, EVENING, AND BEDTIME 270 tablet 1 025 Active cetirizine (ZyrTEC) 10 MG tablet TAKE 1 TABLET BY MOUTH EVERYDAY AT NOON 90 tablet 1 025 Active Arnuity Ellipta 200 MCG/ACT inhalerIndication s:Asthma, unspecified asthma severity, unspecified whether complicated, unspecified whether persistent INHALE 1 PUFF BY MOUTH EVERY DAY AT THE SAME TIME RINSE MOUTH AFTER USING 30 each 2 Active polyvinyl alcohol (Liquifilm Tears) 1.4 % [...] NEEDED 90 mL 1 025 2024 Discontinued Arnuity Ellipta 200 MCG/ACT inhalerIndication s:Asthma, unspecified asthma severity, unspecified whether complicated, unspecified whether persistent INHALE 1 PUFF BY MOUTH EVERY DAY AT THE SAME TIME RINSE MOUTH AFTER USING 30 each 2 025 2024 Discontinued Active Problems Problem Noted [...] time in diff also gout,pseudogout ,[place] -called [facility] to let them know pt is going ,pt refuse EMT call ,states will waste picker at home and then he will go to hospital ,pt understands will need sinovial tap for diagnosis and r/o infection [facility] (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 07/15 Pain [...] monitoring -s/p optho eval SEPTEMBER 2021 at [facility], appt next mos -foot exam next visit* Encounters Date Type Department Care Team Description 01/07/2025 Refill [facility] [address] [place], [place] [phone] Stephanie Alex DO Asthma, unspecified asthma severity, unspecified whether complicated, unspecified whether persistent 12/25/2024 Orders Only [facility] External Provider, [facility] 12/20/2024 2:20 PM EDT Office Visit [facility] [address] [place] [phone] Celina King MD Essential hypertension (Primary Dx); Swelling of right hand 12/20/2024 Travel 12/17/2024 Refill [facility] [address] [place] [phone] Stephanie Alex DO Other hyperlipidemia; Chronic bilateral low back pain, unspecified whether sciatica present 12/15/2024 Refill [facility] [address] [place] [phone] Stephanie Alex DO 12/15/2024 Refill [facility] [address] [place] [phone] Stephanie Alex DO 12/07/[address] [address] Stephanie Alex DO Chronic low back pain, unspecified back pain laterality, unspecified whether sciatica present 11/17/[address] [address] Stephanie Alex DO Depression, unspecified depression type 11/03/2024 11:00 AM EDT Telemedicine [address] [address] Mariana Aggarwal RN 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 11/03/[address] [address] Mariana Aggarwal RN MENTAL HEALTH COORDINATOR Renewal completed 11/03/2024 Travel 10/31/2024 10:00 AM EDT Office Visit [address] [address] Stephanie Alex DO Type 2 diabetes mellitus with diabetic polyneuropathy, without long-term current use of insulin ([facility]) (Primary Dx); Essential hypertension; Other hyperlipidemia; Anxiety; Anemia, unspecified type; Leukopenia, unspecified type; Moderate persistent asthma without complication; Other chronic sinusitis; Acquired hypothyroidism; Chronic gastroesophageal reflux disease; Multiple pulmonary nodules; Chronic bilateral low back pain without sciatica; Unintentional weight loss; Acute pain of both shoulders; Elevated PSA; Microscopic hematuria; Healthcare maintenance 10/31/2024 Refill [facility] [address] [place] [address] Mariana Aggarwal RN Chronic low back pain, unspecified back pain laterality, unspecified whether sciatica present; 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 10/31/2024 Travel 10/30/2024 Orders Only [facility] [address] [place] [address] Stephanie Alex DO 10/30/2024 Telephone [facility] [address] [place] [phone] Stephanie Alex DO Chart Prep 10/25/2024 Travel 10/25/2024 Telephone [facility] [address] [place] [address] Stephanie Alex DO Appointment Request 10/25/2024 Refill [facility] [address] [place] [address] Stephanie Alex DO Chronic low back pain, unspecified back pain laterality, unspecified whether sciatica present 10/18/2024 Refill [facility] [address] [place] [address] Stephanie Alex DO Asthma, unspecified asthma severity, unspecified whether complicated, unspecified whether persistent 10/17/2024 Refill [facility] [address] [place] [address] Stephanie Alex DO Anxiety 10/11/2024 Refill [facility] [address] [place] [address] Stephanie Alex DO Anxiety from Last 3 Months Immunizations Immunization Administration [...] Care Team (Late st Contact Info) Description 03/05/2025 9:00 AM EDT Office Visit [facility] [address] [place] [address] Virginia García, OD [address] [place] [address] 04/27/2025 9:00 AM EST Telemedicine [facility] [address] [place] [address] Mariana Aggarwal, ROMEL Health Maintenance Due Date [...] polyneuropathy, without long-term current use of insulin ([facility]) POCT GLUCOSE Routine 10/31/2024 10:37 AM EDT Type 2 diabetes mellitus with diabetic polyneuropathy, without long-term current use of insulin ([facility]) HEMOGLOBIN A1C Routine 10/30/2024 10:21 AM EDT [...] polyneuropathy, without long-term current use of insulin ([facility]) Essential hypertension Other hyperlipidemia [...] AM EDT Narrative 12/25/2024 8:52 AM EDT [place] [address] XRay Report Signed Patient: Colton James MR#: [id number] 4 : 1950 Acct:[id number] Age/Sex: 74 / M ADM Date: 12/25/24 Loc: .ED Attending Dr: Ordering Physician: Generic ED Physician Date of Service: 12/25/24 Procedure(s): XR wrist RT min 3V Accession Number(s): [id number] cc: Generic ED Physician; Stephanie Alex DO [...] signed by Quinn Delgado MD in OV> 12/25/24847 DD/ 5 TD/TT: 12/25/24837 Subassembler: Procedure Note Donotamarilister, Image - 12/25/2024 [place] [address] XRay Report Signed Patient: Giselle James#: [id number] 4 : 1950cct:[id number] Age/Sex: 74 / MADM Date: 12/25/24 Loc: .ED Attending Dr: Ordering Physician: Generic ED Physician Date of Service: 12/25/24 Procedure(s): XR wrist RT min 3V Accession Number(s): [id number] cc: Generic ED Physician; Stephanie Alex DO [...] in OV> 12/25/2448 DD/ 5 TD/TT: 12/25/24837 Subassembler: [facility] External Provider IMG XR PROCEDURES Final Result * POCT HGB A1C (10/31/2024 10:37 AM EDT) Hemoglobin A1C 5.9 4.0 - 6.0 % QC Media Lot # [id number] Lot# Expiration Date Blood 10/31/2024 10:3 7 AM EDT Stephanie Alex DO POINT OF CARE TEST ENTER/ROBERTA T ORDERABLES Final Result * POCT Glucose (10/31/2024 10:37 AM EDT) Pathologist [facility] Glucose Blood, POC 169 60 - 200 mg/dL QC Media Lot # [id number] Lot# Expiration Date Blood Capillary blood specimen / Unknown 10/31/2024 10:37 AM EDT Stephanie Alex DO POINT OF CARE TEST ENTER/ROBERTA T ORDERABLES Final Result * Vitamin B12 (Cobalamin) and Folate Panel, Serum (10/30/2024 10:21 AM EDT) [facility] Vitamin B12 355 200 - 900 pg/mL [facility] Comment:NORMAL 200-900 PG/M L INDETERMINATE 160-199 PG/ML DEFICIENT < 160 PG/ML Folate 11.6 > or = 4.0 ng/mL [facility] Comment:Reference Values:> o r = 4.0 ng/mL< 4.0 ng/mL suggests folate deficiency Methotrexate, aminopterin and folinic acid(leucovorin) are chemotherapeutic agents whose molecularstructures are similar to folate; therefore, the Architectfolate assay cannot be used for patients using these drugs. Blood 10/30/2024 10:2 1 AM EDT 10/30/2024 11:20 AM EDT Stephanie Alex DO LAB BLOOD ORDERABLES Final R esult [facility] [address] [place] [phone] * T-SPOT??.TB (10/30/2024 10:21 AM EDT) [facility] T Spot TB Negative Negative [facility] Comment:A negative test resu lt does [...] as aquantitative test. TS PANEL A 0 [facility] TS PANEL B 2 [facility] Negative Control Passed [facility] Positive Control Passed [facility] Comment:For additional infor arnoldo, please refer tohttp://education.Foundation Software/faq/AIS641(This link is being provided for informational/educational purposes only.)THIS TEST WAS PERFORMED AT:[id number] [place] [id number] GOYAL MD,PHD 10/30/2024 10:2 1 AM EDT 10/30/2024 11:20 AM EDT us Stephanie Alex DO LAB BLOOD ORDERABLES Final R esult [facility] [address] [place] [address] [phone] * (ABNORMAL) CBC auto differential (10/30/2024 10:21 AM EDT) White Blood Count 4.5(L) 4.8 - 10.8 X10*3/uL [facility] Red Blood Count 4.34(L) 4.60 - 5.80 X10*6/uL [facility] Hemoglobin 13.1(L) 14.0 - 18.0 g/dl [facility] Hematocrit 38.3(L) 42.0 - 52.0 % [facility] Mean Corpuscular Volume 88.2 80.0 - 98.0 fL [facility] Mean Corpuscular Hemoglobin 30.2 27.0 - 33.0 pg [facility] Mean Corpuscular HGB Conc 34.2 31.0 - 36.0 g/dl [facility] Red Cell Distribution Width 14.3 11.0 - 16.0 % [facility] Platelet Count 255 160 - 400 X10*3/uL [facility] Mean Platelet Volume 10.2 9.4 - 12.4 fL [facility] Neutrophils Percent Auto 45.3 45 - 73 % [facility] Imm Gran Pct Auto 0.4 0.0 - 0.4 % [facility] Lymphocytes Percent Auto 29.4 20 - 40 % [facility] Monocytes Percent Auto 9.8 2 - 11 % [facility] Eosinophils Percent Auto 13.8(H) 0 - 4 % [facility] Basophils Percent Auto 1.3 0 - 2 % [facility] NRBC Pct Auto 0.0 0.0 - 0.2 /100WBC [facility] Neutrophils Absolute Auto 2.0 2.0 - 8.3 x10*3/uL [facility] Imm Gran Abs Auto 0.02 0.00 - 0.03 X10*3/uL [facility] Lymphocytes Absolute Auto 1.3 1.2 - 4.9 X10*3/uL [facility] Monocytes Absolute Auto 0.4 0.1 - 1.2 X10*3/uL [facility] Eosinophils Absolute Auto 0.6(H) 0.0 - 0.4 X10*3/uL [facility] Basophils Absolute Auto 0.1 0.0 - 0.2 X10*3/uL [facility] NRBC Abs Auto 0.000 0.0 - 0.012 X10*3/uL [facility] Blood Venous blood specimen / Unknown 10/30/2024 10:21 AM EDT 10/30/2024 11:20 AM EDT Stephanie Alex DO LAB BLOOD ORDERABLES Final R esult [facility] [address] [place] [phone] * Iron And Total Iron Binding Capacity (10/30/2024 10:21 AM EDT) Iron 60 45 - 160 mcg/dL [facility] Total Iron Binding Capacity 281 228 - 428 mcg/dL [facility] Percent Iron Saturation 21 15 - 50 % [facility] Unsaturated Iron Binding 221 ug/dL [facility] Blood Venous blood specimen / Unknown 10/30/2024 10:21 AM EDT 10/30/2024 11:20 AM EDT Stephanie Alex DO LAB BLOOD ORDERABLES Final R esult Performing Organization Address [facility]/ZIP Co de Phone Number [facility] [address] [place] [phone] * HIV-1/2 Antigen and Antibodies, Fourth Generation, with Reflexes (10/30/2024 10:21 AM EDT) HIV AB/AG Nonreactive Nonreactive [facility] Comment:HIV-1 p24 Ag and/or HIV-1/HIV-2 Ab not detected.A test result that is nonreactive does not exclude thepossibility of exposure to or infection with HIV-1 and/orHIV-2. Nonreactive results in this assay for individualswith prior exposure to HIV-1 and/or HIV-2 may be due toantigen and antibody levels that are below the limit ofdetection of this assay.The [employer] HIV Ag/Ab Combo assay result andsupplemental assay results should be interpreted inconjunction with the patient's clinical presentation,history and other laboratory results. If the results areinconsistent with clinical evidence, additional testing issuggested to confirm the result. Blood Venous blood specimen / Unknown 10/30/2024 10:21 AM EDT 10/30/2024 11:20 AM EDT Stephanie Alex DO LAB BLOOD ORDERABLES Final R esult Performing Organization Address [facility] Co de Phone Number [facility] [address] [place] [phone] * (ABNORMAL) Urinalysis Complete (10/30/2024 10:21 AM EDT) Color Urine Yellow [facility] Appearance Urine Clear [facility] PH 6.5 5.0 - 9.0 [facility] Glucose Urine UA Negative Negative mg/dL [facility] Urine Blood Small (1+)(A) Negative [facility] Specific [place] - Urine 1.020 1.005 - 1.025 [facility] Urine Protein Trace Neg-Trace mg/dL [facility] Urine Ketones Trace Negative mg/dL [facility] Nitrite Urine Negative Negative [facility] Leukocyte Esterase Urine Negative Negative [facility] RBC Urine 6-10(A) 0 - 2 /HPF [facility] Urine WBC 0-5 0 - 5 /HPF [facility] Urine Squamous Epithelial Cell 0-2 0 - 2 /HPF [facility] Urine Bacteria None Seen None Seen [facility] Hyaline Casts, Urine 0-2 0 - 2 /LPF [facility] Urine (Urine, Random) 10/30/2024 10:21 AM EDT 10/30/2024 11:08 AM EDT us Stephanie Alex DO LAB URINE ORDERABLES Final R esult Performing Organization Address [facility]/ZIP Co de Phone Number [facility] [address] [place] [phone] * Sed Rate by Modified Laura (10/30/2024 10:21 AM EDT) Erythrocyte Sedimentation Rate 8 0 - 15 MM/HR [facility] Comment:Patients with polycy themia and many hemoglobin abnormalitiesmay have depressed sed rates whereas patients with anemiamay have elevated sed rates. Blood Venous blood specimen / Unknown 10/30/2024 10:21 AM EDT 10/30/2024 11:20 AM EDT Stephanie Alex DO LAB BLOOD ORDERABLES Final R esult Performing Organization Address [facility]/ZIP Co de Phone Number [facility] [address] [place] [phone] * C-reactive Protein (10/30/2024 10:21 AM EDT) C Reactive Protein <0.10 < or = 0.50 mg/dL [facility] Blood Venous blood specimen / Unknown 10/30/2024 10:21 AM EDT 10/30/2024 11:20 AM EDT Stephanie Alex DO LAB BLOOD ORDERABLES Final R esult Performing Organization Address [facility] Co de Phone Number [facility] [address] [place] [phone] * TSH (10/30/2024 10:21 AM EDT) Thyroid Stimulating Hormone 0.97 0.32 - 4.0 uIU/mL [facility] Comment:TSH 3rd Generation ( [employer] [employer]) Blood Venous blood specimen / Unknown 10/30/2024 10:21 AM EDT 10/30/2024 11:20 AM EDT Stephanie Alex DO LAB BLOOD ORDERABLES Final R esult Performing Organization Address [facility]/ZIP Co de Phone Number [facility] [address] [place] [phone] * T4, Free (10/30/2024 10:21 AM EDT) Free T4 (Free Thyroxine) 0.96 0.71 - 1.85 ng/dL [facility] Blood Venous blood specimen / Unknown 10/30/2024 10:21 AM EDT 10/30/2024 11:20 AM EDT Stephanie Alex DO LAB BLOOD ORDERABLES Final R esult Performing Organization Address City/[facility] Co de Phone Number [facility] [address] [place] [phone] * (ABNORMAL) PSA,Total (10/30/2024 10:21 AM EDT) Prostate Specific Antigen 9.53(H) <0.05 - 4.0 ng/mL [facility] Comment:PSA methodology: Patricio Peace i ChemiluminescentMicroparticle Immunoassay (CMIA) Blood Venous blood specimen / Unknown 10/30/2024 10:21 AM EDT 10/30/2024 11:20 AM EDT Stephanie Alex LAB BLOOD ORDERABLES Final R esult Performing Organization Address [facility] Co de Phone Number [facility] [address] [place] [phone] * Prealbumin (10/30/2024 10:21 AM EDT) Prealbumin 25.0 20 - 40 mg/dL [facility] Blood Venous blood specimen / Unknown 10/30/2024 10:21 AM EDT 10/30/2024 11:20 AM EDT Stephanie Alex DO LAB BLOOD ORDERABLES Final R esult Performing Organization Address City/[facility] Co de Phone Number [facility] [address] [place] [phone] * Hemoglobin A1c (10/30/2024 10:21 AM EDT) Hemoglobin A1c 6.0 <6.0 % [facility] Comment:Hemoglobin A1C Refer ence Range Adults: 4.8 - 6.0 % Non diabetic: < 6.0 % Goal: < 7.0 %Additional Action Suggested: > 8.0 %Note: Hemoglobin A1c results are invalid for patients with abnormal amounts of HbF. Blood transfusions may impact the HbA1c concentration in the patient sample. Estimated Average Glucose 126 mg/dL [facility] Comment:eAG = Estimated ave rage glucose which is %A1C expressed asaverage glucose, using the formula of the [id number] Glucose study (ADAG), Diabetes Care, Vol.31,#8,Dec. 2007 10/30/2024 10:2 1 AM EDT 10/30/2024 11:20 AM EDT [facility] BLOOD ORDERABLES Final R esult [facility] [address] [place] [phone] * Ferritin (10/30/2024 10:21 AM EDT) Ferritin 42 20 - 250 ng/mL [facility] Blood Venous blood specimen / Unknown 10/30/2024 10:21 AM EDT 10/30/2024 11:20 AM EDT [facility] BLOOD ORDERABLES Final R esult [facility] [address] [place] [phone] * (ABNORMAL) Hepatic Function Panel (10/30/2024 10:21 AM EDT) Bilirubin, Total 0.2 0.0 - 1.0 mg/dL [facility] Bilirubin, Direct <0.2 0.0 - 0.5 mg/dL [facility] Aspartate Amino Transferase 43(H) 5 - 37 U/L [facility] Alanine Aminotransferase 33 0 - 40 U/L [facility] Total Protein 7.1 6.5 - 8.0 g/dL [facility] Albumin Level 4.2 3.5 - 5.0 g/dL [facility] Alkaline Phosphatase 78 39 - 117 U/L [facility] Blood Venous blood specimen / Unknown 10/30/2024 10:21 AM EDT 10/30/2024 11:20 AM EDT us Stephanie Alex DO LAB BLOOD ORDERABLES Final R esult [facility] [address] [place], [place] [phone] * (ABNORMAL) Basic Metabolic Panel (10/30/2024 10:21 AM EDT) Sodium 144 135 - 145 mmol/L [facility] Potassium 3.8 3.3 - 5.1 mmol/L [facility] Chloride 110(H) 96 - 108 mmol/L [facility] Carbon Dioxide 26 22 - 29 mmol/L [facility] Anion Gap 12 12 - 20 [facility] Urea Nitrogen (BUN) 13 9 - 16 mg/dL [facility] Creatinine, Serum 0.68 0.5 - 1.4 mg/dL [facility] Estimated Glomerular Filt Rate >60 [facility] Comment:Chronic Kidney Disea se: Estimated GFR < 60 mL/min/1.04p5Ychsbz Kidney Disease: Estimated GFR < 15 mL/min/1.73m2 Glucose 106 60 - 115 mg/dL [facility] Calcium 9.1 8.4 - 10.2 mg/dL [facility] Blood Venous blood specimen / Unknown 10/30/2024 10:21 AM EDT 10/30/2024 11:20 AM EDT Stephanie Isai DO LAB BLOOD ORDERABLES Final R esult Performing Organization Address City/[facility] Co de Phone Number [facility] [address] [place] [phone] * Albumin, Random Urine W/Creatinine (02/22/2024 10:35 AM EDT) Creatinine, Urine 87.37 mg/dL [facility] Microalbumin Urine 7.0 mg/L [facility] Microalbum Creatinine Ratio Ur 8.0 <30 ug/mg cr [facility] Comment:Albumin/Creatinine R atio Reference Ranges: Normal: < 30 ug/mg creatinine Microalbuminuria: 30 - 300 ug/mg creatinineClinical Albuminuria: > 300 ug/mg creatinine Urine (Urine, Random) 02/22/2024 10:35 AM EDT 02/22/2024 11:23 AM EDT us Stephanie Isai DO LAB URINE ORDERABLES Final R esult Performing Organization Address [facility] Co de Phone Number [facility] [address] [place] [phone] * Hepatitis C Antibody with Reflex to HCV, RNA, Quantitative, Real-Time PCR (02/22/2024 10:35 AM EDT) Hepatitis C Antibody Nonreactive Nonreactive [facility] Comment:Antibodies to HCV no t detected; does not exclude early acuteHCV infection. Blood Venous blood specimen / Unknown 02/22/2024 10:35 AM EDT 02/22/2024 11:35 AM EDT Stephanie Rodartekika DO LAB BLOOD ORDERABLES Final R esult Performing Organization Address [facility] Co de Phone Number [facility] [address] [place] [phone] * Lipid Panel, Standard (02/22/2024 10:35 AM EDT) Triglycerides 87 <150 mg/dL [facility] Comment:Desirable Triglyceri de: less than 150 mg/dLBorderline High Triglyceride 150-199 mg/dLHigh Triglyceride: 200-499 mg/dLVery High Triglyceride: greater than or equal to 5OO mg/dL Cholesterol 147 <200 mg/dL [facility] Comment:Desirable Cholestero l: less than 200 mg/dLBorderline High Cholesterol: 200-239 mg/dLHigh Cholesterol: greater than 239 mg/dL LDL Cholesterol Calculated 73 <100 mg/dL [facility] Comment:Desirable LDL: less than 100 mg/dLNear Optimal/Above Optimal LDL: 110- 129 mg/dLBorderline High LDL: 130-159 mg/dLHigh LDL: 160-189 mg/dLVery High LDL: greater than or equal to 190 mg/dL HDL Cholesterol 57 >40 mg/dL [facility] Comment:Desirable HDL: great er than 40 mg/dL Note: This HDL assay may give artificially low results in patients with liver disease. Blood Venous blood specimen / Unknown 02/22/2024 10:35 AM EDT 02/22/2024 11:35 AM EDT Stephanie Alex DO LAB BLOOD ORDERABLES Final R esult [facility] [address] [place], [place] [phone] * Colonoscopy (04/24/2020 10:02 AM EST) Historical Provider HEALTH MAINTENANCE Final Result from Last 3 Months or Most Recently Relevant to Health Maintenance Insurance [facility] OPTIONS (O D-SNP) CARMINE FORTE [id number] Care Teams 3D Artist Relationship Specialty Start Date End Date Stephanie Alex DO [address] [place] [id number] PCP - General Family Medicine 06/12/15 Myrna 06/21/24
--- OUTSIDE RECORDS SUMMARY | 2025-01-11 11:36 | XMS_ITS | Encounter Summary ---
Author Organization [employer] [facility] Address 75 [facility] 7t [place] [address] Care Team Providers Care Outpatient Therapist Name Role Phone Stephanie Alex DO Primary Care Provider + [phone] Reason for Visit * Reason Comments Med Refill Encounter Details Date Type Department Care Team (Late Contact Info) Description 12/27/2022 Refill [facility] MEDICINE [address] [place] [address] Stephanie Alex DO 230 [place] [address] Acquired hypothyroidism; Anemia, unspecified type; Chronic bilateral [...] Upcoming Encounters Date Type Department Care Team ([facility] Contact Info) Description 03/05/2025 9:00 AM EDT Office Visit [facility] [place] [facility] OPTOMETRY [address] [place] [address] Ricky, [place], OD 230 [place] [address] 04/27/2025 9:00 AM EST Telemedicine [facility] [place] MEDICINE [address] [place] [address] Mariana Aggarwal RN documented as of this encounter Visit Diagnoses Diagnosis Acquired hypothyroidism Unspecified hypothyroidism Anemia, unspecified type Chronic bilateral low back pain, unspecified whether sciatica present documented in this encounter Additional Health Concerns Assessment Noted Time PHQ-9 Depression Total Score: 0 09/02/19 23 9:01 AM EDT documented as of this encounter Care Teams Outpatient Therapist Relationship Specialty Start Date End Date Stephanie Alex DO [address] [place] [address] PCP - General Family Medicine 06/12/15 Myrna 06/21/24 documented as of this encounter
--- OUTSIDE RECORDS SUMMARY | 2025-01-11 11:36 | XMS_ITS | Encounter Summary ---
Author Organization [employer] Address 75 [facility] 7t [place] [address] Care Team Providers Care Gelatin Maker Utility Name Role Phone Stephanie Alex DO Primary Care Provider + [phone] Reason for Visit * Reason Comments Med Refill Encounter Details Date Type Department Care Team ([facility] Contact Info) Description 05/01/2024 Refill [facility] MEDICINE [address] [place], [place] [phone] Stephanie Alex DO 230 [place] [address] Essential hypertension Social History Tobacco Use Types [...] Description 03/05/2025 9:00 AM EDT Office Visit [facility] OPTOMETRY [address] [place] [address] Ricky, [place], OD 230 [place] [address] 04/27/2025 9:00 AM EST Telemedicine [facility] MEDICINE [address] [place] [address] Mariana Aggarwal, RN documented as of this encounter Visit Diagnoses Diagnosis Essential hypertension Unspecified essential hypertension documented in this encounter Additional Health Concerns Assessment Noted Time PHQ-9 Depression Total Score: 0 04/21/20 24 9:57 AM EST documented as of this encounter Care Teams Gelatin Maker Utility Relationship Specialty Start Date End Date Stephanie Alex DO [address] [place] [address] PCP - General Family Medicine 06/12/15 Myrna 06/21/24 documented as of this encounter
--- OUTSIDE RECORDS SUMMARY | 2025-01-11 11:36 | XMS_ITS | Encounter Summary ---
Author Organization [employer] [facility] Address [address] [facility] 7[address] [place] [address] Care Team Providers Care Neon Tube Pumper Name Role Phone Stephanie Alex DO Primary Care Provider + [phone] Reason for Visit * Reason Comments Med Refill Encounter Details Date Type Department Care Team (Late st Contact Info) Description 02/16/2023 Refill [facility] MEDICINE [address] [place] [address] Stephanie Alex DO [address] [place] [address] Depression, unspecified depression type Social History Tobacco [...] Description 03/05/2025 9:00 AM EDT Office Visit [facility] OPTOMETRY [address] [place] [address] Virginia García, OD 230 [place] [address] 04/27/2025 9:00 AM EST Telemedicine [facility] MEDICINE [address] [place], [place] [phone] Mariana Aggarwal, ROMEL documented as of this encounter Visit Diagnoses Diagnosis Depression, unspecified depression type documented in this encounter Additional Health Concerns Assessment Noted Time PHQ-9 Depression Total Score: 0 09/02/19 23 9:01 AM EDT documented as of this encounter Care Teams Neon Tube Pumper Relationship Specialty Start Date End Date Stephanie Alex DO [address] [place] [address] PCP - General Family Medicine 06/12/15 Myrna 06/21/24 documented as of this encounter
--- OUTSIDE RECORDS SUMMARY | 2025-01-11 11:37 | XMS_ITS | Encounter Summary ---
Author Organization [employer] Address 75 [facility] 7t [place] [address] Care Team Providers Care Baby Formula Worker Name Role Phone Stephanie Alex DO Primary Care Provider + [phone] Reason for Visit * Reason Comments Med Refill Encounter Details Date Type Department Care Team ([facility] Contact Info) Description 05/11/2023 Refill [facility] MEDICINE 230 [place], [place] [phone] Stephanie Alex DO 230 [place], [place] [phone] Other chronic pain Social History Tobacco Use [...] Description 03/05/2025 9:00 AM EDT Office Visit [facility] OPTOMETRY [address] [place] [address] Ricky, [place], OD 230 [place] [address] 04/27/2025 9:00 AM EST Telemedicine [facility] MEDICINE [address] [place] [address] Mariana Aggarwal, ROMEL documented as of this encounter Visit Diagnoses Diagnosis Other chronic pain documented in this encounter Additional Health Concerns Assessment Noted Time PHQ-9 Depression Total Score: 0 09/02/19 23 9:01 AM EDT documented as of this encounter Care Teams Baby Formula Worker Relationship Specialty Start Date End Date Stephanie Alex DO 230 [place] [address] PCP - General Family Medicine 06/12/15 Myrna 06/21/24 documented as of this encounter
--- OUTSIDE RECORDS SUMMARY | 2025-01-11 11:37 | XMS_ITS | Encounter Summary ---
Author Organization [employer] Address 75 [facility] 7t [place] [address] Care Team Providers Care Instrument Operator Name Role Phone Stephanie Alex DO Primary Care Provider + [phone] Reason for Visit * Reason Onset Date Comments Durable Medical Equipment 09/16/2023 Encounter Details Date Type Department Care Team ([facility] st Contact Info) Description 09/16/2023 Telephone [facility] MEDICINE 230 [place] [address] Stephanie Alex DO 230 [place], [place] [phone] Durable Medical Equipment Social History Tobacco Use [...] 03/05/2025 9:00 AM EDT Office Visit [facility] OPTOMETRY [address] [place] [address] Ricky, [place], OD 230 [place] [address] 04/27/2025 9:00 AM EST Telemedicine [facility] MEDICINE [address] [place] [address] Mariana Aggarwal, ROMEL documented as of this encounter Visit Diagnoses Not on filedocumented in this encounter Additional Health Concerns Assessment Noted Time PHQ-9 Depression Total Score: 3 09/02/19 24 10:32 AM EDT documented as of this encounter Care Teams Instrument Operator Relationship Specialty Start Date End Date Stephanie Alex DO 230 [place] [address] PCP - General Family Medicine 06/12/15 Myrna 06/21/24 documented as of this encounter
--- OUTSIDE RECORDS SUMMARY | 2025-01-11 11:37 | XMS_ITS | Encounter Summary ---
Author Organization [employer] [facility] Address [address] [facility] [address] [place] [address] Care Team Providers Care Piece Dyer Name Role Phone Stephanie Alex DO Primary Care Provider + [phone] Encounter Details Date Type Department Care Team (Latest Contact Info) Description 01/23/2022 Abstract [facility] CONVERSIONS Dental, Provider, DDS Social History [...] Upcoming Encounters Date Type Department Care Team ( st Contact Info) Description 03/05/2025 9:00 AM EDT Office Visit [facility] OPTOMETRY [address] [place] [address] Virginia García, OD 230 [place] [address] 04/27/2025 9:00 AM EST Telemedicine [facility] MEDICINE 230 [place] [address] Mariana Aggarwal RN documented as of this encounter Visit Diagnoses Not on filedocumented in this encounter Care Teams Piece Dyer Relationship Specialty Start Date End Date Stephanie Alex DO 230 [place] [address] PCP - General Family Medicine 06/12/15 Myrna 06/21/24 documented as of this encounter
--- OUTSIDE RECORDS SUMMARY | 2025-01-11 11:37 | XMS_ITS | Encounter Summary ---
Author Organization [employer] Address 75 [facility] 7t [place] [address] Care Team Providers Care Pretzel Twisting Machine Operator Name Role Phone IsaiStephanie Primary Care Provider + [phone] Reason for Visit * Reason Comments Med Refill Encounter Details Date Type Department Care Team ([facility] Contact Info) Description 06/02/2023 Refill [facility] MEDICINE [address] [place], [place] [phone] Maria De Jesus Mann MD 230 [place], [place] [phone] Moderate persistent asthma, unspecified whether complicated Social [...] Description 03/05/2025 9:00 AM EDT Office Visit [facility] OPTOMETRY [address] [place] [address] Ricky, [place], OD 230 [place] [address] 04/27/2025 9:00 AM EST Telemedicine [facility] MEDICINE [address] [place] [address] Mariana Aggarwal, ROMEL documented as of this encounter Visit Diagnoses Diagnosis Moderate persistent asthma, unspecified whether complicated documented in this encounter Additional Health Concerns Assessment Noted Time PHQ-9 Depression Total Score: 0 09/02/19 23 9:01 AM EDT documented as of this encounter Care Teams Pretzel Twisting Machine Operator Relationship Specialty Start Date End Date Stephanie Alex DO [address] [place] [address] PCP - General Family Medicine 06/12/15 Myrna 06/21/24 documented as of this encounter
--- OUTSIDE RECORDS SUMMARY | 2025-01-11 11:37 | XMS_ITS | Encounter Summary ---
Author Organization [employer] [facility] Address 75 [facility] 7t [place] [address] Care Team Providers Care Software Sales Consultant Name Role Phone AsterStephanie anand Primary Care Provider + [phone] Encounter Details Date Type Department Care Team ([facility] Contact Info) Description 05/04/2022 Abstract [facility] MEDICINE [address] [place] [address] Tricia Farmer PharmD 230 [place] [address] Social History Tobacco Use Types Packs/Day Years [...] Upcoming Encounters Date Type Department Care Team ([facility] st Contact Info) Description 03/05/2025 9:00 AM EDT Office Visit [facility] OPTOMETRY [address] [place], [place] [phone] Virginia García, OD [address] [place] [address] 04/27/2025 9:00 AM EST Telemedicine [facility] MEDICINE [address] [place], [place] [phone] Mariana Aggarwal, ROMEL documented as of this encounter Visit Diagnoses Not on filedocumented in this encounter Additional Health Concerns Assessment Noted Time PHQ-9 Depression Total Score: 0 04/22/20 22 10:55 AM EST documented as of this encounter Care Teams Software Sales Consultant Relationship Specialty Start Date End Date Stephanie Alex DO 230 [place] [address] PCP - General Family Medicine 06/12/15 Myrna 06/21/24 documented as of this encounter
--- OUTSIDE RECORDS SUMMARY | 2025-01-11 11:37 | XMS_ITS | Encounter Summary ---
Author Organization [employer] Address 75 [facility] 7t [place] [address] Care Team Providers Care Weather Strip Mechanic Name Role Phone Isai Stephanie Primary Care Provider + [phone] Encounter Details Date Type Department Care Team ([facility] st Contact Info) Description 08/24/2023 Orders Only [facility] MEDICINE [address] [place] [address] ProviderMicha MD Social History Tobacco Use Types Packs/Day Years [...] Description 03/05/2025 9:00 AM EDT Office Visit [facility] OPTOMETRY [address] [place] [address] Ricky, [place], OD [address] [place] [address] 04/27/2025 9:00 AM EST Telemedicine [facility] MEDICINE [address] [place], [place] [phone] Mariana Aggarwal RN documented as of this encounter Procedures Procedure Name Priority Date/Time Associated Diagnosis Comments HM COLONOSCOPY Routine 04/24/2020 10:02 AM EST HM COLONOSCOPY Routine 03/26/2016 9:58 AM EST documented in this encounter Results * Hm Colonoscopy (04/24/2020 10:02 AM EST) [...] documented as of this encounter Care Teams Weather Strip Mechanic Relationship Specialty Start Date End Date Stephanie Alex DO 230 [place] [address] PCP - General Family Medicine 06/12/15 Myrna 06/21/24 documented as of this encounter
--- OUTSIDE RECORDS SUMMARY | 2025-01-11 11:37 | XMS_ITS | Encounter Summary ---
Author Organization [facility] Address 75 [facility] 7t [place] [address] Care Team Providers Care Stand Up Comedian Name Role Phone Stephanie Alex DO Primary Care Provider + [phone] Reason for Visit * Reason Onset Date Comments triage 05/21/2022 Encounter Details Date Type Department Care Team ([facility] Contact Info) Description 05/21/2022 Telephone [facility] MEDICINE 230 [place] [address] Stephanie Alex DO [address] [place], [place] [phone] triage Social History Tobacco Use Types Packs/Day [...] now The caller accepted this outcome speaks turkmen documented in this encounter Plan of Treatment Upcoming Encounters Date Type Department Care Team (Late st Contact Info) Description 03/05/2025 9:00 AM EDT Office Visit [facility] OPTOMETRY [address] [place] [address] Ricky, [place], OD 230 [place] [address] 04/27/2025 9:00 AM EST Telemedicine [facility] MEDICINE 230 [place] [address] Mariana Aggarwal RN documented as of this encounter Visit Diagnoses Not on filedocumented in this encounter Additional Health Concerns Assessment Noted Time PHQ-9 Depression Total Score: 0 04/22/20 22 10:55 AM EST documented as of this encounter Care Teams Stand Up Comedian Relationship Specialty Start Date End Date Stephanie Alex DO 230 [place] [address] PCP - General Family Medicine 06/12/15 Myrna 06/21/24 documented as of this encounter
--- OUTSIDE RECORDS SUMMARY | 2025-01-11 11:37 | XMS_ITS | Encounter Summary ---
Author Organization [employer] Address 75 [facility] 7t [place] [address] Care Team Providers Care Recreation Adviser Name Role Phone EddiStephanie zacarias Primary Care Provider + [phone] Reason for Visit * Reason Comments Med Refill Encounter Details Date Type Department Care Team ([facility] Contact Info) Description 09/27/[address] [facility] MEDICINE [address] [place] [address] Bettina Eddy MD 230 [place] [address] Chronic bilateral low back pain, unspecified whether [...] Description 03/05/2025 9:00 AM EDT Office Visit [facility] OPTOMETRY [address] [place] [address] Virginia García, OD 230 [place] [address] 04/27/2025 9:[address] [facility] MEDICINE [address] [place] [address] Mariana Aggarwal, RN documented as of this encounter Visit Diagnoses Diagnosis Chronic bilateral low back pain, unspecified whether sciatica present documented in this encounter Additional Health Concerns Assessment Noted Time PHQ-9 Depression Total Score: 0 09/02/19 9:01 AM EDT documented as of this encounter Care Teams Recreation Adviser Relationship Specialty Start Date End Date Stephanie Aelx DO 230 [place] [address] PCP - General Family Medicine 06/12/15 Myrna 06/21/24 documented as of this encounter
--- OUTSIDE RECORDS SUMMARY | 2025-01-11 11:37 | XMS_ITS | Continuity of Care Document ---
Author Name [employer] [facility] Address [address] [place] [address] Organization Unknown Address [address] [place] [address] Medications No known medications Problems No known problems
--- OUTSIDE RECORDS SUMMARY | 2025-01-11 11:37 | XMS_ITS | Encounter Summary ---
Author Organization [employer] Address 75 [facility] 7t [place] [address] Care Team Providers Care Instructor Ballroom Dancing Name Role Phone Stephanie Alex DO Primary Care Provider + [phone] Reason for Visit * Reason Onset Date Comments Med Refill 07/22/2023 Encounter Details Date Type Department Care Team ([facility] st Contact Info) Description 07/22/2023 Telephone [facility] MEDICINE 230 [place] [address] Stephanie Alex DO 230 [place], [place] [phone] Med Refill Social History Tobacco Use Types [...] 300 MG/2ML injection To be sent to: [facility] [place], [place] - [address] [place] [address] documented in this encounter Plan of Treatment Upcoming Encounters Date Type Department Care Team (Late st Contact Info) Description 03/05/2025 9:00 AM EDT Office Visit [facility] OPTOMETRY [address] [place] [address] Virginia García, OD 230 [place] [address] 04/27/2025 9:00 AM EST Telemedicine [facility] MEDICINE 230 [place] [address] Mariana Aggarwal RN documented as of this encounter Visit Diagnoses Not on filedocumented in this encounter Additional Health Concerns Assessment Noted Time PHQ-9 Depression Total Score: 0 09/02/19 23 9:01 AM EDT documented as of this encounter Care Teams Instructor Ballroom Dancing Relationship Specialty Start Date End Date Stephanie Alex DO [address] [place] [address] PCP - General Family Medicine 06/12/15 Myrna 06/21/24 documented as of this encounter
--- OUTSIDE RECORDS SUMMARY | 2025-01-11 11:37 | XMS_ITS | Encounter Summary ---
Author Organization [employer] Address 75 [facility] 7t [place] [address] Care Team Providers Care Cast Iron Drain Pipe Layer Name Role Phone Stephanie Alex DO Primary Care Provider + [phone] Encounter Details Date Type Department Care Team ([facility] Contact Info) Description 09/29/2022 Orders Only [facility] MEDICINE 230 [place] [address] Stephanie Alex DO [address] [place], [place] [phone] Gynecomastia, male (Primary Dx) Social History Tobacco [...] Department Care Team (Late Contact Info) Description 03/05/2025 9:00 AM EDT Office Visit [facility] OPTOMETRY [address] [place] [address] Virginia García, OD 230 [place] [address] 04/27/2025 9:00 AM EST Telemedicine [facility] MEDICINE 230 [place], [place] [phone] Mariana Aggarwal, ROMEL documented as of this encounter Visit Diagnoses Diagnosis Gynecomastia, male- Primary Hypertrophy of breast documented in this encounter Additional Health Concerns Assessment Noted Time PHQ-9 Depression Total Score: 0 09/02/19 23 9:01 AM EDT documented as of this encounter Care Teams Cast Iron Drain Pipe Layer Relationship Specialty Start Date End Date Stephanie Alex DO 230 [place] [address] PCP - General Family Medicine 06/12/15 Myrna 06/21/24 documented as of this encounter
--- OUTSIDE RECORDS SUMMARY | 2025-01-11 11:37 | XMS_ITS | Encounter Summary ---
Author Organization [employer] Address 75 [facility] 7t [place] [address] Care Team Providers Care Mechanical Systems Design Engineer Name Role Phone Stephanie Alex DO Primary Care Provider + [phone] Reason for Visit * Reason Comments Med Refill Encounter Details Date Type Department Care Team ([facility] Contact Info) Description 01/07/2025 Refill [facility] MEDICINE 230 [place], [place] [phone] Stephanie Alex DO 230 [place], [place] [phone] Asthma, unspecified asthma severity, unspecified whether complicated, unspecified whether persistent Social History Tobacco Use Types Packs/Day Years [...] 03/05/2025 9:00 AM EDT Office Visit [facility] OPTOMETRY [address] [place] [address] Ricky, [place], OD 230 [place] [address] 04/27/2025 9:00 AM EST Telemedicine [facility] MEDICINE [address] [place] [address] Mariana Aggarwal, ROMEL documented as of this encounter Visit Diagnoses Diagnosis Asthma, unspecified asthma severity, unspecified whether complicated, unspecified whether persistent documented in this encounter Additional Health Concerns Assessment Noted Time PHQ-9 Depression Total Score: 0 04/21/20 24 9:57 AM EST documented as of this encounter Care Teams Mechanical Systems Design Engineer Relationship Specialty Start Date End Date Stephanie Alex DO [address] [place] [address] PCP - General Family Medicine 06/12/15 Myrna 06/21/24 documented as of this encounter
== END 2025-01-11 10:37 | disposition home or self-care (01) ==
LOC: HO.HPS 10:19
PROVIDERS: PCP Family Medicine; Visit Provider Internal Medicine Pulmonary Disease
DX: J44.9 Chronic obstructive pulmonary disease, unspecified (principal); Z91.09 Other allergy status, other than to drugs and biological substances; Z87.891 Personal history of nicotine dependence
CPT/HCPCS: 99214; G2211

== ENCOUNTER → 2025-01-11 10:19 | Outpatient (BNVA) | payer OTHER, SELFPAY | PROVIDERS: PCP Family Medicine; Visit Provider Internal Medicine Pulmonary Disease | DX: J44.9 Chronic obstructive pulmonary disease, unspecified (principal); Z91.09 Other allergy status, other than to drugs and biological substances; Z87.891 Personal history of nicotine dependence | CPT/HCPCS: 99212 ==

== ENCOUNTER 2025-01-22 07:42 | Outpatient (REF) | payer OTHER, SELFPAY | END 2025-01-22 07:43 | disposition home or self-care (01) | LOC: HO.LAB 07:42 | PROVIDERS: PCP Family Medicine; Visit Provider Nurse Practitioner Family | DX: N39.43 Post-void dribbling (principal); N41.9 Inflammatory disease of prostate, unspecified; R97.20 Elevated prostate specific antigen [PSA]; R31.29 Other microscopic hematuria | CPT/HCPCS: 81003; 88112; 99202 ==

== ENCOUNTER 2025-01-22 07:42 | Outpatient (AMB) | payer OTHER, SELFPAY ==
--- NOTE | 2025-01-22 07:45 | A.OFFVIS_ITS ---
Intake Visit Reasons: Elevated PSA/Micro hematuria Intake Note: New Patient is present for elevated PSA and Micro Hematuria Urology Rx:none Blood Thinners:none Labs done 10/30/2024 PSA 9.53 Smoker : yes Park Warden Required: No Park Warden Name: Francisco Jordan Chef Concierge: Chef Concierge offered & declined Accompanied by: Self / Same As Patient Allergies lisinopril Allergy (Verified 01/22/25 08:22) Angioedema Medication List - Last Reconciled 01/22/25 by KIANA Hess acetaminophen ER 650 mg PO TID PRN albuterol sulfate 90 mcg/actuation (Ventolin HFA) 2 puffs PO Q4H PRN albuterol sulfate 2.5 mg inhalation QID PRN amlodipine 10 mg PO DAILY atorvastatin 40 mg PO BEDTIME baclofen 10 mg PO TID PRN budesonide 0.5 mg irrigation BID PRN cetirizine (All Day Allergy (cetirizine)) 10 mg PO DAILY PRN cholecalciferol (vitamin D3) 50 mcg PO DAILY dexlansoprazole 60 mg PO DAILY@0600 diclofenac sodium 1% 2 grams topical QID PRN docusate sodium (Stool Softener) 100 mg PO QAM dupilumab (Dupixent) 300 mg subcut Q2W famotidine 40 mg PO BEDTIME ferrous sulfate 325 mg PO BID fluticasone furoate 200 mcg/actuation (Arnuity Ellipta) 1 inh inhalation DAILY fluticasone propionate 50 mcg/actuation 1 spray intranasal DAILY PRN gabapentin 800 mg PO TID hydroxyzine pamoate 25 mg PO Q6H PRN levothyroxine 25 mcg PO DAILY@0600 losartan 100 mg PO DAILY metformin 500 mg PO BIDWM montelukast 10 mg PO BEDTIME multivitamin 1 tab PO DAILY naproxen 500 mg PO BID PRN 10 days naproxen 500 mg PO BID 7 days polyvinyl alcohol 1.4% 1 drp ophthalmic (eye) TID sertraline 25 mg PO DAILY tramadol 50 mg PO Q12H PRN umeclidinium 62.5 mcg/actuation (Incruse Ellipta) 1 inh inhalation DAILY HPI Comments Details: Colton is a 74-year-old Mohawk-speaking male patient of Dr. Piña. He has a past medical history of hyperlipidemia, chronic low-back pain, GERD, polyneuropathy, allergic rhinitis, diabetes, hypertension, hypothyroidism, asthma, and stress-induced cardiomyopathy. He presents to the office today as a new patient for microscopic hematuria and an elevated PSA. During today's appointment patient is extremely vague with urinary symptoms as well as past medical history. He reports previously following up with a urologist in the past however is unsure as to how long ago this was and or what provider he seen. When asked he denies any known family history of prostate cancer. When asked he does report a previous history of nicotine dependence. He reports he quit 7 years ago and when he did smoke cigarettes he smoked for only 2 years. In office urinalysis results reviewed with the patient today 2+ microscopic hematuria. BRENNA was performed and prostate was noted to be boggy otherwise no nodules or masses palpated. We did discussed at length potential causes of microscopic hematuria as well as elevated PSA. In review of patient's chart it appears PSAs are as follows: PSA: 02/05 2.3, 11/08 9.5 We discussed potential for prostatitis given in office BRENNA. When asked he does report urinary dribbling and intermittent episodes of lower urinary tract symptoms however he is vague when discussing these urological concerns. He currently denies urinary urgency, urinary frequency, incontinence, nocturia, hematuria, dysuria, foul smelling urine, changes to urinary stream, flank pain, fever, and or chills. He reports he also followed up with a urologist in the past in [place]. He is happy with his current voiding parameters. Plan Patient was informed and verbally consented to the use of an ambient scribe for clinic note documentation during this visit. 1. Prostatitis The patient was diagnosed with prostatitis based on the soft/boggy texture of the prostate during the digital rectal examination. He will be treated with Bactrim, an antibiotic, to be taken twice daily for two weeks. Follow-up blood work is scheduled four to six weeks after completing the antibiotic course to reassess PSA levels. If PSA levels remain elevated we did discussed further treatment options and risks and benefits of these treatment options Discussion Notes I discussed with the patient the likely diagnosis of prostatitis, explaining that the soft prostate texture suggests an infection. We reviewed the treatment plan involving a two-week course of Bactrim and the importance of follow-up blood work to monitor PSA levels. I emphasized the necessity of attending follow-up appointments to ensure proper management and the potential need for a biopsy and or MRI if PSA levels do not decrease. [facility] Medical History Gynecomastia Hyperlipidemia Chronic low back pain GERD (gastroesophageal reflux disease) Polyneuropathy Allergic rhinitis Diabetes Hypothyroidism Essential hypertension Other and unspecified hyperlipidemia Asthma Stress-induced cardiomyopathy Surgical History History of back surgery History of sinus surgery Hx of esophagogastroduodenoscopy Hx of colonoscopy Family History Father No problems noted. Mother No problems noted. 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 Review of Systems Const All systems reviewed & are unremarkable except as noted in HPI and below Physical Exam Const General: cooperative, healthy appearing, comfortable, no acute distress, well developed, alert and awake Orientation/consciousness: patient oriented x3 Limitations: language barrier HEENT Head: Yes normal to inspection, Yes normocephalic and Yes atraumatic Ears: hearing grossly normal bilaterally Eyes General: appearance normal, both eyes and all related structures Neck Neck: Yes normal visual inspection and Yes trachea midline Chest Chest palpation & inspection: normal inspection of the chest Resp Effort & Inspection: normal respiratory effort and able to speak in complete sentences Cardio Rate: regular rate GI Inspection: Yes normal to inspection General: Yes no CVA tenderness Back/Spine/Pelvis Back: no CVA tenderness Skin General skin exam: no rashes or lesions noted Neuro General: patient oriented x3 Extrem General: Yes normal to inspection Psych Appearance: grossly normal and well kempt Mental Status: mental status grossly normal Speech and movement: Normal speech and movement present and Clear speech present Affect: normal affect Attitude: cooperative Thought process: Normal thought process present Thought content: Normal thought content present Insight: Fair insight present (Psych) Judgement: Fair judgement present (Psych) Assessment & Plan Assessment & Plan (1) Prostatitis: Code(s): N41.9 - Inflammatory disease of prostate, unspecified Category: Medical (2) Elevated PSA: Code(s): R97.20 - Elevated prostate specific antigen [PSA] Category: Medical (3) Microscopic hematuria: Code(s): R31.29 - Other microscopic hematuria Category: Medical (4) Urinary dribbling: Code(s): N39.43 - Post-void dribbling Category: Medical Plan In office urinalysis results reviewed with the patient today; as noted above; will send for urine cytology. Start Bactrim as discussed and prescribed. We did discussed potential causes of microscopic hematuria as well as elevated PSA. Will obtain redraw of PSA 4-6 weeks status post completion of antibiotic therapy. Will obtain retroperitoneal ultrasound for further assessment evaluation. All questions were answered. We did discussed pelvic floor exercises to assist with urinary dribbling. Follow-up in 6-8 weeks with imaging and lab to be completed prior; or sooner with any issues, concerns, and or questions. Orders: Orders PSA,Total (Free>4and<10) 6 Weeks N41.9 - Inflammatory disease of prostate, uns pecified, R97.20 - Elevated prostate specific antigen [PSA] Urine Cytology Today R31.9 - Hematuria, unspecified US retroperitoneal comp Today N39.43 - Post-void dribbling, N41.9 - Inflammatory disease of prostate, unspecified, R31.29 - Other microscopic hematuria, R97.20 - Elevated prostate specific antigen [PSA] Medications: New sulfamethoxazole-trimethoprim 800-160 mg (Bactrim DS) 1 tab PO BID 28 tabs 0RF 14 days Patient Instructions: The patient had an opportunity to ask questions regarding the treatment plan. All questions were answered. Physical exam, labs, and imaging were discussed and reviewed in detail. As well as risks, benefits, and discussion of treatment choices. No major barriers to understanding were identified. The patient expressed understanding and agreement with the above treatment plan. The patient was made aware they should contact our office by phone for worsening of their current condition, the appearance of new symptoms, or with any questions or concerns. Compliance is encouraged with any medications and follow up testing that is ordered. It is a privilege to be allowed the opportunity to participate in? your urological care.? Again, if you have any questions or concerns If you have any questions or concerns please do not hesitate to contact me. The office is [phone]. This note is constructed using voice recognition software. While every effort has been made to ensure accuracy healthcare interpreter errors may have been included. Yours sincerely, YAZMIN Hess Coding Level of Care Code New Pt Level 4 (55176) Diagnoses Prostatitis N41.9 Elevated PSA R97.20 Microscopic hematuria R31.29 Urinary dribbling N39.43
--- OUTSIDE RECORDS SUMMARY | 2025-01-22 07:45 | XMS_ITS | Encounter Summary ---
Author Organization [facility] [facility] Address [address] [place] [address] Care Team Providers Care Geographic Information System Surveyor Name Role Phone Stephanie Alex DO Primary Care Provider + [phone] Encounter Details Date Type Department Care Team (Latest Contact Info) Description 01/23/2022 Abstract [facility] CONVERSIONS Dental, Provider, DDS Social History Tobacco [...] Description 03/05/2025 9:00 AM EDT Office Visit [facility] OPTOMETRY [address] [place] [address] Virginia García, OD [address] [place] [address] 04/27/2025 9:00 AM EST Telemedicine [facility] MEDICINE [address] [place] [address] Mariana Aggarwal RN documented as of this encounter Visit Diagnoses Not on filedocumented in this encounter Care Teams Geographic Information System Surveyor Relationship Specialty Start Date End Date Stephanie Alex DO [address] [place] [address] PCP - General Family Medicine 06/12/15 Myrna 06/21/24 documented as of this encounter
--- OUTSIDE RECORDS SUMMARY | 2025-01-22 07:45 | XMS_ITS | Encounter Summary ---
Author Organization [facility] Address [address] [place] [address] Care Team Providers Care Gold Reclaimer Name Role Phone AsterStephanie anand Primary Care Provider + [phone] Encounter Details Date Type Department Care Team ([facility] Contact Info) Description 05/04/2022 Abstract [facility] MEDICINE [address] [place] [address] Tricia Farmer PharmD [address] [place] [address] Social History Tobacco Use Types Packs/Day Years [...] Upcoming Encounters Date Type Department Care Team ([facility] st Contact Info) Description 03/05/2025 9:00 AM EDT Office Visit [facility] OPTOMETRY [address] [place], [place] [phone] Virginia García, OD [address] [place] [address] 04/27/2025 9:00 AM EST Telemedicine [facility] MEDICINE [address] [place], [place] [phone] Mariana Aggarwal, ROMEL documented as of this encounter Visit Diagnoses Not on filedocumented in this encounter Additional Health Concerns Assessment Noted Time PHQ-9 Depression Total Score: 0 04/22/20 22 10:55 AM EST documented as of this encounter Care Teams Gold Reclaimer Relationship Specialty Start Date End Date Stephanie Alex DO [address] [place] [address] PCP - General Family Medicine 06/12/15 Myrna 06/21/24 documented as of this encounter
--- OUTSIDE RECORDS SUMMARY | 2025-01-22 07:45 | XMS_ITS | Encounter Summary ---
Author Organization [employer] Address [address] [place] [address] Care Team Providers Care Senior Quality Control Technician Name Role Phone EddiStephanie zacarias Primary Care Provider + [phone] Reason for Visit * Reason Comments Med Refill Encounter Details Date Type Department Care Team ([facility] Contact Info) Description 09/27/2022 Refill [facility] MEDICINE [address] [place] [address] Bettina Eddy MD [address] [place] [address] Chronic bilateral low back pain, unspecified whether [...] Description 03/05/2025 9:00 AM EDT Office Visit [facility] OPTOMETRY [address] [place] [address] Virginia García, OD [address] [place] [address] 04/27/2025 9:00 AM EST Telemedicine [facility] MEDICINE [address] [place] [address] Mariana Aggarwal, RN documented as of this encounter Visit Diagnoses Diagnosis Chronic bilateral low back pain, unspecified whether sciatica present documented in this encounter Additional Health Concerns Assessment Noted Time PHQ-9 Depression Total Score: 0 09/02/19 9:01 AM EDT documented as of this encounter Care Teams Senior Quality Control Technician Relationship Specialty Start Date End Date Stephanie Alex DO [address] [place] [address] PCP - General Family Medicine 06/12/15 Myrna 06/21/24 documented as of this encounter
--- OUTSIDE RECORDS SUMMARY | 2025-01-22 07:45 | XMS_ITS | Encounter Summary ---
Author Organization [facility] Address [address] [place] [address] Care Team Providers Care Gas Pit Worker Name Role Phone EddiStephanie zacarias Primary Care Provider + [phone] Reason for Visit * Reason Comments Med Refill Encounter Details Date Type Department Care Team ([facility] Contact Info) Description 06/02/2023 Refill [facility] MEDICINE [address] [place], [place] [phone] Maria De Jesus Mann MD [address] [place], [place] [phone] Moderate persistent asthma, unspecified whether complicated Social [...] Description 03/05/2025 9:00 AM EDT Office Visit [facility] OPTOMETRY [address] [place] [address] Ricky, [place], OD [address] [place] [address] 04/27/2025 9:00 AM EST Telemedicine [facility] MEDICINE [address] [place] [address] Mariana Aggarwal, ROMEL documented as of this encounter Visit Diagnoses Diagnosis Moderate persistent asthma, unspecified whether complicated documented in this encounter Additional Health Concerns Assessment Noted Time PHQ-9 Depression Total Score: 0 09/02/19 23 9:01 AM EDT documented as of this encounter Care Teams Gas Pit Worker Relationship Specialty Start Date End Date Stephanie Alex DO [address] [place] [address] PCP - General Family Medicine 06/12/15 Myrna 06/21/24 documented as of this encounter
--- OUTSIDE RECORDS SUMMARY | 2025-01-22 07:45 | XMS_ITS | Clinical Summary ---
Author Organization [employer] Address [address] [facility] [address] [place] [address] Care Team Providers Care Cushion Assembler Name Role Phone Stephanie Alex DO Primary Care Provider + [phone] Allergies Active Allergy Reactions Criticality Noted Date [...] polyneuropathy, without long-term current use of insulin ([facility]) TEST BLOOD SUGAR EVERY DAY 50 strip 11 06/29/19 23 Active SM Dry Eye Relief 0.2-0.2-1 % solution PLACE 1 DROP IN EACH EYE THREE TIMES DAILY 15 mL 11 08/06/19 23 Active TRUEplus Lancets 33G misc TEST BLOOD SUGAR EVERY DAY 100 each 09/20/19 24 Active Respiratory Therapy Supplies (Nebulizer Mask [...] Active Dupixent 300 MG/2ML solution auto-injector 04/17/20 24 Active famotidine (Pepcid) 40 MG tablet Take 1 tablet (40 mg) by mouth at bedtime. 30 tablet 11 04/21/20 24 2024 Active dexlansoprazole (Dexilant) [address] [...] 24 Active D3 Super Strength 50 MCG (2000 UT) capsuleIndication s:Vitamin D deficiency TAKE 1 CAPSULE BY MOUTH EVERY MORNING 90 capsule 3 05/02/20 24 Active amLODIPine (Norvasc) 10 MG tabletIndications :Essential hypertension TAKE 1 TABLET BY MOUTH EVERYDAY AT NOON 90 tablet 3 05/02/20 24 Active losartan (Cozaar) 100 MG tablet Take 1 tablet (100 mg) by mouth Once per day. 30 tablet 05/08/20 24 2024 Active Multiple Vitamin (Multivitamin) tablet TAKE 1 TABLET BY MOUTH EVERYDAY AT NOON 90 tablet 3 07/25/19 25 Active montelukast (Singulair) 10 MG tablet TAKE 1 TABLET BY MOUTH EVERY EVENING 90 tablet 3 07/25/19 25 Active levothyroxine (Synthroid, Levoxyl) 25 MCG [...] 90 tablet 3 10/19/19 25 2024 Active acetaminophen (Tylenol 8 Hour) 650 MG ER tablet Take 1 tablet (650 mg) by mouth every 8 (eight) hours if needed for mild pain. 60 tablet 3 11/01/19 25 Active naloxone (Narcan) 4 mg/0.1 mL nasal sprayIndications: alf (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 Administer 1 spray (4 mg) into affected nostril(s) if needed for opioid reversal. 2 each 2 11/02/19 25 Active sertraline (Zoloft) 25 MG tabletIndications :Depression, unspecified depression type TAKE 1 TABLET BY MOUTH EVERY MORNING 30 tablet 3 11/21/19 25 Active traMADol (Ultram) 50 MG tabletIndications :Chronic low back pain, unspecified back pain laterality, unspecified whether sciatica present TAKE 1 TABLET BY MOUTH EVERY 8 HOURS NEEDED FOR SEVERE PAIN 84 tablet 12/09/19 25 Active albuterol (2.5 MG/3ML) 0.083% nebulizer solution INHALE 1 AMPULE USING A NEBULIZER BY MOUTH FOUR TIMES DAILY NEEDED 90 mL 1 12/16/19 25 Active polyvinyl alcohol (Liquifilm Tears) 1.4 % ophthalmic solution INSTILL 1 DROP IN EACH EYE THREE TIMES DAILY 15 mL 11 12/16/19 25 Active atorvastatin (Lipitor) 40 MG tabletIndications :Other hyperlipidemia TAKE 1 TABLET BY MOUTH AT BEDTIME 90 tablet 1 12/19/19 25 Active gabapentin (Neurontin) 800 MG tabletIndications :Chronic bilateral low back pain, unspecified whether sciatica present TAKE 1 TABLET BY MOUTH THREE TIMES DAILY IN THE MORNING, EVENING, AND BEDTIME 270 tablet 1 12/19/19 25 Active cetirizine (ZyrTEC) 10 MG tablet TAKE 1 TABLET BY MOUTH EVERYDAY AT NOON 90 tablet 1 12/19/19 25 Active Arnuity Ellipta 200 MCG/ACT inhalerIndication s:Asthma, unspecified asthma severity, unspecified whether complicated, unspecified whether persistent INHALE 1 PUFF BY MOUTH EVERY DAY AT THE SAME TIME RINSE MOUTH AFTER USING 30 each 2 01/10/20 Active Arnuity Ellipta 200 MCG/ACT inhalerIndication s:Asthma, unspecified asthma severity, unspecified whether complicated, unspecified whether persistent INHALE 1 PUFF BY MOUTH EVERY DAY AT THE SAME TIME RINSE MOUTH AFTER USING 30 each 2 10/20/19 25 2024 Discontinued Active Problems Problem Noted Date [...] time in diff also gout,pseudogout ,RA -called [facility] to let them know pt is going ,pt refuse EMT call ,states will tack picker at home and then he will go to hospital ,pt understands will need sinovial tap for diagnosis and r/o infection alf (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 07/15 Pain [...] monitoring -s/p optho eval SEPTEMBER 2021 at [facility], appt next mos -foot exam next visit* Encounters Date Type Department Care Team Description 01/07/2025 Refill [facility] [address] [place] [address] Stephanie Alex DO Asthma, unspecified asthma severity, unspecified whether complicated, unspecified whether persistent 12/25/2024 Orders Only [facility] External Provider, [facility] 12/20/2024 2:20 PM EDT Office Visit [facility] [address] [place] [address] Celina King MD Essential hypertension (Primary Dx); Swelling of right hand 12/20/2024 Travel 12/17/2024 Refill [facility] [address] [place] [address] Stephanie Alex DO Other hyperlipidemia; Chronic bilateral low back pain, unspecified whether sciatica present 12/15/2024 Refill [facility] [address] [place] [address] Stephanie Alex DO 12/15/2024 Refill [facility] [address] [place] [address] Stephanie Alex DO 12/07/2024 Refill [facility] [address] [place] [address] Stephanie Alex DO Chronic low back pain, unspecified back pain laterality, unspecified whether sciatica present 11/17/2024 Refill [facility] [place] [address] Stephanie Alex DO Depression, unspecified depression type 11/03/2024 11:00 AM EDT Telemedicine [facility] [place] [address] Mariana Aggarwal RN lock technician (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 11/03/2024 Telephone [facility] [place] [address] Mariana Aggarwal RN BUSINESS WRITER Renewal completed 11/03/2024 Travel 10/31/2024 10:00 AM EDT Office Visit [facility] [place] [address] Stephanie Alex DO Type 2 diabetes mellitus with diabetic polyneuropathy, without long-term current use of insulin ([facility]) (Primary Dx); Essential hypertension; Other hyperlipidemia; Anxiety; Anemia, unspecified type; Leukopenia, unspecified type; Moderate persistent asthma without complication; Other chronic sinusitis; Acquired hypothyroidism; Chronic gastroesophageal reflux disease; Multiple pulmonary nodules; Chronic bilateral low back pain without sciatica; Unintentional weight loss; Acute pain of both shoulders; Elevated PSA; Microscopic hematuria; Healthcare maintenance 10/31/2024 Refill [facility] [place] [address] Mariana Aggarwal RN Chronic low back pain, unspecified back pain laterality, unspecified whether sciatica present; alf (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 10/31/2024 Travel 10/30/2024 Orders Only [facility] [place] [address] Stephanie Alex DO 10/30/2024 Telephone [facility] [place] [address] Stephanie Alex DO Chart Prep 10/25/2024 Travel 10/25/2024 Telephone [facility] [place] [address] Stephanie Alex DO Appointment Request 10/25/2024 Refill [facility] [address] [place] [address] Stephanie Alex DO Chronic low back pain, unspecified back pain laterality, unspecified whether sciatica present from Last 3 Months Immunizations Immunization Administration [...] Description 03/05/2025 9:00 AM EDT Office Visit [facility] [address] [place] [address] Virginia García, OD [address] [place] [address] 04/27/2025 9:00 AM EST Telemedicine [facility] [address] [facility] [place] [address] Mariana Aggarwal, RN Health Maintenance Due Date Last Done Comments CT Colonography 1952 FIT DNA/Cologuard 1950 FIT 1950 FOBT 1950 Sigmoidoscopy 1952 Diabetes: Foot Exam 1962 Colonoscopy 04/24/2023 04/24/2020, 03/26/2016 Colorectal Cancer Screening 04/24/2023 COVID-19 Vaccine ( season) 2025 03/29/2024, 04/27/2023, 09/01/2022, Additional history exists Influenza [...] polyneuropathy, without long-term current use of insulin ([facility]) POCT GLUCOSE Routine 10/31/2024 10:37 AM EDT Type 2 diabetes mellitus with diabetic polyneuropathy, without long-term current use of insulin ([facility]) HEMOGLOBIN A1C Routine 10/30/2024 10:21 AM EDT [...] polyneuropathy, without long-term current use of insulin ([facility]) Essential hypertension Other hyperlipidemia Anxiety Anemia, unspecified [...] polyneuropathy, without long-term current use of insulin ([facility]) Essential hypertension Other hyperlipidemia Anxiety Anemia, unspecified [...] AM EDT Narrative 12/25/2024 8:52 AM EDT [address] [address] XRay Report Signed Patient: Colton James MR#: [id number] 4 : 1950 Acct:[id number] Age/Sex: 74 / M ADM Date: 12/25/24 Loc: .ED Attending Dr: Ordering Physician: Generic ED Physician Date of Service: 12/25/24 Procedure(s): XR wrist RT min 3V Accession Number(s): [id number] cc: Generic ED Physician; Stephanie Alex DO [...] MD in OV> 12/25/2448 DD/ 5 TD/TT: 12/25/24 0838 Director Group Sales: Procedure Note Donotuseinterpreter, Image - 12/25/2024 [place] [address] XRay Report Signed Patient: Giselle James#: [id number] 4 : 1950cct:[id number] Age/Sex: 74 / MADM Date: 12/25/24 Loc: .ED Attending Dr: Ordering Physician: Generic ED Physician Date of Service: 12/25/24 Procedure(s): XR wrist RT min 3V Accession Number(s): [id number] cc: Generic ED Physician; Stephanie Alex DO [...] signed by Quinn Delgado MD in OV> 12/25/24 0848 DD/ 0736 TD/TT: 12/25/24 0838 Director Group Sales: [facility] External Provider IMG XR PROCEDURES Final Result * POCT HGB A1C (10/31/2024 10:37 AM EDT) Hemoglobin A1C 5.9 4.0 - 6.0 % [employer] Lot # [id number] Lot# Expiration Date ,993 Blood 10/31/2024 10:3 7 AM EDT Stephanie Alex DO POINT OF CARE TEST ENTER/ROBERTA T ORDERABLES Final Result * POCT Glucose (10/31/2024 10:37 AM EDT) Glucose Blood, POC 169 60 - 200 mg/dL [employer] Lot # [id number] Lot# Expiration Date 497 Blood Capillary blood specimen / Unknown 10/31/2024 10:37 AM EDT Stephanie Alex DO POINT OF CARE TEST ENTER/ROBERTA T ORDERABLES Final Result * Vitamin B12 (Cobalamin) and Folate Panel, Serum (10/30/2024 10:21 AM EDT) Vitamin B12 355 200 - 900 pg/mL [facility] Comment:NORMAL 200-900 PG/ML INDETERMINATE 160-199 PG/ML DEFICIENT < 160 PG/ML Folate 11.6 > or = 4.0 ng/mL [facility] Comment:Reference Values:> o r = 4.0 ng/mL< 4.0 ng/mL suggests folate deficiency Methotrexate, aminopterin and folinic acid(leucovorin) are chemotherapeutic agents whose molecularstructures are similar to folate; therefore, the Architectfolate assay cannot be used for patients using these drugs. Blood 10/30/2024 10:2 1 AM EDT 10/30/2024 11:20 AM EDT us Stephanie Alex DO LAB BLOOD ORDERABLES Final R esult [facility] [address] [place] [phone] [phone] * T-SPOT??.TB (10/30/2024 10:21 AM EDT) [facility] T Spot TB Negative Negative [facility] Comment:A negative test resu lt [...] as aquantitative test. TS PANEL A 0 [facility] TS PANEL B 2 [facility] Negative Control Passed [facility] Positive Control Passed [facility] Comment:For additional infor arnoldo, please refer tohttp://education.BIO-NEMS/faq/[email or web address](This link is being provided for informational/educational purposes only.)THIS TEST WAS PERFORMED AT:[id number] [place] [address]DBSZKTVIZAIAH GOYAL MD,PHD 10/30/2024 10:2 1 AM EDT 10/30/2024 11:20 AM EDT us Stephanie Jurcsak DO LAB BLOOD ORDERABLES Final R esult [facility] [address] [place], [place] [phone] * (ABNORMAL) CBC auto differential (10/30/2024 10:21 AM EDT) White Blood Count 4.5(L) 4.8 - 10.8 X10*3/uL [facility] Red Blood Count 4.34(L) 4.60 - 5.80 X10*6/uL [facility] Hemoglobin 13.1(L) 14.0 - 18.0 g/dl [facility] Hematocrit 38.3(L) 42.0 - 52.0 % [facility] Mean Corpuscular Volume 88.2 80.0 - 98.0 fL [facility] Mean Corpuscular Hemoglobin 30.2 27.0 - 33.0 pg [facility] Mean Corpuscular HGB Conc 34.2 31.0 - 36.0 g/dl [facility] Red Cell Distribution Width 14.3 11.0 - 16.0 % [facility] Platelet Count 255 160 - 400 X10*3/uL [facility] Mean Platelet Volume 10.2 9.4 - 12.4 fL [facility] Neutrophils Percent Auto 45.3 45 - 73 % [facility] Imm Gran Pct Auto 0.4 0.0 - 0.4 % [facility] Lymphocytes Percent Auto 29.4 20 - 40 % [facility] Monocytes Percent Auto 9.8 2 - 11 % [facility] Eosinophils Percent Auto 13.8(H) 0 - 4 % [facility] Basophils Percent Auto 1.3 0 - 2 % [facility] NRBC Pct Auto 0.0 0.0 - 0.2 /100WBC [facility] Neutrophils Absolute Auto 2.0 2.0 - 8.3 x10*3/uL [facility] Imm Gran Abs Auto 0.02 0.00 - 0.03 X10*3/uL [facility] Lymphocytes Absolute Auto 1.3 1.2 - 4.9 X10*3/uL [facility] Monocytes Absolute Auto 0.4 0.1 - 1.2 X10*3/uL [facility] Eosinophils Absolute Auto 0.6(H) 0.0 - 0.4 X10*3/uL [facility] Basophils Absolute Auto 0.1 0.0 - 0.2 X10*3/uL [facility] NRBC Abs Auto 0.000 0.0 - 0.012 X10*3/uL [facility] Blood Venous blood specimen / Unknown 10/30/2024 10:21 AM EDT 10/30/2024 11:20 AM EDT Stephanie Alex LAB BLOOD ORDERABLES Final R esult Performing Organization Address [facility]/ZIP Co de Phone Number [facility] [address] [place] [phone] * Iron And Total Iron Binding Capacity (10/30/2024 10:21 AM EDT) Iron 60 45 - 160 mcg/dL [facility] Total Iron Binding Capacity 281 228 - 428 mcg/dL [facility] Percent Iron Saturation 21 15 - 50 % [facility] Unsaturated Iron Binding 221 ug/dL [facility] Blood Venous blood specimen / Unknown 10/30/2024 10:21 AM EDT 10/30/2024 11:20 AM EDT Stephanie Alex LAB BLOOD ORDERABLES Final R esult Performing Organization Address City/[facility]/ZIP Co de Phone Number [facility] [address] [place] [phone] * HIV-1/2 Antigen and Antibodies, Fourth Generation, with Reflexes (10/30/2024 10:21 AM EDT) HIV AB/AG Nonreactive Nonreactive [facility] Comment:HIV-1 p24 Ag and/or HIV-1/HIV-2 Ab not detected.A test result that is nonreactive does not exclude thepossibility of exposure to or infection with HIV-1 and/orHIV-2. Nonreactive results in this assay for individualswith prior exposure to HIV-1 and/or HIV-2 may be due toantigen and antibody levels that are below the limit ofdetection of this assay.The MD2UniReInnervate HIV Ag/Ab Combo assay result andsupplemental assay results should be interpreted inconjunction with the patient's clinical presentation,history and other laboratory results. If the results areinconsistent with clinical evidence, additional testing issuggested to confirm the result. Blood Venous blood specimen / Unknown 10/30/2024 10:21 AM EDT 10/30/2024 11:20 AM EDT us Stephanie Alex DO LAB BLOOD ORDERABLES Final R esult [facility] [address] [place] [phone] * (ABNORMAL) Urinalysis Complete (10/30/2024 10:21 AM EDT) Color Urine Yellow [facility] Appearance Urine Clear [facility] PH 6.5 5.0 - 9.0 [facility] Glucose Urine UA Negative Negative mg/dL [facility] Urine Blood Small (1+)(A) Negative [facility] Specific Dresher - Urine 1.020 1.005 - 1.025 [facility] Urine Protein Trace Neg-Trace mg/dL [facility] Urine Ketones Trace Negative mg/dL [facility] Nitrite Urine Negative Negative [facility] Leukocyte Esterase Urine Negative Negative [facility] RBC Urine 6-10(A) 0 - 2 /HPF [facility] Urine WBC 0-5 0 - 5 /HPF [facility] Urine Squamous Epithelial Cell 0-2 0 - 2 /HPF [facility] Urine Bacteria None Seen None Seen [facility] Hyaline Casts, Urine 0-2 0 - 2 /LPF [facility] Urine (Urine, Random) 10/30/2024 10:21 AM EDT 10/30/2024 11:08 AM EDT us Stephanie Alex DO LAB URINE ORDERABLES Final R esult Performing Organization Address [facility]/ZIP Co de Phone Number [facility] [address] [place] [phone] * Sed Rate by Modified Westergren (10/30/2024 10:21 AM EDT) Erythrocyte Sedimentation Rate 8 0 - 15 MM/HR [facility] Comment:Patients with polycy themia and many hemoglobin abnormalitiesmay have depressed sed rates whereas patients with anemiamay have elevated sed rates. Blood Venous blood specimen / Unknown 10/30/2024 10:21 AM EDT 10/30/2024 11:20 AM EDT us Stephanie Alex DO LAB BLOOD ORDERABLES Final R esult Performing Organization Address [facility] Co de Phone Number [facility] [address] [place] [phone] * C-reactive Protein (10/30/2024 10:21 AM EDT) C Reactive Protein <0.10 < or = 0.50 mg/dL [facility] Blood Venous blood specimen / Unknown 10/30/2024 10:21 AM EDT 10/30/2024 11:20 AM EDT Stephanie Alex DO LAB BLOOD ORDERABLES Final R esult Performing Organization Address [facility] Co de Phone Number [facility] [address] [place] [phone] * TSH (10/30/2024 10:21 AM EDT) Thyroid Stimulating Hormone 0.97 0.32 - 4.0 uIU/mL [facility] Comment:TSH 3rd Generation ( [facility]) Blood Venous blood specimen / Unknown 10/30/2024 10:21 AM EDT 10/30/2024 11:20 AM EDT Stephanie Isai DO LAB BLOOD ORDERABLES Final R esult Performing Organization Address City/[facility]/ZIP Co de Phone Number [facility] [address] [place] [phone] * T4, Free (10/30/2024 10:21 AM EDT) Free T4 (Free Thyroxine) 0.96 0.71 - 1.85 ng/dL [facility] Blood Venous blood specimen / Unknown 10/30/2024 10:21 AM EDT 10/30/2024 11:20 AM EDT Stephanie Isai DO LAB BLOOD ORDERABLES Final R esult Performing Organization Address [facility] Co de Phone Number [facility] [address] [place] [phone] * (ABNORMAL) PSA,Total (10/30/2024 10:21 AM EDT) Prostate Specific Antigen 9.53(H) <0.05 - 4.0 ng/mL [facility] Comment:PSA methodology: Patricio Peace i ChemiluminescentMicroparticle Immunoassay (CMIA) Blood Venous blood specimen / Unknown 10/30/2024 10:21 AM EDT 10/30/2024 11:20 AM EDT Stephanie Rodartekika DO LAB BLOOD ORDERABLES Final R esult Performing Organization Address [facility] Co de Phone Number [facility] [address] [place] [phone] * Prealbumin (10/30/2024 10:21 AM EDT) Prealbumin 25.0 20 - 40 mg/dL [facility] Blood Venous blood specimen / Unknown 10/30/2024 10:21 AM EDT 10/30/2024 11:20 AM EDT Stephanie Isai DO LAB BLOOD ORDERABLES Final R esult [facility] [address] [place] [phone] * Hemoglobin A1c (10/30/2024 10:21 AM EDT) Hemoglobin A1c 6.0 <6.0 % [facility] Comment:Hemoglobin A1C Refer ence Range Adults: 4.8 - 6.0 % Non diabetic: < 6.0 % Goal: < 7.0 %Additional Action Suggested: > 8.0 %Note: Hemoglobin A1c results are invalid for patients with abnormal amounts of HbF. Blood transfusions may impact the HbA1c concentration in the patient sample. Estimated Average Glucose 126 mg/dL [facility] Comment:eAG = Estimated ave rage glucose which is %A1C expressed asaverage glucose, using the formula of the R5X-QdloyrwJaaityn Glucose study (ADAG), Diabetes Care, Vol.31,#8,Dec. 2007 10/30/2024 10:2 1 AM EDT 10/30/2024 11:20 AM EDT us Stephanie Isai DO LAB BLOOD ORDERABLES Final R esult Performing Organization Address City/[facility]/ZIP Co de Phone Number [facility] [address] [place] [phone] * Ferritin (10/30/2024 10:21 AM EDT) Ferritin 42 20 - 250 ng/mL [facility] Blood Venous blood specimen / Unknown 10/30/2024 10:21 AM EDT 10/30/2024 11:20 AM EDT Stephanie Alex DO LAB BLOOD ORDERABLES Final R esult [facility] [address] [place] [phone] * (ABNORMAL) Hepatic Function Panel (10/30/2024 10:21 AM EDT) Bilirubin, Total 0.2 0.0 - 1.0 mg/dL [facility] Bilirubin, Direct <0.2 0.0 - 0.5 mg/dL [facility] Aspartate Amino Transferase 43(H) 5 - 37 U/L [facility] Alanine Aminotransferase 33 0 - 40 U/L [facility] Total Protein 7.1 6.5 - 8.0 g/dL [facility] Albumin Level 4.2 3.5 - 5.0 g/dL [facility] Alkaline Phosphatase 78 39 - 117 U/L [facility] Blood Venous blood specimen / Unknown 10/30/2024 10:21 AM EDT 10/30/2024 11:20 AM EDT us Stephanie Alex DO LAB BLOOD ORDERABLES Final R esult Performing Organization Address City/[facility]/ZIP Co de Phone Number [facility] [address] [place] [phone] * (ABNORMAL) Basic Metabolic Panel (10/30/2024 10:21 AM EDT) Sodium 144 135 - 145 mmol/L [facility] Potassium 3.8 3.3 - 5.1 mmol/L [facility] Chloride 110(H) 96 - 108 mmol/L [facility] Carbon Dioxide 26 22 - 29 mmol/L [facility] Anion Gap 12 12 - 20 [facility] Urea Nitrogen (BUN) 13 9 - 16 mg/dL [facility] Creatinine, Serum 0.68 0.5 - 1.4 mg/dL [facility] Estimated Glomerular Filt Rate >60 [facility] Comment:Chronic Kidney Disea se: Estimated GFR < 60 mL/min/1.74g2Dxjeni Kidney Disease: Estimated GFR < 15 mL/min/1.73m2 Glucose 106 60 - 115 mg/dL [facility] Calcium 9.1 8.4 - 10.2 mg/dL [facility] Blood Venous blood specimen / Unknown 10/30/2024 10:21 AM EDT 10/30/2024 11:20 AM EDT us Stephanie Alex DO LAB BLOOD ORDERABLES Final R esult Performing Organization Address [facility] Co de Phone Number [facility] [address] [place] [phone] * Albumin, Random Urine W/Creatinine (02/22/2024 10:35 AM EDT) Creatinine, Urine 87.37 mg/dL [facility] Microalbumin Urine 7.0 mg/L [facility] Microalbum Creatinine Ratio Ur 8.0 <30 ug/mg cr [facility] Comment:Albumin/Creatinine R atio Reference Ranges: Normal: < 30 ug/mg creatinine Microalbuminuria: 30 - 300 ug/mg creatinineClinical Albuminuria: > 300 ug/mg creatinine Urine (Urine, Random) 02/22/2024 10:35 AM EDT 02/22/2024 11:23 AM EDT us Stephanie Alex DO LAB URINE ORDERABLES Final R esult Performing Organization Address [facility] Co de Phone Number [facility] [address] [place] [phone] * Hepatitis C Antibody with Reflex to HCV, RNA, Quantitative, Real-Time PCR (02/22/2024 10:35 AM EDT) Hepatitis C Antibody Nonreactive Nonreactive [facility] Comment:Antibodies to HCV no t detected; does not exclude early acuteHCV infection. Blood Venous blood specimen / Unknown 02/22/2024 10:35 AM EDT 02/22/2024 11:35 AM EDT Stephnaie Alex DO LAB BLOOD ORDERABLES Final R esult Performing Organization Address [facility] Co de Phone Number [facility] [address] [place] [phone] * Lipid Panel, Standard (02/22/2024 10:35 AM EDT) Triglycerides 87 <150 mg/dL [facility] Comment:Desirable Triglyceri de: less than 150 mg/dLBorderline High Triglyceride 150-199 mg/dLHigh Triglyceride: 200-499 mg/dLVery High Triglyceride: greater than or equal to 5OO mg/dL Cholesterol 147 <200 mg/dL [facility] Comment:Desirable Cholestero l: less than 200 mg/dLBorderline High Cholesterol: 200-239 mg/dLHigh Cholesterol: greater than 239 mg/dL LDL Cholesterol Calculated 73 <100 mg/dL [facility] Comment:Desirable LDL: less than 100 mg/dLNear Optimal/Above Optimal LDL: 110- 129 mg/dLBorderline High LDL: 130-159 mg/dLHigh LDL: 160-189 mg/dLVery High LDL: greater than or equal to 190 mg/dL HDL Cholesterol 57 >40 mg/dL [facility] Comment:Desirable HDL: great er than 40 mg/dL Note: This HDL assay may give artificially low results in patients with liver disease. Blood Venous blood specimen / Unknown 02/22/2024 10:35 AM EDT 02/22/2024 11:35 AM EDT us Stephanie Alex DO LAB BLOOD ORDERABLES Final R esult Performing Organization Address [facility]/ZIP Co de Phone Number [facility] [address] [place] [address] [phone] * Hm Colonoscopy (04/24/2020 10:02 AM EST) us Historical Provider HEALTH MAINTENANCE Final Result from Last 3 Months or Most Recently Relevant to Health Maintenance Insurance [facility] [employer] OPTIONS (HMO D-SNP) [place] [id number] Care Teams Cushion Assembler Relationship Specialty Start Date End Date Stephanie Alex DO [address] [place] [address] PCP - General Family Medicine 06/12/15 Myrna 06/21/24
--- OUTSIDE RECORDS SUMMARY | 2025-01-22 07:45 | XMS_ITS | Encounter Summary ---
Author Organization [employer] Address [address] [facility] [address]t [place] [address] Care Team Providers Care Terminal Carman Name Role Phone Stephanie Alex DO Primary Care Provider + [phone] Reason for Visit * Reason Onset Date Comments Durable Medical Equipment 09/16/2023 Encounter Details Date Type Department Care Team ([facility] st Contact Info) Description 09/16/2023 Telephone [facility] MEDICINE [address] [place] [address] Stephanie Alex DO [address] [place], [place] [phone] Durable Medical Equipment Social History Tobacco Use [...] 9:00 AM EDT Office Visit [facility] OPTOMETRY [address] [place] [address] Ricky, [place], OD [address] [place] [address] 04/27/2025 9:00 AM EST Telemedicine [facility] MED[facility]INE [address] [place] [address] Mariana Aggarwal, ROMEL documented as of this encounter Visit Diagnoses Not on filedocumented in this encounter Additional Health Concerns Assessment Noted Time PHQ-9 Depression Total Score: 3 09/02/19 24 10:32 AM EDT documented as of this encounter Care Teams Terminal Carman Relationship Specialty Start Date End Date Stephanie Alex DO [address] [place] [address] PCP - General Family Medicine 06/12/15 Myrna 06/21/24 documented as of this encounter
--- OUTSIDE RECORDS SUMMARY | 2025-01-22 07:45 | XMS_ITS | Encounter Summary ---
Author Organization [employer] Address [address] [facility] 7t [place] [address] Care Team Providers Care Furnace Liner Name Role Phone Stephanie Alex DO Primary Care Provider + [phone] Reason for Visit * Reason Comments Med Refill Encounter Details Date Type Department Care Team ([facility] Contact Info) Description 05/11/2023 Refill [facility] MEDICINE [address] [place], [place] [phone] Stephanie Alex DO [address] [place], [place] [phone] Other chronic pain Social History Tobacco Use [...] Description 03/05/2025 9:00 AM EDT Office Visit [facility] OPTOMETRY [address] [place] [address] Ricky, [place], OD [address] [place] [address] 04/27/2025 9:00 AM EST Telemedicine [facility] MEDICINE [address] [place] [address] Mariana Aggarwal, ROMEL documented as of this encounter Visit Diagnoses Diagnosis Other chronic pain documented in this encounter Additional Health Concerns Assessment Noted Time PHQ-9 Depression Total Score: 0 09/02/19 23 9:01 AM EDT documented as of this encounter Care Teams Furnace Liner Relationship Specialty Start Date End Date Stephanie Alex DO [address] [place] [address] PCP - General Family Medicine 06/12/15 Myrna 06/21/24 documented as of this encounter
--- OUTSIDE RECORDS SUMMARY | 2025-01-22 07:45 | XMS_ITS | Encounter Summary ---
Author Organization [employer] Address [address] [facility] 7t [place] [address] Care Team Providers Care Landscape Contractor Name Role Phone Stephanie Alex DO Primary Care Provider + [phone] Reason for Visit * Reason Comments Med Refill Encounter Details Date Type Department Care Team ([facility] Contact Info) Description 05/01/2024 Refill [facility] MEDICINE [address] [place], [place] [phone] Stephanie Alex DO [address] [place] [address] Essential hypertension Social History Tobacco Use Types [...] 03/05/2025 9:00 AM EDT Office Visit [facility] OPTOMETRY [address] [place] [address] Ricky, [place], OD [address] [place] [address] 04/27/2025 9:00 AM EST Telemedicine [facility] MEDICINE [address] [place] [address] Mariana Aggarwal, RN documented as of this encounter Visit Diagnoses Diagnosis Essential hypertension Unspecified essential hypertension documented in this encounter Additional Health Concerns Assessment Noted Time PHQ-9 Depression Total Score: 0 04/21/20 24 9:57 AM EST documented as of this encounter Care Teams Landscape Contractor Relationship Specialty Start Date End Date Stephanie Alex DO [address] [place] [address] PCP - General Family Medicine 06/12/15 Myrna 06/21/24 documented as of this encounter
--- OUTSIDE RECORDS SUMMARY | 2025-01-22 07:45 | XMS_ITS | Encounter Summary ---
Author Organization [employer] Address [address] [facility] 7[address] [place] [address] Care Team Providers Care Coin Machine Supervisor Name Role Phone Stephanie Alex DO Primary Care Provider + [phone] Encounter Details Date Type Department Care Team ([facility] Contact Info) Description 09/29/2022 Orders Only [facility] MEDICINE [address] [place] [address] Stephanie Alex DO [address] [place], [place] [phone] Gynecomastia, male (Primary Dx) Social History Tobacco [...] Description 03/05/2025 9:00 AM EDT Office Visit [facility] OPTOMETRY [address] [place] [address] Virginia García, OD [address] [place] [address] 04/27/2025 9:00 AM EST Telemedicine [facility] MEDICINE [address] [place], [place] [phone] Mariana Aggarwal, ROMEL documented as of this encounter Visit Diagnoses Diagnosis Gynecomastia, male- Primary Hypertrophy of breast documented in this encounter Additional Health Concerns Assessment Noted Time PHQ-9 Depression Total Score: 0 09/02/19 23 9:01 AM EDT documented as of this encounter Care Teams Coin Machine Supervisor Relationship Specialty Start Date End Date Stephanie Alex DO [address] [place] [address] PCP - General Family Medicine 06/12/15 Myrna 06/21/24 documented as of this encounter
--- OUTSIDE RECORDS SUMMARY | 2025-01-22 07:45 | XMS_ITS | Encounter Summary ---
Author Organization [employer] [facility] Address [address] [facility] 7t [place] [address] Care Team Providers Care Air Brake Rigger Name Role Phone Stephanie Alex DO Primary Care Provider + [phone] Reason for Visit * Reason Onset Date Comments triage 05/21/2022 Encounter Details Date Type Department Care Team ([facility] Contact Info) Description 05/21/2022 Telephone [facility] MEDICINE [address] [place] [address] Stephanie Alex DO [address] [place], [place] [phone] triage Social History Tobacco Use Types Packs/Day [...] now The caller accepted this outcome speaks indonesian documented in this encounter Plan of Treatment Upcoming Encounters Date Type Department Care Team (Late st Contact Info) Description 03/05/2025 9:00 AM EDT Office Visit [facility] OPTOMETRY [address] [place] [address] Ricky, [place], OD [address] [place] [address] 04/27/2025 9:00 AM EST Telemedicine [facility] MEDICINE [address] [place] [address] Marinaa Aggarwal RN documented as of this encounter Visit Diagnoses Not on filedocumented in this encounter Additional Health Concerns Assessment Noted Time PHQ-9 Depression Total Score: 0 04/22/20 22 10:55 AM EST documented as of this encounter Care Teams Air Brake Rigger Relationship Specialty Start Date End Date Stephanie Alex DO [address] [place] [address] PCP - General Family Medicine 06/12/15 Myrna 06/21/24 documented as of this encounter
--- OUTSIDE RECORDS SUMMARY | 2025-01-22 07:45 | XMS_ITS | Encounter Summary ---
Author Organization [employer] [facility] Address [address] [facility] [address] [address] Care Team Providers Care Cue Worker Name Role Phone Stephanie Alex DO Primary Care Provider + [phone] Reason for Visit * Reason Comments Med Refill Encounter Details Date Type Department Care Team (Late st Contact Info) Description 02/16/2023 Refill [facility] MEDICINE [address] [place] [address] Stephanie Alex DO [address] [place] [address] Depression, unspecified depression type Social History Tobacco [...] 9:00 AM EDT Office Visit [facility] OPTOMETRY [address] [place] [address] Virginia García, OD [address] [place] [address] 04/27/2025 9:00 AM EST Telemedicine [facility] MEDICINE [address] [place], [place] [phone] Mariana Aggarwal, ROMEL documented as of this encounter Visit Diagnoses Diagnosis Depression, unspecified depression type documented in this encounter Additional Health Concerns Assessment Noted Time PHQ-9 Depression Total Score: 0 09/02/19 23 9:01 AM EDT documented as of this encounter Care Teams Cue Worker Relationship Specialty Start Date End Date Stephanie Alex DO [address] [place] [address] PCP - General Family Medicine 06/12/15 Myrna 06/21/24 documented as of this encounter
--- OUTSIDE RECORDS SUMMARY | 2025-01-22 07:45 | XMS_ITS | Encounter Summary ---
Author Organization [employer] Address [address] [facility] [address] [place] [address] Care Team Providers Care Director Of Counterintelligence Name Role Phone Isai Stephanie Primary Care Provider + [phone] Encounter Details Date Type Department Care Team ([facility] st Contact Info) Description 08/24/2023 Orders Only [facility] MEDICINE [address] [place] [address] ProviderMicha MD Social History Tobacco Use Types [...] Description 03/05/2025 9:00 AM EDT Office Visit [facility] OPTOMETRY [address] [place] [address] Ricky, [place], OD [address] [place] [address] 04/27/2025 9:00 AM EST Telemedicine [facility] MEDICINE [address] [place], [place] [phone] Mariana Aggarwal RN documented as of this [...] documented as of this encounter Care Teams Director Of Counterintelligence Relationship Specialty Start Date End Date Stephanie Alex DO [address] [place] [address] PCP - General Family Medicine 06/12/15 Myrna 06/21/24 documented as of this encounter
--- OUTSIDE RECORDS SUMMARY | 2025-01-22 07:45 | XMS_ITS | Encounter Summary ---
Author Organization [employer] Address [address] [facility] [address]t [place] [address] Care Team Providers Care Gas Scrubber Operator Name Role Phone Stephanie Alex DO Primary Care Provider + [phone] Reason for Visit * Reason Onset Date Comments Med Refill 07/22/2023 Encounter Details Date Type Department Care Team ([facility] st Contact Info) Description 07/22/2023 Telephone [facility] MEDICINE [address] [place] [address] Stephanie Alex DO [address] [place], [place] [phone] Med Refill Social History Tobacco Use Types [...] 300 MG/2ML injection To be sent to: [facility] - [place], [place] - [address] [place] [address] documented in this encounter Plan of Treatment Upcoming Encounters Date Type Department Care Team (Late st Contact Info) Description 03/05/2025 9:00 AM EDT Office Visit [facility] OPTOMETRY [address] [place] [address] Virginia García, OD [address] [place] [address] 04/27/2025 9:00 AM EST Telemedicine [facility] MEDICINE [address] [place] [address] Mariana Aggarwal RN documented as of this encounter Visit Diagnoses Not on filedocumented in this encounter Additional Health Concerns Assessment Noted Time PHQ-9 Depression Total Score: 0 09/02/19 23 9:01 AM EDT documented as of this encounter Care Teams Gas Scrubber Operator Relationship Specialty Start Date End Date Stephanie Alex DO [address] [place] [address] PCP - General Family Medicine 06/12/15 Myrna 06/21/24 documented as of this encounter
--- OUTSIDE RECORDS SUMMARY | 2025-01-22 07:45 | XMS_ITS | Encounter Summary ---
Author Organization [employer] [facility] Address [address] [facility] [address]t [place] [address] Care Team Providers Care Bologna Lacer Name Role Phone Stephanie Alex DO Primary Care Provider + [phone] Reason for Visit * Reason Comments Med Refill Encounter Details Date Type Department Care Team (Late Contact Info) Description 12/27/2022 Refill [facility] MEDICINE [address] [place] [address] Stephanie Alex DO [address] [place] [address] Acquired hypothyroidism; Anemia, unspecified type; Chronic bilateral [...] Upcoming Encounters Date Type Department Care Team ([facility] Contact Info) Description 03/05/2025 9:00 AM EDT Office Visit [facility] OPTOMETRY [address] [place] [address] Ricky, [place], OD [address] [place] [address] 04/27/2025 9:00 AM EST Telemedicine [facility] MEDICINE [address] [place] [address] Mariana Aggarwal RN documented as of this encounter Visit Diagnoses Diagnosis Acquired hypothyroidism Unspecified hypothyroidism Anemia, unspecified type Chronic bilateral low back pain, unspecified whether sciatica present documented in this encounter Additional Health Concerns Assessment Noted Time PHQ-9 Depression Total Score: 0 09/02/19 23 9:01 AM EDT documented as of this encounter Care Teams Bologna Lacer Relationship Specialty Start Date End Date Stephanie Alex DO [address] [place] [address] PCP - General Family Medicine 06/12/15 Myrna 06/21/24 documented as of this encounter
== END 2025-01-22 08:23 | disposition home or self-care (01) ==
LOC: HO.HUSH 07:42
PROVIDERS: PCP Family Medicine; Visit Provider Nurse Practitioner Family
DX: N41.9 Inflammatory disease of prostate, unspecified (principal); R97.20 Elevated prostate specific antigen [PSA]; R31.29 Other microscopic hematuria; N39.43 Post-void dribbling; Z13.9 Encounter for screening, unspecified
CPT/HCPCS: 99204

== ENCOUNTER 2025-01-30 08:19 | Outpatient (REF) | payer OTHER, SELFPAY ==
--- NOTE | ~2025-01-30 | XR_ITS ---
EXAMINATION: XR WRIST, RIGHT CLINICAL INFORMATION: M79.641 - Pain in right hand COMPARISON: December 25, 2024 TECHNIQUE: PA, lateral, and oblique views of the right wrist. Scaphoid view FINDINGS: No acute cortical disruption. No gross malalignment. No lytic or blastic lesions. Scaphoid is normal. 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 Vascular calcifications, radial artery. Probable old traumatic deformity, fifth metacarpal. No subcutaneous emphysema. XR/XR wrist RT w scaphoid IMPRESSION: Concerning CPPD in the correct clinical settings. Atherosclerosis disease, peripheral. Electronically signed by: Fernando Xavier MD 01/30/2025 09:23 AM EDT
--- OUTSIDE RECORDS SUMMARY | 2025-01-30 09:42 | XMS_ITS | Encounter Summary ---
Author Organization [employer] Address [address] [facility] [address]t [place] [address] Care Team Providers Care Bakery Team Member Name Role Phone Stephanie Alex DO Primary Care Provider + [phone] Reason for Visit * Reason Onset Date Comments Durable Medical Equipment 09/16/2023 Encounter Details Date Type Department Care Team ([facility] st Contact Info) Description 09/16/2023 Telephone [facility] MEDICINE [address] [place] [address] Stephanie Alex DO [address] [place], [place] [phone] Durable Medical Equipment Social History Tobacco Use [...] Description 03/05/2025 9:00 AM EDT Office Visit [facility] OPTOMETRY [address] [place] [address] Ricky, [place], OD [address] [place] [address] 04/27/2025 9:00 AM EST Telemedicine [facility] MEDICINE [address] [place] [address] Mariana Aggarwal, ROMEL documented as of this encounter Visit Diagnoses Not on filedocumented in this encounter Additional Health Concerns Assessment Noted Time PHQ-9 Depression Total Score: 3 09/02/19 24 10:32 AM EDT documented as of this encounter Care Teams Bakery Team Member Relationship Specialty Start Date End Date Stephanie Alex DO [address] [place] [address] PCP - General Family Medicine 06/12/15 Myrna 06/21/24 documented as of this encounter
--- OUTSIDE RECORDS SUMMARY | 2025-01-30 09:42 | XMS_ITS | Clinical Summary ---
Author Organization [employer] Address [address] [facility] [address] [place] [address] Care Team Providers Care Equipment Mechanic Specialist Name Role Phone Stephanie Alex DO Primary Care Provider + [phone] Allergies Active Allergy Reactions Criticality Noted Date [...] polyneuropathy, without long-term current use of insulin ([facility]) TEST BLOOD SUGAR EVERY DAY [...] naloxone (Narcan) 4 mg/0.1 mL nasal sprayIndications: nursing home (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 Administer 1 [...] time in diff also gout,pseudogout ,RA -called [facility] to let them know pt is going ,pt refuse EMT call ,states will supervisor opening and picking at home and then he will go to hospital ,pt understands will need sinovial tap for diagnosis and r/o infection 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 (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 07/15 Pain [...] monitoring -s/p optho eval SEPTEMBER 2021 at [facility], appt next mos -foot exam next visit* Encounters Date Type Department Care Team Description 01/22/2025 Orders Only GENERIC EXTERNAL DATA DEPARTMENT Provider, Generic External Data 01/07/2025 Refill [facility] [address] [place] [address] Stephanie Alex DO Asthma, unspecified asthma severity, unspecified whether complicated, unspecified whether persistent 12/25/2024 Orders Only [facility] External Provider, [facility] 12/20/2024 2:20 PM EDT Office Visit [facility] [address] [place] [address] Celina King MD Essential hypertension (Primary Dx); Swelling of right hand 12/20/2024 Travel 12/17/2024 Refill [facility] [address] [place] [address] Stephanie Alex DO Other hyperlipidemia; Chronic bilateral low back pain, unspecified whether sciatica present 12/15/2024 Refill [facility] [address] [place] [address] Stephanie Alex DO 12/15/2024 Refill [facility] [address] [place] [address] Stephanie Alex DO 12/07/2024 Refill [facility] [place] [address] Stephanie Alex DO Chronic low back pain, unspecified back pain laterality, unspecified whether sciatica present 11/17/2024 Refill [facility] [place] [address] Stephanie Alex DO Depression, unspecified depression type 11/03/2024 11:00 AM EDT Telemedicine [facility] [place] [address] Mariana Aggarwal RN 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 (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 11/03/2024 Telephone [facility] [place] [address] Mariana Aggarwal RN KEEL [employer]ESS OPERATOR Renewal completed 11/03/2024 Travel 10/31/2024 10:00 AM EDT Office Visit [facility] [place] [address] Stephanie Alex DO Type 2 diabetes mellitus with diabetic polyneuropathy, without long-term current use of insulin ([facility]) (Primary Dx); Essential hypertension; Other hyperlipidemia; Anxiety; Anemia, unspecified type; Leukopenia, unspecified type; Moderate persistent asthma without complication; Other chronic sinusitis; Acquired hypothyroidism; Chronic gastroesophageal reflux disease; Multiple pulmonary nodules; Chronic bilateral low back pain without sciatica; Unintentional weight loss; Acute pain of both shoulders; Elevated PSA; Microscopic hematuria; Healthcare maintenance 10/31/2024 Refill [facility] [place] [address] Mariana Aggarwal RN Chronic low back pain, unspecified back pain laterality, unspecified whether sciatica present; 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 (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 10/31/2024 Travel 10/30/2024 Orders Only [facility] Cristian [facility] [place] [address] Stephanie Alex DO 10/30/2024 Telephone [facility] [place] [address] Stephanie Alex DO Chart Prep from Last 3 Months Immunizations Immunization Administration [...] 03/05/2025 9:00 AM EDT Office Visit [facility] [address] [place] [address] Virginia García, OD [address] [place] [address] 04/27/2025 9:00 AM EST Telemedicine [facility] [address] [place] [address] Mariana House, RN Health Maintenance Due Date Last Done [...] Procedure Name Priority Date/Time Associated Diagnosis Comments CYTOPATH-CELL ENHANCED Routine 01/22/2025 5:29 PM EDT XR WRIST 3+ VIEWS RIGHT Routine 12/25/2024 7:36 AM EDT POCT GLYCATED HEMOGLOBIN, TOTAL Routine 10/31/2024 10:37 AM EDT Type 2 diabetes mellitus with diabetic polyneuropathy, without long-term current use of insulin ([facility]) POCT GLUCOSE Routine 10/31/2024 10:37 AM EDT Type 2 diabetes mellitus with diabetic polyneuropathy, without long-term current use of insulin ([facility]) HEMOGLOBIN A1C Routine 10/30/2024 10:21 [...] polyneuropathy, without long-term current use of insulin ([facility]) Essential hypertension Other hyperlipidemia Anxiety [...] polyneuropathy, without long-term current use of insulin ([facility]) Essential hypertension Other hyperlipidemia Anxiety [...] Recently Relevant to Health Maintenance Results * Cytopath-cell enhanced (01/22/2025 5:29 PM EDT) 01/22/2025 5:29 PM EDT 01/23/2025 7:49 AM EDT [facility] - 01/24/2025 9:44 AM EDT ----- ------- Name: Colton James Age/Sex: 74/M : 1950 Unit#: [id number] Attend Dr: Dinorah Eisenberg [facility]- Re01/22/25 Status: DEP REF Location: .LAB Disch: ----- ------- SPEC : [id number] RECD: 01/23/25 STATUS: WU ASHLEY NUM: [id number] DL: 01/22/25 [facility] DR: Dinorah Eisenberg [facility] ENTERED: 01/23/25 SP TYPE: Cytology OT DR: Stephanie Alex DO ORDERED: Cyto-enhanced Diagnosis Urine, cytology: Negative for high-grade urothelial carcinoma. COMMENT: Review of the cytology preparation demonstrates moderately cellular specimen composed of benign squames and urothelial cells. Red blood cells are noted. There is no significant atypia seen. Clinical History Hematuria, unspecified Material Received Urine Gross Description Received is 30 cc of clear yellow fluid from which a ThinPrep slide is prepared. IHC S/NG Disclaimer NOTE: Unless otherwise stated, all tissue is formalin-fixed and paraffin-embedded. Some or all of the immunohistochemical tests reported herein may have been developed and their performance characteristics determined by [facility]. They have not been cleared or approved by the U.S. Food and Drug Administration (FDA). However, the FDA has determined that such clearance or approval is not necessary. This laboratory is certified under the Clinical Laboratory Improvement Amendments of 1988 (CLIA) as qualified to perform high complexity clinical laboratory testing. Copies To: Stephanie Alex DO [address] [id number] Dinorah Eisenberg [facility] [address] [place] [address] Dr. Matos [address] [place] [address] [email or web address] CONTINUED ON NEXT PAGE ----- ------- Name: Colton James Age/Sex: 74/M : 1950 Unit#: [id number] Attend Dr: Dinorah Eisenberg [facility] Re01/22/25 Status: DEP REF Location: [facility] Disch: ----- ------- SPEC : [id number] RECD: 01/23/25 STATUS: WU ASHLEY NUM: [id number] DL: 01/22/[address] [facility] [address]: Dinorah Eisenberg [facility] ENTERED: 01/23/25 SP TYPE: Cytology OTHR DR: Stephanie Alex DO ORDERED: Cyto-enhanced ----- ------- Signed (signature on file) Niharika Sharif MD 01/24/25 0944 ----- ------- END OF REPORT us Generic External Data Provider LAB CYTOLOGY MIREILLE ALVARENGA Final Result [facility] [address] [place] [phone] * XR Wrist 3+ Views Right (12/25/2024 7:36 AM EDT) Anatomical Region Laterality Modality Upper Extremities, Wrist Right Radiogr aphic Imaging 12/25/2024 7:36 AM EDT Narrative 12/25/2024 8:52 AM EDT [address] [address] XRay Report Signed Patient: Colton James MR#: [id number] 4 : 1950 Acct:[id number] Age/Sex: 74 / M ADM Date: 12/25/24 Loc: HO.ED Attending Dr: Ordering Physician: Generic ED Physician Date of Service: 12/25/24 Procedure(s): XR wrist RT min 3V Accession Number(s): [id number] cc: Generic ED Physician; Stephanie Alex DO [...] 12/25/24 0848 DD/ 0736 TD/TT: 12/25/24 0838 Molder Vacuum: Procedure Note Donotuseinterpreter, Image - 12/25/[address] [address] XRay Report Signed Patient: Colton JamesMR#: [id number] 4 : 1950cct:[id number] Age/Sex: 74 / MADM Date: 12/25/24 Loc: .ED Attending Dr: Ordering Physician: Generic ED Physician Date of Service: 12/25/24 Procedure(s): XR wrist RT min 3V Accession Number(s): [id number] cc: Generic ED Physician; Stephanie Alex DO [...] Quinn Delgado MD 12/25/2024 08:48 AM EDT Dictated By: Quinn Delgado MD Signed By: <Electronically signed by Quinn Delgado MD in OV> 12/25/24 0848 DD/ 0736 TD/TT: 12/25/24 0838 Molder Vacuum: [facility] External Provider IMG XR PROCEDURES Final Result * POCT HGB A1C (10/31/2024 10:37 AM EDT) Hemoglobin A1C 5.9 4.0 - 6.0 % QC Media Lot # [id number] Lot# Expiration Date ,693 Blood 10/31/2024 10:3 7 AM EDT Stephanie Alex DO POINT OF CARE TEST ENTER/ROBERTA T ORDERABLES Final Result * POCT Glucose (10/31/2024 10:37 AM EDT) Glucose Blood, POC 169 60 - 200 mg/dL QC Media Lot # [id number] Lot# Expiration Date 422,915 Blood Capillary blood specimen / Unknown 10/31/2024 10:37 AM EDT Stephanie Alex DO POINT OF CARE TEST ENTER/ROBERTA T ORDERABLES Final Result * Vitamin B12 (Cobalamin) and Folate Panel, Serum (10/30/2024 10:21 AM EDT) Pathologist [facility] Vitamin B12 355 200 - 900 pg/mL [facility] Comment:NORMAL 200-900 PG/ML INDETERMINATE 160-199 PG/ML DEFICIENT < 160 PG/ML Folate 11.6 > or = 4.0 ng/mL [facility] Comment:Reference Values:> o r = 4.0 ng/mL< 4.0 ng/mL suggests folate deficiency Methotrexate, aminopterin and folinic acid(leucovorin) are chemotherapeutic agents whose molecularstructures are similar to folate; therefore, the Architectfolate assay cannot be used for patients using these drugs. Blood 10/30/2024 10:2 1 AM EDT 10/30/2024 11:20 AM EDT Stephanie Alex DO LAB BLOOD ORDERABLES Final R esult [facility] [address] [place] [phone] * T-SPOT??.TB (10/30/2024 10:21 AM EDT) Pathologist [facility] T Spot TB Negative Negative [facility] Comment:A negative test resu lt [...] as aquantitative test. TS PANEL A 0 [facility] TS PANEL B 2 [facility] Negative Control Passed [facility] Positive Control Passed [facility] Comment:For additional infor mation, please refer [email or web address]/faq/FLE841(This link is being provided for informational/educational purposes only.)THIS TEST WAS PERFORMED AT:[email or web address] [place] [email or web address] GOYAL MD,PHD 10/30/2024 10:2 1 AM EDT 10/30/2024 11:20 AM EDT us Stephanie Alex DO LAB BLOOD ORDERABLES Final R esult [facility] [address] [place] [phone] * (ABNORMAL) CBC auto differential (10/30/2024 10:21 AM EDT) White Blood Count 4.5(L) 4.8 - 10.8 X10*3/uL [facility] Red Blood Count 4.34(L) 4.60 - 5.80 X10*6/uL [facility] Hemoglobin 13.1(L) 14.0 - 18.0 g/dl [facility] Hematocrit 38.3(L) 42.0 - 52.0 % [facility] Mean Corpuscular Volume 88.2 80.0 - 98.0 fL [facility] Mean Corpuscular Hemoglobin 30.2 27.0 - 33.0 pg [facility] Mean Corpuscular HGB Conc 34.2 31.0 - 36.0 g/dl [facility] Red Cell Distribution Width 14.3 11.0 - 16.0 % [facility] Platelet Count 255 160 - 400 X10*3/uL [facility] Mean Platelet Volume 10.2 9.4 - 12.4 fL [facility] Neutrophils Percent Auto 45.3 45 - 73 % [facility] Imm Gran Pct Auto 0.4 0.0 - 0.4 % [facility] Lymphocytes Percent Auto 29.4 20 - 40 % [facility] Monocytes Percent Auto 9.8 2 - 11 % [facility] Eosinophils Percent Auto 13.8(H) 0 - 4 % [facility] Basophils Percent Auto 1.3 0 - 2 % [facility] NRBC Pct Auto 0.0 0.0 - 0.2 /100WBC [facility] Neutrophils Absolute Auto 2.0 2.0 - 8.3 x10*3/uL [facility] Imm Gran Abs Auto 0.02 0.00 - 0.03 X10*3/uL [facility] Lymphocytes Absolute Auto 1.3 1.2 - 4.9 X10*3/uL [facility] Monocytes Absolute Auto 0.4 0.1 - 1.2 X10*3/uL [facility] Eosinophils Absolute Auto 0.6(H) 0.0 - 0.4 X10*3/uL [facility] Basophils Absolute Auto 0.1 0.0 - 0.2 X10*3/uL [facility] NRBC Abs Auto 0.000 0.0 - 0.012 X10*3/uL [facility] Blood Venous blood specimen / Unknown 10/30/2024 10:21 AM EDT 10/30/2024 11:20 AM EDT us Stephanie Alex DO LAB BLOOD ORDERABLES Final R esult [facility] [address] [place] [phone] * Iron And Total Iron Binding Capacity (10/30/2024 10:21 AM EDT) Iron 60 45 - 160 mcg/dL [facility] Total Iron Binding Capacity 281 228 - 428 mcg/dL [facility] Percent Iron Saturation 21 15 - 50 % [facility] Unsaturated Iron Binding 221 ug/dL [facility] Blood Venous blood specimen / Unknown 10/30/2024 10:21 AM EDT 10/30/2024 11:20 AM EDT Stephanie Alex DO LAB BLOOD ORDERABLES Final R esult Performing Organization Address [facility] Co de Phone Number [facility] [address] [place] [phone] * HIV-1/2 Antigen and Antibodies, Fourth Generation, with Reflexes (10/30/2024 10:21 AM EDT) HIV AB/AG Nonreactive Nonreactive [facility] Comment:HIV-1 p24 Ag and/or HIV-1/HIV-2 Ab not detected.A test result that is nonreactive does not exclude thepossibility of exposure to or infection with HIV-1 and/orHIV-2. Nonreactive results in this assay for individualswith prior exposure to HIV-1 and/or HIV-2 may be due toantigen and antibody levels that are below the limit ofdetection of this assay.The [employer] HIV Ag/Ab Combo assay result andsupplemental assay results should be interpreted inconjunction with the patient's clinical presentation,history and other laboratory results. If the results areinconsistent with clinical evidence, additional testing issuggested to confirm the result. Blood Venous blood specimen / Unknown 10/30/2024 10:21 AM EDT 10/30/2024 11:20 AM EDT us Stephanie Alex DO LAB BLOOD ORDERABLES Final R esult Performing Organization Address City/[facility]/ZIP Co de Phone Number [facility] [address] [place] [address] [phone] * (ABNORMAL) Urinalysis Complete (10/30/2024 10:21 AM EDT) Color Urine Yellow [facility] Appearance Urine Clear [facility] PH 6.5 5.0 - 9.0 [facility] Glucose Urine UA Negative Negative mg/dL [facility] Urine Blood Small (1+)(A) Negative [facility] Specific [place] - Urine 1.020 1.005 - 1.025 [facility] Urine Protein Trace Neg-Trace mg/dL [facility] Urine Ketones Trace Negative mg/dL [facility] Nitrite Urine Negative Negative [facility] Leukocyte Esterase Urine Negative Negative [facility] RBC Urine 6-10(A) 0 - 2 /HPF [facility] Urine WBC 0-5 0 - 5 /HPF [facility] Urine Squamous Epithelial Cell 0-2 0 - 2 /HPF [facility] Urine Bacteria None Seen None Seen [facility] Hyaline Casts, Urine 0-2 0 - 2 /LPF [facility] Urine (Urine, Random) 10/30/2024 10:21 AM EDT 10/30/2024 11:08 AM EDT us Stephanie Alex DO LAB URINE ORDERABLES Final R esult [facility] [address] [place] [phone] * Sed Rate by Modified Laura (10/30/2024 10:21 AM EDT) Erythrocyte Sedimentation Rate 8 0 - 15 MM/HR [facility] Comment:Patients with polycy themia and many hemoglobin abnormalitiesmay have depressed sed rates whereas patients with anemiamay have elevated sed rates. Blood Venous blood specimen / Unknown 10/30/2024 10:21 AM EDT 10/30/2024 11:20 AM EDT Stephanie Alex DO LAB BLOOD ORDERABLES Final R esult Performing Organization Address [facility]/ZIP Co de Phone Number [facility] [address] [place] [phone] * C-reactive Protein (10/30/2024 10:21 AM EDT) C Reactive Protein <0.10 < or = 0.50 mg/dL [facility] Blood Venous blood specimen / Unknown 10/30/2024 10:21 AM EDT 10/30/2024 11:20 AM EDT Stephanie Alex DO LAB BLOOD ORDERABLES Final R esult Performing Organization Address [facility] Co de Phone Number [facility] [address] [place] [phone] * TSH (10/30/2024 10:21 AM EDT) Thyroid Stimulating Hormone 0.97 0.32 - 4.0 uIU/mL [facility] Comment:TSH 3rd Generation ( [employer]) Blood Venous blood specimen / Unknown 10/30/2024 10:21 AM EDT 10/30/2024 11:20 AM EDT Stephanie Alex DO LAB BLOOD ORDERABLES Final R esult Performing Organization Address [facility] Co de Phone Number [facility] [address] [place] [phone] * T4, Free (10/30/2024 10:21 AM EDT) Free T4 (Free Thyroxine) 0.96 0.71 - 1.85 ng/dL [facility] Blood Venous blood specimen / Unknown 10/30/2024 10:21 AM EDT 10/30/2024 11:20 AM EDT Stephanie Alex DO LAB BLOOD ORDERABLES Final R esult Performing Organization Address [facility] Co de Phone Number [facility] [address] [place] [phone] * (ABNORMAL) PSA,Total (10/30/2024 10:21 AM EDT) Prostate Specific Antigen 9.53(H) <0.05 - 4.0 ng/mL [facility] Comment:PSA methodology: Patricio turner Alikat i ChemiluminescentMicroparticle Immunoassay (CMIA) Blood Venous blood specimen / Unknown 10/30/2024 10:21 AM EDT 10/30/2024 11:20 AM EDT Stephanie Alex LAB BLOOD ORDERABLES Final R esult Performing Organization Address [facility] Co de Phone Number [facility] [address] [place] [phone] * Prealbumin (10/30/2024 10:21 AM EDT) Prealbumin 25.0 20 - 40 mg/dL [facility] Blood Venous blood specimen / Unknown 10/30/2024 10:21 AM EDT 10/30/2024 11:20 AM EDT Stephanie Alex DO LAB BLOOD ORDERABLES Final R esult Performing Organization Address [facility] Co de Phone Number [facility] [address] [place] [phone] * Hemoglobin A1c (10/30/2024 10:21 AM EDT) Hemoglobin A1c 6.0 <6.0 % [facility] Comment:Hemoglobin A1C Refer ence Range Adults: 4.8 - 6.0 % Non diabetic: < 6.0 % Goal: < 7.0 %Additional Action Suggested: > 8.0 %Note: Hemoglobin A1c results are invalid for patients with abnormal amounts of HbF. Blood transfusions may impact the HbA1c concentration in the patient sample. Estimated Average Glucose 126 mg/dL [facility] Comment:eAG = Estimated ave rage glucose which is %A1C expressed asaverage glucose, using the formula of the S2G-FeivryyHhtrevk Glucose study (ADAG), Diabetes Care, Vol.31,#8,2007 10/30/2024 10:2 1 AM EDT 10/30/2024 11:20 AM EDT Stephanie Alex DO LAB BLOOD ORDERABLES Final R esult Performing Organization Address City/[facility]/ZIP Co de Phone Number [facility] [address] [place] [phone] * Ferritin (10/30/2024 10:21 AM EDT) Ferritin 42 20 - 250 ng/mL [facility] Blood Venous blood specimen / Unknown 10/30/2024 10:21 AM EDT 10/30/2024 11:20 AM EDT Stephanie Alex DO LAB BLOOD ORDERABLES Final R esult Performing Organization Address [facility] Co de Phone Number [facility] [address] [place] [phone] * (ABNORMAL) Hepatic Function Panel (10/30/2024 10:21 AM EDT) Bilirubin, Total 0.2 0.0 - 1.0 mg/dL [facility] Bilirubin, Direct <0.2 0.0 - 0.5 mg/dL [facility] Aspartate Amino Transferase 43(H) 5 - 37 U/L [facility] Alanine Aminotransferase 33 0 - 40 U/L [facility] Total Protein 7.1 6.5 - 8.0 g/dL [facility] Albumin Level 4.2 3.5 - 5.0 g/dL [facility] Alkaline Phosphatase 78 39 - 117 U/L [facility] Blood Venous blood specimen / Unknown 10/30/2024 10:21 AM EDT 10/30/2024 11:20 AM EDT us Stephanie Alex DO LAB BLOOD ORDERABLES Final R esult Performing Organization Address City/[facility]/ZIP Co de Phone Number [facility] [address] [place] [address] [phone] * (ABNORMAL) Basic Metabolic Panel (10/30/2024 10:21 AM EDT) Sodium 144 135 - 145 mmol/L [facility] Potassium 3.8 3.3 - 5.1 mmol/L [facility] Chloride 110(H) 96 - 108 mmol/L [facility] Carbon Dioxide 26 22 - 29 mmol/L [facility] Anion Gap 12 12 - 20 [facility] Urea Nitrogen (BUN) 13 9 - 16 mg/dL [facility] Creatinine, Serum 0.68 0.5 - 1.4 mg/dL [facility] Estimated Glomerular Filt Rate >60 [facility] Comment:Chronic Kidney Disea se: Estimated GFR < 60 mL/min/1.20m3Bmanzl Kidney Disease: Estimated GFR < 15 mL/min/1.73m2 Glucose 106 60 - 115 mg/dL [facility] Calcium 9.1 8.4 - 10.2 mg/dL [facility] Blood Venous blood specimen / Unknown 10/30/2024 10:21 AM EDT 10/30/2024 11:20 AM EDT us Stephanie Alex DO LAB BLOOD ORDERABLES Final R esult Performing Organization Address City/[facility]/ZIP Co de Phone Number [facility] [address] [place] [address] [phone] * Albumin, Random Urine W/Creatinine (02/22/2024 10:35 AM EDT) Creatinine, Urine 87.37 mg/dL [facility] Microalbumin Urine 7.0 mg/L [facility] Microalbum Creatinine Ratio Ur 8.0 <30 ug/mg cr [facility] Comment:Albumin/Creatinine R atio Reference Ranges: Normal: < 30 ug/mg creatinine Microalbuminuria: 30 - 300 ug/mg creatinineClinical Albuminuria: > 300 ug/mg creatinine Urine (Urine, Random) 02/22/2024 10:35 AM EDT 02/22/2024 11:23 AM EDT Stephanie Alex LAB URINE ORDERABLES Final R critical access hospital Performing Organization Address [facility] Co de Phone Number [facility] [address] [place] [address] [phone] * Hepatitis C Antibody with Reflex to HCV, RNA, Quantitative, Real-Time PCR (02/22/2024 10:35 AM EDT) Hepatitis C Antibody Nonreactive Nonreactive [facility] Comment:Antibodies to HCV no t detected; does not exclude early acuteHCV infection. Blood Venous blood specimen / Unknown 02/22/2024 10:35 AM EDT 02/22/2024 11:35 AM EDT Stephanie Alex DO LAB BLOOD ORDERABLES Final R ult Performing Organization Address City/[facility] Co de Phone Number [facility] [address] [place] [phone] * Lipid Panel, Standard (02/22/2024 10:35 AM EDT) Triglycerides 87 <150 mg/dL [facility] Comment:Desirable Triglyceri de: less than 150 mg/dLBorderline High Triglyceride 150-199 mg/dLHigh Triglyceride: 200-499 mg/dLVery High Triglyceride: greater than or equal to 5OO mg/dL Cholesterol 147 <200 mg/dL [facility] Comment:Desirable Cholestero l: less than 200 mg/dLBorderline High Cholesterol: 200-239 mg/dLHigh Cholesterol: greater than 239 mg/dL LDL Cholesterol Calculated 73 <100 mg/dL [facility] Comment:Desirable LDL: less than 100 mg/dLNear Optimal/Above Optimal LDL: 110- 129 mg/dLBorderline High LDL: 130-159 mg/dLHigh LDL: 160-189 mg/dLVery High LDL: greater than or equal to 190 mg/dL HDL Cholesterol 57 >40 mg/dL [facility] Comment:Desirable HDL: great er than 40 mg/dL Note: This HDL assay may give artificially low results in patients with liver disease. Blood Venous blood specimen / Unknown 02/22/2024 10:35 AM EDT 02/22/2024 11:35 AM EDT Stephanie Alex DO LAB BLOOD ORDERABLES Final R esult [facility] [address] [place] [phone] * Hm Colonoscopy (04/24/2020 10:02 AM EST) Historical Provider HEALTH MAINTENANCE Final Result from Last 3 Months or Most Recently Relevant to Health Maintenance Insurance [facility] ASSISTED OPTIONS (HMO D-SNP) [place] [id number] Care Teams Equipment Mechanic Specialist Relationship Specialty Start Date End Date Stephanie Alex DO [address] [place] [address] PCP - General Family Medicine 06/12/15 Myrna 06/21/24
--- OUTSIDE RECORDS SUMMARY | 2025-01-30 09:42 | XMS_ITS | Encounter Summary ---
Author Organization [facility] Address [address] [facility] [address] [place] [address] Care Team Providers Care Account Resolution Expert Name Role Phone Stephanie Alex DO Primary Care Provider + [phone] Reason for Visit * Reason Comments Med Refill Encounter Details Date Type Department Care Team (Late st Contact Info) Description 02/16/2023 Refill [facility] MEDICINE [address] [place] [address] Stephanie Alex DO [address] [place] [address] Depression, unspecified depression type Social History Tobacco [...] Office Visit [facility] OPTOMETRY [address] [place] [address] Virginia García, OD [address] [place] [address] 04/27/2025 9:00 AM EST Telemedicine [facility] MEDICINE [address] [place], [place] [phone] Mariana Aggarwal, ROMEL documented as of this encounter Visit Diagnoses Diagnosis Depression, unspecified depression type documented in this encounter Additional Health Concerns Assessment Noted Time PHQ-9 Depression Total Score: 0 09/02/19 23 9:01 AM EDT documented as of this encounter Care Teams Account Resolution Expert Relationship Specialty Start Date End Date Stephanie Alex DO [address] [place] [address] PCP - General Family Medicine 06/12/15 Myrna 06/21/24 documented as of this encounter
--- OUTSIDE RECORDS SUMMARY | 2025-01-30 09:42 | XMS_ITS | Encounter Summary ---
Author Organization [employer] Address [address] [facility] 7t [place] [address] Care Team Providers Care Pet Adoption Counselor Name Role Phone Stephanie Alex DO Primary Care Provider + [phone] Reason for Visit * Reason Comments Med Refill Encounter Details Date Type Department Care Team ([facility] Contact Info) Description 05/01/2024 Refill [facility] MEDICINE [address] [place], [place] [phone] Stephanie Alex DO 230 [place] [address] Essential hypertension Social History Tobacco Use Types [...] Description 03/05/2025 9:00 AM EDT Office Visit [facility] OPTOMETRY [address] [place] [address] Ricky, [place], OD 230 [place] [address] 04/27/2025 9:00 AM EST Telemedicine [facility] MEDICINE [address] [place] [address] Mariana Aggarwal, RN documented as of this encounter Visit Diagnoses Diagnosis Essential hypertension Unspecified essential hypertension documented in this encounter Additional Health Concerns Assessment Noted Time PHQ-9 Depression Total Score: 0 04/21/20 24 9:57 AM EST documented as of this encounter Care Teams Pet Adoption Counselor Relationship Specialty Start Date End Date Stephanie Alex DO [address] [place] [address] PCP - General Family Medicine 06/12/15 Myrna 06/21/24 documented as of this encounter
--- OUTSIDE RECORDS SUMMARY | 2025-01-30 09:42 | XMS_ITS | Encounter Summary ---
Author Organization [employer] Address [address] [facility] [address] [place] [address] Care Team Providers Care Dry Cell Battery Assembler Name Role Phone Stephanie Alex DO Primary Care Provider + [phone] Encounter Details Date Type Department Care Team ([facility] Contact Info) Description 09/29/2022 Orders Only [facility] MEDICINE [address] [place] [address] Stephanie Alex DO [address] [place], [place] [phone] Gynecomastia, male (Primary Dx) Social History Tobacco [...] Description 03/05/2025 9:00 AM EDT Office Visit [facility] OPTOMETRY [address] [place] [address] Virginia García, OD 230 [place] [address] 04/27/2025 9:00 AM EST Telemedicine [facility] MEDICINE [address] [place], [place] [phone] Mariana Aggarwal, ROMEL documented as of this encounter Visit Diagnoses Diagnosis Gynecomastia, male- Primary Hypertrophy of breast documented in this encounter Additional Health Concerns Assessment Noted Time PHQ-9 Depression Total Score: 0 09/02/19 23 9:01 AM EDT documented as of this encounter Care Teams Dry Cell Battery Assembler Relationship Specialty Start Date End Date Stephanie Alex DO [address] [place] [address] PCP - General Family Medicine 06/12/15 Myrna 06/21/24 documented as of this encounter
--- OUTSIDE RECORDS SUMMARY | 2025-01-30 09:42 | XMS_ITS | Encounter Summary ---
Author Organization [employer] Address [address] [facility] 7t [place] [address] Care Team Providers Care Rn Quality Name Role Phone Isai Stephanie Primary Care Provider + [phone] Encounter Details Date Type Department Care Team ([facility] st Contact Info) Description 08/24/2023 Orders Only [facility] MEDICINE [address] [place] [address] ProviderMicha MD Social History Tobacco Use Types [...] Description 03/05/2025 9:00 AM EDT Office Visit [facility] OPTOMETRY [address] [place] [address] Ricky, [place], OD 230 [place] [address] 04/27/2025 9:00 AM EST Telemedicine [facility] MEDICINE [address] [place], [place] [phone] Mariana Aggarwal RN documented as of this [...] documented as of this encounter Care Teams Rn Quality Relationship Specialty Start Date End Date Stephanie Alex DO [address] [place] [address] PCP - General Family Medicine 06/12/15 Myrna 06/21/24 documented as of this encounter
--- OUTSIDE RECORDS SUMMARY | 2025-01-30 09:42 | XMS_ITS | Encounter Summary ---
Author Organization [facility] [facility] Address [address] [facility] 7[address] [place] [address] Care Team Providers Care Mixer Operator Raw Salt Name Role Phone Stephanie Alex DO Primary Care Provider + [phone] Reason for Visit * Reason Comments Med Refill Encounter Details Date Type Department Care Team (Late Contact Info) Description 12/27/2022 Refill [facility] MEDICINE [address] [place] [address] Stephanie Alex DO [address] [place] [address] Acquired hypothyroidism; Anemia, unspecified type; Chronic bilateral [...] Upcoming Encounters Date Type Department Care Team ([facility] Contact Info) Description 03/05/2025 9:00 AM EDT Office Visit [facility] OPTOMETRY [address] [place] [address] Ricky, [place], OD [address] [place] [address] 04/27/2025 9:00 AM EST Telemedicine [facility] MEDICINE [address] [place] [address] Mariana Aggarwal RN documented as of this encounter Visit Diagnoses Diagnosis Acquired hypothyroidism Unspecified hypothyroidism Anemia, unspecified type Chronic bilateral low back pain, unspecified whether sciatica present documented in this encounter Additional Health Concerns Assessment Noted Time PHQ-9 Depression Total Score: 0 09/02/19 23 9:01 AM EDT documented as of this encounter Care Teams Mixer Operator Raw Salt Relationship Specialty Start Date End Date Stephanie Alex DO [address] [place] [address] PCP - General Family Medicine 06/12/15 Myrna 06/21/24 documented as of this encounter
--- OUTSIDE RECORDS SUMMARY | 2025-01-30 09:42 | XMS_ITS | Encounter Summary ---
Author Organization [employer] Address [address] [facility] [address] [place] [address] Care Team Providers Care Missile Inspector Preflight Name Role Phone EddiStephanie zacarias Primary Care Provider + [phone] Reason for Visit * Reason Comments Med Refill Encounter Details Date Type Department Care Team ([facility] Contact Info) Description 09/27/2022 Refill [facility] MEDICINE [address] [place] [address] Bettina Eddy MD [address] [place] [address] Chronic bilateral low back pain, unspecified whether [...] 03/05/2025 9:00 AM EDT Office Visit [facility] OPTOMETRY [address] [place] [address] Virginia García, OD [address] [place] [address] 04/27/2025 9:00 AM EST Telemedicine [facility] MEDICINE [address] [place] [address] Mariana Aggarwal, RN documented as of this encounter Visit Diagnoses Diagnosis Chronic bilateral low back pain, unspecified whether sciatica present documented in this encounter Additional Health Concerns Assessment Noted Time PHQ-9 Depression Total Score: 0 09/02/19 9:01 AM EDT documented as of this encounter Care Teams Missile Inspector Preflight Relationship Specialty Start Date End Date Stephanie Alex DO [address] [place] [address] PCP - General Family Medicine 06/12/15 Myrna 06/21/24 documented as of this encounter
--- OUTSIDE RECORDS SUMMARY | 2025-01-30 09:42 | XMS_ITS | Encounter Summary ---
Author Organization [employer] [facility] Address [address] [facility] [address] [place] [address] Care Team Providers Care Cannon Fire Direction Specialist Name Role Phone AsterStephnaie anand Primary Care Provider + [phone] Encounter Details Date Type Department Care Team ([facility] Contact Info) Description 05/04/2022 Abstract [facility] MEDICINE [address] [place] [address] Tricia Farmer PharmD [address] [place] [address] Social History Tobacco Use Types Packs/Day Years [...] Upcoming Encounters Date Type Department Care Team ([facility] st Contact Info) Description 03/05/2025 9:00 AM EDT Office Visit [facility] OPTOMETRY [address] [place], [place] [phone] Virginia García, OD [address] [place] [address] 04/27/2025 9:00 AM EST Telemedicine [facility] MEDICINE [address] [place], [place] [phone] Mariana Aggarwal, ROMEL documented as of this encounter Visit Diagnoses Not on filedocumented in this encounter Additional Health Concerns Assessment Noted Time PHQ-9 Depression Total Score: 0 04/22/20 22 10:55 AM EST documented as of this encounter Care Teams Cannon Fire Direction Specialist Relationship Specialty Start Date End Date Stephanie Alex DO [address] [place] [address] PCP - General Family Medicine 06/12/15 Myrna 06/21/24 documented as of this encounter
--- OUTSIDE RECORDS SUMMARY | 2025-01-30 09:42 | XMS_ITS | Encounter Summary ---
Author Organization [facility] Address [address] [facility] 7t [place] [address] Care Team Providers Care Area Supervisor Name Role Phone Stephanie Alex DO Primary Care Provider + [phone] Reason for Visit * Reason Onset Date Comments triage 05/21/2022 Encounter Details Date Type Department Care Team ([facility] Contact Info) Description 05/21/2022 Telephone [facility] MEDICINE [address] [place] [address] Stephanie Alex DO [address] [place], [place] [phone] triage Social History Tobacco Use Types Packs/Day [...] now The caller accepted this outcome speaks comoran documented in this encounter Plan of Treatment Upcoming Encounters Date Type Department Care Team (Late st Contact Info) Description 03/05/2025 9:00 AM EDT Office Visit [facility] OPTOMETRY [address] [place] [address] Ricky, [place], OD 230 [place] [address] 04/27/2025 9:00 AM EST Telemedicine [facility] MEDICINE [address] [place] [address] Mariana Aggarwal RN documented as of this encounter Visit Diagnoses Not on filedocumented in this encounter Additional Health Concerns Assessment Noted Time PHQ-9 Depression Total Score: 0 04/22/20 22 10:55 AM EST documented as of this encounter Care Teams Area Supervisor Relationship Specialty Start Date End Date Stephanie Alex DO [address] [place] [address] PCP - General Family Medicine 06/12/15 Myrna 06/21/24 documented as of this encounter
--- OUTSIDE RECORDS SUMMARY | 2025-01-30 09:42 | XMS_ITS | Encounter Summary ---
Author Organization [employer] Address [address] [facility] 7t [place] [address] Care Team Providers Care Drill Bit Sharpener Name Role Phone Stephanie Alex DO Primary Care Provider + [phone] Reason for Visit * Reason Comments Med Refill Encounter Details Date Type Department Care Team ([facility] Contact Info) Description 05/11/2023 Refill [facility] MEDICINE [address] [place], [place] [phone] Stephanie Alex DO 230 [place], [place] [phone] Other chronic pain Social History Tobacco Use [...] Description 03/05/2025 9:00 AM EDT Office Visit [facility] OPTOMETRY [address] [place] [address] Ricky, [place], OD 230 [place] [address] 04/27/2025 9:00 AM EST Telemedicine [facility] MEDICINE [address] [place] [address] Mariana Aggarwal, ROMEL documented as of this encounter Visit Diagnoses Diagnosis Other chronic pain documented in this encounter Additional Health Concerns Assessment Noted Time PHQ-9 Depression Total Score: 0 09/02/19 23 9:01 AM EDT documented as of this encounter Care Teams Drill Bit Sharpener Relationship Specialty Start Date End Date Stephanie Alex DO [address] [place] [address] PCP - General Family Medicine 06/12/15 Myrna 06/21/24 documented as of this encounter
--- OUTSIDE RECORDS SUMMARY | 2025-01-30 09:42 | XMS_ITS | Encounter Summary ---
Author Organization [employer] Address [address] [facility] 7t [place] [address] Care Team Providers Care Metaphysicist Name Role Phone Stephanie Alex DO Primary Care Provider + [phone] Reason for Visit * Reason Onset Date Comments Med Refill 07/22/2023 Encounter Details Date Type Department Care Team ([facility] st Contact Info) Description 07/22/2023 Telephone [facility] MEDICINE [address] [place] [address] Stephanie Alex DO 230 [place], [place] [phone] Med Refill Social History Tobacco Use Types [...] 300 MG/2ML injection To be sent to: [facility] [place], [place] - [address] [place] [address] documented in this encounter Plan of Treatment Upcoming Encounters Date Type Department Care Team (Late st Contact Info) Description 03/05/2025 9:00 AM EDT Office Visit [facility] OPTOMETRY [address] [place] [address] Virginia García, OD [address] [place] [address] 04/27/2025 9:00 AM EST Telemedicine [facility] MEDICINE [address] [place] [address] Mariana Aggarwal RN documented as of this encounter Visit Diagnoses Not on filedocumented in this encounter Additional Health Concerns Assessment Noted Time PHQ-9 Depression Total Score: 0 09/02/19 23 9:01 AM EDT documented as of this encounter Care Teams Metaphysicist Relationship Specialty Start Date End Date Stephanie Alex DO [address] [place] [address] PCP - General Family Medicine 06/12/15 Myrna 06/21/24 documented as of this encounter
--- OUTSIDE RECORDS SUMMARY | 2025-01-30 09:42 | XMS_ITS | Encounter Summary ---
Author Organization [employer] [facility] Address [address] [facility] [address] [place] [address] Care Team Providers Care Physiologist Name Role Phone Stephanie Alex DO Primary Care Provider + [phone] Encounter Details Date Type Department Care Team (Latest Contact Info) Description 01/23/[address] [facility] Dental, Provider, DDS Social History [...] 03/05/2025 9:00 AM EDT Office Visit [facility] OPTOMETRY [address] [place] [address] Virginia García, OD 230 [place] [address] 04/27/2025 9:[address] [facility] MEDICINE [address] [place] [address] Mariana Aggarwal RN documented as of this encounter Visit Diagnoses Not on filedocumented in this encounter Care Teams Physiologist Relationship Specialty Start Date End Date Stephanie Alex DO [address] [place] [address] PCP - General Family Medicine 06/12/15 Myrna 06/21/24 documented as of this encounter
--- OUTSIDE RECORDS SUMMARY | 2025-01-30 09:42 | XMS_ITS | Encounter Summary ---
Author Organization [employer] Address [address] [facility] 7t [place] [address] Care Team Providers Care Police [employer] Program Coordinator Name Role Phone IsaiStephanie Primary Care Provider + [phone] Reason for Visit * Reason Comments Med Refill Encounter Details Date Type Department Care Team ([facility] Contact Info) Description 06/02/2023 Refill [facility] MEDICINE [address] [place], [place] [phone] Maria De Jesus Mann MD 230 [place], [place] [phone] Moderate persistent asthma, unspecified whether complicated Social [...] Description 03/05/2025 9:00 AM EDT Office Visit [facility] OPTOMETRY [address] [place] [address] Ricky, [place], OD [address] [place] [address] 04/27/2025 9:00 AM EST Telemedicine [facility] MEDICINE 230 [place] [address] Mariana Aggarwal, ROMEL documented as of this encounter Visit Diagnoses Diagnosis Moderate persistent asthma, unspecified whether complicated documented in this encounter Additional Health Concerns Assessment Noted Time PHQ-9 Depression Total Score: 0 09/02/19 23 9:01 AM EDT documented as of this encounter Care Teams Police [employer] Program Coordinator Relationship Specialty Start Date End Date Stephanie Alex DO [address] [place] [address] PCP - General Family Medicine 06/12/15 Myrna 06/21/24 documented as of this encounter
== END 2025-01-30 08:20 | disposition home or self-care (01) ==
LOC: HO.HOSX 08:19
DX: M11.231 Other chondrocalcinosis, right wrist (principal)
CPT/HCPCS: 73110; 99212

== ENCOUNTER 2025-01-30 09:08 | Outpatient (AMB) | payer OTHER, SELFPAY ==
--- NOTE | 2025-01-30 09:14 | A.OFFVIS_ITS ---
Vital Signs 01/30/25 09:15 Height 6 ft 1 in Weight 206 lb BMI 27.2 Intake Visit Reasons: ER/New prob- Right wrist pain Intake Note: Colton is a 74 year old right hand dominant male who presents today for an ED follow up for evaluation of Right Wrist Pain. At [facility] ED patient complained of pain and swelling without known injury. He was prescribed Naproxen and diagnosed with gout. Patient complains of pain at the wrist and the PIP knuckles of the right hand. He feels the swelling has not gone down as it is still paiful to make a fist. Development Spec Required: Yes Development Spec Language: Customer Services Coordinator Services: Development Spec Present Development Spec Name: THAD Mahoney/LUCA Allergies lisinopril Allergy (Verified 01/30/25 09:17) Angioedema HPI HPI ER/New prob- Right wrist pain: Details: Colton is a 74 year old right hand dominant male who presents today for an ED follow up for evaluation of Right Wrist Pain. At [facility] ED patient complained of pain and swelling without known injury. He was prescribed Naproxen and diagnosed with gout. Patient complains of pain at the wrist and the PIP knuckles of the right hand. He feels the swelling has not gone down as it is still paiful to make a fist. [facility] Medical History Gynecomastia Hyperlipidemia Chronic low back pain GERD (gastroesophageal reflux disease) Polyneuropathy Allergic rhinitis Diabetes Hypothyroidism Essential hypertension Other and unspecified hyperlipidemia Asthma Stress-induced cardiomyopathy Surgical History History of back surgery History of sinus surgery Hx of esophagogastroduodenoscopy Hx of colonoscopy Family History Father No problems noted. Mother No problems noted. 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 Neuro: Normal sensation of the tips of all digits of the right hand at this time Vascular: Cap refill brisk Pain: Minimal tenderness to palpation noted about the right hand and wrist Pain with range of motion of the right wrist in the digits of the right hand, particularly at the MCP joints ROM: Patient is able to make a closed fist and extend all digits of the R hand fully ROM of the R wrist full and intact Skin: No lacerations or abrasions. General: No ecchymosis, erythema, or evidence of infection. Psych: Appears grossly normal Affect normal Attitude cooperative Results Reviewed Results Reviewed: X-rays obtained in the office today and independently reviewed by me, Tani Loomis PA-C, demonstrate diffuse chondrocalcinosis throughout the right wrist and MCP joints of the right hand. No fracture or acute bony abnormality noted.. Assessment & Plan Assessment & Plan (1) Pseudogout of right wrist: Code(s): M11.231 - Other chondrocalcinosis, right wrist Category: Medical Plan 1. Pseudo gout of right hand and wrist Patient is educated about this condition Patient is educated about the typical treatment course At this time, we will rheumatology referral is placed for treatment of pseudogout of the right wrist Patient is educated on conservative pain management measures in the meantime Patient understands this and is amenable to this plan Patient should follow-up with Rheumatology for further treatment of pseudogout Orders: Orders XR wrist RT w scaphoid 01/30/25 M79.641 - Pain in right hand Referrals Rheumatology Referral M11.231 - Other chondrocalcinosis, right wrist Coding Level of Care Code Est Pt Level 3 (01908) Diagnoses Pseudogout of right wrist M11.231
[2025-01-30 09:15] VITALS: BMI 27.2
== END 2025-01-30 09:42 | disposition home or self-care (01) ==
LOC: HO.HOS 09:09
PROVIDERS: PCP Family Medicine
DX: M11.231 Other chondrocalcinosis, right wrist (principal)
CPT/HCPCS: 99213

== ENCOUNTER → 2025-01-30 09:11 | Outpatient (BNV) | payer OTHER, SELFPAY | PROVIDERS: Visit Provider Radiology Diagnostic Radiology | DX: M79.641 Pain in right hand (principal); I70.208 Unspecified atherosclerosis of native arteries of extremities, other extremity | CPT/HCPCS: 73110 ==

== ENCOUNTER 2025-03-15 01:37 | Emergency (ER) | payer OTHER, SELFPAY ==
--- NOTE | ~2025-03-15 | CT_ITS ---
CLINICAL HISTORY: pain arthralgia CT cervical spine without contrast Comparison: None provided Findings: There is straightening of the normal cervical lordosis. Multilevel cervical spine degenerative changes are present characterized by disc height loss, endplate sclerosis and disc osteophyte complex formation. Partially calcified pannus noted at the atlantoaxial joint. Bones are osteopenic. Visualized intracranial contents are unremarkable. Soft tissues of the neck are normal. Lung apices are clear. IMPRESSION: No acute findings. This document has been electronically signed by: Chris Riggs MD, PHD on 03/15/2025 04:29:31
[2025-03-15 01:55] VITALS: BP 150/94; PULSE 102; O2SAT 95
[2025-03-15 02:02] VITALS: BP 134/84; PULSE 96; RESP 20; TEMP 37.2; O2SAT 94; BMI 28.8
--- OUTSIDE RECORDS SUMMARY | 2025-03-15 02:35 | XMS_ITS | Data Portability ---
Author Organization [place] - [facility], Allergy Address [address] [address] Care Team Providers Care Veterinary Manager Name Role Phone JESSICA BANERJEE Primary Care Provider Assessment Encounter Date Assessment Date Assessment LastModified by Organization Details LastModified Time 12/15/2023 12/15/2023 Hx of elevated eosinophil count and nasal polyps. Has not been seen for 3 years Recent asthma flare but now improved. Suggest budesonide irrigations. Check CBC with diff [email or web address] Not available 12/15/2023 08:56:36 03/14/2024 03/14/2024 Patient with hypereosinophilia and nasal polyps. He will continue the nasal steroids and montelukast. We will send a prescription for Dupixent syringe to his pharmacy [email or web address] Not available 03/14/2024 11:36:58 Plan of Treatment Reminders Order Date Submit Date Provider Last Modified By Organization Details Last Modified Time Details Appointments None recorded. Lab ige, total, serum 2023 024 [place] [facility] (Centralized Electronic Ordering - All Locations), Patient Can Go To The Location Of Their Choice, [id number] 04:19:31 CBC w/ auto diff 2023 024 [place] [facility] (Centralized Electronic Ordering - All Locations), Patient Can Go To The Location Of Their Choice, [id number] 4 04:19:30 Referral None recorded. Procedures None recorded. Surgeries None recorded. Imaging None recorded. Medication Orders Dupixent 300 mg/2 mL subcutaneou s pen injector 2023 024 [facility], [address] [place], [place], [phone], 10:26:51 budesonide 0.5 mg/2 mL suspension for nebulizatio n 2023 024 [facility], [address] [place], [place], [phone], 16:32:29 Patient TargetsNo targets recorded. Patient Instructions Encounter Date Encounter Id Patient Instructions Last Modified By Organization Details Last Modified Time 09/12/2024 [id number] Patient with marked improvement in appearance of nasal polyps since starting Dupixent. He will continue budesonide irrigations or Flonase with montelukast. Follow-up in 6 months. All questions answered with life science taxonomist claribel Not available 09/12/2024 11:30:00 Reason for Referral None Reported. Results Created Date Observation Date Name Description Value Unit Range Abnormal Flag Note LastModifiedBy Organization Detail LastModifiedTime 12/15/1912/16/2023 CBC WITH DIFFE RENTI AL/PL ATELE T WBC 4.8 x10e3 /uL 3.4-10 .8 normal Not Available [facility] ([facility]) [address] [place], [address], 12/17/2023 04:19:29 12/15/1912/16/2023 CBC WITH DIFFE RENTI AL/PL ATELE T RBC 4.35 x10e6 /uL 4.14-5 .80 normal Not Available [facility] ([facility]) [address] [place], [address], 12/17/2023 04:19:29 12/15/1912/16/2023 CBC WITH DIFFE RENTI AL/PL ATELE T hemoglobin 13.0 g/dL 13.0-1 7.7 normal Not Available [facility] ([facility]) [address] [place], [address], 12/17/2023 04:19:29 12/15/1912/1512/16/2023 CBC WITH DIFFE RENTI AL/PL ATELE T hematocrit 39.3 % 37.5-5 1.0 normal Not Available [facility] ([facility]) [address] [facility], [place], [address], 12/17/2023 04:19:29 12/15/19 24 12/16/2023 CBC WITH DIFFE RENTI AL/PL ATELE T MCV 90 fL 79-97 normal Not Available [facility] ([facility]) [address] [facility], [place], [address], 12/17/2023 04:19:29 12/15/1912/16/2023 CBC WITH DIFFE RENTI AL/PL ATELE T MCH 29.9 pg 26.6-3 3.0 normal Not Available [facility] ([facility]) [address] [facility], [place], [address], 12/17/2023 04:19:29 12/15/19 24 12/16/2023 CBC WITH DIFFE RENTI AL/PL ATELE T MCHC 33.1 g/dL 31.5-3 5.7 normal Not Available [facility] ([facility]) [address] [facility], [place], [address], 12/17/2023 04:19:29 12/15/1912/16/2023 CBC WITH DIFFE RENTI AL/PL ATELE T RDW 13.2 % 11.6-1 5.4 Not Available [facility] ([facility]) [address] [place], [address], 12/17/2023 04:19:29 12/15/1912/16/2023 CBC WITH DIFFE RENTI AL/PL ATELE T platelets 253 x10e3 /uL 150-45 0 normal Not Available [facility] ([facility]) [address] [place], [address], 12/17/2023 04:19:29 12/15/19 24 12/16/2023 CBC WITH DIFFE RENTI AL/PL ATELE T neutrophils 47 % not estab. normal Not Available [facility] ([facility]) [address] [facility], [place], [address], 12/17/2023 04:19:29 12/15/19 24 12/16/2023 CBC WITH DIFFE RENTI AL/PL ATELE T lymphs 35 % not estab. normal Not Available [facility] ([facility]) [address] [facility], [place], [address], 12/17/2023 04:19:29 12/15/19 24 12/16/2023 CBC WITH DIFFE RENTI AL/PL ATELE T monocytes 9 % not estab. normal Not Available [facility] ([facility]) [address] [facility], [place], [address], 12/17/2023 04:19:29 12/15/19 24 12/16/2023 CBC WITH DIFFE RENTI AL/PL ATELE T eos 8 % not estab. normal Not Available [facility] ([facility]) [address] [facility], [place], [address], 12/17/2023 04:19:29 12/15/19 24 12/16/2023 CBC WITH DIFFE RENTI AL/PL ATELE T basos 1 % not estab. normal Not Available [facility] ([facility]) [address] [facility], [place], [address], 12/17/2023 04:19:29 12/15/19 24 12/16/2023 CBC WITH DIFFE RENTI AL/PL ATELE T immature cells PHOTOENGRAVING ETCHER APPRENTICE Not Available [facility] ([facility]) [address] [facility], [place], [address], 12/17/2023 04:19:29 12/15/19 24 12/16/2023 CBC WITH DIFFE RENTI AL/PL ATELE T neutrophils (absolute) 2.3 x10e3 /uL 1.4-7. 0 normal Not Available [facility] ([facility]) [address] [facility], [place], [address], 12/17/2023 04:19:29 12/15/19 24 12/16/2023 CBC WITH DIFFE RENTI AL/PL ATELE T lymphs (absolute) 1.7 x10e3 /uL 0.7-3. 1 normal Not Available [facility] ([facility]) [address] [facility], [place], [address], 12/17/2023 04:19:29 12/15/19 24 12/16/2023 CBC WITH DIFFE RENTI AL/PL ATELE T monocytes(ab solute) 0.4 x10e3 /uL 0.1-0. 9 normal Not Available [facility] ([facility]) [address] [facility], [place], [address], 12/17/2023 04:19:29 12/15/19 24 12/16/2023 CBC WITH DIFFE RENTI AL/PL ATELE T eos (absolute) 0.4 x10e3 /uL 0.0-0. 4 normal Not Available [facility] ([facility]) [address] [facility], [place], [address], 12/17/2023 04:19:29 12/15/19 24 12/16/2023 CBC WITH DIFFE RENTI AL/PL ATELE T baso (absolute) 0.0 x10e3 /uL 0.0-0. 2 normal Not Available [facility] ([facility]) [address] [place], [address], 12/17/2023 04:19:29 12/15/19 24 12/16/2023 CBC WITH DIFFE RENTI AL/PL ATELE T immature granulocytes 0 % not estab. Not Available [facility] ([facility]) [address] [facility], [place], [address], 12/17/2023 04:19:29 12/15/19 24 12/16/2023 CBC WITH DIFFE RENTI AL/PL ATELE T immature grans (abs) 0.0 x10e3 /uL 0.0-0. 1 Not Available [facility] ([facility]) [address] [facility], [place], [address], 12/17/2023 04:19:29 12/15/19 24 12/16/2023 CBC WITH DIFFE RENTI AL/PL ATELE T NRBC PHOTOENGRAVING ETCHER APPRENTICE Not Available [facility] ([facility]) [address] [facility], [place], [address], 12/17/2023 04:19:29 12/15/19 24 12/16/2023 CBC WITH DIFFE RENTI AL/PL ATELE T hematology comments: PHOTOENGRAVING ETCHER APPRENTICE Not Available [facility] ([facility]) [address] [facility], [place], [address], 12/17/2023 04:19:29 12/15/19 24 12/17/2023 IMMUN OGLOB ULIN E, TOTAL immunoglobul in E, total 31 IU/mL 6-495 Not Available [facility] ([facility]) [address] [facility], [place], [address], 12/17/2023 04:19:31 01/04/20 24 07/06/2019 imagi ng/di agnos tic resul t No observ ation record ed. [email or web address] Not Available 23:55:38 Result Notes None recorded. 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 Hyponasali ty; Note: Date Diagnosed: 10/21/2015 12:27 PM (R49.22) Not Available [facility] 4 02:12:46 Uncomplic ated mild persisten t asthma 550264937 Active 2015 Mild persistent asthma, uncomplica mounika; Note: Date Diagnosed: 07/18/2015 10:18 AM (J45.30) Not Available [facility] 4 02:13:38 Chronic pansinusi tis 57880090 Active 2015 Chronic pansinusit is; Note: Date Diagnosed: 10/21/2015 1:34 PM (J32.4) Not Available [facility] 4 02:14:03 Sensorine ural hearing loss of bilateral ears 907655539 Active 2015 Sensorineu ral hearing loss, bilateral; Note: Date Diagnosed: 10/21/2015 1:13 PM (H90.3) Not Available [facility] 4 02:14:32 Postopera tive visit 169560864 Active 2015 Post Op Visit; Note: Date Diagnosed: 01/29/2016 2:04 PM (V67.0) Not Available [facility] 4 02:14:17 Chronic rhinitis 60502390 Active 2015 Rhinitis, chronic; Note: Date Diagnosed: 02/20/2016 2:00 PM (472.0) Not Available [facility] 4 02:12:49 Chronic sinusitis 81823744 Active 2016 Other chronic sinusitis; Note: Date Diagnosed: 07/10/2016 5:42 PM (J32.8) Note: Date Diagnosed: 07/10/2016 5:42 PM (J32.8) Not Available [facility] 4 00:49:50 Nasal congestio n 92301756 Active 2016 Nasal congestion ; Note: Date Diagnosed: 03/08/2017 10:05 AM (R09.81) Not Available [facility] 4 02:14:05 Loss of sense of smell 16466034 Active 2017 Anosmia; Note: Date Diagnosed: 08/18/2017 1:55 PM (R43.0) Not Available 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 SHAHEED ALVARADO MD [address], [place], [address] , [place] - [facility] 4 21:44:40 Moderate persisten t asthma 617851493 Active 2023 SHAHEED ALVARADO MD [address], [place], [address] , [place] - [facility] 4 08:53:55 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, [place], [address] , [place] - [facility] 4 11:37:14 Problem Notes None recorded. Procedures Surgical History Date Name Laterality Status Provider Name and Address Organization Details Recorded Time 5 JMSNasal/Sinus Endoscopy-PRIOR surgical cavities completed SHAHEED MENA MD [address] [address], [place], [address], [place] - [facility] 09/12/2024 11:29:30 4 JMSNasal/Sinus Endoscopy-PRIOR surgical cavities completed SHAHEED MENA MD [address] [address], [place], [address], [place] - [facility] 03/14/2024 11:36:14 4 JMSNasal/Sinus Endoscopy-PRIOR surgical cavities completed SHAHEED MENA MD [address] [address], [place], [address], [place] - [facility] 12/15/2023 08:53:48 functional endoscopic sinus surgery completed SHAHEED MENA MD [address] [place] [address], [place], [address], [place] [facility] 10/31/2023 21:43:03 Imaging Results None recorded. Procedure Notes None recorded. Medical Equipment None Reported. Medications Name Sig Start Date Stop Date Status Note LastModified by Organization Details LastModified Time medbox status USE DIRECTED active Not Available Not Available No t Available multivita min tablet TAKE 1 TABLET BY MOUTH EVERYDAY AT NOON active Not Available Not Available No t Available atorvasta tin 40 mg tablet TAKE 1 TABLET BY MOUTH AT BEDTIME active Not Available Not Available No t Available metformin 500 mg tablet TAKE 1 TABLET BY MOUTH TWICE DAILY IN THE MORNING AND IN THE EVENING WITH FOOD active Not Available Not Available No t Available Augmentin 875 mg-125 mg tablet 2019 active Medicati on ID: [id number] D uration Value: 14 Prescri bed By Name: KHUSHI Garcia nd Name: Augmenti n Send Method: E-Prescr ibed Sub s Allowed: subs OK Speci al Instruct ion: 1 po bid for 14 days Med icationG enericNa me: Augmenti n Not Available Not Available Not Available albuterol sulfate 2.5 mg/3 mL (0.083 %) solution for nebulizat ion INHALE 1 AMPULE USING A NEBULIZE R BY MOUTH FOUR TIMES DAILY NEEDED active Not Available Not Available No t Available cetirizin e 10 mg tablet TAKE 1 TABLET BY MOUTH EVERYDAY AT NOON active Not Available Not Available No t Available hydrocodo ne 5 mg-acetam inophen 325 mg tablet 1-2 tablet by mouth 2015 active Medicati on ID: [id number] D uration Value: 7 Prescri bed By Name: Colton Horton nd Name: hydrocod one-acet aminophe n Send Method: E-Prescr ibed Sub s Allowed: subs [place] Medic ation[facility] ericName : hydrocod one-acet aminophe n Not Available Not Available Not Available polyvinyl alcohol 1.4 % eye drops INSTILL 1 DROP IN EACH EYE THREE TIMES DAILY active Not Available Not Available No t Available lisinopri l 20 mg tablet 2015 active Medicati on ID: [id number] D uration Value: 30 Brand Name: lisinopr il Send Method: E-Prescr ibed Sub s Allowed: subs [place] Medic ationGen ericName : lisinopr il Not Available Not Available Not Available famotidin e 40 mg tablet TAKE 1 TABLET BY MOUTH AT BEDTIME active Not Available Not Available No t Available prednison e 20 mg tablet 2 tablet by mouth 2019 active Medicati on ID: [id number] D uration Value: 5 Prescri bed By Name: Colton Horton nd Name: predniso ne Send Method: E-Prescr ibed Sub s Allowed: subs [place] Medic ationGen ericName : predniso ne Not Available Not Available Not Available sulfameth oxazole 800 mg-trimet hoprim 160 mg tablet TAKE 1 TABLET BY MOUTH TWICE DAILY FOR 14 DAYS 03/11 completed Not Available Not Available Not Available tramadol 50 mg tablet TAKE 1 TABLET BY MOUTH EVERY 8 HOURS NEEDED FOR SEVERE PAIN active Not Available Not Available No t Available levothyro xine 25 mcg tablet TAKE 1 TABLET BY MOUTH EVERY MORNING active Not Available Not Available No t Available acetamino phen ER 650 mg tablet,ex tended release TAKE 1 TABLET BY MOUTH EVERY 8 HOURS NEEDED FOR MILD PAIN active Not Available Not Available No t Available amoxicill in 875 mg tablet 1 tablet by mouth 09/12 completed Medicati on ID: [id number] D uration Value: 10 Prescri bed By Name: Colton Horton nd Name: amoxicil bryce Send Method: E-Prescr ibed Sub s Allowed: subs [place] Medic ationGen ericName : amoxicil bryce Not Available Not Available Not Available gabapenti n 800 mg tablet TAKE 1 TABLET BY MOUTH THREE TIMES DAILY IN THE MORNING, EVENING, AND BEDTIME active Not Available Not Available No t Available baclofen 10 mg tablet TAKE 1 TABLET BY MOUTH THREE TIMES DAILY IN THE MORNING, AT NOON, AND AT BEDTIME NEEDED FOR MUSCLE SPASMS active Not Available Not Available No t Available amlodipin e 10 mg tablet TAKE 1 TABLET BY MOUTH EVERYDAY AT NOON active Not Available Not Available No t Available doxycycli ne monohydra te 100 mg capsule 1 capsule by mouth 09/12 completed Medicati on ID: [id number] D uration Value: 10 Prescri bed By Name: Colton Horton nd Name: doxycycl ine monohydr ate Send Method: E-Prescr ibed Sub s Allowed: [facility] do[facility] ine monohydr ate Not Available Not Available Not Available ferrous sulfate 325 mg (65 mg iron) tablet TAKE 1 TABLET BY MOUTH TWICE DAILY AT NOON AND IN THE EVENING active Not Available Not Available No t Available Cipro 500 mg tablet 1 tablet by mouth 08/19 completed Medicati on ID: [id number] D uration Value: 10 Prescri bed By Name: Colton Horton nd Name: Cipro Se nd Method: E-Prescr ibed Sub s Allowed: subs [facility] Not Available Not Available Not Available prednison e 50 mg tablet TAKE 1 TABLET BY MOUTH EVERY DAY FOR 5 DAYS active Not Available Not Available No t Available docusate sodium 100 mg capsule TAKE 1 CAPSULE BY MOUTH EVERY MORNING active Not Available Not Available No t Available sertralin e 25 mg tablet TAKE 1 TABLET BY MOUTH EVERY MORNING active Not Available Not Available No t Available omeprazol e 20 mg capsule,d elayed release 2015 active Medicati on ID: [id number] D uration Value: 30 Brand Name: omeprazo le Send Method: E-Prescr ibed Sub s Allowed: subs [place] [facility] Not Available Not Available Not Available budesonid e 0.5 mg/2 mL suspensio n for nebulizat ion MIX 1 VIAL IN 8 OUNCES WATER destilad a WITH [place] sol[place]in [place]. USE 1/2 botella para irrigar cada fosa nasal TWICE DAILY. active Not Available Not Available No t Available monteluka st 10 mg tablet TAKE 1 TABLET BY MOUTH EVERY EVENING active Not Available Not Available No t Available bisacodyl 5 mg tablet,de layed release TAKE 2 TABLETS BY MOUTH AT BEDTIME FOR 2 DAYS active Not Available Not Available No t Available diclofena c sodium 50 mg tablet,de layed release TAKE 1 TABLET BY MOUTH TWICE DAILY IN THE MORNING AND AT BEDTIME active Not Available Not Available No t Available lisinopri l 40 mg tablet TAKE 1 TABLET BY MOUTH AT BEDTIME active Not Available Not Available No t Available losartan 100 mg tablet TAKE 1 TABLET BY MOUTH AT BEDTIME active Not Available Not Available No t Available fluticaso ne propionat e 50 mcg/actua tion nasal spray,reva pension INSTILL 2 SPRAYS IN EACH NOSTRIL ONCE DAILY active Not Available Not Available No t Available dicyclomi ne 10 mg capsule TAKE 1 CAPSULE BY MOUTH FOUR TIMES DAILY active Not Available Not Available No t Available naproxen 500 mg tablet TAKE 1 TABLET BY MOUTH TWICE DAILY FOR 7 DAYS active Not Available Not Available No t Available Ventolin HFA 90 mcg/actua tion aerosol inhaler INHALE 2 PUFF EVERY 4 HOURS NEEDED FOR WHEEZING OR SHORTNES S OF BREATH active Not Available Not Available No t Available hydroxyzi ne pamoate 25 mg capsule TAKE 1 CAPSULE BY MOUTH EVERY 6 HOURS NEEDED ANXIETY active Not Available Not Available No t Available Flovent HFA 220 mcg/actua tion aerosol inhaler INHALE 2 PUFFS BY MOUTH TWICE DAILY RINSE MOUTH AFTER USING. active Not Available Not Available No t Available Dry Eye Relief 1 %-0.2 %-0.2 % drops INSTILL 1 DROP IN EACH EYE THREE TIMES DAILY active Not Available Not Available No t Available prednison e 2015 active Medicati on ID: [id number] D uration Value: 10 Prescri bed By Name: Colton Horton nd Name: predniso ne Send Method: E-Prescr ibed Sub s Allowed: subs OK Speci al Instruct ion: takes 3 tablets daily for 3 days, 2 tablets daily for 3 daysand 1 tablet daily for 3 days Med icationG enericNa me: predniso ne Not Available Not Available Not Available peg 3350-elec trolytes 236 gram-22.7 4 gram-6.74 gram-5.86 gram solution MIX AND TAKE 240 ML BY MOUTH EVERY 10 MINUTES DIRECTED UNTIL BOWEL MOVEMENT IS CLEAR. TAKE NO MORE THAN 1/2 THE BOTTLE active Not Available Not Available No t Available FreeStyle Lite Strips TEST BLOOD SUGAR EVERY DAY active Not Available Not Available No t Available diclofena c 1 % topical gel APPLY 2 GRAMS TOPICALL Y TO AFFECTED AREA(S) 4 TIMES A DAY IN THE MORNING, AT NOON, IN THE EVENING, AND AT BEDTIME NEEDED FOR PAIN active Not Available Not Available No t Available dexlansop razole 60 mg capsule,b iphase delayed release TAKE 1 CAPSULE BY MOUTH EVERY MORNING active Not Available Not Available No t Available Vitamin D3 50 mcg (2,000 unit) capsule TAKE 1 CAPSULE BY MOUTH EVERY MORNING active Not Available Not Available No t Available Adult Aerosol Mask USE DIRECTED active Not Available Not Available No t Available TRUEplus Lancets 33 gauge TEST BLOOD SUGAR DAILY DIRECTED active Not Available Not Available No t Available Arnuity Ellipta 200 mcg/actua tion powder for inhalatio n INHALE 1 PUFF BY MOUTH EVERY DAY AT THE SAME TIME RINSE MOUTH AFTER USING active Not Available Not Available No t Available Incruse Ellipta 62.5 mcg/actua tion powder for inhalatio n INHALE 1 PUFF BY MOUTH EVERY DAY AT THE SAME TIME RINSE MOUTH AFTER USING active Not Available Not Available No t Available naloxone 4 mg/actuat ion nasal spray FOR SUSPECTE D OPIOID OVERDOSE . SPRAY 0.1mL IN ONE NOSTRIL. REPEAT IN ALTERNAT E NOSTRIL 2-3 MINUTES IF NEEDED. SEEK MEDICAL ATTENTIO N IMMEDIAT DANNA EVEN IF PATIENT RESPONDS . active Not Available Not Available No t Available Dupixent 300 mg/2 mL subcutane ous syringe 2 ml subcutan eously 2018 active Medicati on ID: [id number] D uration Value: 90 Prescri bed By Name: Colton Horton nd Name: Dupixfuentes Send Method: E-Prescr ibed Sub s Allowed: subs OK Speci al Instruct ion: inject every 2 weeks subcutan eously M edtanvi nGeneric Name: Dupixent Not Available Not Available Not Available Dupixent 300 mg/2 mL subcutane ous pen injector INJECT 1 PEN SUBCUTAN EOUSLY EVERY 2 WEEKS active Not Available Not Available No t Available Vitals Date Recorded Body height Body mass index (BMI) Body weight Provider Name and Address Organization Details Last Updated DateTime 09/12/2024 185.42 cm 28.8 kg/m2 21844.14 g Maria De Jesus James [place] - [facility] 09/12/2024 11:12:20 Date Recorded Body height Body mass index (BMI) Body weight Provider Name and Address Organization Details Last Updated DateTime 12/15/2023 185.42 cm 28.8 kg/m2 85650.14 g Yan Lima [facility] 12/15/2023 08:47:09 Date Recorded Body height Body mass index (BMI) Body weight Provider Name and Address Organization Details Last Updated DateTime 03/14/2024 185.42 cm 28.8 kg/m2 30308.14 g Maria De Jesus Quarlesos [facility] 03/14/2024 11:09:27 Social History None recorded. Functional Status None recorded. Mental Status None recorded. Family History Nothing Reported. Medical History Condition Response Diabetes Y Allergies/Hayfever Y Nasal polyps Y Asthma Y Past Encounters Encounter ID Performer Location Encounter Start Date Encounter Closed Date Diagnosis/Indication Diagnosis SNOMED-CT Code Diagnosis ICD10 Code Diagnosis IMO Codes Diagnosis Note [id number] SHAHEED ALVARADO MD [facility] [address] [address] 12/15/2023 08:39:54 12/15/2023 08:57:47 Moderate persistent asthma 408951347 J45.40 Polypoid s inus degeneration 26508170 J33.1 Chronic sinusitis 221538 00 J32.9 Hypereosin ophilic syndrome 944728763 D72.119 Polyp of nasal cavity 73 2687119 J33.0 [id number] SHAHEED ALVARADO MD [facility] [address] [address] 03/14/2024 11:05:21 03/14/2024 11:41:19 Polyp of nasal cavity 758781566 J33.0 Eosinophil count above reference range 145572043 D72.10 [id number] SHAHEED ALVARADO MD [facility] [address] [address] 09/12/2024 10:47:18 09/12/2024 11:29:55 Polyp of nasal cavity 064766678 J33.0 Eosinophil count above reference range 273194146 D72.10 Moderate p ersistent asthma 150209163 J45.40 improved Health Concerns Section Related Observation LastModified by Organization Detai ls LastModified Time None Recorded Concern Status LastModified by Organization Details LastModified Time None Recorded Advance Directives Directive None Recorded Payers Insurance Date Sequence Insurance Name Policy Number Policy Hall Covered Member ID Hall Member ID Guarantor Name 03/11/2025 1 [facility] - DOS ON OR AFTER 2022 - MEDICARE ADVANTAGE [place] (MEDICARE REPLACEMENT/AD VANTAGE - PPO) Colton James [id number] Colton James Notes Date Note Type Note Provider Name and Address Organization Details Recorded Time 12/15/2023 text/html ROS as noted in the HPI Hx of nasal polyps and eosinophilic asthma. Sinus surgery 2016. Previously treated with DupixentFeels increased nasal congestion. Presently on INS. Last Dupixent 1 yearrecently needed albuterol neb for asthma.now better SHAHEED MENA MD [address] [place] [address], [id number], [place] - [facility] 12/15/2023 08:57:07 03/14/2024 text/html Patient with elevated eosinophil count and recurrent nasal polyps. He was approved for Dupixent but has not yet restarted things. Continues on fluticasone and montelukast SHAHEED MENA MD [address] [facility],[address], [id number], [facility] - [facility] 03/14/2024 11:38:40 09/12/2024 text/html ROS as noted in the HPI Patient with elevated eosinophil count and recurrent nasal polyps.Continues on Dupixent, budesonide rinses or fluticasone and montelukast. Patient reports that his breathing and sense of smell have been good. No recent asthma issues SHAHEED MENA MD [address] [place] [address],[address], [id number], [facility] - [facility] 09/12/2024 11:31:29
--- OUTSIDE RECORDS SUMMARY | 2025-03-15 02:35 | XMS_ITS | Encounter Summary ---
Author Organization [employer] [facility] Address [address] [facility] 7t [place] [address] Care Team Providers Care Tank Filler Name Role Phone AsterStephanie anand Primary Care Provider + [phone] Encounter Details Date Type Department Care Team ([facility] Contact Info) Description 05/04/2022 Abstract [facility] MEDICINE [address] [place] [address] Tricia Farmer PharmD [address] [place] [address] Social History Tobacco Use Types Packs/Day Years [...] Upcoming Encounters Date Type Department Care Team ([facility] st Contact Info) Description 04/27/2025 9:00 AM EST Telemedicine [facility] MEDICINE [address] [place] [address] Mariana Aggarwal, ROMEL 07/09/2025 1:00 PM EST Office Visit [facility] OPTOMETRY [address] [place] [address] Virginia García, OD [address] [place] [address] documented as of this encounter Visit Diagnoses Not on filedocumented in this encounter Additional Health Concerns Assessment Noted Time PHQ-9 Depression Total Score: 0 04/22/20 22 10:55 AM EST documented as of this encounter Care Teams Tank Filler Relationship Specialty Start Date End Date Stephanie Alex DO [address] [place] [address] PCP - General Family Medicine 06/12/15 Myrna 06/21/24 03/05/25 [facility] 07/19/24 documented as of this encounter
--- OUTSIDE RECORDS SUMMARY | 2025-03-15 02:35 | XMS_ITS | Encounter Summary ---
Author Organization [facility] [facility] Address [address] [facility] [address] [place] [address] Care Team Providers Care Radiology Resident Name Role Phone Stephanie Alex DO Primary Care Provider + [phone] Encounter Details Date Type Department Care Team (Latest Contact Info) Description 01/23/2022 Abstract [facility] CONVERSIONS Dental, Provider, DDS Social History Tobacco [...] Care Team ( st Contact Info) Description 04/27/2025 9:00 AM EST Telemedicine [facility] MEDICINE [address] [place] [address] Mariana Aggarwal RN 07/09/2025 1:00 PM EST Office Visit [facility] OPTOMETRY [address] [place] [address] Ricky, [place], OD [address] [place] [address] documented as of this encounter Visit Diagnoses Not on filedocumented in this encounter Care Teams Radiology Resident Relationship Specialty Start Date End Date Stephanie Alex DO [address] [place] [address] PCP - General Family Medicine 06/12/15 Myrna 06/21/24 03/05/25 [facility] 07/19/24 documented as of this encounter
--- OUTSIDE RECORDS SUMMARY | 2025-03-15 02:35 | XMS_ITS | Encounter Summary ---
Author Organization [employer] Address [address] [facility] 7t [place] [address] Care Team Providers Care Embossed Or Impressed Lettering Painter Name Role Phone Stephanie Alex DO Primary Care Provider + [phone] Reason for Visit * Reason Onset Date Comments Med Refill 07/22/2023 Encounter Details Date Type Department Care Team ([facility] st Contact Info) Description 07/22/[address] [facility] MEDICINE [address] [place] [address] Stephanie Alex DO [address] [place], [place] [phone] Med Refill Social History Tobacco Use Types [...] 300 MG/2ML injection To be sent to: [facility] - [place], [place] - [address] [place] [address] documented in this encounter Plan of Treatment Upcoming Encounters Date Type Department Care Team (Late st Contact Info) Description 04/27/2025 9:[address] [facility] MEDICINE [address] [place] [address] Mariana Aggarwal RN 07/09/2025 1:00 PM EST Office Visit [facility] OPTOMETRY [address] [place] [address] Virginia Garíca OD [address] [place] [address] documented as of this encounter Visit Diagnoses Not on filedocumented in this encounter Additional Health Concerns Assessment Noted Time PHQ-9 Depression Total Score: 0 09/02/19 23 9:01 AM EDT documented as of this encounter Care Teams Embossed Or Impressed Lettering Painter Relationship Specialty Start Date End Date Stephanie Alex DO [address] [place] [address] PCP - General Family Medicine 06/12/15 Myrna 06/21/24 03/05/25 [facility] 07/19/24 documented as of this encounter
--- OUTSIDE RECORDS SUMMARY | 2025-03-15 02:35 | XMS_ITS | Encounter Summary ---
Author Organization [employer] Address [address] [facility] [address] [place] [address] Care Team Providers Care Tearer Name Role Phone EddiStephanie zacarias Primary Care Provider + [phone] Reason for Visit * Reason Comments Med Refill Encounter Details Date Type Department Care Team ([facility] Contact Info) Description 09/27/2022 Refill [facility] MEDICINE [address] [place] [address] Bettina Eddy MD [address] [place] [address] Chronic bilateral low back pain, unspecified whether [...] Info) Description 04/27/2025 9:00 AM EST Telemedicine [facility] MEDICINE [address] [place] [address] Mariana Aggarwal, RN 07/09/2025 1:00 PM EST Office Visit [facility] OPTOMETRY [address] [place] [address] Virignia García, OD [address] [place] [address] documented as of this encounter Visit Diagnoses Diagnosis Chronic bilateral low back pain, unspecified whether sciatica present documented in this encounter Additional Health Concerns Assessment Noted Time PHQ-9 Depression Total Score: 0 09/02/19 9:01 AM EDT documented as of this encounter Care Teams Tearer Relationship Specialty Start Date End Date Stephanie Alex DO [address] [place] [address] PCP - General Family Medicine 06/12/15 Myrna 06/21/24 03/05/25 [facility] 07/19/24 documented as of this encounter
--- OUTSIDE RECORDS SUMMARY | 2025-03-15 02:35 | XMS_ITS | Encounter Summary ---
Author Organization [employer] [facility] Address [address] [facility] 7t [place] [address] Care Team Providers Care Car Customizer Name Role Phone Stephanie Alex DO Primary Care Provider + [phone] Reason for Visit * Reason Onset Date Comments triage 05/21/2022 Encounter Details Date Type Department Care Team ([facility] Contact Info) Description 05/21/2022 Telephone [facility] MEDICINE [address] [place] [address] Stephanie Alex DO [address] [place], [place] [phone] triage Social History Tobacco Use Types Packs/Day [...] now The caller accepted this outcome speaks chinese documented in this encounter Plan of Treatment Upcoming Encounters Date Type Department Care Team (Late st Contact Info) Description 04/27/2025 9:00 AM EST Telemedicine [facility] MEDICINE [address] [place] [address] Mariana Aggarwal RN 07/09/2025 1:00 PM EST Office Visit [facility] OPTOMETRY [address] [place] [address] Virginia García, OD [address] [place] [address] documented as of this encounter Visit Diagnoses Not on filedocumented in this encounter Additional Health Concerns Assessment Noted Time PHQ-9 Depression Total Score: 0 04/22/20 22 10:55 AM EST documented as of this encounter Care Teams Car Customizer Relationship Specialty Start Date End Date Stephanie Alex DO [address] [place] [address] PCP - General Family Medicine 06/12/15 Myrna 06/21/24 03/05/25 [facility] 07/19/24 documented as of this encounter
--- OUTSIDE RECORDS SUMMARY | 2025-03-15 02:35 | XMS_ITS | Encounter Summary ---
Author Organization [employer] Address [address] [facility] 7[address] [place] [address] Care Team Providers Care Flowers Salesperson Name Role Phone Isai Stephanie Primary Care Provider + [phone] Encounter Details Date Type Department Care Team ([facility] st Contact Info) Description 08/24/2023 Orders Only [facility] MEDICINE [address] [place] [address] ProviderMicha MD Social History Tobacco Use Types [...] Info) Description 04/27/2025 9:00 AM EST Telemedicine [facility] MEDICINE [address] [place] [address] Mariana Aggarwal, ROMEL 07/09/2025 1:00 PM EST Office Visit [facility] OPTOMETRY [address] [place], [place] [phone] Virginia García, OD [address] [place] [address] documented as of this encounter Procedures Procedure Name Priority Date/Time Associated Diagnosis Comments HM COLONOSCOPY Routine 04/24/2020 10:02 AM EST HM COLONOSCOPY Routine 03/26/2016 9:58 AM EST documented in this encounter Results * Hm Colonoscopy (04/24/2020 10:02 AM EST) us Historical Provider HEALTH MAINTENANCE Final Result * Hm Colonoscopy (03/26/2016 9:58 AM EST) Colonoscopy Normal Normal us Historical Provider HEALTH MAINTENANCE Edited Result - Final documented in this encounter Visit Diagnoses Not on filedocumented in this encounter Additional Health Concerns Assessment Noted Time PHQ-9 Depression Total Score: 0 09/02/19 23 9:01 AM EDT documented as of this encounter Care Teams Flowers Salesperson Relationship Specialty Start Date End Date Stephanie Alex DO [address] [place] [address] PCP - General Family Medicine 06/12/15 Myrna [phone] (Work) 06/21/24 03/05/25 [facility] 07/19/24 documented as of this encounter
--- OUTSIDE RECORDS SUMMARY | 2025-03-15 02:35 | XMS_ITS | Encounter Summary ---
Author Organization [employer] Address [address] [facility] 7[address] [place] [address] Care Team Providers Care Autographer Name Role Phone Stephanie Alex DO Primary Care Provider + [phone] Reason for Visit * Reason Comments Med Refill Encounter Details Date Type Department Care Team ([facility] Contact Info) Description 05/11/2023 Refill [facility] MEDICINE [address] [place], [place] [phone] Stephanie Alex DO [address] [place], [place] [phone] Other chronic pain Social History Tobacco Use [...] Info) Description 04/27/2025 9:00 AM EST Telemedicine [facility] MEDICINE [address] [place] [address] Mariana Aggarwal, RN 07/09/2025 1:00 PM EST Office Visit [facility] OPTOMETRY [address] [place] [address] Ricky, [place], OD [address] [place] [address] documented as of this encounter Visit Diagnoses Diagnosis Other chronic pain documented in this encounter Additional Health Concerns Assessment Noted Time PHQ-9 Depression Total Score: 0 09/02/19 9:01 AM EDT documented as of this encounter Care Teams Autographer Relationship Specialty Start Date End Date Stephanie Alex DO [address] [place] [address] PCP - General Family Medicine 06/12/15 Myrna 06/21/24 03/05/25 [facility] 07/19/24 documented as of this encounter
--- OUTSIDE RECORDS SUMMARY | 2025-03-15 02:35 | XMS_ITS | Encounter Summary ---
Author Organization [employer] Address [address] [facility] 7t [place] [address] Care Team Providers Care Digital Archivist Name Role Phone Stephanie Alex DO Primary Care Provider + [phone] Reason for Visit * Reason Comments Med Refill Encounter Details Date Type Department Care Team ([facility] Contact Info) Description 05/01/2024 Refill [facility] MEDICINE [address] [place], [place] [phone] Stephanie Alex DO [address] [place] [address] Essential hypertension Social History Tobacco Use Types [...] Info) Description 04/27/2025 9:00 AM EST Telemedicine [facility] MEDICINE [address] [place] [address] Mariana Aggarwal RN 07/09/2025 1:00 PM EST Office Visit [facility] OPTOMETRY [address] [place] [address] Virginia García, OD [address] [place] [address] documented as of this encounter Visit Diagnoses Diagnosis Essential hypertension Unspecified essential hypertension documented in this encounter Additional Health Concerns Assessment Noted Time PHQ-9 Depression Total Score: 0 04/21/20 24 9:57 AM EST documented as of this encounter Care Teams Digital Archivist Relationship Specialty Start Date End Date Stephanie Alex DO [address] [place] [address] PCP - General Family Medicine 06/12/15 Myrna 06/21/24 03/05/25 [facility] 07/19/24 documented as of this encounter
--- OUTSIDE RECORDS SUMMARY | 2025-03-15 02:35 | XMS_ITS | Clinical Summary ---
Author Organization [employer] Address [address] [facility] 7t [place] [address] Care Team Providers Care Vehicle And Equipment Cleaner Name Role Phone Stephanie Alex Primary Care Provider + [phone] Allergies Active Allergy Reactions Criticality Noted Date [...] polyneuropathy, without long-term current use of insulin ([facility]) TEST BLOOD SUGAR EVERY DAY 50 strip 11 06/29/19 23 Active SM Dry Eye Relief 0.2-0.2-1 % solution PLACE 1 DROP IN EACH EYE THREE TIMES DAILY 15 mL 11 08/06/19 23 Active TRUEplus Lancets 33G misc TEST BLOOD SUGAR EVERY DAY 100 each 11 09/20/19 24 Active Respiratory Therapy Supplies (Nebulizer [...] 30 tablet 11 05/08/20 24 2024 Active Multiple Vitamin (Multivitamin) tablet TAKE 1 TABLET BY MOUTH EVERYDAY AT NOON 90 tablet 3 07/25/19 25 Active montelukast (Singulair) 10 MG tablet TAKE 1 TABLET BY MOUTH EVERY EVENING 90 tablet 3 07/25/19 25 Active Ventolin HFA 108 (90 Base) [...] for itching. 90 tablet 3 10/19/19 25 Active acetaminophen (Tylenol 8 Hour) 650 MG ER tablet Take 1 tablet (650 mg) by mouth every 8 (eight) hours if needed for mild pain. 60 tablet 3 11/01/19 25 Active naloxone (Narcan) 4 mg/0.1 mL nasal sprayIndications: [facility] (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 Administer 1 spray (4 mg) into affected nostril(s) if needed for opioid reversal. 2 each 2 11/02/19 25 Active albuterol (2.5 MG/3ML) 0.083% nebulizer [...] MOUTH AFTER USING 30 each 2 01/10/20 25 Active metFORMIN (Glucophage) 500 MG tablet TAKE 1 TABLET BY MOUTH TWICE DAILY IN THE MORNING AND IN THE EVENING WITH FOOD 180 tablet 1 02/15/20 25 Active levothyroxine (Synthroid, Levoxyl) 25 MCG tabletIndications :Acquired hypothyroidism TAKE 1 TABLET BY MOUTH EVERY MORNING 90 tablet 1 02/15/20 25 Active Ferrous Sulfate (iron) 325 (65 Fe) MG tabletIndications :Anemia, unspecified type TAKE 1 TABLET BY MOUTH TWICE DAILY AT NOON AND IN THE EVENING 180 tablet 1 02/15/20 25 Active traMADol (Ultram) 50 MG tabletIndications :Chronic low back pain, unspecified back pain laterality, unspecified whether sciatica present TAKE 1 TABLET BY MOUTH EVERY 8 HOURS NEEDED FOR SEVERE PAIN 84 tablet 03/02/20 25 Active sertraline (Zoloft) 25 MG tabletIndications :Depression, unspecified depression type TAKE 1 TABLET BY MOUTH EVERY MORNING 30 tablet 3 03/08/20 Active levothyroxine (Synthroid, Levoxyl) 25 MCG tabletIndications :Acquired hypothyroidism TAKE 1 TABLET BY MOUTH EVERY MORNING 90 tablet 1 08/25/19 25 2024 Discontinued Ferrous Sulfate (iron) 325 (65 Fe) MG tabletIndications :Anemia, unspecified type TAKE 1 TABLET BY MOUTH TWICE DAILY AT NOON AND IN THE EVENING 180 tablet 1 08/25/19 25 2024 Discontinued metFORMIN (Glucophage) 500 MG tablet TAKE 1 TABLET BY MOUTH TWICE DAILY IN THE MORNING AND IN THE EVENING WITH FOOD 180 tablet 1 08/25/19 25 2024 Discontinued sertraline (Zoloft) 25 MG tabletIndications :Depression, unspecified depression type TAKE 1 TABLET BY MOUTH EVERY MORNING 30 tablet 3 11/21/19 25 2024 Discontinued traMADol (Ultram) 50 MG tabletIndications :Chronic low back pain, unspecified back pain laterality, unspecified whether sciatica present TAKE 1 TABLET BY MOUTH EVERY 8 HOURS NEEDED FOR SEVERE PAIN 84 tablet 12/09/192024 Discontinued Active Problems Problem Noted Date Diagnosed [...] time in diff also gout,pseudogout ,RA -called [facility] to let them know pt is going ,pt refuse EMT call ,states will pick pulling machine tender at home and then he will go to hospital ,pt understands will need sinovial tap for diagnosis and r/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; Combined forms of age-related cataract of both eyes; Seasonal allergic conjunctivitis; Presbyopia 03/07/2025 Travel 03/07/2025 Refill [facility] MEDICINE [address] [place], [place] [phone] Stephanie Alex DO Depression, unspecified depression type 03/05/2025 Telephone [facility] OPTOMETRY [address] [place] [address] Virginia García, OD 03/02/2025 Refill [facility] MEDICINE [address] [place] [address] Celina Sharpe MD Chronic low back pain, unspecified back pain laterality, unspecified whether sciatica present 02/14/2025 Refill [facility] MEDICINE [address] [place] [address] Stephanie Alex DO Acquired hypothyroidism; Anemia, unspecified type 01/22/2025 Orders Only GENERIC EXTERNAL DATA DEPARTMENT Provider, Generic External Data 01/07/2025 Refill [facility] MEDICINE [address] [place] [address] Stephanie Alex DO Asthma, unspecified asthma severity, unspecified whether complicated, unspecified whether persistent 12/25/2024 Orders Only [facility] External Provider, [facility] 12/20/2024 2:20 PM EDT Office Visit [facility] WALK-IN CENTER [address] [place] [address] Celina King MD Essential hypertension (Primary Dx); Swelling of right hand 12/20/2024 Travel 12/17/2024 Refill [facility] MEDICINE [address] [place] [address] Stephanie Alex DO Other hyperlipidemia; Chronic bilateral low back pain, unspecified whether sciatica present 12/15/2024 Refill [facility] MED[facility]INE [address] [place] [address] Stephanie Alex DO 12/15/2024 Refill [facility] MED[facility]INE [address] [place] [address] Stephanie Alex DO from Last 3 Months [...] Info) Description 04/27/2025 9:00 AM EST Telemedicine [facility] MEDICINE [address] [place] [address] Mariana Aggarwal, RN 07/09/2025 1:00 PM EST Office Visit [facility] OPTOMETRY [address] [place] [address] Virginia García, OD [address] [place] [address] Health Maintenance Due Date Last Done Comments [...] Alcohol/Substance Use Screening 10/31/2025 10/31/2024 Tobacco Screening 03/07/2026 03/07/2025 Eye Exam 03/07/2027 03/07/2025, 02/15, 03/07/2025, Additional history exists Zoster Vaccines Completed 11/22/2019, [...] polyneuropathy, without long-term current use of insulin ([facility]) HEPATITIS C AB W/REFL TO [...] polyneuropathy, without long-term current use of insulin ([facility]) Essential hypertension Other hyperlipidemia Anxiety [...] 5:29 PM EDT 01/23/2025 7:49 AM EDT [facility] - 01/24/2025 9:44 AM EDT ----- ------- Name: Colton James Age/Sex: 74/M : 1950 Unit#: [id number] Attend Dr: Dinorah Eisenberg Re01/22/25 Status: DEP REF Location: .LAB Disch: ----- ------- SPEC : [id number] RECD: 01/23/25 STATUS: WU ASHLEY NUM: [id number] DL: 01/22/[address] [facility] [address]: Dinorah Eisenberg ENTERED: 01/23/25 SP TYPE: Cytology OTHR DR: Stephanie Alex DO ORDERED: Cyto-enhanced Diagnosis [...] developed and their performance characteristics determined by [facility]. They have not been cleared or approved by the U.S. Food and Drug Administration (FDA). However, the FDA has determined that such clearance or approval is not necessary. This laboratory is certified under the Clinical Laboratory Improvement Amendments of 1988 (CLIA) as qualified to perform high complexity clinical laboratory testing. Copies To: Stephanie Alex DO [address] [address] Dinorah Eisenberg [facility] [address] [place] [address] [address] [place] [address] [email or web address] CONTINUED ON NEXT PAGE ----- ------- Name: Colton James Age/Sex: 74/M : 1950 Unit#: [id number] Attend Dr: Dinorah Eisenberg [facility] Re01/22/25 Status: DEP [facility]F [facility] Disch: ----- ------- SPEC : [id number] RECD: 01/23/25 STATUS: WU ASHLEY NUM: [id number] DL: 01/22/[address] [facility] [address]: Dinorha Eisenberg [facility]- ENTERED: 01/23/25 SP TYPE: Cytology OTHR DR: Stephanie Alex DO ORDERED: Cyto-enhanced ----- ------- Signed (signature on file) Niharika Sharif MD 01/24/25 0944 ----- ------- END OF REPORT us Generic External Data Provider LAB CYTOLOGY MIREILLE ALVARENGA Final Result [facility] [address] [place] [phone] * XR Wrist 3+ Views Right (12/25/2024 7:36 AM EDT) Anatomical Region Laterality Modality Upper Extremities, Wrist Right Radiogr aphic Imaging 12/25/2024 7:36 AM EDT Narrative 12/25/2024 8:52 AM EDT [address] [address] XRay Report Signed Patient: Colton James MR#: [id number] 4 : 1950 Acct:[id number] Age/Sex: 74 / M ADM Date: 12/25/24 Loc: HO.ED Attending Dr: Ordering Physician: Todd ED Physician Date of Service: 12/25/24 Procedure(s): XR wrist RT min 3V Accession Number(s): [id number] cc: Generic ED Physician; Stephanie Alex DO [...] 12/25/24 0848 DD/ 0736 TD/TT: 12/25/24 0838 Supervisor Propellant Charge Loading: Procedure Note Dondinorahinterpreter, Image - 12/25/[address] [address] XRay Report Signed Patient: Colton JamesMR#: [id number] 4 : 1950cct:[id number] Age/Sex: 74 / MADM Date: 12/25/24 Loc: HO.ED Attending Dr: Ordering Physician: Todd ED Physician Date of Service: 12/25/24 Procedure(s): XR wrist RT min 3V Accession Number(s): [id number] cc: Generic ED Physician; Stephanie Alex DO [...] 12/25/2024 08:48 AM EDT RP Dictated By: uQinn Delgado MD Signed By: <Electronically signed by Quinn Delgado MD in OV> 12/25/24 0848 DD/ 0736 TD/TT: 12/25/24 0838 Supervisor Propellant Charge Loading: [facility] External Provider IMG XR PROCEDURES Final Result * POCT HGB A1C (10/31/2024 10:37 AM EDT) Hemoglobin A1C 5.9 4.0 - 6.0 % QC Media Lot # [id number] Lot# Expiration Date 842 Blood 10/31/2024 10:3 7 AM EDT Stephanie Alex DO POINT OF CARE TEST ENTER/ROBERTA T ORDERABLES Final Result * Albumin, Random Urine W/Creatinine (02/22/2024 10:35 AM EDT) Creatinine, Urine 87.37 mg/dL [facility] Microalbumin Urine 7.0 mg/L [facility] Microalbum Creatinine Ratio Ur 8.0 <30 ug/mg cr [facility] Comment:Albumin/Creatinine R atio Reference Ranges: Normal: < 30 ug/mg creatinine Microalbuminuria: 30 - 300 ug/mg creatinineClinical Albuminuria: > 300 ug/mg creatinine Urine (Urine, Random) 02/22/2024 10:35 AM EDT 02/22/2024 11:23 AM EDT Stephanie Alex DO LAB URINE ORDERABLES Final R esult Performing Organization Address [facility]/ZIP Co de Phone Number [facility] [address] [place] [address] [phone] * Hepatitis C Antibody with Reflex to HCV, RNA, Quantitative, Real-Time PCR (02/22/2024 10:35 AM EDT) Hepatitis C Antibody Nonreactive Nonreactive [facility] Comment:Antibodies to HCV no t detected; does not exclude early acuteHCV infection. Blood Venous blood specimen / Unknown 02/22/2024 10:35 AM EDT 02/22/2024 11:35 AM EDT us Stephanie Alex Ellevation LAB BLOOD ORDERABLES Final R esult Performing Organization Address [facility] Co de Phone Number [facility] [address] [place] [address] [phone] * Lipid Panel, Standard (02/22/2024 10:35 AM EDT) Triglycerides 87 <150 mg/dL [facility] Comment:Desirable Triglyceri de: less than 150 mg/dLBorderline High Triglyceride 150-199 mg/dLHigh Triglyceride: 200-499 mg/dLVery High Triglyceride: greater than or equal to 5OO mg/dL Cholesterol 147 <200 mg/dL [facility] Comment:Desirable Cholestero l: less than 200 mg/dLBorderline High Cholesterol: 200-239 mg/dLHigh Cholesterol: greater than 239 mg/dL LDL Cholesterol Calculated 73 <100 mg/dL [facility] Comment:Desirable LDL: less than 100 mg/dLNear Optimal/Above Optimal LDL: 110- 129 mg/dLBorderline High LDL: 130-159 mg/dLHigh LDL: 160-189 mg/dLVery High LDL: greater than or equal to 190 mg/dL HDL Cholesterol 57 >40 mg/dL [facility] Comment:Desirable HDL: great er than 40 mg/dL Note: This HDL assay may give artificially low results in patients with liver disease. Blood Venous blood specimen / Unknown 02/22/2024 10:35 AM EDT 02/22/2024 11:35 AM EDT Stephanie Alex DO LAB BLOOD ORDERABLES Final R esult [facility] [address] [place] [address] [phone] * Colonoscopy (04/24/2020 10:02 AM EST) Historical Provider HEALTH MAINTENANCE Final Result from Last 3 Months or Most Recently Relevant to Health Maintenance Insurance [facility] ASSISTED OPTIONS (O D-SNP) CARM[employer]TE [id number] Care Teams Vehicle And Equipment Cleaner Relationship Specialty Start Date End Date Stephanie Alex DO [address] [place] [phone] PCP - General Family Medicine 06/12/15 [facility] 07/19/24
--- OUTSIDE RECORDS SUMMARY | 2025-03-15 02:35 | XMS_ITS | Encounter Summary ---
Author Organization [facility] [facility] Address [address] [facility] [address] [place] [address] Care Team Providers Care Senior Network Systems Engineer Name Role Phone Stephanie Alex DO Primary Care Provider + [phone] Reason for Visit * Reason Comments Med Refill Encounter Details Date Type Department Care Team (Late st Contact Info) Description 12/27/2022 Refill [facility] [address] [place] [address] Stephanie Alex DO [address] [place] [address] Acquired hypothyroidism; Anemia, unspecified type; Chronic bilateral [...] Department Care Team (Late Contact Info) Description 04/27/2025 9:00 AM EST Telemedicine [facility] [address] [place] [address] Mariana Aggarwal, ROMEL 07/09/2025 1:00 PM EST Office Visit [facility] OPTOMETRY [address] [place], [place] [phone] RickyVirginia, OD [address] [place] [address] documented as of this encounter Visit Diagnoses Diagnosis Acquired hypothyroidism Unspecified hypothyroidism Anemia, unspecified type Chronic bilateral low back pain, unspecified whether sciatica present documented in this encounter Additional Health Concerns Assessment Noted Time PHQ-9 Depression Total Score: 0 09/02/19 9:01 AM EDT documented as of this encounter Care Teams Senior Network Systems Engineer Relationship Specialty Start Date End Date Stephanie Alex DO [address] [place] [address] PCP - General Family Medicine 06/12/15 Myrna 06/21/24 03/05/25 [facility] 07/19/24 documented as of this encounter
--- OUTSIDE RECORDS SUMMARY | 2025-03-15 02:35 | XMS_ITS | Encounter Summary ---
Author Organization [employer] Address [address] [facility] [address] [place] [address] Care Team Providers Care Change Coordinator Name Role Phone Stephanie Alex DO Primary Care Provider + [phone] Reason for Visit * Reason Onset Date Comments Durable Medical Equipment 09/16/2023 Encounter Details Date Type Department Care Team ([facility] st Contact Info) Description 09/16/2023 Telephone [facility] MEDICINE [address] [place] [address] Stephanie Alex DO [address] [place], [place] [phone] Durable Medical Equipment Social History Tobacco Use [...] Info) Description 04/27/2025 9:00 AM EST Telemedicine [facility] MEDICINE [address] [place] [address] Mariana Aggarwal RN 07/09/2025 1:00 PM EST Office Visit [facility] OPTOMETRY [address] [place] [address] Virginia García, OD [address] [place] [address] documented as of this encounter Visit Diagnoses Not on filedocumented in this encounter Additional Health Concerns Assessment Noted Time PHQ-9 Depression Total Score: 3 09/02/19 24 10:32 AM EDT documented as of this encounter Care Teams Change Coordinator Relationship Specialty Start Date End Date Stephanie Alex DO [address] [place] [address] PCP - General Family Medicine 06/12/15 Myrna 06/21/24 03/05/25 [facility] 07/19/24 documented as of this encounter
--- OUTSIDE RECORDS SUMMARY | 2025-03-15 02:35 | XMS_ITS | Encounter Summary ---
Author Organization [employer] Address [address] [facility] 7[address] [place] [address] Care Team Providers Care Well Testing Operator Name Role Phone IsaiStephanie Primary Care Provider + [phone] Reason for Visit * Reason Comments Med Refill Encounter Details Date Type Department Care Team ([facility] Contact Info) Description 06/02/2023 Refill [facility] MEDICINE [address] [place], [place] [phone] Maria De Jesus Mann MD [address] [place], [place] [phone] Moderate persistent asthma, unspecified whether complicated Social [...] Info) Description 04/27/2025 9:00 AM EST Telemedicine [facility] MEDICINE [address] [place] [address] Mariana Aggarwal, RN 07/09/2025 1:00 PM EST Office Visit [facility] OPTOMETRY [address] [place] [address] Ricky, [place], OD [address] [place] [address] documented as of this encounter Visit Diagnoses Diagnosis Moderate persistent asthma, unspecified whether complicated documented in this encounter Additional Health Concerns Assessment Noted Time PHQ-9 Depression Total Score: 0 09/02/19 9:01 AM EDT documented as of this encounter Care Teams Well Testing Operator Relationship Specialty Start Date End Date Stephanie Alex DO [address] [place] [address] PCP - General Family Medicine 06/12/15 [place] 06/21/24 03/05/25 [facility] 07/19/24 documented as of this encounter"
--- OUTSIDE RECORDS SUMMARY | 2025-03-15 02:35 | XMS_ITS | Encounter Summary ---
Author Organization [employer] Address [address] [facility] 7[address] [place] [address] Care Team Providers Care Building Associate Name Role Phone Stephanie Alex DO Primary Care Provider + [phone] Encounter Details Date Type Department Care Team ([facility] Contact Info) Description 09/29/2022 Orders Only [facility] MEDICINE [address] [place] [address] Stephanie Alex DO [address] [place], [place] [phone] Gynecomastia, male (Primary Dx) Social History Tobacco [...] Description 04/27/2025 9:00 AM EST Telemedicine [facility] MEDICINE [address] [place] [address] Mariana Aggarwal, RN 07/09/2025 1:00 PM EST Office Visit [facility] OPTOMETRY [address] [place] [address] Ricky, [place], OD [address] [place] [address] documented as of this encounter Visit Diagnoses Diagnosis Gynecomastia, male- Primary Hypertrophy of breast documented in this encounter Additional Health Concerns Assessment Noted Time PHQ-9 Depression Total Score: 0 09/02/19 9:01 AM EDT documented as of this encounter Care Teams Building Associate Relationship Specialty Start Date End Date Stephanie Alex DO [address] [place] [address] PCP - General Family Medicine 06/12/15 Myrna 06/21/24 03/05/25 [facility] 07/19/24 documented as of this encounter
--- OUTSIDE RECORDS SUMMARY | 2025-03-15 02:35 | XMS_ITS | Encounter Summary ---
Author Organization [employer] [facility] Address [address] [facility] [address] [place] [address] Care Team Providers Care Boatbuilder Wood Name Role Phone Stephanie Alex DO Primary Care Provider + [phone] Reason for Visit * Reason Comments Med Refill Encounter Details Date Type Department Care Team (Late st Contact Info) Description 02/16/2023 Refill [facility] MED[facility]INE [address] [place] [address] Stephanie Alex DO [address] [place] [address] Depression, unspecified depression type Social History Tobacco [...] Description 04/27/2025 9:00 AM EST Telemedicine [facility] MEDICINE [address] [place] [address] Mariana Aggarwal RN 07/09/2025 1:00 PM EST Office Visit [facility] OPTOMETRY [address] [place] [address] Virginia García, YANA [address] [place], [place] [phone] documented as of this encounter Visit Diagnoses Diagnosis Depression, unspecified depression type documented in this encounter Additional Health Concerns Assessment Noted Time PHQ-9 Depression Total Score: 0 09/02/19 9:01 AM EDT documented as of this encounter Care Teams Boatbuilder Wood Relationship Specialty Start Date End Date Stephanie Alex DO [address] [place] [address] PCP - General Family Medicine 06/12/15 Myrna 06/21/24 03/05/25 [facility] 07/19/24 documented as of this encounter
--- NOTE | 2025-03-15 02:57 | ED.GENADULT ---
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 Patient states he has developed worsening neck stiffness, the pain originates posterior upper neck at the base of the skull and radiates downward bilaterally to upper back. Pain worse with movement of neck and upper extremities. Denies radiation into the upper extremities, weakness of upper extremities or paresthesia. Denies headache, dizziness, nausea vomiting. Denies recent illness or fever. Denies precipitating heavy lifting mechanism that could have precipitated his symptoms. The patient states he has been sleeping with the same pillows, no change in his other bending. Related Data Home Medications ?Medication ?Instructions ?Recorded ?Confirmed ferrous sulfate 325 mg (65 mg 325 mg PO BID 03/27/20 01/22/25 iron) tablet multivitamin 1 tab PO DAILY 03/27/20 01/22/25 albuterol sulfate 90 mcg/actuation 2 puff PO Q4H PRN Wheezing 04/18/20 01/22/25 aerosol inhaler (Ventolin HFA) amlodipine 10 mg tablet 10 mg PO DAILY 09/30/22 01/22/25 atorvastatin 40 mg tablet 40 mg PO BEDTIME 09/30/22 01/22/25 cetirizine 10 mg capsule (All Day 10 mg PO DAILY PRN Allergy Symptoms 09/30/22 01/22/25 Allergy (cetirizine)) gabapentin 800 mg tablet 800 mg PO TID 09/30/22 01/22/25 levothyroxine 25 mcg tablet 25 mcg PO DAILY@0600 09/30/22 01/22/25 metformin 500 mg tablet 500 mg PO BIDWM 09/30/22 01/22/25 montelukast 10 mg tablet 10 mg PO BEDTIME 09/30/22 01/22/25 sertraline 25 mg tablet 25 mg PO DAILY 09/30/22 01/22/25 cholecalciferol (vitamin D3) 50 50 mcg PO DAILY 10/21/22 01/22/25 mcg (2,000 unit) capsule fluticasone furoate 200 1 inh inhalation DAILY 12/28/23 01/22/25 mcg/actuation blister powder for inhalation (Arnuity Ellipta) acetaminophen 650 mg 650 mg PO TID PRN Pain 05/08/24 01/22/25 tablet,extended release albuterol sulfate 2.5 mg/3 mL 2.5 mg inhalation QID PRN 05/08/24 01/22/25 (0.083 %) solution for nebulization Shortness Of Breath Or Wheezing baclofen 10 mg tablet 10 mg PO TID PRN muscle spasm 05/08/24 01/22/25 budesonide 0.5 mg/2 mL suspension 0.5 mg irrigation BID PRN NASAL 05/08/24 01/22/25 for nebulization IRRIGATION dexlansoprazole 60 mg 60 mg PO DAILY@0600 05/08/24 01/22/25 capsule,biphase delayed release diclofenac sodium 1 % topical gel 2 g topical QID PRN pain 05/08/24 01/22/25 dupilumab 300 mg/2 mL subcutaneous 300 mg subcut Q2W 05/08/24 01/22/25 pen injector (Dupixindeni) fluticasone propionate 50 1 spray intranasal DAILY PRN 05/08/24 01/22/25 mcg/actuation nasal Congestion spray,suspension hydroxyzine pamoate 25 mg capsule 25 mg PO Q6H PRN anxiety 05/08/24 01/22/25 losartan 100 mg tablet 100 mg PO DAILY 05/08/24 01/22/25 polyvinyl alcohol 1.4 % eye drops 1 drp ophthalmic (eye) TID 05/08/24 01/22/25 tramadol 50 mg tablet 50 mg PO Q12H PRN severe pain 05/08/24 01/22/25 umeclidinium 62.5 mcg/actuation 1 inh inhalation DAILY 05/08/24 01/22/25 blister powder for inhalation (Incruse Ellipta) Previous Rx's ?Medication ?Instructions ?Recorded famotidine 40 mg tablet 40 mg PO BEDTIME #30 tabs 10/13/23 docusate sodium 100 mg capsule 100 mg PO QAM #30 caps 05/25/24 (Stool Softener) naproxen 500 mg tablet 500 mg PO BID 7 days #14 tabs 12/25/24 sulfamethoxazole 800 1 tab PO BID 14 days #28 tabs 01/22/25 mg-trimethoprim 160 mg tablet (Bactrim DS) baclofen 20 mg tablet 20 mg PO BEDTIME PRN pain, 03/15/25 moderate #7 tabs ketorolac 10 mg tablet 10 mg PO Q6H PRN pain #20 tabs 03/15/25 Allergies Allergy/AdvReac Type Severity Reaction Status Date / Time lisinopril Allergy Angioedema Verified 03/15/25 02:11 Review of Systems Review of Systems: Yes all other systems are reviewed and are negative Constitutional: Constitutional: Denies fatigue, Denies fever(s) and Denies headache(s) ENT: Denies dizziness, Denies headache(s) and Reports neck pain Cardiovascular: Cardiovascular: Denies chest pain and Denies dyspnea Respiratory: Respiratory: Denies dyspnea Gastrointestinal: Gastrointestinal: Denies nausea and Denies vomiting Musculoskeletal: Musculoskeletal: Denies back pain, Reports neck pain, Denies numbness, Denies radiating pain into limb, Reports stiffness and Denies tingling Neurologic: Denies dizziness, Denies headache(s), Denies numbness and Denies tingling Endocrine: Endocrine: Denies fatigue PMF Past Medical History Attestation statement: The following information was validated with the patient. Medical History Gynecomastia Hyperlipidemia Chronic low back pain GERD (gastroesophageal reflux disease) Polyneuropathy Allergic rhinitis Diabetes Hypothyroidism Essential hypertension Other and unspecified hyperlipidemia Asthma Stress-induced cardiomyopathy Surgical History History of back surgery History of sinus surgery Hx of esophagogastroduodenoscopy Hx of colonoscopy Family History Family History Father No problems noted. Mother No problems noted. 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 Physical Exam ED Vital Signs: Vital Signs - 24 hr 03/15/25 02:02 Temperature 98.9 F Pulse Rate 96 Respiratory Rate 20 Blood Pressure 134/84 Pulse Oximetry 94 Oxygen Delivery Method Room Air BMI result Body Mass Index 28.8 Const Other: Alert well-appearing Orientation/consciousness: patient oriented x3 Neck Other: Limited range of motion secondary to pain and stiffness, he is able to move in all quadrants, palpable pain that has diffuse over posterior neck and paraspinous distribution Neck: Yes no meningeal signs Resp Effort & Inspection: normal respiratory effort Cardio Other: Normal peripheral perfusion Skin Other: Warm dry no rash Neuro General: patient oriented x3, gait normal, no meningeal signs, no focal motor deficits and CN's II-XI intact bilaterally Extrem Other: Strength 5/5 bilateral upper extremities with resistance, pain elicited bilateral neck with movement of upper extremities and lateral arm raise Psych Other: Cooperative Medications Administered Discontinued Medications Generic Name Dose Route Start Last Admin Trade Name Arunq PRN Reason Stop Dose Admin Diazepam 10 mg 03/15/25 03:27 03/15/25 03:55 Diazepam 5 Mg Tablet PO 03/15/25 03:28 10 mg ONCE ONE Administration Ketorolac Tromethamine 15 mg 03/15/25 03:27 03/15/25 03:55 Ketorolac Tromethamine 15 Mg/Ml Vial IM 03/15/25 03:28 15 mg ONCE ONE Administration Medical Decision Making Medical Decision Making MDM Narrative: 74-year-old male with a history of hypertension, nonischemic cardiomyopathy, asthma/COPD, GERD with erosive gastritis and esophagitis, hyperlipidemia, known arthritis of the thoracic and lumbar spine, who presents with neck stiffness for 2 days. Patient states he has developed worsening neck stiffness, the pain originates posterior upper neck at the base of the skull and radiates downward bilaterally to upper back. Pain worse with movement of neck and upper extremities. Denies radiation into the upper extremities, weakness of upper extremities or paresthesia. Denies headache, dizziness, nausea vomiting. Denies recent illness or fever. Denies precipitating heavy lifting mechanism that could have precipitated his symptoms. The patient states he has been sleeping with the same pillows, no change in his other bedding. Problem: Age, known arthritis History: Per patient I have considered the following differential diagnoses: Cervical strain/stiffness, meningitis, arthritis, VAD, cervical radiculopathy, compression fracture Plan: Patient has had other imaging modalities in the passive other body regions that reveal arthritis, he likely has a rate is in the cervical spine, we do not have dedicated imaging, we will order now. Likely no compression fracture, there was no trauma. The patient's symptoms and exam are consistent with a stiff neck, giving Toradol and Valium. Thought about VAD, however there was no preceding heavy lifting injury, the patient is neurovascularly intact. He is also not having radicular symptoms, the pain is focal to posterior and bilateral paraspinous distribution. This is not meningitis, the patient does have some range of motion, he is also afebrile, has not been recently ill. We will reassess the need for LP after he is medicated with a muscle relaxant. I have independently reviewed the following tests: CT cervical spine:Findings: There is straightening of the normal cervical lordosis. Multilevel cervical spine degenerative changes are present characterized by disc height loss, endplate sclerosis and disc osteophyte complex formation. Partially calcified pannus noted at the atlantoaxial joint. Bones are osteopenic. Visualized intracranial contents are unremarkable. Soft tissues of the neck are normal. Lung apices are clear. IMPRESSION: No acute findings. Differential Diagnosis Differential Diagnoses: The differential diagnosis associated with the presentation includes See medical decision-making Admission/Observation Consideration of admission/observation: Escalation of care including admission/observation considered Not applicable Radiology Impression Discussion of test interpretation with radiology: I have reviewed the radiologist's reading. Discharge Plan Discharge Clinical Impression: Cervical osteoarthritis, Stiffness of cervical spine Patient Disposition: Home, Self-Care Instructions: Osteoarthritis (ED), Neck Pain (ED) Additional Instructions: You were found to have significant arthritis of the cervical spine. See home care instructions. This is a reason why you have a stiff neck. Use the baclofen as needed, this is a muscle relaxant, you may want to reserve it for nighttime, it will cause drowsiness, you can not drive or operate machinery while taking the medication. Take the ketorolac as directed, this is an anti-inflammatory, take it with food. You need to follow up with your primary care provider, they can refer you for potential cortisone injections in the cervical spine to help with your arthritis. They can also implement physical therapy for you as well. Call today to schedule an appointment. Prescriptions: New baclofen 20 mg tablet 20 mg PO BEDTIME PRN (Reason: pain, moderate) Qty: 7 0RF ketorolac 10 mg tablet 10 mg PO Q6H PRN (Reason: pain) Qty: 20 0RF Rx Instructions: maximum total duration of 5 days from all oral, intranasal, or parenteral formulations. The patient received an intramuscular dose of Toradol here in the emergency room No Action famotidine 40 mg tablet 40 mg PO BEDTIME Qty: 30 6RF docusate sodium [Stool Softener] 100 mg capsule 100 mg PO QAM Qty: 30 6RF albuterol sulfate [Ventolin HFA] 90 mcg/actuation HFA aerosol inhaler 2 puff PO Q4H PRN (Reason: Wheezing) Arnuity Ellipta 200 mcg/actuation blister with device 1 inh INHALATION DAILY polyvinyl alcohol 1.4 % drops 1 drp ophthalmic (eye) TID tramadol 50 mg tablet 50 mg PO Q12H PRN (Reason: severe pain) acetaminophen 650 mg tablet extended release 650 mg PO TID PRN (Reason: Pain) baclofen 10 mg tablet 10 mg PO TID PRN (Reason: muscle spasm) losartan 100 mg tablet 100 mg PO DAILY hydroxyzine pamoate 25 mg capsule 25 mg PO Q6H PRN (Reason: anxiety) diclofenac sodium 1 % gel 2 g topical QID PRN (Reason: pain) dexlansoprazole 60 mg capsule,biphase delayed releas 60 mg PO DAILY@0600 Incruse Ellipta 62.5 mcg/actuation blister with device 1 inh inhalation DAILY Dupixent Pen 300 mg/2 mL pen injector 300 mg subcut Q2W albuterol sulfate 2.5 mg /3 mL (0.083 %) solution for nebulization 2.5 mg inhalation QID PRN (Reason: Shortness Of Breath Or Wheezing) budesonide 0.5 mg/2 mL suspension for nebulization 0.5 mg irrigation BID PRN (Reason: NASAL IRRIGATION ) Rx Instructions: NASAL IRRIGATION fluticasone propionate 50 mcg/actuation [place],Suspension 1 spray INTRANASAL DAILY PRN (Reason: Congestion) Rx Instructions: administer into each nostril naproxen 500 mg tablet 500 mg PO BID 7 Days Qty: 14 0RF ferrous sulfate 325 mg (65 mg iron) tablet 325 mg PO BID multivitamin Tablet 1 tab PO DAILY amlodipine 10 mg tablet 10 mg PO DAILY atorvastatin 40 mg tablet 40 mg PO BEDTIME All Day Allergy (cetirizine) 10 mg capsule 10 mg PO DAILY PRN (Reason: Allergy Symptoms) gabapentin 800 mg tablet 800 mg PO TID levothyroxine 25 mcg tablet 25 mcg PO DAILY@0600 metformin 500 mg tablet 500 mg PO BIDWM montelukast 10 mg tablet 10 mg PO BEDTIME sertraline 25 mg tablet 25 mg PO DAILY sulfamethoxazole-trimethoprim [Bactrim DS] 800-160 mg tablet 1 tab PO BID 14 Days Qty: 28 0RF cholecalciferol (vitamin D3) 50 mcg (2,000 unit) capsule 50 mcg PO DAILY Print Language: Swiss
[2025-03-15 05:41] VITALS: BP 125/81; PULSE 85; RESP 18; TEMP 36.4; O2SAT 96
== END 2025-03-15 05:43 | disposition home or self-care (01) ==
PROVIDERS: Emergency Provider Emergency Medicine; PCP Family Medicine
DX: M47.812 Spondylosis without myelopathy or radiculopathy, cervical region (principal); M53.82 Other specified dorsopathies, cervical region; I10 Essential (primary) hypertension; J45.909 Unspecified asthma, uncomplicated; J44.9 Chronic obstructive pulmonary disease, unspecified; K21.9 Gastro-esophageal reflux disease without esophagitis; K29.70 Gastritis, unspecified, without bleeding; K20.90 Esophagitis, unspecified without bleeding
CPT/HCPCS: 72125; 96372; 99283; 99284; J1885

== ENCOUNTER → 2025-03-15 03:37 | Outpatient (BNV) | payer OTHER, SELFPAY | PROVIDERS: PCP Family Medicine; Visit Provider General Practice | DX: M54.2 Cervicalgia (principal) | CPT/HCPCS: 72125 ==

== ENCOUNTER 2025-04-13 09:24 | Emergency (ER) | payer OTHER, SELFPAY ==
[2025-04-13 09:28] VITALS: BP 140/72; BP 150/80; PULSE 105; PULSE 96; RESP 16; TEMP 37.1; O2SAT 93; O2SAT 97; BMI 28.5
--- NOTE | 2025-04-13 10:07 | ED_ITS ---
HPI - General Adult General Chief complaint: Extremity Problem Stated complaint: L arm pain Time Seen by Provider: 04/13/25 10:06 Source: patient, EMS and poultry eviscerator (all interactions with this patient were facilitated with an [facility] certified prosthetist (Tammie)) Mode of arrival: EMS Limitations: language barrier (all interactions with this patient were facilitated with an [facility] certified prosthetist (Tammie)) History of Present Illness ED Provider: Rachel Curran PA-C HPI narrative: Patient is a 74 year old assigned male at with a history of nonischemic cardiomyopathy, HTN, asthma-COPD overlap syndrome, GERD, and gout presenting to the emergency department today with right great toe pain and left neck / shoulder pain. Patient states that starting last night he has developing pain at the base of his right great toe and left neck / upper should tightness. Patient states that he feels the left neck pain go down into his shoulder and he cannot move his neck to the left without pain. Patient denies any other complaints at this time. Related Data Home Medications ?Medication ?Instructions ?Recorded ?Confirmed ferrous sulfate 325 mg (65 mg 325 mg PO BID 03/27/20 0 01/22/25 iron) tablet multivitamin 1 tab PO DAILY 03/27/2001/08 albuterol sulfate 90 mcg/actuation 2 puff PO Q4H PRN W heezing 04/18/20 01/22/25 aerosol inhaler (Ventolin HFA) amlodipine 10 mg tablet 10 mg PO DAILY 09/30/2201/08 atorvastatin 40 mg tablet 40 mg PO BEDTIME 09/30/22 cetirizine 10 mg capsule (All Day 10 mg PO DAILY PRN A llergy Symptoms 09/30/22 01/22/25 Allergy (cetirizine)) gabapentin 800 mg tablet 800 mg PO TID 09/30/2201/22 levothyroxine 25 mcg tablet 25 mcg PO DAILY@0600 09/3001/22/25 metformin 500 mg tablet 500 mg PO BIDWM 09/30/2201/08 montelukast 10 mg tablet 10 mg PO BEDTIME 09/30/22 sertraline 25 mg tablet 25 mg PO DAILY 09/30/2201/08 cholecalciferol (vitamin D3) 50 50 mcg PO DAILY 01/22/25 mcg (2,000 unit) capsule fluticasone furoate 200 1 inh inhalation DAILY 12/2701/22/25 mcg/actuation blister powder for inhalation (Arnuity Ellipta) acetaminophen 650 mg 650 mg PO TID PRN Pain 05/0801/22/25 tablet,extended release albuterol sulfate 2.5 mg/3 mL 2.5 mg inhalation QID AZ N 05/08/24 01/22/25 (0.083 %) solution for nebulization Shortness Of Breat h Or Wheezing baclofen 10 mg tablet 10 mg PO TID PRN muscle spas m 05/08/24 01/22/25 budesonide 0.5 mg/2 mL suspension 0.5 mg irrigation BI D PRN NASAL 05/08/24 01/22/25 for nebulization IRRIGATION dexlansoprazole 60 mg 60 mg PO DAILY@0600 05/08/24 01/22/25 capsule,biphase delayed release diclofenac sodium 1 % topical gel 2 g topical QID PRN pain 05/08/24 01/22/25 dupilumab 300 mg/2 mL subcutaneous 300 mg subcut Q2W 1 07/09/23 01/22/25 pen injector ([employer]) fluticasone propionate 50 1 spray intranasal DAILY PRN 05/08/24 01/22/25 mcg/actuation nasal Congestion spray,suspension hydroxyzine pamoate 25 mg capsule 25 mg PO Q6H PRN anx iety 05/08/24 01/22/25 losartan 100 mg tablet 100 mg PO DAILY 05/08/2401/08 polyvinyl alcohol 1.4 % eye drops 1 drp ophthalmic (ey e) TID 05/08/24 01/22/25 tramadol 50 mg tablet 50 mg PO Q12H PRN severe raulito n 05/08/24 01/22/25 umeclidinium 62.5 mcg/actuation 1 inh inhalation DAILY 05/08/24 01/22/25 blister powder for inhalation (Incruse Ellipta) Previous Rx's ?Medication ?Instructions ?Recorded famotidine 40 mg tablet 40 mg PO BEDTIME #30 tabs naproxen 500 mg tablet 500 mg PO BID 7 days #14 tab s 12/25/24 sulfamethoxazole 800 1 tab PO BID 14 days #28 tab s 01/22/25 mg-trimethoprim 160 mg tablet (Bactrim DS) baclofen 20 mg tablet 20 mg PO BEDTIME PRN pain, 1 moderate #7 tabs ketorolac 10 mg tablet 10 mg PO Q6H PRN pain #20 ta bs 03/15/25 docusate sodium 100 mg capsule 100 mg PO QAM #30 caps 04/06/25 (Stool Softener) cyclobenzaprine 5 mg tablet 5 mg PO TID PRN muscle spa sm 7 04/13/25 days #21 tabs naproxen 500 mg tablet 500 mg PO BID 7 days #14 tab s 04/13/25 Allergies Allergy/AdvReac Type Severity Reaction Status Date / Time lisinopril Allergy Angioedema Verified 04/13/25 09:29 Review of Systems Constitutional: Constitutional: Reports as per HPI Eyes: Eyes: Reports as per HPI ENT: Reports as per HPI Cardiovascular: Cardiovascular: Reports as per HPI Respiratory: Respiratory: Reports as per HPI Gastrointestinal: Gastrointestinal: Reports as per HPI Genitourinary: Genitourinary: Reports as per HPI Musculoskeletal: Musculoskeletal: Reports as per HPI Integumentary/Breasts: Skin/Breast: Reports as per HPI Neurologic: Reports as per HPI Psychiatric: Psychiatric: Reports as per HPI Endocrine: Endocrine: Reports as per HPI Hematologic/Lymphatic: Hematologic/Lymphatic: Reports as per HPI Allergic/Immunologic: Allergic/Immunologic: Reports as per HPI PMF Past Medical History Attestation statement: The following information was validated with the patient. Source: old records reviewed and nursing notes reviewed Medical History Gynecomastia Hyperlipidemia Chronic low back pain GERD (gastroesophageal reflux disease) Polyneuropathy Allergic rhinitis Diabetes Hypothyroidism Essential hypertension Other and unspecified hyperlipidemia Asthma Stress-induced cardiomyopathy Surgical History History of back surgery History of sinus surgery Hx of esophagogastroduodenoscopy Hx of colonoscopy Family History Family History Father No problems noted. Mother No problems noted. Other No family history of cancer Social History Social History Household Members: Spouse Housing: Apartment Are you a primary healthcare social worker to a significant other at home: Yes () Do you presently have visiting nurse or other home services: No Alcohol intake: former Patient Tobacco Use Status: Never used Tobacco Smoked in Last 30 Days: No Second Hand Smoke Exposure: No Use of substances other than those prescribed or required for medical reasons: No Advance Directives: No Advance Directives Information Provided: No Do you have a plan to hurt others: No Plan service: No Current occupational status: disabled 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 Physical Exam ED Vital Signs: Vital Signs - 24 hr 04/13/25 09:28 04/13/25 11:25 Temperature 98.8 F 98.8 F Pulse Rate 96 96 Respiratory Rate 16 16 Blood Pressure 140/72 H 140/72 H Pulse Oximetry 97 97 Oxygen Delivery Method Room Air Room Air BMI result Body Mass Index 28.5 Const General: cooperative, no acute distress, alert and awake Nutritional Appearance: well nourished Orientation/consciousness: patient oriented x3 HENMT Head: Yes normal to inspection and Yes atraumatic Ears: hearing grossly normal bilaterally and external ears normal General nose exam: Normal external nose present, no nasal discharge noted and no epistaxis Face and sinus: Yes normal facial exam, No abrasion and No laceration Mouth: Normal oral and palatal mucosa present, no drooling and no muffled voice Eyes General: appearance normal, both eyes and all related structures Periorbital: periorbital findings normal Eyelids: Yes eyelids normal Conjunctivae: conjunctivae normal Pupils: Equal, round and reactive pupils present EOM: EOMs intact bilaterally Neck Other: pain with ROM to the left Neck: Yes normal visual inspection and Yes full ROM Resp Effort & Inspection: normal respiratory effort and able to speak in complete sentences Neuro General: patient oriented x3, moves all extremities and CN's II-XI intact bilaterally Cranial nerves: Yes Equal, round and reactive pupils present Cognition (Neuro): normal cognition Extrem Other: pain with palpation to the dorsal aspect of the right foot - specifically at the base of the 1st toe General: Yes normal to inspection, Yes full ROM and Yes capillary refill normal Psych Appearance: grossly normal Mental Status: mental status grossly normal Affect: normal affect Attitude: cooperative Thought process: Normal thought process present Thought content: Normal thought content present Insight: Good insight present (Psych) Medications Administered Discontinued Medications Generic Name Dose Route Start Last Admin Trade Name Lucina PRN Reason Stop Dose Admin Cyclobenzaprine HCl 5 mg 04/13/25 10:13 04/13/25 10:29 Cyclobenzaprine Hcl 5 Mg Tablet PO 04/13/25 10:14 5 mg ONCE ONE Administration Ketorolac Tromethamine 15 mg 04/13/25 10:13 04/13/25 10:27 Ketorolac Tromethamine 15 Mg/Ml Vial IM 04/13/25 10:14 15 mg ONCE ONE Administration Medical Decision Making Medical Decision Making MDM Narrative: Patient is a 74 year old assigned male at with a history of nonischemic cardiomyopathy, HTN, asthma-COPD overlap syndrome, GERD, and gout presenting to the emergency department today with right great toe pain and left neck / shoulder pain. Patient's physical exam was as noted in the physical exam portion of this note. I explained my physical exam findings to the patient. I answered all questions asked by the patient. Patient's clinical presentation is most consistent with a left trapezius spasm and right great toe gout. I stressed the importance of the patient taking his medication as directed (either prescribed or as the over the counter packaging recommends). I stressed the importance of the patient following up with his primary care provider. I st ressed the importance of the patient returning to the emergency department immediately if his symptoms were to worsen or if he were to develop any dizziness, shortness of breath, difficulty breathing, chest pain, blurry vision, loss of vision, nausea, vomiting, abdominal pain, fever, chills, back pain, or any other complaints. Patient verbalized agreement and understanding with this treatment plan and discharge. Differential Diagnosis Differential Diagnoses: The differential diagnosis associated with the presentation includes Right great toe gout Left trapezius muscle spasm MSK pain Admission/Observation Consideration of admission/observation: Escalation of care including admission/observation considered Patient would have been admitted to the hospital had his clinical presentation warranted hospital admission. Independent Historian Clinical information obtained from an independent historian. History obtained from or confirmed by: EMS (EMS provided additional history and confirmed the history provided by the patient. ) Tests considered The following testing was considered but not selected: I considered obtaining a right foot and left shoulder x-ray however, the patient's current clinical presentation does not warrant this at this time. Prescription Management I considered prescription management with: Pain Medication (patient prescribed pain medication) Discharge Plan Discharge Clinical Impression: Gout, Muscle spasm Patient Disposition: Home, Self-Care Instructions: Gout (ED), Muscle Spasm (ED) Additional Instructions: Your examination is most consistent with right great toe gout and left trapezius muscle spasm. Basurto examen es m?s compatible con gota en el dedo ting del pie derecho y espasmo del m?sculo trapecio cecile. IF you are prescribed home medications and/or you are taking over the counter medications at home - it is very important you continue to do so as prescribed / directed unless told otherwise. SI le recetan medicamentos y/o est? tomando medicamentos de venta anant, es muy importante que contin?e haci?ndolo seg?n lo recetado/indicado a menos que le indiquen lo contrario. Follow up with your primary care provider. Return to the emergency department immediately if your symptoms worsen or if you develop any dizziness, shortness of breath, difficulty breathing, chest pain, blurry vision, loss of vision, nausea, vomiting, abdominal pain, fever, chills, back pain, or any other complaints. Sara?seguimiento?con basurto m?dico de atenci?n primaria. Acuda inmediatamente al servicio de urgencias si reva s?ntomas empeoran o si presenta falta de aliento, dificultad para respirar, dolor tor?cico, mareos, aturdimiento, dolor de espalda, dolor abdominal, fiebre, escalofr?os o cualquier otro s?ntoma. Please see the information below about our Patient Portal. If you are not yet enrolled in the [facility] Patient Portal, you will receive an enrollment email invitation following your visit to any [facility] care setting. You may also self-enroll in the Patient Portal by visiting our website: [email or web address] The following information is required to access the Patient Portal: - Your [facility] Medical Record Number - Your personal home email address (must match what is in your electronic medical record, Registration staff can assist with this) - Name - Date of Capabilities of the Patient Portal: - Message some providers - View upcoming appointments - Access your health summary, medical history, and visit history - View current conditions and allergies - View procedure and lab results - View your medications, including guidelines, side effects, and precautions - Complete pre-appointment questionnaires requested by your provider - Ready summary reports of your office visits and procedures To access the Patient Portal Mobile [employer], follow these directions: - Search [employer] in the [employer] Store or [employer] Store - Download the [employer] - Search for [facility] - Enter your login/password Portal del paciente Si usted no esta inscrito en el portal de pacientes de [facility], recibira higinio invitacion de inscripcion despues de basurto visita al [facility] o al [facility] via correo electronico. Tambien puede inscribirse voluntariamente en el portal de pacientes visitando nuestra pagina web: [email or web address] La siguiente informacion sera requerida para acceder al portal: - Basurto vaishnavi de historia medica de [facility] - Basurto direccion de correo electronico personal - Nombre - Fecha de nacimiento Capacidades: Las siguientes capacidades estan disponibles en el portal de pacientes: - Enviar mensajes a algunos doctores - Verificar proximas citas - Acceso a basurto historial de clint, registro medico e historial de visitas - Lali las condiciones actuales y alergias lali procedimientos y resultados del laboratorio - Lali reva medicamentos, incluyendo las pautas - Efectos secundarios y precauciones - Completar o llenar formularios / cuestionarios de - Citas solicitadas por basurto doctor - Leer los resumenes de reportes medicos de reva visitas y procedimientos Sherrie acceder a la aplicacion movil: - [employer] en la [employer] Store o Google Play Store - Descargue la aplicacion - [facility] - Ingrese basurto nombre de usuario / Contrasena Prescriptions: New cyclobenzaprine 5 mg tablet 5 mg PO TID PRN (Reason: muscle spasm) 7 Days Qty: 21 0RF naproxen 500 mg tablet 500 mg PO BID 7 Days Qty: 14 0RF No Action famotidine 40 mg tablet 40 mg PO BEDTIME Qty: 30 6RF docusate sodium [Stool Softener] 100 mg capsule 100 mg PO QAM Qty: 30 1RF albuterol sulfate [Ventolin HFA] 90 mcg/actuation HFA aerosol inhaler 2 puff PO Q4H PRN (Reason: Wheezing) Arnuity Ellipta 200 mcg/actuation blister with device 1 inh INHALATION DAILY polyvinyl alcohol 1.4 % drops 1 drp ophthalmic (eye) TID tramadol 50 mg tablet 50 mg PO Q12H PRN (Reason: severe pain) acetaminophen 650 mg tablet extended release 650 mg PO TID PRN (Reason: Pain) baclofen 10 mg tablet 10 mg PO TID PRN (Reason: muscle spasm) losartan 100 mg tablet 100 mg PO DAILY hydroxyzine pamoate 25 mg capsule 25 mg PO Q6H PRN (Reason: anxiety) diclofenac sodium 1 % gel 2 g topical QID PRN (Reason: pain) dexlansoprazole 60 mg capsule,biphase delayed releas 60 mg PO DAILY@0600 Incruse Ellipta 62.5 mcg/actuation blister with device 1 inh inhalation DAILY Dupixent Pen 300 mg/2 mL pen injector 300 mg subcut Q2W albuterol sulfate 2.5 mg /3 mL (0.083 %) solution for nebulization 2.5 mg inhalation QID PRN (Reason: Shortness Of Breath Or Wheezing) budesonide 0.5 mg/2 mL suspension for nebulization 0.5 mg irrigation BID PRN (Reason: NASAL IRRIGATION ) Rx Instructions: NASAL IRRIGATION fluticasone propionate 50 mcg/actuation [place],Suspension 1 spray INTRANASAL DAILY PRN (Reason: Congestion) Rx Instructions: administer into each nostril naproxen 500 mg tablet 500 mg PO BID 7 Days Qty: 14 0RF baclofen 20 mg tablet 20 mg PO BEDTIME PRN (Reason: pain, moderate) Qty: 7 0RF ketorolac 10 mg tablet 10 mg PO Q6H PRN (Reason: pain) Qty: 20 0RF Rx Instructions: maximum total duration of 5 days from all oral, intranasal, or parenteral formulations. The patient received an intramuscular dose of Toradol here in the emergency room ferrous sulfate 325 mg (65 mg iron) tablet 325 mg PO BID multivitamin Tablet 1 tab PO DAILY amlodipine 10 mg tablet 10 mg PO DAILY atorvastatin 40 mg tablet 40 mg PO BEDTIME All Day Allergy (cetirizine) 10 mg capsule 10 mg PO DAILY PRN (Reason: Allergy Symptoms) gabapentin 800 mg tablet 800 mg PO TID levothyroxine 25 mcg tablet 25 mcg PO DAILY@0600 metformin 500 mg tablet 500 mg PO BIDWM montelukast 10 mg tablet 10 mg PO BEDTIME sertraline 25 mg tablet 25 mg PO DAILY sulfamethoxazole-trimethoprim [Bactrim DS] 800-160 mg tablet 1 tab PO BID 14 Days Qty: 28 0RF cholecalciferol (vitamin D3) 50 mcg (2,000 unit) capsule 50 mcg PO DAILY Referrals: Stephanie Alex DO [Primary Care Provider, Internal Medicine] Interventions: ED Discharge Assessment Last Done: 04/13/25 11:25 Discharge Date/Time: 04/13/25 11:26 Print Language: Bengali
--- OUTSIDE RECORDS SUMMARY | 2025-04-13 10:08 | XMS_ITS | Continuity of Care Document ---
Author Name [facility], Medical Address [address] [place] [id number] Organization Unknown Address [address] [place] [id number] Medications No known medications Problems No known problems
--- OUTSIDE RECORDS SUMMARY | 2025-04-13 10:08 | XMS_ITS | Encounter Summary ---
Author Organization [facility] Address [address] [place] [address] Encounters * CPT with Medical [facility] at [facility] on 2025-03-17 { reasonForRequest : Pt's [facility] reporting neck spasms towards the back>went to the ED for it> , patientReports : , denies :[ Falls with head strike andLOC , Falls from a standing position, no LOC, patient is amnestic to the event ,"Falls with isolated injury and deformity noted to limb , Falls with inability to move post fall , Cool extremities after fall or injury ], chiefComplaints : Ex tremity Pain , pmh : Sleep Apnea, Hypothyroidism, Anxiety Disorder, Hyperlipidem ia, Hypertension, Depression, Asthma, Congestive Heart Failure, Gastroesophageal Reflux Disease (GERD), Diabetes Mellitus Type 2 , allergies : No Known Drug Allergies , otherAllergies : , painAssessment : , visitOutcome :&q uot; , additionalComments : 74 y.o male complains of Extremity Pain\nNurse anne ng to refer patient for neck pain. Went to ER yesterday for this pain. Pain is worse today. Nurse thinks patient was started on Baclofen and another medication but is unclear what meds were prescribed. Patient took those medications earlier today with no relief. No falls or injuries. No pain or numbness/tingling to arms currently. 1 month ago patient developed atraumatic swelling and pain to right arm and was put on Prednisone for gout. \nI provided information on the mobile health provider response time and advised the patient and/or caregiver to monitor reported signs and symptoms. I discussed the warning signs of when to seek emergency care. } [facility] visit for male patient with complaint of neck, pain and stiffness. Patient had documentationshowing ED visit yesterday for same issue with diagnosis of osteoarthritis of the neck and muscle spasm. Patient discharge with prescription for baclofen and ketorolac. Patient reports his insurance would not cover the ketorolac. Patient presents with some obvious neck discomfort and decreased range of motion. Vital signs takenas listed. No fever noted. Patient???s neck noted to be tender on the left lateral aspects where the trapezius is as well as posterior near the occipital. Consulted [facility] who ordered 30 MG IM Toradol given on scene. Patient advised to try hot/cold packs, topical allergies, and other NSAID pain relievers in follow up with his PCP for possible cortisone injections and physical therapy per ED discharge instructions. Patient education provided. IV_(FLUIDS_AND/OR_MEDICATION), MEDICATION_IM, ORAL_MEDICATION, WOUND_CARE, ORTHOSTATIC_VITAL_SIGNS Written by Medical [facility] on 2025-03-17
--- NOTE | 2025-04-13 11:15 | MHC.EDTECH ---
Transport booked through [facility]. Called for chair van @1100. They booked chair van with [employer]. ETA [id number]
[2025-04-13 11:25] VITALS: BP 140/72; PULSE 96; RESP 16; TEMP 37.1; O2SAT 97
== END 2025-04-13 11:26 | disposition home or self-care (01) ==
PROVIDERS: Emergency Provider Emergency Medicine; PCP Family Medicine
DX: M10.071 Idiopathic gout, right ankle and foot (principal); M79.674 Pain in right toe(s); M54.2 Cervicalgia; M25.512 Pain in left shoulder; Z79.899 Other long term (current) drug therapy
CPT/HCPCS: 96372; 99284; J1885

== ENCOUNTER 2025-05-08 12:08 | Outpatient (REF) | payer OTHER, SELFPAY ==
--- OUTSIDE RECORDS SUMMARY | 2025-05-08 13:20 | XMS_ITS | Encounter Summary ---
Author Organization [facility] Address [address] [place] [address] Care Team Providers Care Trencher Driver Name Role Phone AsterStephanie anand Primary Care Provider + [phone] Encounter Details Date Type Department Care Team ([facility] Contact Info) Description 05/04/2022 Abstract [facility] MEDICINE [address] [place] [address] Tricia Farmer PharmD [address] [place] [address] Social History Tobacco Use Types Packs/Day Years [...] Upcoming Encounters Date Type Department Care Team ([facility] st Contact Info) Description 05/15/2025 1:30 PM EST Immunization [facility] MEDICINE [address] [place] [address] 06/01/2025 1:30 PM EST Telemedicine [facility] MEDICINE [address] [place] [address] Mariana Aggarwal, RN 07/09/2025 1:00 PM EST Office Visit [facility] OPTOMETRY [address] [place], [place] [phone] Virginia García, OD [address] [place] [address] documented as of this encounter Visit Diagnoses Not on filedocumented in this encounter Additional Health Concerns Assessment Noted Time PHQ-9 Depression Total Score: 0 04/22/20 22 10:55 AM EST documented as of this encounter Care Teams Trencher Driver Relationship Specialty Start Date End Date Stephanie Alex DO [address] [place] [id number] PCP - General Family Medicine 06/12/15 Myrna 06/21/24 03/05/25 Home Care [facility] 07/19/24 documented as of this encounter
--- OUTSIDE RECORDS SUMMARY | 2025-05-08 13:20 | XMS_ITS | Encounter Summary ---
Author Organization [facility] Address [address] [place] [address] Care Team Providers Care Family Resource Coordinator Name Role Phone Stephanie Alex DO Primary Care Provider + [phone] Reason for Visit * Reason Comments Med Refill Encounter Details Date Type Department Care Team (Late st Contact Info) Description 02/16/2023 Refill [facility] MEDICINE [address] [place] [address] Stephanie Alex DO [address] [place] [address] Depression, unspecified depression type Social History Tobacco [...] Care Team (Late st Contact Info) Description 05/15/2025 1:30 PM EST Immunization [facility] MEDICINE [address] [place] [address] 06/01/2025 1:30 PM EST Telemedicine [facility] MEDICINE [address] [place] [address] Mariana Aggarwal RN 07/09/2025 1:00 PM EST Office Visit [facility] OPTOMETRY [address] [place], [place] [phone] Virginia García, OD [address] [place] [address] documented as of this encounter Visit Diagnoses Diagnosis Depression, unspecified depression type documented in this encounter Additional Health Concerns Assessment Noted Time PHQ-9 Depression Total Score: 0 09/02/19 9:01 AM EDT documented as of this encounter Care Teams Family Resource Coordinator Relationship Specialty Start Date End Date Stephanie Alex DO [address] [place] [address] PCP - General Family Medicine 06/12/15 Myrna 06/21/24 03/05/25 Home Care [facility] 07/19/24 documented as of this encounter
--- OUTSIDE RECORDS SUMMARY | 2025-05-08 13:20 | XMS_ITS | Encounter Summary ---
Author Organization [employer] Address [address] [facility] 7t [place] [address] Care Team Providers Care Cold Rolling Supervisor Name Role Phone IsaiStephanie Primary Care Provider + [phone] Reason for Visit * Reason Comments Med Refill Encounter Details Date Type Department Care Team ([facility] Contact Info) Description 06/02/2023 Refill [facility] [address] [place], [place] [phone] Maria De Jesus Mann MD [address] [place], [place] [phone] Moderate persistent asthma, unspecified whether complicated Social [...] PM EST Immunization [facility] [address] [place] [phone] 06/01/2025 1:30 PM EST Telemedicine [facility] [address] [place] [phone] Mariana Aggarwal, ROMEL 07/09/2025 1:00 PM EST Office Visit [facility] [address] [place] [address] Virginia García, OD [address] [place] [address] documented as of this encounter Visit Diagnoses Diagnosis Moderate persistent asthma, unspecified whether complicated documented in this encounter Additional Health Concerns Assessment Noted Time PHQ-9 Depression Total Score: 0 09/02/19 9:01 AM EDT documented as of this encounter Care Teams Cold Rolling Supervisor Relationship Specialty Start Date End Date Stephanie Alex DO [address] [place] [address] PCP - General Family Medicine 06/12/15 Myrna 06/21/24 03/05/25 [facility] 07/19/24 documented as of this encounter
--- OUTSIDE RECORDS SUMMARY | 2025-05-08 13:20 | XMS_ITS | Encounter Summary ---
Author Organization [employer] Address [address] [facility] 7t [place] [address] Care Team Providers Care Bowl Turner Name Role Phone Stephanie Alex DO Primary Care Provider + [phone] Encounter Details Date Type Department Care Team ([facility] Contact Info) Description 09/29/2022 Orders Only [facility] [address] [place] [address] Stephanie Alex DO [address] [place], [place] [phone] Gynecomastia, male (Primary Dx) Social History Tobacco [...] Department Care Team (Late Contact Info) Description 05/15/2025 1:30 PM EST Immunization [facility] [address] [place] [address] 06/01/2025 1:30 PM EST Telemedicine [facility] [address] [place] [address] Mariana Aggarwal, RN 07/09/2025 1:00 PM EST Office Visit [facility] [address] [place], [place] [phone] Virginia García, OD [address] [place] [address] documented as of this encounter Visit Diagnoses Diagnosis Gynecomastia, male- Primary Hypertrophy of breast documented in this encounter Additional Health Concerns Assessment Noted Time PHQ-9 Depression Total Score: 0 09/02/19 9:01 AM EDT documented as of this encounter Care Teams Bowl Turner Relationship Specialty Start Date End Date Stephanie Alex DO [address] [place] [phone] PCP - General Family Medicine 06/12/15 Myrna 06/21/24 03/05/25 [facility] 07/19/24 documented as of this encounter
--- OUTSIDE RECORDS SUMMARY | 2025-05-08 13:20 | XMS_ITS | Clinical Summary ---
Author Organization [employer] Address [address] [facility] 7t [place] [address] Care Team Providers Care Senior Oracle Dba Name Role Phone Stephanie Alex Primary Care Provider + [phone] Allergies Active Allergy Reactions Criticality Noted Date [...] long-term current use of insulin ([facility]) TEST BLOOD SUGAR EVERY DAY 50 strip [...] 300 MG/2ML solution auto-injector 04/17/20 24 Active dexlansoprazole (Dexilant) [address] capsule Take 1 capsule (60 mg) by mouth Once per day. Do not crush or chew. 30 capsule 11 04/21/20 24 Active fluticasone (Flonase) 50 MCG/ACT nasal sprayIndications: Asthma, unspecified asthma severity, unspecified whether complicated, unspecified whether persistent USE 2 SPRAYS IN EACH NOSTRIL EVERY DAY 48 g 3 05/02/20 24 Active Multiple Vitamin (Multivitamin) tablet TAKE 1 [...] naloxone (Narcan) 4 mg/0.1 mL nasal sprayIndications: manager intermediate (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 Administer 1 [...] NOON 90 tablet 1 12/19/19 25 Active metFORMIN (Glucophage) 500 MG tablet [...] MOUTH EVERY MORNING 30 tablet 3 03/08/20 25 Active baclofen (Lioresal) 10 MG tablet TAKE 1 TABLET BY MOUTH THREE TIMES DAILY IN THE MORNING, AT NOON, AND AT BEDTIME NEEDED FOR MUSCLE SPASMS 05/08/20 24 Active Diclofenac Sodium 1 % gel APPLY 2 GRAMS TOPICALLY TO AFFECTED AREA(S) 4 TIMES A DAY IN THE MORNING, AT NOON, IN THE EVENING, AND AT BEDTIME NEEDED FOR PAIN 05/08/20 24 Active Docusate Sodium (DSS) 100 MG capsule Take 1 capsule by mouth in the morning. 05/25/19 25 Active losartan (Cozaar) 100 MG tablet TAKE 1 TABLET BY MOUTH AT BEDTIME 30 tablet 11 5 12:26 PM EST 04/04/20 25 Active famotidine (Pepcid) 40 MG tablet Take 1 tablet (40 mg) by mouth at bedtime. 30 tablet 11 5 12:26 PM EST 04/04/20 25 2025 Active fluticasone furoate (Arnuity Ellipta) 200 MCG/ACT inhalerIndication s:Asthma, unspecified asthma severity, unspecified whether complicated, unspecified whether persistent INHALE 1 PUFF BY MOUTH EVERY DAY AT THE SAME TIME. Rinse mouth with water after use to reduce aftertaste and incidence of candidiasis. Do not swallow. 30 each 2 5 12:26 PM EST 04/04/20 25 Active amLODIPine (Norvasc) 10 MG tabletIndications :Essential hypertension TAKE 1 TABLET BY MOUTH EVERYDAY AT NOON 90 tablet 3 5 12:26 PM EST 04/09/20 25 Active D3 Super Strength 50 MCG (1999 UT) capsuleIndication s:Vitamin D deficiency TAKE 1 CAPSULE BY MOUTH EVERY MORNING 90 capsule 3 04/09/20 25 Active D3 Super Strength 50 MCG (2000 UT) capsuleIndication s:Vitamin D deficiency TAKE 1 CAPSULE BY MOUTH EVERY MORNING 90 capsule 3 05/02/20 24 2024 Discontinued amLODIPine (Norvasc) 10 MG tabletIndications :Essential hypertension TAKE 1 TABLET BY MOUTH EVERYDAY AT NOON 90 tablet 3 05/02/20 24 2024 Discontinued Active Problems Problem Noted Date [...] time in diff also gout,pseudogout ,RA -called [facility] to let them know pt is going ,pt refuse EMT call ,states will chicken picker at home and then he will go to hospital ,pt understands will need sinovial tap for diagnosis and r/o infection longterm (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 07/15 Pain [...] monitoring -s/p optho eval SEPTEMBER 2021 at [facility], appt next mos -foot exam next visit* Encounters Date Type Department Care Team Description 04/27/2025 Travel 04/25/2025 Telephone [facility] [address] [place] [phone] Stephanie Alex, Chart Prep 04/17/2025 Patient Outreach [facility] [address] [place] [address] Stephanie Alex DO Pre-visit Planning (SDOH screening negative and tobacco screening negative) 04/11/2025 Telephone [facility] [address] [place] [address] Stephanie Alex DO Recall Appointment 04/11/2025 Travel 04/09/2025 Refill [facility] [address] [place] [phone] Stephanie Alex DO Essential hypertension; Vitamin D deficiency 04/04/2025 Refill [facility] [address] [place] [phone] Tita Quick MD Asthma, unspecified asthma severity, unspecified whether complicated, unspecified whether persistent 04/04/2025 Refill [facility] [address] [place] [address] Stephanie Alex DO Asthma, unspecified asthma severity, unspecified whether complicated, unspecified whether persistent 03/22/2025 11:00 AM EST Office Visit [facility] [address] [phone] Stephanie Alex DO Scalp pain (Primary Dx) 03/22/2025 Travel 03/15/2025 Orders Only [facility] External Provider, [facility] 03/07/2025 9:00 AM EDT Office Visit [facility] [address] [place] [phone] Virginia García, OD Diabetes type 2, 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); 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; Combined forms of age-related cataract of both eyes; Meibomian gland disease of both eyes, unspecified eyelid; Presbyopia 03/07/2025 Travel 03/07/2025 Refill [facility] [address] [place] [address] Stephanie Alex DO Depression, unspecified depression type 03/05/2025 Telephone [facility] [address] [place] [phone] Virginia García, OD 03/02/2025 Refill [facility] [address] [place] [address] Celina Sharpe MD Chronic low back pain, unspecified back pain laterality, unspecified whether sciatica present 02/14/2025 Refill [facility] [address] [place], [place] [phone] Stephanie Alex DO Acquired hypothyroidism; Anemia, unspecified type from Last 3 Months Immunizations Immunization Administration [...] housing situation today? I have andres card 04/17/[address] you li ve. Do you have problems with any of the following? None of the above 04/17/2025 Food Insecurity Answer Date Recorded Within the past 12 months, y ou worried that your food would run out before you got money to buy more: Never True 04/17/2025 Within the past 12 months,th e food you bought just didn't last and you didn't have enough money to get more: Never True 06/2024 Transportation Answer Date Recorded In the past 12 months, has l ack of transportation kept you from medical appts, meetings, work or from getting things needed for daily living? No 04/17/2025 Utilities Answer Date Recorded In the past 12 months, has t he electric, gas, oil or water company threatened to shut off services in your home? No 04/17/2025 Depression Answer Date Recorded Patient Health Questionnaire-2 Score 0 04/21/2024 Internet Access Answer Date Recorded Internet Access Q1 Yes 04/17/2025 Internet Access Q2 Not on file 04/17/2025 Sex and Gender Information Value Date Recorded Sex Assigned at Male 03/16/2022 10:29 AM EDT Legal Sex Male 10:29 AM EDT Gender Identity Male 03/16/2022 10:29 AM EDT Sexual Orientation Straight 03/16/2022 10 :29 AM EDT Last Filed Vital Signs Vital Sign Reading Time Taken Comments Blood Pressure 132/74 03/22/2025 11:45 AM EST Pulse 89 03/22/2025 11:15 AM EST Temperature 36.2 C (97.1 F) 03/22/2025 11:15 AM EST Respiratory Rate 21 03/22/2025 11:15 AM EST Oxygen Saturation 98% 03/22/2025 11:15 AM EST Inhaled Oxygen Concentration - - Weight 93.4 kg (206 lb) 12/20/2024 2:09 PM EDT Height 185.4 cm (6' 1 ) 03/22/2025 11:15 AM EST Body Mass Index 27.18 10/31/2024 10:35 AM EDT Plan of Treatment Upcoming Encounters Date Type Department Care Team (Late st Contact Info) Description 05/15/2025 1:30 PM EST Immunization [facility] [address] [place] [phone] 06/01/2025 1:30 PM EST Telemedicine [facility] [address] [place] [address] Mariana Aggarwal, ROMEL 07/09/2025 1:00 PM EST Office Visit [facility] [address] [place] [address] Virginia García, OD [address] [place] [address] Health Maintenance Due Date Last Done Comments [...] 02/21/2025 02/22/2024, 04/16, 01/09/2022, Additional history exists Depression Screening 04/21/2025 04/21/2024, 04/21/20 24 Diabetes: Hemoglobin A1C 05/02/2025 025, 10/30/2024, 02/22/2024, Additional history exists DTaP/Tdap/Td Vaccines (2 - Td or Tdap) 06/12/2025 06/12/2015 Alcohol/Substance Use Screening 10/31/2025 10/31/2024 Tobacco Screening 03/26/2026 03/26/2025 SDOH Screening 04/17/2026 04/17/2025 Eye Exam 03/07/2027 03/07/2025, 02/15, 03/07/2025, Additional [...] on patient's age to complete this topic Goals Goal Patient Goal Type Associated Problems Recent Progress Patient-Stated? Author Help patients manage their type 2 diabetes Care Plan Help patients manage their type 2 diabetes No Virginia García, OD Weekly blood pressure task Care Plan Weekly blood pressure task No Harsha Garcían, OD Help patients manage their type 2 diabetes Care Plan Help patients manage their type 2 diabetes No Virginia García, OD Patient has chronic kidney disease Care Plan Patient has chronic kidney disease No Virginia García, OD Weekly blood pressure task Care Plan Weekly blood pressure task No Harsha Garcían, OD Patient has chronic kidney disease Care Plan Patient has chronic kidney disease No Virginia García, OD Weekly blood pressure task Care Plan Weekly blood pressure task No Ann-Marie Hill DINING ROOM TABLES SET UP ATTENDANT Weekly blood pressure task Care Plan Weekly blood pressure task No Ann-Marie Hill, DINING ROOM TABLES SET UP ATTENDANT Patient has chronic kidney disease Care Plan Patient has chronic kidney disease No Ann-Marie Hill, DINING ROOM TABLES SET UP ATTENDANT Patient has chronic kidney disease Care Plan Patient has chronic kidney disease No Ann-Marie Hill DINING ROOM TABLES SET UP ATTENDANT Weekly blood pressure task Care Plan Weekly blood pressure task No Valerie Degroot MA Weekly blood pressure task Care Plan Weekly blood pressure task No Valerie Degroot MA Patient has chronic kidney disease Care Plan Patient has chronic kidney disease No Valerie Degroot MA Patient has chronic kidney disease Care Plan Patient has chronic kidney disease No Valerie Degroot MA Weekly blood pressure task Care Plan Weekly blood pressure task No Abena Escalante Weekly blood pressure task Care Plan Weekly blood pressure task No Ava Abena Patient has chronic kidney disease Care Plan Patient has chronic kidney disease No Abena Escalante Patient has chronic kidney disease Care Plan Patient has chronic kidney disease No Abena Escalante Weekly blood pressure task Care Plan Weekly blood pressure task No Mariana Aggarwal RN Weekly blood pressure task Care Plan Weekly blood pressure task No Mariana Aggarwal RN Patient has chronic kidney disease Care Plan Patient has chronic kidney disease No Mariana Aggarwal RN Patient has chronic kidney disease Care Plan Patient has chronic kidney disease No Mariana Aggarwal RN Weekly blood pressure task Care Plan Weekly blood pressure task No Valerie Degroot MA Weekly blood pressure task Care Plan Weekly blood pressure task No Valerie Degroot MA Patient has chronic kidney disease Care Plan Patient has chronic kidney disease No Valerie Degroot MA Patient has chronic kidney disease Care Plan Patient has chronic kidney disease No Valerie Degroot MA Procedures Procedure Name Priority Date/Time Associated Diagnosis Comments CT CERVICAL SPINE WO CONTRAST Routine 03/15/2025 4:29 AM EDT OCT, OPTIC NERVE - OU - BOTH EYES Routine 03/07/2025 9:00 AM EDT 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 POCT GLYCATED HEMOGLOBIN, TOTAL Routine 10/31/2024 10:37 AM EDT Type 2 diabetes mellitus with diabetic polyneuropathy, without long-term current use of insulin (CMS/HCC) HEPATITIS C AB W/REFL TO HCV RNA, [...] Recently Relevant to Health Maintenance Results * CT Cervical Spine w/o Contrast (03/15/2025 4:29 AM EDT) Anatomical Region Laterality Modality Spine, C-spine Computed Tomogra phy 03/15/2025 4:29 AM EDT Narrative 03/15/2025 4:30 AM EDT [place] [address] CT Scan Report Signed Patient: Colton James MR#: [id number] 4 : 1950 Acct:[id number] Age/Sex: 74 / M ADM Date: 03/15/25 Loc: .ED Attending Dr: Ordering Physician: Xin Moore Date of Service: 03/15/25 Procedure(s): CT cervical spine wo IV con Accession Number(s): [id number] cc: Xin Moore; Stephanie Alex DO Report Number: [id number]: Total DLP = 471.00 mGy-cm Reason for Exam: pain/arthralgia CLINICAL HISTORY: pain arthralgia CT cervical spine without contrast Comparison: None provided Findings: There is straightening of the normal cervical lordosis. Multilevel cervical spine degenerative changes are present characterized by disc height loss, endplate sclerosis and disc osteophyte complex formation. Partially calcified pannus noted at the atlantoaxial joint. Bones are osteopenic. Visualized intracranial contents are unremarkable. Soft tissues of the neck are normal. Lung apices are clear. IMPRESSION: No acute findings. This document has been electronically signed by: Chris Riggs MD, PHD on 03/15/2025 04:29:31 Dictated By: Chris Riggs MD Signed By: <Electronically signed by Chris Riggs MD in OV> 03/15/25429 DD/ 8 TD/TT: 03/15/25428 Top Cutter: Procedure Note Donotuseinterpreter, Image - 03/15/[address] [place] [address] [address] Scan Report Signed Patient: Giselle James#: [id number] 4 : 1950cct:[id number] Age/Sex: 74 / MADM Date: 03/15/25 Loc: .ED Attending Dr: Ordering Physician: Xin Moore Date of Service: 03/15/25 Procedure(s): CT cervical spine wo IV con Accession Number(s): [id number] cc: Xin Moore; Stephanie Alex DO Report Number: [id number]: Total DLP = 471.00 mGy-cm Reason for Exam: pain/arthralgia CLINICAL HISTORY: pain arthralgia CT cervical spine without contrast Comparison: None provided Findings: There is straightening of the normal cervical lordosis. Multilevel cervical spine degenerative changes are present characterized by disc height loss, endplate sclerosis and disc osteophyte complex formation. Partially calcified pannus noted at the atlantoaxial joint. Bones are osteopenic. Visualized intracranial contents are unremarkable. Soft tissues of the neck are normal. Lung apices are clear. IMPRESSION: No acute findings. This document has been electronically signed by: Chris Riggs MD, PHD on 03/15/2025 04:29:31 Dictated By: Chris Riggs MD Signed By: <Electronically signed by Chris Riggs MD in OV> 03/15/25429 DD/ 8 TD/TT: 03/15/25428 Top Cutter: [facility] External Provider IMG CT PROCEDURES Final Result * OCT, Optic Nerve - OU - Both Eyes (03/07/2025 9:00 AM EDT) Narrative Virginia García, OD - 03/23/2025 11:05 AM EST Images from the original result were not included. OCT OPTIC NERVE INTERPRETATION Optical Coherence Tomography Interpretation Report Test Details: Measurements: OD OS C/D Horizontal 0.74 0.81 C/D Vertical 0.72 0.82 Disc area 1.95 mm 2 1.79 mm 2 RNFL Average 72 microns 64 microns Test findings: OD: Definite RNFL thinning in temporal quadrant, Borderline RNFL thinning in inferior quadrant, Normal RNFL thickness in nasal and superior quadrants. 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 Will have patient return in 4-6 months for a glaucoma work up. Result [facility] Virginia Ricky OD OPHTH TOMOGRAPHY Final Result * POCT HGB A1C (10/31/2024 10:37 AM EDT) Hemoglobin A1C 5.9 4.0 - 6.0 % QC Media Lot # [id number] Lot# Expiration Date Blood 10/31/2024 10:3 7 AM EDT Result [facility] Stephanie Alex DO POINT OF CARE TEST ENTER/ROBERTA T ORDERABLES Final Result * Albumin, Random Urine W/Creatinine (02/22/2024 10:35 AM EDT) Creatinine, Urine 87.37 mg/dL [facility] Microalbumin Urine 7.0 mg/L [facility] Microalbum Creatinine Ratio Ur 8.0 <30 ug/mg cr [facility] Comment:Albumin/Creatinine R atio Reference Ranges: Normal: < 30 ug/mg creatinine Microalbuminuria: 30 - 300 ug/mg creatinineClinical Albuminuria: > 300 ug/mg creatinine Urine (Urine, Random) 02/22/2024 10:35 AM EDT 02/22/2024 11:23 AM EDT Stephanie Isai LAB URINE ORDERABLES Final R esult Performing Organization Address City/[facility] [address]/ZIP Co de Phone Number [facility] [address] [place] [phone] * Hepatitis C Antibody with Reflex to HCV, RNA, Quantitative, Real-Time PCR (02/22/2024 10:35 AM EDT) Hepatitis C Antibody Nonreactive Nonreactive [facility] Comment:Antibodies to HCV no t detected; does not exclude early acuteHCV infection. Blood Venous blood specimen / Unknown 02/22/2024 10:35 AM EDT 02/22/2024 11:35 AM EDT us Stephanie Alex DO LAB BLOOD ORDERABLES Final R esult Performing Organization Address City/[facility] [address]/ZIP Co de Phone Number [facility] [address] [place] [phone] * Lipid Panel, Standard (02/22/2024 10:35 AM EDT) Triglycerides 87 <150 mg/dL [facility] Comment:Desirable Triglyceri de: less than 150 mg/dLBorderline High Triglyceride 150-199 mg/dLHigh Triglyceride: 200-499 mg/dLVery High Triglyceride: greater than or equal to 5OO mg/dL Cholesterol 147 <200 mg/dL [facility] Comment:Desirable Cholestero l: less than 200 mg/dLBorderline High Cholesterol: 200-239 mg/dLHigh Cholesterol: greater than 239 mg/dL LDL Cholesterol Calculated 73 <100 mg/dL [facility] Comment:Desirable LDL: less than 100 mg/dLNear Optimal/Above Optimal LDL: 110- 129 mg/dLBorderline High LDL: 130-159 mg/dLHigh LDL: 160-189 mg/dLVery High LDL: greater than or equal to 190 mg/dL HDL Cholesterol 57 >40 mg/dL [facility] Comment:Desirable HDL: great er than 40 mg/dL Note: This HDL assay may give artificially low results in patients with liver disease. Blood Venous blood specimen / Unknown 02/22/2024 10:35 AM EDT 02/22/2024 11:35 AM EDT us Stephanie Alex DO LAB BLOOD ORDERABLES Final R esult [facility] [address] [place] [phone] * Hm Colonoscopy (04/24/2020 10:02 AM EST) Historical Provider HEALTH MAINTENANCE Final Result from Last 3 Months or Most Recently Relevant to Health Maintenance Additional Health Concerns Active Problems Noted Date Diagnosed Date Help patients manage their type 2 diabetes 03/28 Weekly blood pressure task 03/28/2025 Help patients manage their type 2 diabetes 03/28 Patient has chronic kidney disease 03/28/2025 Weekly blood pressure task 03/28/2025 Patient has chronic kidney disease 03/28/2025 Weekly blood pressure task 04/04/2025 Weekly blood pressure task 04/04/2025 Patient has chronic kidney disease 04/04/2025 Patient has chronic kidney disease 04/04/2025 Weekly blood pressure task 04/11/2025 Weekly blood pressure task 04/11/2025 Patient has chronic kidney disease 04/11/2025 Patient has chronic kidney disease 04/11/2025 Weekly blood pressure task 04/17/2025 Weekly blood pressure task 04/17/2025 Patient has chronic kidney disease 04/17/2025 Patient has chronic kidney disease 04/17/2025 Weekly blood pressure task 04/17/2025 Weekly blood pressure task 04/17/2025 Patient has chronic kidney disease 04/17/2025 Patient has chronic kidney disease 04/17/2025 Weekly blood pressure task 04/25/2025 Weekly blood pressure task 04/25/2025 Patient has chronic kidney disease 04/25/2025 Patient has chronic kidney disease 04/25/2025 Insurance [facility] [employer] (O D-SNP) Care Teams Senior [employer] Relationship Specialty Start Date End Date Stephanie Alex DO [address] [place] [address] PCP - General Family Medicine 06/12/15 Home [facility] 07/19/24
--- OUTSIDE RECORDS SUMMARY | 2025-05-08 13:20 | XMS_ITS | Encounter Summary ---
Author Organization [employer] Address [address] [facility] 7t [place] [address] Care Team Providers Care Licensed Physical Therapist Assistant Name Role Phone Stephanie Alex DO Primary Care Provider + [phone] Reason for Visit * Reason Onset Date Comments Med Refill 07/22/2023 Encounter Details Date Type Department Care Team ([facility] st Contact Info) Description 07/22/2023 Telephone [facility] [address] [place] [address] Stephanie Alex DO 230 [place], [place] [phone] Med Refill Social History Tobacco Use Types [...] 300 MG/2ML injection To be sent to: [facility] - [place], [place] - [address] [place] [address] documented in this encounter Plan of Treatment Upcoming Encounters Date Type Department Care Team (Late st Contact Info) Description 05/15/2025 1:30 PM EST Immunization [facility] [address] [place] [address] 06/01/2025 1:30 PM EST Telemedicine [facility] [address] [place] [address] Mariana Aggarwal RN 07/09/2025 1:00 PM EST Office Visit [facility] [address] [place] [address] Virginia García, OD 230 [place] [address] documented as of this encounter Visit Diagnoses Not on filedocumented in this encounter Additional Health Concerns Assessment Noted Time PHQ-9 Depression Total Score: 0 09/02/19 23 9:01 AM EDT documented as of this encounter Care Teams Licensed Physical Therapist Assistant Relationship Specialty Start Date End Date Stephanie Alex DO [address] [place] [id number] PCP - General Family Medicine 06/12/15 Myrna 06/21/24 03/05/25 Home [facility] 07/19/24 documented as of this encounter
--- OUTSIDE RECORDS SUMMARY | 2025-05-08 13:20 | XMS_ITS | Encounter Summary ---
Author Organization [employer] [facility] Address [address] [facility] 7t [place] [address] Care Team Providers Care Master Naval Parachutist Name Role Phone Stephanie Alex DO Primary Care Provider + [phone] Reason for Visit * Reason Onset Date Comments triage 05/21/2022 Encounter Details Date Type Department Care Team ([facility] Contact Info) Description 05/21/2022 Telephone [facility] [address] [place] [address] Stephanie Alex DO [address] [place], [place] [phone] triage Social History Tobacco Use Types Packs/Day [...] Info) Description 05/15/2025 1:30 PM EST Immunization [facility] [address] [place] [address] 06/01/2025 1:30 PM EST Telemedicine [facility] [address] [place] [address] Mariana Aggarwal RN 07/09/2025 1:00 PM EST Office Visit [facility] [address] [place] [address] Virginia García, OD [address] [place] [address] documented as of this encounter Visit Diagnoses Not on filedocumented in this encounter Additional Health Concerns Assessment Noted Time PHQ-9 Depression Total Score: 0 04/22/20 22 10:55 AM EST documented as of this encounter Care Teams Master Naval Parachutist Relationship Specialty Start Date End Date Stephanie Alex DO [address] [place] [address] PCP - General Family Medicine 06/12/15 Myrna 06/21/24 03/05/25 [facility] 07/19/24 documented as of this encounter
--- OUTSIDE RECORDS SUMMARY | 2025-05-08 13:20 | XMS_ITS | Encounter Summary ---
Author Organization [employer] Address 75 [facility] 7t [place] [address] Care Team Providers Care Spine Supervisor Name Role Phone EddiStephanie zacarais Primary Care Provider + [phone] Reason for Visit * Reason Comments Med Refill Encounter Details Date Type Department Care Team ([facility] Contact Info) Description 09/27/2022 Refill [facility] [address] [place] [address] Bettina Eddy MD [address] [place] [address] Chronic bilateral low back pain, unspecified whether [...] Info) Description 05/15/2025 1:30 PM EST Immunization [facility] [address] [place] [address] 06/01/2025 1:30 PM EST Telemedicine [facility] [address] [place] [address] Mariana Aggarwal, RN 07/09/2025 1:00 PM EST Office Visit [facility] [address] [place], [place] [phone] Virginia García, OD [address] [place] [address] documented as of this encounter Visit Diagnoses Diagnosis Chronic bilateral low back pain, unspecified whether sciatica present documented in this encounter Additional Health Concerns Assessment Noted Time PHQ-9 Depression Total Score: 0 09/02/19 9:01 AM EDT documented as of this encounter Care Teams Spine Supervisor Relationship Specialty Start Date End Date Stephanie Alex DO [address] [place] [address] PCP - General Family Medicine 06/12/15 Myrna 06/21/24 03/05/25 [facility] 07/19/24 documented as of this encounter
--- OUTSIDE RECORDS SUMMARY | 2025-05-08 13:20 | XMS_ITS | Encounter Summary ---
Author Organization [employer] Address [address] [facility] 7t [place] [address] Care Team Providers Care Nanotechnology Engineering Technician Name Role Phone Stephanie Alex DO Primary Care Provider + [phone] Reason for Visit * Reason Comments Med Refill Encounter Details Date Type Department Care Team ([facility] Contact Info) Description 05/01/2024 Refill [facility] [address] [place], [place] [phone] Stephanie Alex DO 230 [place] [address] Essential hypertension Social History Tobacco Use Types [...] Info) Description 05/15/2025 1:30 PM EST Immunization [facility] [address] [place] [address] 06/01/2025 1:30 PM EST Telemedicine [facility] [address] [place] [address] Mariana Aggarwal, ROMEL 07/09/2025 1:00 PM EST Office Visit [facility] [address] [place] [address] Ricky, Virginia, OD [address] [place] [address] documented as of this encounter Visit Diagnoses Diagnosis Essential hypertension Unspecified essential hypertension documented in this encounter Additional Health Concerns Assessment Noted Time PHQ-9 Depression Total Score: 0 04/21/20 24 9:57 AM EST documented as of this encounter Care Teams Nanotechnology Engineering Technician Relationship Specialty Start Date End Date Stephanie Alex DO [address] [place] [address] PCP - General Family Medicine 06/12/15 Myrna 06/21/24 03/05/25 [facility] 07/19/24 documented as of this encounter
--- OUTSIDE RECORDS SUMMARY | 2025-05-08 13:20 | XMS_ITS | Encounter Summary ---
Author Organization [employer] Address [address] [facility] 7t [place] [address] Care Team Providers Care Tire Recapper Name Role Phone Stephanie Alex DO Primary Care Provider + [phone] Reason for Visit * Reason Comments Med Refill Encounter Details Date Type Department Care Team ([facility] Contact Info) Description 05/11/2023 Refill [facility] 230 [place], [place] [phone] Stephanie Alex DO 230 [place], [place] [phone] Other chronic pain Social History Tobacco Use [...] Info) Description 05/15/2025 1:30 PM EST Immunization [facility] [address] [place] [address] 06/01/2025 1:30 PM EST Telemedicine [facility] [address] [place] [address] Mariana Aggarwal, ROMEL 07/09/2025 1:00 PM EST Office Visit [facility] [address] [place] [address] Ricky, [place], OD [address] [place] [address] documented as of this encounter Visit Diagnoses Diagnosis Other chronic pain documented in this encounter Additional Health Concerns Assessment Noted Time PHQ-9 Depression Total Score: 0 09/02/19 9:01 AM EDT documented as of this encounter Care Teams Tire Recapper Relationship Specialty Start Date End Date Stephanie Alex DO [address] [place] [address] PCP - General Family Medicine 06/12/15 Myrna 06/21/24 03/05/25 [facility] 07/19/24 documented as of this encounter
--- OUTSIDE RECORDS SUMMARY | 2025-05-08 13:20 | XMS_ITS | Encounter Summary ---
Author Organization [employer] [facility] Address 75 [facility] 7[address] [place] [address] Care Team Providers Care Jaw Skinner Name Role Phone Stephanie Alex DO Primary Care Provider + [phone] Reason for Visit * Reason Comments Med Refill Encounter Details Date Type Department Care Team (Late st Contact Info) Description 12/27/2022 Refill [facility] [address] [place] [address] Stephanie Alex DO [address] [place] [address] Acquired hypothyroidism; Anemia, unspecified type; Chronic bilateral [...] Info) Description 05/15/2025 1:30 PM EST Immunization [facility] [address] [place] [address] 06/01/2025 1:30 PM EST Telemedicine [facility] [address] [place] [address] Mariana Aggarwal RN 07/09/2025 1:00 PM EST Office Visit [facility] [address] [place] [address] Ricky, Virginia, OD [address] [place] [address] documented as of this encounter Visit Diagnoses Diagnosis Acquired hypothyroidism Unspecified hypothyroidism Anemia, unspecified type Chronic bilateral low back pain, unspecified whether sciatica present documented in this encounter Additional Health Concerns Assessment Noted Time PHQ-9 Depression Total Score: 0 09/02/19 9:01 AM EDT documented as of this encounter Care Teams Jaw Skinner Relationship Specialty Start Date End Date Stephanie Alex DO [address] [place] [address] PCP - General Family Medicine 06/12/15 Myrna 06/21/24 03/05/25 [facility] 07/19/24 documented as of this encounter
--- OUTSIDE RECORDS SUMMARY | 2025-05-08 13:20 | XMS_ITS | Encounter Summary ---
Author Organization [employer] Address 75 [facility] 7t [place] [address] Care Team Providers Care Construction Worker Name Role Phone Stephanie Alex DO Primary Care Provider + [phone] Reason for Visit * Reason Onset Date Comments Durable Medical Equipment 09/16/2023 Encounter Details Date Type Department Care Team ([facility] st Contact Info) Description 09/16/2023 Telephone [facility] [address] [place] [address] Stephanie Alex DO [address] [place], [place] [phone] Durable Medical Equipment Social History Tobacco Use [...] Info) Description 05/15/2025 1:30 PM EST Immunization [facility] [address] [place] [address] 06/01/2025 1:30 PM EST Telemedicine [facility] [address] [place] [address] Mariana Aggarwal RN 07/09/2025 1:00 PM EST Office Visit [facility] [address] [place] [address] Ricky, Virginia, OD [address] [place] [address] documented as of this encounter Visit Diagnoses Not on filedocumented in this encounter Additional Health Concerns Assessment Noted Time PHQ-9 Depression Total Score: 3 09/02/19 24 10:32 AM EDT documented as of this encounter Care Teams Construction Worker Relationship Specialty Start Date End Date Stephanie Alex DO [address] [place] [address] PCP - General Family Medicine 06/12/15 Myrna 06/21/24 03/05/25 [facility] 07/19/24 documented as of this encounter
--- OUTSIDE RECORDS SUMMARY | 2025-05-08 13:20 | XMS_ITS | Encounter Summary ---
Author Organization [employer] Address [address] [facility] 7t [place] [address] Care Team Providers Care Entertainment Production Professional Name Role Phone Isai Stephanie Primary Care Provider + [phone] Encounter Details Date Type Department Care Team ([facility] st Contact Info) Description 08/24/2023 Orders Only [facility] MED[facility]INE [address] [place] [address] ProviderMicha MD Social History Tobacco Use Types [...] 05/15/2025 1:30 PM EST Immunization [facility] [address] [place] [address] 06/01/2025 1:30 PM EST Telemedicine [facility]INE [address] [place] [address] Mariana Aggarwal RN 07/09/2025 1:00 PM EST Office Visit [facility] [address] [place], [place] [phone] Virginia García, OD [address] [place] [address] documented as of this encounter Procedures Procedure Name Priority Date/Time Associated Diagnosis Comments COLONOSCOPY Routine 04/24/2020 10:02 AM EST COLONOSCOPY Routine 03/26/2016 9:58 AM EST documented in this encounter Results * Colonoscopy (04/24/2020 10:02 AM EST) us Historical Provider HEALTH MAINTENANCE Final Result * Colonoscopy (03/26/2016 9:58 AM EST) [facility] Colonoscopy Normal Normal us Historical Provider HEALTH MAINTENANCE Edited Result - Final documented in this encounter Visit Diagnoses Not on filedocumented in this encounter Additional Health Concerns Assessment Noted Time PHQ-9 Depression Total Score: 0 09/02/19 23 9:01 AM EDT documented as of this encounter Care Teams Entertainment Production Professional Relationship Specialty Start Date End Date Stephanie Alex DO [address] [place] [address] PCP - General Family Medicine 06/12/15 Myrna 06/21/24 03/05/25 [facility] 07/19/24 documented as of this encounter
--- OUTSIDE RECORDS SUMMARY | 2025-05-08 13:20 | XMS_ITS | Encounter Summary ---
Author Organization [employer] [facility] Address [address] [facility] 7t [place] [address] Care Team Providers Care Allocations Clerk Name Role Phone Stephanie Alex DO Primary Care Provider + [phone] Encounter Details Date Type Department Care Team (Latest Contact Info) Description 01/23/2022 Abstract [facility] CONVERSIONS Dental, Provider, DDS Social History Tobacco [...] Encounters Date Type Department Care Team ( Contact Info) Description 05/15/2025 1:30 PM EST Immunization [facility] [address] [place] [address] 06/01/2025 1:30 PM EST Telemedicine [facility] [address] [place] [address] Mariana Aggarwal RN 07/09/2025 1:00 PM EST Office Visit [facility] [address] [place] [address] Virginia García, YANA [address] [place] [address] documented as of this encounter Visit Diagnoses Not on filedocumented in this encounter Care Teams Allocations Clerk Relationship Specialty Start Date End Date Stephanie Alex DO [address] [place] [address] PCP - General Family Medicine 06/12/15 Myrna 06/21/24 03/05/25 [facility] 07/19/24 documented as of this encounter
== END 2025-05-08 12:09 | disposition home or self-care (01) ==
LOC: HO.US 12:08
PROVIDERS: PCP Family Medicine; Visit Provider Nurse Practitioner Family
DX: R97.20 Elevated prostate specific antigen [PSA] (principal); N39.43 Post-void dribbling; R31.29 Other microscopic hematuria; N41.9 Inflammatory disease of prostate, unspecified
CPT/HCPCS: 76770

== ENCOUNTER → 2025-05-08 12:10 | Outpatient (BNV) | payer OTHER, SELFPAY | PROVIDERS: PCP Family Medicine; Visit Provider Radiology Diagnostic Radiology | DX: R97.20 Elevated prostate specific antigen [PSA] (principal) | CPT/HCPCS: 76770 ==

== ENCOUNTER 2025-05-14 11:25 | Outpatient (REF) | payer OTHER, SELFPAY ==
[2025-05-14 12:53] LABS: PSA,Total (Free>4and<10) 4.69 ng/mL (0.00-4.00)
--- OUTSIDE RECORDS SUMMARY | 2025-05-14 13:24 | XMS_ITS | Encounter Summary ---
Author Organization [employer] Address [address] [facility] 7t [place] [address] Care Team Providers Care Outside Sales Advertising Executive Name Role Phone Stephanie Alex DO Primary Care Provider + [phone] Reason for Visit * Reason Comments Med Refill Encounter Details Date Type Department Care Team ([facility] Contact Info) Description 05/01/2024 Refill [facility] [address] [place], [place] [phone] Stephanie Alex DO [address] [place] [address] Essential hypertension Social History Tobacco Use Types [...] Info) Description 05/15/2025 1:30 PM EST Immunization [facility] [address] [place] [address] 06/01/2025 1:30 PM EST Telemedicine [facility] [address] [place] [address] Mariana Aggarwal, ROMEL 07/09/2025 1:00 PM EST Office Visit [facility] OPTOMET[facility] [address] [place] [address] Ricky, [place], OD [address] [place] [address] documented as of this encounter Visit Diagnoses Diagnosis Essential hypertension Unspecified essential hypertension documented in this encounter Additional Health Concerns Assessment Noted Time PHQ-9 Depression Total Score: 0 04/21/20 24 9:57 AM EST documented as of this encounter Care Teams Outside Sales Advertising Executive Relationship Specialty Start Date End Date Stephanie Alex DO [address] [place] [phone] PCP - General Family Medicine 06/12/15 Myrna 06/21/24 03/05/25 [facility] 07/19/24 documented as of this encounter
--- OUTSIDE RECORDS SUMMARY | 2025-05-14 13:24 | XMS_ITS | Clinical Summary ---
Author Organization [employer] Address [address] [facility] 7t [place] [address] Care Team Providers Care Heavy Equipment Sales Associate Name Role Phone Stephanie Alex Primary Care Provider [phone] Allergies Active Allergy Reactions Criticality Noted Date Comments Lisinopril Angioedema 05/08/2024 Medications polyethylene glycol, PEG, 3350 (Glycolax) 17 GM/SCOOP powder Take 17 g by mouth if needed each day for constipation. Mix with 8oz. Water, juice, soda 0 Active Blood Glucose Monitoring Suppl (FreeStyle glucose monitoring) kit 1 each if needed. Active FREESTYLE LITE test stripIndications:T ype 2 diabetes mellitus with diabetic polyneuropathy, without long-term current use of insulin ([facility]) TEST BLOOD SUGAR EVERY DAY 50 strip 11 3 Active SM Dry Eye Relief 0.2-0.2-1 % solution PLACE 1 DROP IN EACH EYE THREE TIMES DAILY 15 mL 11 3 Active TRUEplus Lancets 33G misc TEST BLOOD SUGAR EVERY DAY 100 each 11 4 Active Respiratory Therapy Supplies (Nebulizer Mask Adult) miscIndications:Mo derate persistent asthma without complication 1 each every 6 (six) hours if needed (sob/ wheezing). Use with nebulizer machine 1 each 4 Active budesonide (Pulmicort) 0.5 MG/2ML nebulizer solution MIX 1 AMPULE USING A NEBULIZER IN 8 OUNCES WATER destilada WITH Paquete de solucin salina. USE 1/2 botella para irrigar cada fosa nasal TWICE DAILY. 4 Active Dupixent 300 MG/2ML solution auto-injector 4 Active dexlansoprazole (Dexilant) [address] capsule Take 1 capsule (60 mg) by mouth Once per day. Do not crush or chew. 30 capsule 11 4 Active fluticasone (Flonase) 50 MCG/ACT nasal sprayIndications:A sthma, unspecified asthma severity, unspecified whether complicated, unspecified whether persistent USE 2 SPRAYS IN EACH NOSTRIL EVERY DAY 48 g 3 4 Active Multiple Vitamin (Multivitamin) tablet TAKE 1 TABLET BY MOUTH EVERYDAY AT NOON 90 tablet 3 5 Active montelukast (Singulair) 10 MG tablet TAKE 1 TABLET BY MOUTH EVERY EVENING 90 tablet 3 5 Active Ventolin HFA 108 (90 Base) MCG/ACT inhaler INHALE 2 PUFFS BY MOUTH EVERY 4 HOURS NEEDED FOR WHEEZING OR SHORTNESS OF BREATH 18 g 2 5 Active hydrOXYzine pamoate (Vistaril) 25 MG capsuleIndications :Anxiety TAKE 1 CAPSULE BY MOUTH EVERY 6 HOURS NEEDED ANXIETY 30 capsule 3 5 Active hydrOXYzine HCl (Atarax) 25 MG tablet Take 1 tablet (25 mg) by mouth if needed in the morning, at noon, and at bedtime for itching. 90 tablet 3 5 Active acetaminophen (Tylenol 8 Hour) 650 MG ER tablet Take 1 tablet (650 mg) by mouth every 8 (eight) hours if needed for mild pain. 60 tablet 3 5 Active naloxone (Narcan) 4 mg/0.1 mL nasal sprayIndications:L liberty term (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 Administer 1 spray (4 mg) into affected nostril(s) if needed for opioid reversal. 2 each 2 5 Active albuterol (2.5 MG/3ML) 0.083% nebulizer solution INHALE 1 AMPULE USING A NEBULIZER BY MOUTH FOUR TIMES DAILY NEEDED 90 mL 1 5 Active polyvinyl alcohol (Liquifilm Tears) 1.4 % ophthalmic solution INSTILL 1 DROP IN EACH EYE THREE TIMES DAILY 15 mL 11 5 Active atorvastatin (Lipitor) 40 MG tabletIndications: Other hyperlipidemia TAKE 1 TABLET BY MOUTH AT BEDTIME 90 tablet 1 5 Active gabapentin (Neurontin) 800 MG tabletIndications: Chronic bilateral low back pain, unspecified whether sciatica present TAKE 1 TABLET BY MOUTH THREE TIMES DAILY IN THE MORNING, EVENING, AND BEDTIME 270 tablet 1 5 Active cetirizine (ZyrTEC) 10 MG tablet TAKE 1 TABLET BY MOUTH EVERYDAY AT NOON 90 tablet 1 5 Active metFORMIN (Glucophage) 500 MG tablet TAKE 1 TABLET BY MOUTH TWICE DAILY IN THE MORNING AND IN THE EVENING WITH FOOD 180 tablet 1 5 Active levothyroxine (Synthroid, Levoxyl) 25 MCG tabletIndications: Acquired hypothyroidism TAKE 1 TABLET BY MOUTH EVERY MORNING 90 tablet 1 5 Active Ferrous Sulfate (iron) 325 (65 Fe) MG tabletIndications: Anemia, unspecified type TAKE 1 TABLET BY MOUTH TWICE DAILY AT NOON AND IN THE EVENING 180 tablet 1 5 Active traMADol (Ultram) 50 MG tabletIndications: Chronic low back pain, unspecified back pain laterality, unspecified whether sciatica present TAKE 1 TABLET BY MOUTH EVERY 8 HOURS NEEDED FOR SEVERE PAIN 84 tablet 5 Active sertraline (Zoloft) 25 MG tabletIndications: Depression, unspecified depression type TAKE 1 TABLET BY MOUTH EVERY MORNING 30 tablet 3 5 Active baclofen (Lioresal) 10 MG tablet TAKE 1 TABLET BY MOUTH THREE TIMES DAILY IN THE MORNING, AT NOON, AND AT BEDTIME NEEDED FOR MUSCLE SPASMS 4 Active Diclofenac Sodium 1 % gel APPLY 2 GRAMS TOPICALLY TO AFFECTED AREA(S) 4 TIMES A DAY IN THE MORNING, AT NOON, IN THE EVENING, AND AT BEDTIME NEEDED FOR PAIN 4 Active Docusate Sodium (DSS) 100 MG capsule Take 1 capsule by mouth in the morning. 5 Active losartan (Cozaar) 100 MG tablet TAKE 1 TABLET BY MOUTH AT BEDTIME 30 tablet 11 04/20/2025 12:26 PM EST 5 Active famotidine (Pepcid) 40 MG tablet Take 1 tablet (40 mg) by mouth at bedtime. 30 tablet 11 04/20/2025 12:26 PM EST 5 026 Active fluticasone furoate (Arnuity Ellipta) 200 MCG/ACT inhalerIndications :Asthma, unspecified asthma severity, unspecified whether complicated, unspecified whether persistent INHALE 1 PUFF BY MOUTH EVERY DAY AT THE SAME TIME. Rinse mouth with water after use to reduce aftertaste and incidence of candidiasis. Do not swallow. 30 each 2 04/20/2025 12:26 PM EST 5 Active amLODIPine (Norvasc) 10 MG tabletIndications: Essential hypertension TAKE 1 TABLET BY MOUTH EVERYDAY AT NOON 90 tablet 3 04/20/2025 12:26 PM EST 5 Active D3 Super Strength 50 MCG (1999 UT) capsuleIndications :Vitamin D deficiency TAKE 1 CAPSULE BY MOUTH EVERY MORNING 90 capsule 3 5 Active Active Problems Problem Noted Date Diagnosed Date [...] time in diff also gout,pseudogout ,RA -called [facility] to let them know pt is going ,pt refuse EMT call ,states will pick up attendant at home and then he will go [...] monitoring -s/p optho eval SEPTEMBER 2021 at [facility], appt next mos -foot exam next visit* Encounters Date Type Department Care Team Description 05/14/2025 Orders Only GENERIC EXTERNAL DATA DEPARTMENT Provider, Generic External Data 04/27/2025 Travel 04/25/2025 Telephone [facility] [address] [place] [phone] Stephanie Alex DO Chart Prep 04/17/2025 Patient Outreach [address] [phone] Stephanie Alex DO Pre-visit Planning (SDOH screening negative and tobacco screening negative) 04/11/2025 Telephone [facility] [address] [place] [address] Stephanie Alex DO Recall Appointment 04/11/2025 Travel 04/09/2025 Refill [facility] [address] [place] [address] Stephanie Alex DO Essential hypertension; Vitamin D deficiency 04/04/2025 Refill [facility] [address] [place] [phone] Tita Quick MD Asthma, unspecified asthma severity, unspecified whether complicated, unspecified whether persistent 04/04/2025 Refill [facility] [address] [place] [address] Stephanie Alex DO Asthma, unspecified asthma severity, unspecified whether complicated, unspecified whether persistent 03/22/2025 11:00 AM EST Office Visit [facility] [address] [address] Stephanie Alex DO Scalp pain (Primary Dx) 03/22/2025 Travel 03/15/2025 Orders Only 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; Combined forms of age-related cataract of both eyes; Meibomian gland disease of both eyes, unspecified eyelid; Presbyopia 03/07/2025 Travel 03/07/2025 Refill [facility] [address] [place] [address] Stephanie Alex DO Depression, unspecified depression type 03/05/2025 Telephone [facility] [address] [place] [address] Virginia García, OD 03/02/2025 Refill [facility] [address] [place] [address] Celina Sharpe MD Chronic low back pain, unspecified back pain laterality, unspecified whether sciatica present 02/14/2025 Refill [facility] [address] [place] [address] Stephanie Alex DO Acquired hypothyroidism; Anemia, unspecified [...] Info) Description 05/15/2025 1:30 PM EST Immunization [facility] [address] [place], [place] [phone] 06/01/2025 1:30 PM EST Telemedicine [facility] [address] [place] [address] Mariana Aggarwal RN 07/09/2025 1:00 PM EST Office Visit [facility] [address] [place] [address] [phone] Virginia García, OD [address] [place] [address] Health Maintenance Due Date Last Done Comments [...] Care Plan Weekly blood pressure task No RickyHarshan, OD Help patients manage their type 2 diabetes Care Plan Help patients manage their type 2 diabetes No Harsha Garcían, OD Patient has chronic kidney disease Care Plan Patient has chronic kidney disease No Harsha Garcían, OD Weekly blood pressure task Care Plan Weekly blood pressure task No RickyHarshan, OD Patient has chronic kidney disease Care Plan Patient has chronic kidney disease No Virginia García, OD Weekly blood pressure task Care Plan Weekly blood pressure task No Ann-Marie Hill, ARTIST CONSULTANT Weekly blood pressure task Care Plan Weekly blood pressure task No HillMaicolga, ARTIST CONSULTANT Patient has chronic kidney disease Care Plan Patient has chronic kidney disease No HillMaicolga, ARTIST CONSULTANT Patient has chronic kidney disease Care Plan Patient has chronic kidney disease No Ann-Marie Hill, ARTIST CONSULTANT Weekly blood pressure task Care Plan Weekly [...] Weekly blood pressure task No Abena Escalante Patient has chronic kidney [...] Procedure Name Priority Date/Time Associated Diagnosis Comments PSA, TOTAL WITH REFLEX TO PSA, FREE Routine 05/14/2025 11:[address] CERVICAL SPINE WO CONTRAST Routine 03/15/2025 4:29 AM EDT OCT, OPTIC NERVE - OU - BOTH EYES Routine 03/07/2025 9:00 AM EDT 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 POCT GLYCATED HEMOGLOBIN, TOTAL Routine 10/31/2024 10:37 AM EDT Type 2 diabetes mellitus with diabetic polyneuropathy, without long-term current use of insulin ([facility]/HCC) HEPATITIS C AB W/REFL TO HCV RNA, [...] polyneuropathy, without long-term current use of insulin ([facility]) Essential hypertension Other hyperlipidemia Anxiety [...] polyneuropathy, without long-term current use of insulin ([facility]) Essential hypertension Other hyperlipidemia Anxiety [...] Relevant to Health Maintenance Results * (ABNORMAL) PSA, Total With Reflex to PSA, Free (05/14/2025 11:43 AM EST) PSA,Total (Free>4and<10) 4.69(H) 0.00 - 4.00 ng/mL [facility] Comment:PSA methodology: Abb yue Peace i ChemiluminescentMicroparticle Immunoassay (CMIA) 05/14/2025 11:4 3 AM EST 05/14/2025 11:43 AM EST us Generic External Data Provider LAB BLOOD ORDERAB LES Final Result [facility] [address] [place] [phone] * CT Cervical Spine w/o Contrast (03/15/2025 4:29 AM EDT) Anatomical Region Laterality Modality Spine, C-spine Computed Tomogra phy 03/15/2025 4:29 AM EDT Narrative 03/15/2025 4:30 AM EDT [address] [address] [address] Scan Report Signed Patient: Colton James MR#: [id number] 4 : 1950 Acct:[id number] Age/Sex: 74 / M ADM Date: 03/15/25 Loc: HO.ED Attending Dr: Ordering Physician: Xin Moore Date of Service: 03/15/25 Procedure(s): CT cervical spine wo IV con Accession Number(s): [id number] cc: Xin Moore; Stephanie Alex DO Report Number: [id number]: Total DLP = 471.00 mGy-cm Reason for [...] signed by Chris Riggs MD in OV> 03/15/25 0430 DD/ 8 TD/TT: 03/15/25428 Supervisor Cigar Processing: Procedure Note Donotuseinterpreter, Image - 03/15/[address] [address] [address] Scan Report Signed Patient: Colton JamesMR#: [id number] 4 : 1950cct:[id number] Age/Sex: 74 / MADM Date: 03/15/25 Loc: HO.ED Attending Dr: Ordering Physician: Xin Moore Date of Service: 03/15/25 Procedure(s): CT cervical spine wo IV con Accession Number(s): [id number] cc: Xin Moore; Stephanie Alex DO Report Number: [id number]: Total DLP = 471.00 mGy-cm Reason for [...] signed by Chris Riggs MD in OV> 03/15/250 DD/ 8 TD/TT: 03/15/25428 Supervisor Cigar Processing: [facility] External Provider IMG CT PROCEDURES Final Result * OCT, Optic Nerve - OU - Both Eyes (03/07/2025 9:00 AM EDT) Virginia Hernandez, OD - 03/23/2025 11:05 AM EST Images [...] 4-6 months for a glaucoma work up. Virginia García OD OPHTH TOMOGRAPHY Final Result * POCT HGB A1C (10/31/2024 10:37 AM EDT) Hemoglobin A1C 5.9 4.0 - 6.0 % QC Media Lot # [id number] Lot# Expiration Date Blood 10/31/2024 10:3 7 AM EDT Stephanie Alex DO POINT OF CARE TEST ENTER/ROBERTA T ORDERABLES Final Result * Albumin, Random Urine W/Creatinine (02/22/2024 10:35 AM EDT) Creatinine, Urine 87.37 mg/dL [facility] Microalbumin Urine 7.0 mg/L [facility] Microalbum Creatinine Ratio Ur 8.0 <30 ug/mg cr [facility] Comment:Albumin/Creatinine R atio Reference Ranges: Normal: < 30 ug/mg creatinine Microalbuminuria: 30 - 300 ug/mg creatinineClinical Albuminuria: > 300 ug/mg creatinine Urine (Urine, Random) 02/22/2024 10:35 AM EDT 02/22/2024 11:23 AM EDT Stephanie Alex DO LAB URINE ORDERABLES Final R esult Performing Organization Address City/[facility]/ZIP Co de Phone Number [facility] [address] [place] [phone] * Hepatitis C Antibody with Reflex [...] esult [facility] [address] [place] [phone] * Lipid Panel, Standard (02/22/2024 10:35 AM EDT) Triglycerides 87 <150 mg/dL [facility] Comment:Desirable Triglyceri de: less than [...] 190 mg/dL HDL Cholesterol 57 >40 mg/dL [facility] Comment:Desirable HDL: great er than 40 mg/dL Note: This HDL assay may give artificially low results in patients with liver disease. Blood Venous blood specimen / Unknown 02/22/2024 10:35 AM EDT 02/22/2024 11:35 AM EDT Stephanie Alex DO LAB BLOOD ORDERABLES Final R esult [facility] [address] [place] [address] [phone] * Hm Colonoscopy (04/24/2020 10:02 AM [...] Patient has chronic kidney disease 04/25/2025 Insurance [facility] [employer] OPTIONS (O D-SNP) [employer] [place] [id number] Care Teams Heavy Equipment Sales Associate Relationship Specialty Start Date End Date Stephanie Alex DO [address] [place] [address] PCP - General Family Medicine 06/12/15 Home Care [facility] 07/19/24
--- OUTSIDE RECORDS SUMMARY | 2025-05-14 13:25 | XMS_ITS | Encounter Summary ---
Author Organization [email or web address] Address [address] [facility] 7t [place] [address] Care Team Providers Care Setter Helper Name Role Phone Stephanie Alex DO Primary Care Provider + [phone] Reason for Visit * Reason Onset Date Comments Durable Medical Equipment 09/16/2023 Encounter Details Date Type Department Care Team ([facility] st Contact Info) Description 09/16/2023 Telephone [facility] [address] [place] [address] Stephanie Alex DO [address] [place], [place] [phone] Durable Medical Equipment Social History Tobacco Use [...] Info) Description 05/15/2025 1:30 PM EST Immunization [facility] [address] [place] [address] 06/01/2025 1:30 PM EST Telemedicine [facility] [address] [place] [address] Mariana Aggarwal RN 07/09/2025 1:00 PM EST Office Visit [facility] [address] [place] [address] Ricky, Virginia, OD [address] [place] [address] documented as of this encounter Visit Diagnoses Not on filedocumented in this encounter Additional Health Concerns Assessment Noted Time PHQ-9 Depression Total Score: 3 09/02/19 24 10:32 AM EDT documented as of this encounter Care Teams Setter Helper Relationship Specialty Start Date End Date Stephanie Alex DO [address] [place] [address] PCP - General Family Medicine 06/12/15 Myrna 06/21/24 03/05/25 [facility] 07/19/24 documented as of this encounter
--- OUTSIDE RECORDS SUMMARY | 2025-05-14 13:25 | XMS_ITS | Encounter Summary ---
Author Organization [email or web address] [facility] Address [address] [facility] 7t [place] [address] Care Team Providers Care Advertising Vice President Name Role Phone AsterStephanie anand Primary Care Provider + [phone] Encounter Details Date Type Department Care Team ([facility] Contact Info) Description 05/04/2022 Abstract [facility] [address] [place] [address] Tricia Farmer PharmD [address] [place] [address] Social History Tobacco Use Types Packs/Day Years [...] Upcoming Encounters Date Type Department Care Team ([facility] st Contact Info) Description 05/15/2025 1:30 PM EST Immunization [facility] MED[facility]INE [address] [place] [address] 06/01/2025 1:30 PM EST Telemedicine [facility] MED[facility] [address] [place] [address] Mariana Aggarwal, RN 07/09/2025 1:00 PM EST Office Visit [facility] OPT[facility] [address] [place], [place] [phone] Virginia García, OD [address] [place] [address] documented as of this encounter Visit Diagnoses Not on filedocumented in this encounter Additional Health Concerns Assessment Noted Time PHQ-9 Depression Total Score: 0 04/22/20 22 10:55 AM EST documented as of this encounter Care Teams Advertising Vice President Relationship Specialty Start Date End Date Stephanie Alex DO [address] [place] [address] PCP - General Family Medicine 06/12/15 Myrna 06/21/24 03/05/25 [facility] 07/19/24 documented as of this encounter
--- OUTSIDE RECORDS SUMMARY | 2025-05-14 13:25 | XMS_ITS | Encounter Summary ---
Author Organization [employer] Address [address] [facility] 7t [place] [address] Care Team Providers Care Tow Boat Captain Name Role Phone Stephanie Alex DO Primary Care Provider + [phone] Reason for Visit * Reason Onset Date Comments Med Refill 07/22/2023 Encounter Details Date Type Department Care Team ([facility] st Contact Info) Description 07/22/2023 Telephone [facility] [address] [place] [address] Stephanie Alex DO [address] [place], [place] [phone] Med Refill Social History Tobacco Use Types [...] 300 MG/2ML injection To be sent to: [facility] - [place], [place] - [address] [place] [address] documented in this encounter Plan of Treatment Upcoming Encounters Date Type Department Care Team (Late st Contact Info) Description 05/15/2025 1:30 PM EST Immunization [facility] [address] [place] [address] 06/01/2025 1:30 PM EST Telemedicine [facility] [address] [place] [address] Mariana Aggarwal RN 07/09/2025 1:00 PM EST Office Visit [facility] OPT[facility] [address] [place] [address] Virginia García, OD [address] [place] [address] documented as of this encounter Visit Diagnoses Not on filedocumented in this encounter Additional Health Concerns Assessment Noted Time PHQ-9 Depression Total Score: 0 09/02/19 23 9:01 AM EDT documented as of this encounter Care Teams Tow Boat Captain Relationship Specialty Start Date End Date Stephanie Alex DO [address] [place] [address] PCP - General Family Medicine 06/12/15 Myrna 06/21/24 03/05/25 [facility] 07/19/24 documented as of this encounter
--- OUTSIDE RECORDS SUMMARY | 2025-05-14 13:25 | XMS_ITS | Encounter Summary ---
Author Organization [employer] [facility] Address [address] [facility] [address] [place] [address] Care Team Providers Care Pv Installer Tech Name Role Phone Stephanie Alex DO Primary Care Provider + [phone] Encounter Details Date Type Department Care Team (Latest Contact Info) Description 01/23/2022 Abstract [facility] CONVERSIONS Dental, Provider, DDS Social History [...] Info) Description 05/15/2025 1:30 PM EST Immunization [facility] [address] [place] [address] 06/01/2025 1:30 PM EST Telemedicine [facility] [address] [place] [address] Mariana Aggarwal RN 07/09/2025 1:00 PM EST Office Visit [facility] [address] [place] [address] Virginia García, YANA [address] [place] [address] documented as of this encounter Visit Diagnoses Not on filedocumented in this encounter Care Teams Pv Installer Tech Relationship Specialty Start Date End Date Stephanie Alex DO [address] [place] [phone] PCP - General Family Medicine 06/12/15 Myrna 06/21/24 03/05/25 [facility] 07/19/24 documented as of this encounter
--- OUTSIDE RECORDS SUMMARY | 2025-05-14 13:25 | XMS_ITS | Encounter Summary ---
Author Organization [employer] Address [address] [facility] 7t [place] [address] Care Team Providers Care Vending Machine Operator Name Role Phone IsaiStephanie Primary Care Provider + [phone] Reason for Visit * Reason Comments Med Refill Encounter Details Date Type Department Care Team ([facility] Contact Info) Description 06/02/2023 Refill [facility] [address] [place], [place] [phone] Maria De Jesus Mann MD [address] [place], [place] [phone] Moderate persistent asthma, unspecified whether complicated Social [...] Info) Description 05/15/2025 1:30 PM EST Immunization [facility] [address] [place] [address] 06/01/2025 1:30 PM EST Telemedicine [facility] [address] [place] [address] Mariana Aggarwal, ROMEL 07/09/2025 1:00 PM EST Office Visit [facility] [address] [place] [address] Virginai García, OD [address] [place] [address] documented as of this encounter Visit Diagnoses Diagnosis Moderate persistent asthma, unspecified whether complicated documented in this encounter Additional Health Concerns Assessment Noted Time PHQ-9 Depression Total Score: 0 09/02/19 9:01 AM EDT documented as of this encounter Care Teams Vending Machine Operator Relationship Specialty Start Date End Date Stephanie Alex DO [address] [place] [address] PCP - General Family Medicine 06/12/15 Myrna 06/21/24 03/05/25 [facility] 07/19/24 documented as of this encounter
--- OUTSIDE RECORDS SUMMARY | 2025-05-14 13:25 | XMS_ITS | Encounter Summary ---
Author Organization [employer] [facility] Address [address] [facility] [address] [place] [address] Care Team Providers Care Software Sales Representative Name Role Phone Stephanie Alex DO Primary Care Provider + [phone] Reason for Visit * Reason Comments Med Refill Encounter Details Date Type Department Care Team (Late st Contact Info) Description 02/16/2023 Refill [facility] [address] [place] [address] Stephanie Alex DO [address] [place] [address] Depression, unspecified depression type Social History Tobacco [...] Info) Description 05/15/2025 1:30 PM EST Immunization [facility] [address] [place] [address] 06/01/2025 1:30 PM EST Telemedicine [facility] [address] [place] [address] Mariana Aggarwal RN 07/09/2025 1:00 PM EST Office Visit [facility] OPTOM[facility] [address] [place], [place] [phone] Virginia García, OD [address] [place] [address] documented as of this encounter Visit Diagnoses Diagnosis Depression, unspecified depression type documented in this encounter Additional Health Concerns Assessment Noted Time PHQ-9 Depression Total Score: 0 09/02/19 9:01 AM EDT documented as of this encounter Care Teams Software Sales Representative Relationship Specialty Start Date End Date Stephanie Alex DO [address] [place] [address] PCP - General Family Medicine 06/12/15 Myrna 06/21/24 03/05/25 [facility] 07/19/24 documented as of this encounter
--- OUTSIDE RECORDS SUMMARY | 2025-05-14 13:25 | XMS_ITS | Encounter Summary ---
Author Organization [employer] Address [address] [facility] [address] [place] [address] Care Team Providers Care Track Man Name Role Phone Stephanie Alex DO Primary Care Provider + [phone] Encounter Details Date Type Department Care Team ([facility] Contact Info) Description 09/29/2022 Orders Only [facility] MEDICINE [address] [place] [address] Stephanie Alex DO [address] [place], [place] [phone] Gynecomastia, male (Primary Dx) Social History Tobacco [...] Info) Description 05/15/2025 1:30 PM EST Immunization [facility] MEDICINE [address] [place] [address] 06/01/2025 1:30 PM EST Telemedicine [facility] MEDICINE [address] [place] [address] Mariana Aggarwal, RN 07/09/2025 1:00 PM EST Office Visit [facility] OPTOMETRY [address] [place], [place] [phone] Virginia García, OD [address] [place] [address] documented as of this encounter Visit Diagnoses Diagnosis Gynecomastia, male- Primary Hypertrophy of breast documented in this encounter Additional Health Concerns Assessment Noted Time PHQ-9 Depression Total Score: 0 09/02/19 9:01 AM EDT documented as of this encounter Care Teams Track Man Relationship Specialty Start Date End Date Stephanie Alex DO [address] [place] [id number] PCP - General Family Medicine 06/12/15 Myrna 06/21/24 03/05/25 [facility] 07/19/24 documented as of this encounter
--- OUTSIDE RECORDS SUMMARY | 2025-05-14 13:25 | XMS_ITS | Encounter Summary ---
Author Organization [employer] Address [address] [facility] 7t [place] [address] Care Team Providers Care Documentation Manager Name Role Phone EddiStephanie zacarias Primary Care Provider + [phone] Reason for Visit * Reason Comments Med Refill Encounter Details Date Type Department Care Team ([facility] Contact Info) Description 09/27/2022 Refill [facility] MEDICINE [address] [place] [address] Bettina Eddy MD [address] [place] [address] Chronic bilateral low back pain, unspecified whether [...] Info) Description 05/15/2025 1:30 PM EST Immunization [facility] MEDICINE [address] [place] [address] 06/01/2025 1:30 PM EST Telemedicine [facility] MEDICINE [address] [place] [address] Mariana Aggarwal, RN 07/09/2025 1:00 PM EST Office Visit [facility] OPTOMETRY [address] [place], [place] [phone] Virginia García, OD [address] [place] [address] documented as of this encounter Visit Diagnoses Diagnosis Chronic bilateral low back pain, unspecified whether sciatica present documented in this encounter Additional Health Concerns Assessment Noted Time PHQ-9 Depression Total Score: 0 09/02/19 9:01 AM EDT documented as of this encounter Care Teams Documentation Manager Relationship Specialty Start Date End Date Stephanie Alex DO [address] [place] [address] PCP - General Family Medicine 06/12/15 Myrna 06/21/24 03/05/25 [facility] 07/19/24 documented as of this encounter
--- OUTSIDE RECORDS SUMMARY | 2025-05-14 13:25 | XMS_ITS | Encounter Summary ---
Author Organization [employer] Address [address] [facility] 7[address] [place] [address] Care Team Providers Care Suction Roller Name Role Phone Isai Stephanie Primary Care Provider + [phone] Encounter Details Date Type Department Care Team ([facility] st Contact Info) Description 08/24/2023 Orders Only [facility] MEDICINE [address] [place] [address] ProviderMicha MD Social History Tobacco Use Types [...] Info) Description 05/15/2025 1:30 PM EST Immunization [facility] MED[facility]INE [address] [place] [address] 06/01/2025 1:30 PM EST Telemedicine [facility] MEDICINE [address] [place] [address] Mariana Aggarwal RN 07/09/2025 1:00 PM EST Office Visit [facility] OPTOMETRY [address] [place], [place] [phone] Virginia García, OD [address] [place] [address] documented as of this encounter Procedures Procedure Name Priority Date/Time Associated Diagnosis Comments COLONOSCOPY Routine 04/24/2020 10:02 AM EST COLONOSCOPY Routine 03/26/2016 9:58 AM EST documented in this encounter Results * Colonoscopy (04/24/2020 10:02 AM EST) us Historical Provider HEALTH MAINTENANCE Final Result * Colonoscopy (03/26/2016 9:58 AM EST) [facility] Colonoscopy Normal Normal us Historical Provider HEALTH MAINTENANCE Edited Result - Final documented in this encounter Visit Diagnoses Not on filedocumented in this encounter Additional Health Concerns Assessment Noted Time PHQ-9 Depression Total Score: 0 09/02/19 23 9:01 AM EDT documented as of this encounter Care Teams Suction Roller Relationship Specialty Start Date End Date Stephanie Alex DO [address] [place] [address] PCP - General Family Medicine 06/12/15 Myrna 06/21/24 03/05/25 [facility] 07/19/24 documented as of this encounter
--- OUTSIDE RECORDS SUMMARY | 2025-05-14 13:25 | XMS_ITS | Encounter Summary ---
Author Organization [facility] Address [address] [facility] [address] [place] [address] Care Team Providers Care Dehairing Machine Tender Name Role Phone Stephanie Alex DO Primary Care Provider + [phone] Reason for Visit * Reason Comments Med Refill Encounter Details Date Type Department Care Team (Late st Contact Info) Description 12/27/2022 Refill [facility] MEDICINE [address] [place] [address] Stephanie Alex DO [address] [place] [address] Acquired hypothyroidism; Anemia, unspecified type; Chronic bilateral [...] Description 05/15/2025 1:30 PM EST Immunization [facility] MEDICINE [address] [place] [address] 06/01/2025 1:30 PM EST Telemedicine [facility] MEDICINE [address] [place] [address] Mariana Aggarwal RN 07/09/2025 1:00 PM EST Office Visit [facility] OPTOMETRY [address] [place] [address] Ricky, Virginia, OD [address] [place] [address] documented as of this encounter Visit Diagnoses Diagnosis Acquired hypothyroidism Unspecified hypothyroidism Anemia, unspecified type Chronic bilateral low back pain, unspecified whether sciatica present documented in this encounter Additional Health Concerns Assessment Noted Time PHQ-9 Depression Total Score: 0 09/02/19 9:01 AM EDT documented as of this encounter Care Teams Dehairing Machine Tender Relationship Specialty Start Date End Date Stephanie Alex DO [address] [place] [address] PCP - General Family Medicine 06/12/15 Myrna 06/21/24 03/05/25 [facility] 07/19/24 documented as of this encounter
--- OUTSIDE RECORDS SUMMARY | 2025-05-14 13:25 | XMS_ITS | Encounter Summary ---
Author Organization [facility] Address [address] [facility] 7[address] [place] [address] Care Team Providers Care Fluxer Name Role Phone Stephanie Alex DO Primary Care Provider + [phone] Reason for Visit * Reason Onset Date Comments triage 05/21/2022 Encounter Details Date Type Department Care Team ([facility] Contact Info) Description 05/21/2022 Telephone [facility] MEDICINE [address] [place] [address] Stephanie Alex DO [address] [place], [place] [phone] triage Social History Tobacco Use Types Packs/Day [...] now The caller accepted this outcome speaks upper sorbian documented in this encounter Plan of Treatment Upcoming Encounters Date Type Department Care Team (Late st Contact Info) Description 05/15/2025 1:30 PM EST Immunization [facility] MEDICINE [address] [place] [address] 06/01/2025 1:30 PM EST Telemedicine [facility] MEDICINE [address] [place] [address] Mariana Aggarwal RN 07/09/2025 1:00 PM EST Office Visit [facility] OPTOMETRY [address] [place] [address] Virginia García, OD [address] [place] [address] documented as of this encounter Visit Diagnoses Not on filedocumented in this encounter Additional Health Concerns Assessment Noted Time PHQ-9 Depression Total Score: 0 04/22/20 22 10:55 AM EST documented as of this encounter Care Teams Fluxer Relationship Specialty Start Date End Date Stephanie Alex DO [address] [place] [address] PCP - General Family Medicine 06/12/15 Myrna 06/21/24 03/05/25 [facility] 07/19/24 documented as of this encounter
--- OUTSIDE RECORDS SUMMARY | 2025-05-14 13:25 | XMS_ITS | Encounter Summary ---
Author Organization [employer] Address [address] [facility] 7t [place] [address] Care Team Providers Care Adult School Counselor Name Role Phone Stephanie Alex DO Primary Care Provider + [phone] Reason for Visit * Reason Comments Med Refill Encounter Details Date Type Department Care Team ([facility] Contact Info) Description 05/11/2023 Refill [facility] MEDICINE [address] [place], [place] [phone] Stephanie Alex DO [address] [place], [place] [phone] Other chronic pain Social History Tobacco Use [...] Info) Description 05/15/2025 1:30 PM EST Immunization [facility] MEDICINE [address] [place] [address] 06/01/2025 1:30 PM EST Telemedicine [facility] [address] [place] [phone] Mariana Aggarwal, ROMEL 07/09/2025 1:00 PM EST Office Visit [facility] OPTOMETRY [address] [place] [address] Ircky, Virginia, OD [address] [place] [address] documented as of this encounter Visit Diagnoses Diagnosis Other chronic pain documented in this encounter Additional Health Concerns Assessment Noted Time PHQ-9 Depression Total Score: 0 09/02/19 9:01 AM EDT documented as of this encounter Care Teams Adult School Counselor Relationship Specialty Start Date End Date Stephanie Alex DO [address] [place] [address] PCP - General Family Medicine 06/12/15 Myrna 06/21/24 03/05/25 [facility] 07/19/24 documented as of this encounter
--- OUTSIDE RECORDS SUMMARY | 2025-05-14 13:25 | XMS_ITS | Encounter Summary ---
Author Organization [employer] Address [address] [facility] 7[address] [place] [address] Care Team Providers Care Media Librarian Name Role Phone AsterStephanie anand Primary Care Provider + [phone] Encounter Details Date Type Department Care Team ([facility] st Contact Info) Description 05/14/2025 Orders Only GENERIC EXTERNAL DATA DEPARTMENT Provider, Generic External Data Social History Tobacco Use Types Packs/Day Years [...] 1:30 PM EST Immunization [facility] MEDICINE [address] [place] [phone] 06/01/2025 1:30 PM EST Telemedicine [facility] MEDICINE [address] [place] [address] Mariana Aggarwal RN 07/09/2025 1:00 PM EST Office Visit [facility] OPTOMETRY [address] [place] [address] Virginia García, OD [address] [place] [address] documented as of this encounter Goals Goal Patient Goal Type Associated Problems [...] Weekly blood pressure task No Ann-Marie Hill, RETAIL SALES PROFESSIONAL Weekly blood pressure task Care Plan Weekly blood pressure task No Ann-Marie Hill, RETAIL SALES PROFESSIONAL Patient has chronic kidney disease Care Plan Patient has chronic kidney disease No Ann-Marie Hill LPN Patient has chronic kidney disease Care Plan Patient has chronic kidney disease No Ann-Marie Hill LPN Weekly blood pressure task Care Plan Weekly [...] chronic kidney disease No Valerie Degroot MA documented as of this encounter Procedures Procedure Name Priority Date/Time Associated Diagnosis Comments PSA, TOTAL WITH REFLEX TO PSA, FREE Routine 05/14/2025 11:43 AM EST documented in this encounter Results * (ABNORMAL) PSA, Total With Reflex to PSA, Free (05/14/2025 11:43 AM EST) PSA,Total (Free>4and<10) 4.69(H) 0.00 - 4.00 ng/mL [facility] Comment:PSA methodology: [facility] Immunoassay (CMIA) 05/14/2025 11:4 3 AM EST 05/14/2025 11:43 AM EST us Generic External Data Provider LAB BLOOD ORDERAB LES Final Result Performing Organization Address City/State/[facility] Co de Phone Number [facility] [address] [place] [address] [phone] documented in this encounter Visit Diagnoses Not on filedocumented in this encounter Additional Health Concerns Active Problems Noted Date [...] 04/25/2025 Patient has chronic kidney disease 04/25/2025 Assessment Noted Time PHQ-9 Depression Total Score: 0 04/21/20 24 9:57 AM EST documented as of this encounter Care Teams Media Librarian Relationship Specialty Start Date End Date Stephanie Alex DO [address] [place] [phone] PCP - General Family Medicine 06/12/15 [facility] 07/19/24 documented as of this encounter
[2025-05-16 12:08] LABS: Free Prostate Spec Ag 0.4 ng/mL; Percent Free Prostate Spec Ag 8 % (calc) (>25)
== END 2025-05-14 11:26 | disposition home or self-care (01) ==
LOC: HO.LAB 11:25
PROVIDERS: PCP Family Medicine; Visit Provider Nurse Practitioner Family
DX: R97.20 Elevated prostate specific antigen [PSA] (principal); N41.9 Inflammatory disease of prostate, unspecified; Z12.5 Encounter for screening for malignant neoplasm of prostate
CPT/HCPCS: 36415; 84153; 84154